=== PATIENT | female | born 1975 | race Caucasian/White ===

== ENCOUNTER → 2024-10-04 | Outpatient (CLI) | payer BC, SELFPAY ==
--- NOTE | 2024-10-04 07:31 | US_ITS ---
PROCEDURE: ABDOMEN LIMITED REASON FOR EXAM: Pain COMPARISON: None FINDINGS: Liver: Grossly normal size and echotexture. Gallbladder: No stones, sludge, wall thickening or tenderness. Common bile duct: Normal measuring 3 mm. Pancreas: Visualized portions are sonographically unremarkable. Visualized portions of the right kidney are unremarkable. No right upper quadrant ascites. US/Abdomen Limited IMPRESSION: No acute sonographic abnormalities. Reading Location: [facility]
== END | disposition home or self-care (01) ==
LOC: US 07:29
PROVIDERS: PCP Nurse Practitioner Family; Referring Provider Student in an Organized Health Care Education/Training Program; Visit Provider Student in an Organized Health Care Education/Training Program
DX: R10.11 Right upper quadrant pain (principal); R10.13 Epigastric pain
CPT/HCPCS: 76705

== ENCOUNTER 2024-12-12 12:09 | Day surgery (SDC) | payer BC, SELFPAY ==
[2024-12-12] VITALS (8 sets, daily range): BP systolic 81–118; BP diastolic 66–87; PULSE 57–78; RESP 16; TEMP 36.2–36.6; O2SAT 96–100; BMI 17.2
--- NOTE | 2024-12-12 12:15 | PCM.PRE.AN2 ---
ASA Classification* ASA Classification ASA Classification: 2 Assessment & Plan Anesthesia* Anesthesia Assessment Anesthesia Assessment: Discussed sedation and/or anesthesia options, risks, benefits, and alternatives with patient/parents/legal guardian/POA. Questions invited. The patient/parents/legal guardian/POA seems to understand and agrees to proceed with anesthesia plan. Reviewed the physical assessment, medical history, allergy history and patient home medications list prior to surgery/procedure/anesthetic and documented any changes. Performed airway and anesthesia risk assessments. 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 When Was Last Pacemaker Check QUESTION #4 FULL TEXT: You/Your Family Experience fever (hyperthermia) with Anesthesia Last Oral Intake Last Oral intake: Last Oral Intake NPO since Meds taken in AM with sips of water? 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 Female Yes 12/10/24 10:38 HX of Motion Sickness Yes 12/10/24 10:38 HX of N/V After Surgery Yes 12/10/24 10:38 Non-Smoker No 12/10/24 10:38 Duration of Surgery greater No 12/10/24 10:38 than 60 minutes Number of Risk Factors 3 12/10/24 10:38 PONV Score Moderate Risk 12/10/24 10:38 Respiratory Assessment Respiratory Assessment - building and grounds supervisor: Respiratory Tract Infection Hx - building and grounds supervisor Hx Respiratory Tract Infection No 12/10/24 10:38 STOP Sleep Apnea STOP Sleep Apnea - building and grounds supervisor: STOP Sleep Apnea - building and grounds supervisor Hx Hypertension No 12/10/24 10:38 Hx Sleep Apnea No 12/10/24 10:38 CPAP BIPAP Do you snore loudly (louder No 12/10/24 10:38 than talking or can be heard Do you often feel tired/ No 12/10/24 10:38 fatigued/ sleepy during daytime? Has anyone observed you stop No 12/10/24 10:38 breathing during sleep? STOP Results Negative 12/10/24 10:38 QUESTION #5 FULL TEXT : Do you snore loudly (louder than talking or can be heard through closed doors)? 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 Specify any problems Hx of Preganancy in last 3 No 12/10/24 10:38 Months Nurse Filling Out Transfusion VCHRISTIN 12/10/24 10:38 & Questions: Date: 12/10/24 12/10/24 10:38 Time: 10:42 12/10/24 10:38 Patient unable to answer at this time (ie. confused, unrespo /Reproduction History /Reproductive History - building and grounds supervisor: /Reproductive Hx- building and grounds supervisor Hx Now No 12/10/24 10:38 Gestational Age (in weeks): EDC: Hx Hx Para Hx Section SAB No 12/10/24 10:38 PFSH Medical History Wears glasses MRSA infection Post-menopausal Anxiety Marijuana use Arthritis Anemia Back pain Difficulty swallowing History of ulceration History of IBS Gastric reflux Vapes nicotine containing substance Smoker Hoarseness History of pain when walking Herpes simplex viral infection Depression Anesthesia complication Polycystic ovaries Neuropathy Heart murmur Irritable bowel syndrome Hives Headache, migraine Gastrointestinal problem Back problem Seasonal allergies Home Medications ?Medication ?Instructions ?Recorded ?Last Taken ?Type multivitamin 1 ea PO DAILY 03/07/17 Unknown History lactobacillus combination no.4 3 3,000 mmu cells PO QDAY 09/30/24 Unknown History billion cell capsule (Probiotic) magnesium 250 mg tablet 250 mg PO QDAY 09/30/24 Unknown History oxybutynin chloride 10 mg 10 mg PO BID 09/30/24 Unknown History tablet,extended release 24 hr pantoprazole 40 mg tablet,delayed 20 mg PO BID 09/30/24 Unknown History release valacyclovir 500 mg tablet 500 mg PO QDAY 09/30/24 Unknown History ondansetron 8 mg disintegrating 8 mg PO Q12H PRN nausea and 12/10/24 Unknown History tablet vomiting Allergy/AdvReac Type Severity Reaction Status Date / Time sucralfate (From Carafate) Allergy Severe Swelling Verified 12/10/24 10:25 sulfamethoxazole (From Allergy Swelling Verified 12/10/24 10:25 Bactrim) trimethoprim (From Bactrim) Allergy Swelling Verified 12/10/24 10:25 Family History Mother Cancer Anemia Arthritis Breast cancer Father Cancer Hypertension Heart disease Diabetes Myocardial infarction, Onset Age: 59 Brother Hypertension Hypercholesteremia Sister Arthritis Other Anxiety Surgical History History of esophagogastroduodenoscopy (EGD) History of hysterectomy History of total right knee replacement S/P right knee arthroscopy History of tonsillectomy Social History Smoking Status: Current every day smoker tobacco type: cigarettes alcohol intake: current substance use type: marijuana Review of Systems (Anesthesia) ROS Narrative System reviewed and no additional complaints, except as documented.
--- NOTE | 2024-12-12 13:30 | EGD_PTH ---
PATIENT: MANJIT GONZALEZ LOC: [facility] U#:[id number] AGE/SX: 49/F ROOM: RE12/12/[address]: Dr. Lloyd Lee DO : 1975 BED: DIS: 12/12/2024 SPEC #: [id number] RECD: 12/15/24 08:43 STATUS: NIKIA KUSH #: [id number] RAJ: 12/12/24 13:[address]: Lloyd Lee DEPT: SURGICAL PATHOLOGY RECD BY: Vishnu Rudolph ENTERED: 12/15/24 08:44 SP TYPE: EGD BIOPSY CLEMENT DR: Teri Garcia, EMPLOYMENT REPRESENTATIVE-C Tissues: A - Gastric mucous membrane B - COLON BIOPSY Procedures: Immunohistochemical Stains Surgery Specimen Level IV HEADER OPERATION: EGD with biopsy PRE-OP DIAGNOSIS: Constipation., gastroparesis, nausea, loose stool, abdominal pain TISSUE SUBMITTED: A- Gastric body biopsy, B- Small bowel biopsy MICROSCOPIC DIAGNOSIS A. Stomach, body, biopsy: * Oxyntic mucosa with features of reactive gastropathy. * IHC negative for H pylori organisms. B. Small bowel, biopsy: * Fragment of small intestinal mucosa with no specific pathologic change. * Fragments of gastric-type mucosa - see note. 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 Recommend correlation with endoscopic finings. MICROSCOPIC DESCRIPTION Slides are reviewed. These tests were developed and their performance characteristics determined by [facility]. They may not have been cleared or approved by the U.S. Food and Drug Administration. The FDA has determined that such clearance or approval is not necessary. The above immunohistochemical/dualISH markers are ordered and reviewed by the Pathologist. GROSS DESCRIPTION A. Received in formalin in a container labeled with the patient's name, date of , and gastric body biopsy for H. pylori and path are 2 fabian-pink fragments of mucosal tissue measuring 0.5 x 0.2 x 0.2 cm and 0.8 x 0.2 x 0.2 cm. Submitted in toto in A1. B. Received in formalin in a container labeled with the patient's name, date of , and small bowel biopsy are 2 fabian-pink fragments of mucosal tissue, each measuring 0.4 x 0.2 x 0.2 cm. Submitted in toto in B1. [facility] 12/22/2024 CPT:11818x3,52809
--- NOTE | 2024-12-12 13:42 | PCM.HP.STD ---
HPI - General General Date of Admission: 12/12/24 Date of Service: 12/12/24 Chief Complaint: weight loss and abdominal pain with dysphagia HPI Narrative MANJIT GONZALEZ, is a 49 F who presents abdominal pain, constipation and weight loss. EGD ..17; Suspected Barrets esophagus, small amount of food debris in stomach, mild gastritis, normal duodenum EGD 5.18.24; small hiatal hernia, mild gastritis EGD 5..24; normal mucosa in the whole esophagus, erythema and congestion in the antrum, normal duodenum CT abd/pelvis 6.14.24; NO acute process within the abd/pelvis GES 6..24; slightly prolonged extrapolated T half emptying time of 126.5 minutes likely secondary to the 1st 60 minutes of imaging acquisition. Other marcelino normal BGI established 1.28.25 with complaints of weight loss, difficult swallowing, heartburn and irregular bowels. Previous work up with Qing HARDWICK. Smokes marijuana daily to stimulate appetite. On Pantoprazole 40 mg BID. Last EGD in 2023 and last colonoscopy about 10 years ago. RUQ US 2.1.25; normal OV 3.18.25; Pt has been struggling with oral intake. She feels full very quickly after eating. She is taking nutritional powder for extra calories. She is eating mostly bland food and avoiding gluten and soy. She is unable to gain weight. She continues to smoke marijuana. She has questions regarding oxybutynin for her bladder incontinence. [facility] Medical History Congenital hernia of foramen of [place] Wears glasses MRSA infection Post-menopausal Anxiety Marijuana use Arthritis Anemia Back pain Difficulty swallowing History of ulceration History of IBS Gastric reflux Vapes nicotine containing substance Smoker Hoarseness History of pain when walking Herpes simplex viral infection Depression Anesthesia complication Polycystic ovaries Neuropathy Heart murmur Irritable bowel syndrome Hives Headache, migraine Gastrointestinal problem Back problem Seasonal allergies Home Medications ?Medication ?Instructions ?Recorded ?Last Taken ?Type multivitamin 1 ea PO DAILY 03/07/17 12/10/24 History lactobacillus combination no.4 3 3,000 mmu cells PO QDAY 09/30/24 12/10/24 History billion cell capsule (Probiotic) magnesium 250 mg tablet 250 mg PO QDAY 09/30/24 12/10/24 History oxybutynin chloride 10 mg 10 mg PO BID 09/30/24 12/11/24 History tablet,extended release 24 hr pantoprazole 40 mg tablet,delayed 20 mg PO BID 09/30/24 12/10/24 History release valacyclovir 500 mg tablet 500 mg PO QDAY 09/30/24 12/10/24 History ondansetron 8 mg disintegrating 8 mg PO Q12H PRN nausea and 12/10/24 12/10/24 History tablet vomiting fluticasone propionate 50 1 spray intranasal DAILY PRN 12/12/24 12/10/24 History mcg/actuation nasal allergy symptoms spray,suspension (24 Hour Allergy Relief) Allergy/AdvReac Type Severity Reaction Status Date / Time sucralfate (From Carafate) Allergy Severe Swelling Verified 12/12/24 12:52 soy Allergy Hives Verified 12/12/24 12:52 sulfamethoxazole (From Allergy Swelling Verified 12/12/24 12:52 Bactrim) trimethoprim (From Bactrim) Allergy Swelling Verified 12/12/24 12:52 Family History Mother Cancer Anemia Arthritis Breast cancer Father Cancer Hypertension Heart disease Diabetes Myocardial infarction, Onset Age: 59 Brother Hypertension Hypercholesteremia Sister Arthritis Other Anxiety Surgical History History of esophagogastroduodenoscopy (EGD) History of hysterectomy History of total right knee replacement S/P right knee arthroscopy History of tonsillectomy Social History Smoking Status: Current every day smoker tobacco type: cigarettes alcohol intake: current substance use type: marijuana ROS Constitutional Constitutional: Denies fatigue, fever(s), poor appetite, weight gain or weight loss Gastrointestinal Gastrointestinal: Denies belching, bloating, change in bowel habits, change in stool character, chewing difficulty, coffee ground emesis, constipation, cramping, diarrhea, dyspepsia, dysphagia, early satiety, excessive flatus, fecal incontinence, heartburn, hematemesis, hematochezia, hemorrhoids, loose stools, melena, nausea, odynophagia, rectal bleeding, tenesmus, vomiting or weight changes Vital Signs Vital Signs Vital Signs: 12/12/24 12:58 12/12/24 12:58 Temperature 98 F Temperature Source Temporal Pulse Rate 57 L Respiratory Rate 16 Respiratory Pattern Normal Blood Pressure 118/86 H Blood Pressure Mean 96 Blood Pressure Source Monitor Blood Pressure Position Semi-Fowlers Blood Pressure Location Left Arm Pulse Ox 100 Oxygen Delivery Method Room Air Weight Weight: 103 lb 2.821 oz Body Mass Index (BMI) 17.2 Physical Exam Const alert, oriented x3, no apparent distress and healthy appearing General Appearance: cooperative GI normal to inspection, nondistended, normoactive bowel sounds, soft to palpation, non-tender and non-distended Percussion: normal to percussion Rectal Exam: deferred Assessment & Plan Assessment/Plan (1) Constipation: (2) Gastroparesis: (3) Nausea: (4) Loose stools: (5) Abdominal pain: PLAN: Assessment and Plan Assessment and Plan (1) Gastroparesis: Status: Acute Plan: This is a 49 yo female pt with hx of gastroparesis here today for f/u. Pt continues to struggle with oral intake due to early satiety. She cannot maintain a normal weight. I reviewed options for treatment with patient. She declines tx with Reglan as she is concern about side effects. Will order 4 hour gastric emptying study and consider referral to gastroparesis clinic if indicated. She will also have a repeat EGD. She has not had a colonoscopy in 10 years so she will have one in conjunction with the EGD. She is having constipation. I provided samples of Linzess 72 mcg and if she has good results I will send in prescription for this. -4 hour GES -EGD and colonoscopy -Declines Reglan -Consider other tx for gastroparesis -Consider referral to gastroparesis appointemnt (2) Nausea: Status: Acute (3) Constipation: Status: Acute Orders: Orders Gastric Emptying Study - 4 HR Today K31.84 - Gastroparesis
--- NOTE | 2024-12-12 14:15 | OP.EGD_ITS ---
Patient Name: Kia Villagran Procedure Date: 12/12/2024 1:45 PM Date of : 1975 Age: 49 Procedure: Upper GI endoscopy Indications: Epigastric abdominal pain, Functional Dyspepsia Providers: Lloyd Lee DO Medicines: Monitored Anesthesia Care Patient Profile: This is a 49 year old female. Refer to note in patient chart for documentation of history and physical. Patient has symptoms of chronic epigastric abdominal pain, chronic dyspepsia and chronic nausea. Complications: No immediate complications. Procedure: Pre-Anesthesia Assessment: - Prior to the procedure, a History and Physical was performed, and patient medications and allergies were reviewed. The patient is competent. The risks and benefits of the procedure and the sedation options and risks were discussed with the patient. All questions were answered and informed consent was obtained. Patient identification and proposed procedure were verified by the physician in the pre-procedure area. Mental Status Examination: alert and oriented. Airway Examination: normal oropharyngeal airway and neck mobility. Respiratory Examination: clear to auscultation. CV Examination: normal. Prophylactic Antibiotics: The patient does not require prophylactic antibiotics. Prior Anticoagulants: The patient has taken no anticoagulant or antiplatelet agents except for NSAID medication. ASA Grade Assessment: II - A patient with mild systemic disease. After reviewing the risks and benefits, the patient was deemed in satisfactory condition to undergo the procedure. The anesthesia plan was to use monitored anesthesia care (MAC). Immediately prior to administration of medications, the patient was re-assessed for adequacy to receive sedatives. The heart rate, respiratory rate, oxygen saturations, blood pressure, adequacy of pulmonary ventilation, and response to care were monitored throughout the procedure. The physical status of the patient was re-assessed after the procedure. After obtaining informed consent, the endoscope was passed under direct vision. Throughout the procedure, the patient's blood pressure, pulse, and oxygen saturations were monitored continuously. The gastroscope was introduced through the mouth, and advanced to the third part of the duodenum. Small bowel enteroscopy was deemed necessary. The upper GI endoscopy was accomplished without difficulty. The patient tolerated the procedure well. Scope In: 2:02:01 PM Scope Out: 2:06:55 PM Total Procedure Duration Time 0 hours 4 minutes 54 seconds Findings: The examined esophagus was normal. Bilious fluid was found in the gastric body. Patchy mildly erythematous mucosa without bleeding was found in the gastric body and in the gastric antrum. Biopsies were taken with a cold forceps for histology. Verification of patient identification for the specimen was done. Biopsies were taken with a cold forceps for Helicobacter pylori testing. Verification of patient identification for the specimen was done. Estimated blood loss was minimal. Patchy mildly erythematous mucosa without active bleeding and with no stigmata of bleeding was found in the duodenal bulb and in the first portion of the duodenum. Impression: - Normal esophagus. - Bilious gastric fluid. - Erythematous mucosa in the gastric body and antrum. Biopsied. - Erythematous duodenopathy. Recommendation: - Discharge patient to home. - Resume previous diet. - Continue present medications. - Await pathology results. Procedure Code(s): --- Professional --- 92917, Small intestinal endoscopy, enteroscopy beyond second portion of duodenum, not including ileum; with biopsy, single or multiple CPT copyright 2021 [employer]. All rights reserved. The codes documented in this report are preliminary and upon occupational therapy technician review may be revised to meet current compliance requirements. Lloyd Lee DO 12/12/2024 2:15:28 PM This report has been signed electronically. Number of Addenda: 0 Note Initiated On: 12/12/2024 1:45 PM
--- NOTE | 2024-12-12 14:16 | OP.CCLET_ITS ---
12/12/2024 Teri Garcia Re : Upper GI endoscopy procedure for Kia Villagran Dear Jose This procedure was performed on Thursday, December 12, 2024. My impressions and recommendations are as follows: Impressions : - Normal esophagus. - Bilious gastric fluid. - Erythematous mucosa in the gastric body and antrum. Biopsied. - Erythematous duodenopathy. Recommendations : - Discharge patient to home. - Resume previous diet. - Continue present medications. - Await pathology results. My findings are described in the full procedure note, which is enclosed. If I can be of further assistance, please feel free to contact me at . Sincerely, Lloyd Lee, 12/12/2024 2:15:28 PM This report has been signed electronically.
--- NOTE | 2024-12-12 14:16 | PCM.POST.ANE ---
Anesthesia: Postop Eval I Current Vital Signs Temperature: 97.9 F Pulse Rate: 71 Blood Pressure: 86/67 Respiratory Rate: 16 Pulse Ox: 98 Oxygen Delivery Method: Room Air Assessment Airway patent: Yes Spontaneous unlabored respirations: Yes Mental status: Asleep nausea: No Vomiting: No Anesthesia Complication: No Fluid Hydration Crystalloid volume administer (ml): 30 Total IV fluid infused: 30 Progress Note Anesthesia document: Postop Eval 1 completed: Yes
--- NOTE | 2024-12-12 14:59 | PCM.POSTANE2 ---
Anesthesia Postop Eval I Sum Postop Eval Completion status Anesthesia document: Postop Eval 1 completed: Yes Anesthesia Postop Eval I Summary Anesthesia Postop Eval I Summary: Anesthesia Postop Eval I: Assessment Summary Airway patent Yes 12/12/24 14:17 [email or web address] Spontaneous unlabored Yes 12/12/24 14:17 [email or web address] respirations Mental status Asleep 12/12/24 14:17 [email or web address] nausea No 12/12/24 14:17 [email or web address] Vomiting No 12/12/24 14:17 [email or web address] Anesthesia Postop Eval I: Fluid Summary Crystalloid volume administer 30 12/12/24 14:17 [email or web address] (ml) Colloids volume administered ( ml) Blood Product volume administered (ml) Total IV fluid infused 30 12/12/24 14:17 [email or web address] Anesthesia Postop Eval I: Summary Notes Anesthesia Complication No 12/12/24 14:17 [email or web address] Anesthesia Complication Comment: Post-operative progress note Anesthesia: Postop Eval II Evaluation Mental status: Awake Pain Level: 0 nausea: No Vomiting: No
== END 2024-12-12 15:25 | disposition home or self-care (01) ==
LOC: EN 12:10 → AC 12:11
PROVIDERS: PCP Nurse Practitioner Family; Referring Provider Nurse Practitioner Family; Visit Provider Internal Medicine Gastroenterology
PROC: 0DJ08ZZ Inspection of Upper Intestinal Tract, Via Natural or Artificial Opening Endoscopic (ICD-10-PCS; CPT 43235; principal; 2024-12-12 13:25)
DX: K31.84 Gastroparesis (principal); R19.7 Diarrhea, unspecified; K21.9 Gastro-esophageal reflux disease without esophagitis; Z79.899 Other long term (current) drug therapy; F17.210 Nicotine dependence, cigarettes, uncomplicated; K59.00 Constipation, unspecified
CPT/HCPCS: 43239; 88305; 88342; A4216; J2405

== ENCOUNTER → 2024-12-17 | Outpatient (CLI) | payer BC, SELFPAY ==
--- NOTE | 2024-12-17 07:08 | NM_ITS ---
PROCEDURE: GASTRIC EMPTYING STUDY - 4 HR 12/17/2024 REASON FOR EXAM: GASTROPARESIS COMPARISON: None. TECHNIQUE: The patient ingested a standard meal of cooked eggs with the bread and 2 pads of butter. There was no vomiting postprandially. Anterior and posterior planar images of the upper abdomen were obtained for 1 minute immediately following the meal at 1h, 2h and 4h if more than 10% of the activity persisted within the stomach. Regions of interest were drawn, and a geometric mean was used to calculate a [id number]. RADIOPHARMACEUTICAL: 1.1 mCi of technetium labeled sulfur colloid 66 FINDINGS: Percent activity remaining in stomach: 1 hour 66 % (normal 37-90%) 2 hours: 26 % (normal 30-60%) 4 hours: 9 % (normal 0-10%) NM/Gastric Emptying Study - 4 HR IMPRESSION: Normal gastric emptying. Reading Location: [place] [id number]
== END | disposition home or self-care (01) ==
LOC: NM 07:06
PROVIDERS: PCP Nurse Practitioner Family; Referring Provider Student in an Organized Health Care Education/Training Program; Visit Provider Student in an Organized Health Care Education/Training Program
DX: K31.84 Gastroparesis (principal)
CPT/HCPCS: 78264; A9541

== ENCOUNTER 2025-01-13 12:33 | Day surgery (SDC) | payer BC, SELFPAY ==
[2025-01-13] VITALS (9 sets, daily range): BP systolic 84–103; BP diastolic 52–74; PULSE 52–68; RESP 14–18; TEMP 36–36.6; O2SAT 100; BMI 18.9
--- NOTE | 2025-01-13 12:39 | PCM.HP.STD ---
HPI - General General Date of Admission: 01/13/25 Date of Service: 01/13/25 Chief Complaint: Abdominal pain HPI Narrative MANJIT GONZALEZ, is a 49 F who presents for the evaluation of epigastric pain I established Sep 2024 with weight loss, difficulty swallowing,heartburn and irregular bm. EGD 07.17.17; Suspected Barrets esophagus, small amount of food debris in stomach, mild gastritis, normal duodenum EGD 01.19.24; small hiatal hernia, mild gastritis EGD 01.14.24; normal mucosa in the whole esophagus, erythema and congestion in the antrum, normal duodenum CT abd/pelvis 02.15.24; NO acute process within the abd/pelvis GES 6..24; slightly prolonged extrapolated T half emptying time of 126.5 minutes likely secondary to the 1st 60 minutes of imaging acquisition. Other marcelino normal RUQ US 2.1.25; normal Last OV 3.18.25 Pt continues to have issues with oral intake. She gets full very quickly after eating. Unable to gain weight. Continues to smoke marijuana EGD 12.12.24; - Normal esophagus. - Bilious gastric fluid. - Erythematous mucosa in the gastric body and antrum. Biopsied. - Erythematous duodenopathy. 4 hour GES 4.16.25; normal OV 4.28.25; Pt has been able to eat some soft foods without pain. She tells me Dr. Lee wanted to get a barium swallow after the EGD. She still has episodes of severe pain but Levsin and zofran has been helpful. FOR[facility]LY [facility], [facility] Medical History History of MRSA infection Congenital hernia of foramen of [place] Wears glasses Post-menopausal Anxiety Marijuana use Arthritis Anemia Back pain Difficulty swallowing History of ulceration History of IBS Gastric reflux Vapes nicotine containing substance Smoker Hoarseness History of pain when walking Herpes simplex viral infection Depression Anesthesia complication Polycystic ovaries Neuropathy Heart murmur Irritable bowel syndrome Headache, migraine Gastrointestinal problem Back problem Seasonal allergies Home Medications ?Medication ?Instructions ?Recorded ?Last Taken ?Type multivitamin 1 ea PO DAILY 03/07/17 12/10/24 History lactobacillus combination no.4 3 3,000 mmu cells PO QDAY 09/30/24 12/10/24 History billion cell capsule (Probiotic) magnesium 250 mg tablet 250 mg PO QDAY 09/30/24 12/10/24 History oxybutynin chloride 10 mg 10 mg PO BID 09/30/24 12/11/24 History tablet,extended release 24 hr pantoprazole 40 mg tablet,delayed 40 mg PO BID 09/30/24 12/10/24 History release valacyclovir 500 mg tablet 500 mg PO QDAY 09/30/24 12/10/24 History fluticasone propionate 50 1 spray intranasal DAILY PRN 12/12/24 12/10/24 History mcg/actuation nasal allergy symptoms spray,suspension (24 Hour Allergy Relief) hyoscyamine sulfate 0.125 mg tablet 0.125 mg PO BID-QID PRN dyspepsia 12/16/24 Unknown Rx #30 tabs ondansetron 8 mg disintegrating 8 mg PO Q12H PRN nausea and 12/29/24 Unknown Rx tablet vomiting #30 tabs Allergy/AdvReac Type Severity Reaction Status Date / Time sucralfate (From Carafate) Allergy Severe Swelling Verified 01/09/25 09:16 soy Allergy Hives Verified 01/09/25 09:16 sulfamethoxazole (From Allergy Swelling Verified 01/09/25 09:16 Bactrim) trimethoprim (From Bactrim) Allergy Swelling Verified 01/09/25 09:16 Family History Mother Cancer Anemia Arthritis Breast cancer Father Cancer Hypertension Heart disease Diabetes Myocardial infarction, Onset Age: 59 Brother Hypertension Hypercholesteremia Sister Arthritis Other Anxiety Surgical History History of esophagogastroduodenoscopy (EGD) History of hysterectomy History of total right knee replacement S/P right knee arthroscopy History of tonsillectomy Social History Smoking Status: Current every day smoker tobacco type: cigarettes alcohol intake: current substance use type: marijuana ROS Constitutional Constitutional: Denies fatigue, fever(s), poor appetite, weight gain or weight loss Gastrointestinal Gastrointestinal: Denies belching, bloating, change in bowel habits, change in stool character, chewing difficulty, coffee ground emesis, constipation, cramping, diarrhea, dyspepsia, dysphagia, early satiety, excessive flatus, fecal incontinence, heartburn, hematemesis, hematochezia, hemorrhoids, loose stools, melena, nausea, odynophagia, rectal bleeding, tenesmus, vomiting or weight changes Physical Exam Const alert, oriented x3, no apparent distress and healthy appearing General Appearance: cooperative GI normal to inspection, nondistended, normoactive bowel sounds, soft to palpation, non-tender and non-distended Percussion: normal to percussion Rectal Exam: deferred Assessment & Plan Assessment/Plan (1) Constipation: (2) Gastroparesis: (3) Nausea: (4) Abdominal pain: (5) Difficulty swallowing: PLAN: Assessment and Plan Assessment and Plan (1) Difficulty swallowing: Status: Acute Comment: FOR YEARS Plan: This is a 49 yo female pt here today for f/u after EGD. Pt established with [facility] in Sep 2024 with complaints of abdominal pain, weight loss, and n/v. She underwent 4 hour GES and RUQ US which were normal. Recent EGD showing bilious gastric fluid and inflammation. 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 However this was not ordered. I have put this order in now. She has been doing better since the scope and has been able to eat more and gain a little weight. She will continue Levsin and Zofran PRN which seems to help with her episodes of epigastric pain. SHe will f/u in3 months. -Continue Levsin and Zofran PRN -Barium esophagram -f/u in 3 months (2) Nausea: Status: Acute (3) Abdominal pain: Status: Acute Orders: Orders Esophagus Dual Contrast Today R13.10 - Dysphagia, unspecified Medications: New ondansetron 8 mg PO Q12H PRN 30 tabs 2RF nausea and vomiting
[2025-01-13] MEDS: Lactated Ringers 1,000 ML 15 ML IV (13:38)
--- NOTE | 2025-01-13 13:42 | PCM.PRE.AN2 ---
ASA Classification* ASA Classification ASA Classification: 2 Assessment & Plan Anesthesia* Anesthesia Assessment Anesthesia Assessment: Discussed sedation and/or anesthesia options, risks, benefits, and alternatives with patient/parents/legal guardian/POA. Questions invited. The patient/parents/legal guardian/POA seems to understand and agrees to proceed with anesthesia plan. Reviewed the physical assessment, medical history, allergy history and patient home medications list prior to surgery/procedure/anesthetic and documented any changes. Performed airway and anesthesia risk assessments. 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 When Was Last Pacemaker Check QUESTION #4 FULL TEXT: You/Your Family Experience fever (hyperthermia) with Anesthesia Last Oral Intake Last Oral intake: Last Oral Intake NPO since 04:00 01/13/25 13:35 Meds taken in AM with sips of No 01/13/25 13:35 water? 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 and fixture builder apprentice Female Yes 01/09/25 09:20 HX of Motion Sickness Yes 01/09/25 09:20 HX of N/V After Surgery No 01/09/25 09:20 Non-Smoker No 01/09/25 09:20 Duration of Surgery greater No 01/09/25 09:20 than 60 minutes Number of Risk Factors 2 01/09/25 09:20 PONV Score Moderate Risk 01/09/25 09:20 Height & Weight Height & Weight: Anesthesia: Height & Weight Height 5 ft 5 in 01/13/25 13:35 Weight: 51.7 kg 01/13/25 13:35 Body Mass Index (BMI) 18.9 01/13/25 13:35 Respiratory Assessment Respiratory Assessment - jig and fixture builder apprentice: Respiratory Tract Infection Hx - jig and fixture builder apprentice Hx Respiratory Tract Infection No 01/09/25 09:20 STOP Sleep Apnea STOP Sleep Apnea - jig and fixture builder apprentice: STOP Sleep Apnea - jig and fixture builder apprentice Hx Hypertension No 01/09/25 09:20 Hx Sleep Apnea No 01/09/25 09:20 CPAP BIPAP Do you snore loudly (louder No 01/09/25 09:20 than talking or can be heard Do you often feel tired/ No 01/09/25 09:20 fatigued/ sleepy during daytime? Has anyone observed you stop Yes 01/09/25 09:20 breathing during sleep? STOP Results Negative 01/09/25 09:20 QUESTION #5 FULL TEXT : Do you snore loudly (louder than talking or can be heard through closed doors)? 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 Specify any problems Hx of Preganancy in last 3 No 01/09/25 09:20 Months Nurse Filling Out Transfusion MGRIFFITH 01/09/25 09:20 & Questions: Date: 01/09/25 01/09/25 09:20 Time: :01/09/25 09:20 Patient unable to answer at this time (ie. confused, unrespo /Reproduction History /Reproductive History - jig and fixture builder apprentice: /Reproductive Hx- jig and fixture builder apprentice Hx Now No 01/09/25 09:20 Gestational Age (in weeks): EDC: Hx Hx Para Hx Section SAB No 01/09/25 09:20 Active Medications Active Medications: Current Medications Generic Name Dose Route Start Last Admin Trade Name Freq PRN Reason Stop Dose Admin Lactated Ringer's 1,000 mls @ 15 mls/hr 01/13/25 12:45 01/13/25 13:38 IV 15 mls/hr .Q48H JOHNNIE Administration PFSH Medical History History of MRSA infection Congenital hernia of foramen of [place] Wears glasses Post-menopausal Anxiety Marijuana use Arthritis Anemia Back pain Difficulty swallowing History of ulceration History of IBS Gastric reflux Vapes nicotine containing substance Smoker Hoarseness History of pain when walking Herpes simplex viral infection Depression Anesthesia complication Polycystic ovaries Neuropathy Heart murmur Irritable bowel syndrome Headache, migraine Gastrointestinal problem Back problem Seasonal allergies Home Medications ?Medication ?Instructions ?Recorded ?Last Taken ?Type multivitamin 1 ea PO DAILY 03/07/17 12/10/24 History lactobacillus combination no.4 3 3,000 mmu cells PO QDAY 09/30/24 12/10/24 History billion cell capsule (Probiotic) magnesium 250 mg tablet 250 mg PO QDAY 09/30/24 12/10/24 History oxybutynin chloride 10 mg 10 mg PO BID 09/30/24 12/11/24 History tablet,extended release 24 hr pantoprazole 40 mg tablet,delayed 40 mg PO BID 09/30/24 12/10/24 History release valacyclovir 500 mg tablet 500 mg PO QDAY 09/30/24 12/10/24 History fluticasone propionate 50 1 spray intranasal DAILY PRN 12/12/24 12/10/24 History mcg/actuation nasal allergy symptoms spray,suspension (24 Hour Allergy Relief) hyoscyamine sulfate 0.125 mg tablet 0.125 mg PO BID-QID PRN dyspepsia 12/16/24 Unknown Rx #30 tabs ondansetron 8 mg disintegrating 8 mg PO Q12H PRN nausea and 12/29/24 Unknown Rx tablet vomiting #30 tabs Allergy/AdvReac Type Severity Reaction Status Date / Time sucralfate (From Carafate) Allergy Severe Swelling Verified 01/13/25 13:34 soy Allergy Hives Verified 01/13/25 13:34 sulfamethoxazole (From Allergy Swelling Verified 01/13/25 13:34 Bactrim) trimethoprim (From Bactrim) Allergy Swelling Verified 01/13/25 13:34 Family History Mother Cancer Anemia Arthritis Breast cancer Father Cancer Hypertension Heart disease Diabetes Myocardial infarction, Onset Age: 59 Brother Hypertension Hypercholesteremia Sister Arthritis Other Anxiety Surgical History History of esophagogastroduodenoscopy (EGD) History of hysterectomy History of total right knee replacement S/P right knee arthroscopy History of tonsillectomy Social History Smoking Status: Current every day smoker tobacco type: cigarettes alcohol intake: current substance use type: marijuana Review of Systems (Anesthesia) ROS Narrative System reviewed and no additional complaints, except as documented. Physical Exam Const alert and oriented x3 Resp normal respiratory effort and normal air movement Auscultation: clear to auscultation bilaterally Cardio regular rate and regular rhythm Neuro oriented x3 and moves all extremities
--- NOTE | 2025-01-13 13:45 | COLBX_PTH ---
PATIENT: MANJIT GONZALEZ LOC: EN U#:[id number] AGE/SX: 49/F ROOM: RE01/13/[address]: Dr. Lloyd Lee DO : 1975 BED: DIS: 01/13/2025 SPEC #: [id number] RECD: 01/13/25 14:55 STATUS: NIKIA REVeena #: [id number] RAJ: 01/13/25 13:[address]: Lloyd Lee DEPT: SURGICAL PATHOLOGY RECD BY: Vishnu Rudolph ENTERED: 01/13/25 15:18 SP TYPE: COLON BX OT DR: Teri Garcia, DRILLING ENGINEER-C Tissues: A - Rectum, NOS Procedures: Surgery Specimen Level IV HEADER OPERATION: Colonoscopy with biopsy PRE-OP DIAGNOSIS: Constipation, gastroparesis, nausea, abdominal pain, difficulty swallowing TISSUE SUBMITTED: A- Rectal polyp biopsy MICROSCOPIC DIAGNOSIS A. Rectum, polyp, biopsy: * Hyperplastic polyp MICROSCOPIC DESCRIPTION Slides are reviewed. GROSS DESCRIPTION A. Received in formalin in a container labeled with the patient's name, date of , and rectal polyp biopsy is a 0.4 x 0.2 x 0.2 cm fragment of fabian-pink mucosal tissue. Submitted in toto in A1. B 01-13-2025 CPT:16317
--- NOTE | 2025-01-13 14:27 | OP.CCLET_ITS ---
01/13/2025 Teri Garcia Re : Colonoscopy procedure for Kia Villagran Dear Jose This procedure was performed on Monday, January 13, 2025. My impressions and recommendations are as follows: Impressions : - Preparation of the colon was fair. - One 5 mm polyp in the rectum, removed with a jumbo cold forceps. Resected and retrieved. - Diverticulosis in the recto-sigmoid colon and in the sigmoid colon. - Stool in the sigmoid colon, in the transverse colon, in the ascending colon and in the cecum. - The examination was otherwise normal on direct and retroflexion views. Recommendations : - Discharge patient to home. - Resume previous diet. - Continue present medications. - Await pathology results. - Repeat colonoscopy in 5 years for surveillance. My findings are described in the full procedure note, which is enclosed. If I can be of further assistance, please feel free to contact me at . Sincerely, Lloyd Lee, 01/13/2025 2:27:28 PM This report has been signed electronically.
--- NOTE | 2025-01-13 14:27 | OP.COLON_ITS ---
Patient Name: Kia Villagran Procedure Date: 01/13/2025 1:18 PM Date of : 1975 Age: 49 Procedure: Colonoscopy Indications: Screening for colorectal malignant neoplasm Providers: Lloyd Lee DO Referring MD: Teri Garcia Medicines: Monitored Anesthesia Care Patient Profile: This is a 49 year old female. Refer to note in patient chart for documentation of history and physical. Last Colonoscopy: none. The patient's first colonoscopy is today. Complications: No immediate complications. Procedure: Pre-Anesthesia Assessment: - Prior to the procedure, a History and Physical was performed, and patient medications and allergies were reviewed. The patient is competent. The risks and benefits of the procedure and the sedation options and risks were discussed with the patient. All questions were answered and informed consent was obtained. Patient identification and proposed procedure were verified in the pre-procedure area. Mental Status Examination: alert and oriented. Airway Examination: normal oropharyngeal airway and neck mobility. Respiratory Examination: clear to auscultation. CV Examination: normal. Prophylactic Antibiotics: The patient does not require prophylactic antibiotics. Prior Anticoagulants: The patient has taken no anticoagulant or antiplatelet agents except for NSAID medication. ASA Grade Assessment: II - A patient with mild systemic disease. After reviewing the risks and benefits, the patient was deemed in satisfactory condition to undergo the procedure. The anesthesia plan was to use monitored anesthesia care (MAC). Immediately prior to administration of medications, the patient was re-assessed for adequacy to receive sedatives. The heart rate, respiratory rate, oxygen saturations, blood pressure, adequacy of pulmonary ventilation, and response to care were monitored throughout the procedure. The physical status of the patient was re-assessed after the procedure. After I obtained informed consent, the scope was passed under direct vision. Throughout the procedure, the patient's blood pressure, pulse, and oxygen saturations were monitored continuously. The Colonoscope was introduced through the anus and advanced to the cecum, identified by appendiceal orifice and ileocecal valve. The colonoscopy was performed without difficulty. The patient tolerated the procedure well. The quality of the bowel preparation was fair. The ileocecal valve, appendiceal orifice, and rectum were photographed. Scope In: 2:01:50 PM Scope Withdrawal Time 0 hours 10 minutes 35 seconds Scope Out: 2:23:50 PM Total Procedure Duration Time 0 hours 22 minutes 0 seconds Findings: The perianal and digital rectal examinations were normal. A 5 mm polyp was found in the rectum. The polyp was sessile. The polyp was removed with a jumbo cold forceps. Resection and retrieval were complete. Verification of patient identification for the specimen was done. Estimated blood loss was minimal. A few small-mouthed diverticula were found in the recto-sigmoid colon and sigmoid colon. Stool was found in the sigmoid colon, in the transverse colon, in the ascending colon and in the cecum. The exam was otherwise without abnormality on direct and retroflexion views. Impression: - Preparation of the colon was fair. - One 5 mm polyp in the rectum, removed with a jumbo cold forceps. Resected and retrieved. - Diverticulosis in the recto-sigmoid colon and in the sigmoid colon. - Stool in the sigmoid colon, in the transverse colon, in the ascending colon and in the cecum. - The examination was otherwise normal on direct and retroflexion views. Recommendation: - Discharge patient to home. - Resume previous diet. - Continue present medications. - Await pathology results. - Repeat colonoscopy in 5 years for surveillance. Procedure Code(s): --- Professional --- 49952, Colonoscopy, flexible; with biopsy, single or multiple CPT copyright 2021 [employer]. All rights reserved. The codes documented in this report are preliminary and upon ammonia box operator review may be revised to meet current compliance requirements. Lloyd Lee DO 01/13/2025 2:27:28 PM This report has been signed electronically. Number of Addenda: 0 Note Initiated On: 01/13/2025 1:18 PM
--- NOTE | 2025-01-13 14:35 | PCM.POST.ANE ---
Anesthesia: Postop Eval I Current Vital Signs Temperature: 97 F Pulse Rate: 68 Blood Pressure: 91/61 Respiratory Rate: 16 Pulse Ox: 100 Oxygen Delivery Method: Room Air Assessment Airway patent: Yes Spontaneous unlabored respirations: Yes Mental status: Asleep nausea: No Vomiting: No Anesthesia Complication: No Fluid Hydration Crystalloid volume administer (ml): 900 Total IV fluid infused: 900 Progress Note Anesthesia document: Postop Eval 1 completed: Yes
--- NOTE | 2025-01-13 16:22 | PCM.POSTANE2 ---
Anesthesia Postop Eval I Sum Postop Eval Completion status Anesthesia document: Postop Eval 1 completed: Yes Anesthesia Postop Eval I Summary Anesthesia Postop Eval I Summary: Anesthesia Postop Eval I: Assessment Summary Airway patent Yes 01/13/25 14:36 [email or web address] Spontaneous unlabored Yes 01/13/25 14:36 [email or web address] respirations Mental status Asleep 01/13/25 14:36 [email or web address] nausea No 01/13/25 14:36 [email or web address] Vomiting No 01/13/25 14:36 [email or web address] Anesthesia Postop Eval I: Fluid Summary Crystalloid volume administer 900 01/13/25 14:36 [email or web address] (ml) Colloids volume administered ( ml) Blood Product volume administered (ml) Total IV fluid infused 900 01/13/25 14:36 [email or web address] Anesthesia Postop Eval I: Summary Notes Anesthesia Complication No 01/13/25 14:36 [email or web address] Anesthesia Complication Comment: Post-operative progress note Anesthesia: Postop Eval II Evaluation Mental status: Awake and Calm Pain Level: 0 nausea: No Vomiting: No Complications Anesthesia Complication: No
== END 2025-01-13 15:13 | disposition home or self-care (01) ==
LOC: EN 12:34 → AC 12:35
PROVIDERS: PCP Nurse Practitioner Family; Referring Provider Nurse Practitioner Family; Visit Provider Internal Medicine Gastroenterology
PROC: 0DJD8ZZ Inspection of Lower Intestinal Tract, Via Natural or Artificial Opening Endoscopic (ICD-10-PCS; CPT 45378; principal; 2025-01-13 13:40)
DX: Z12.11 Encounter for screening for malignant neoplasm of colon (principal); K57.30 Diverticulosis of large intestine without perforation or abscess without bleeding; K21.9 Gastro-esophageal reflux disease without esophagitis; K31.84 Gastroparesis; K62.1 Rectal polyp; F17.210 Nicotine dependence, cigarettes, uncomplicated
CPT/HCPCS: 45380; 88305; J2405

== ENCOUNTER → 2025-02-09 | Outpatient (CLI) | payer BC, SELFPAY ==
--- NOTE | 2025-02-09 09:35 | RAD_ITS ---
PROCEDURE: ESOPHAGUS DUAL CONTRAST 02/09/2025 REASON FOR EXAM: DIFFICULTY SWALLOWING TECHNIQUE: The patient ingested barium. Multiple images of the esophagus were obtained. 36 seconds of fluoroscopy. 1.8 mGy. COMPARISON: None FINDINGS: The patient ingested barium. Multiple images were obtained. The esophagus is unremarkable. No evidence of obstruction. No mass lesion is seen. No evidence of gastroesophageal reflux. The patient ingested a 12 mm tablet the barium without any difficulty. RAD/Esophagus Dual Contrast IMPRESSION: Unremarkable air contrast upper GI series. Reading Location: [place] [id number]
== END | disposition home or self-care (01) ==
LOC: RAD 09:08
PROVIDERS: PCP Nurse Practitioner Family; Referring Provider Student in an Organized Health Care Education/Training Program; Visit Provider Student in an Organized Health Care Education/Training Program
DX: R13.10 Dysphagia, unspecified (principal)
CPT/HCPCS: 74221

== ENCOUNTER → 2025-04-21 | Outpatient (CLI) | payer BC, SELFPAY ==
[2025-04-27 12:08] LABS: Egg, Whole <0.10 kU/L (Class 0); Mussels <0.10 kU/L (Class 0)
== END | disposition home or self-care (01) ==
LOC: LAB 14:44
PROVIDERS: PCP Nurse Practitioner Family; Referring Provider Student in an Organized Health Care Education/Training Program; Visit Provider Student in an Organized Health Care Education/Training Program
DX: K59.00 Constipation, unspecified (principal); K31.84 Gastroparesis; R11.0 Nausea
CPT/HCPCS: 36415; 86003; 86005

== ENCOUNTER → 2025-04-27 | Outpatient (CLI) | payer BC, SELFPAY ==
[2025-04-28 11:09] LABS: Giardia Lamblia, Stool EIA Negative (Negative); Pancreatic Elastase, Fecal > 800 (>200)
[2025-04-29 15:09] LABS: Calprotectin, Stool 40 ug/g (0-120)
== END | disposition home or self-care (01) ==
LOC: LABSPEC 11:51
PROVIDERS: PCP Nurse Practitioner Family; Referring Provider Student in an Organized Health Care Education/Training Program; Visit Provider Student in an Organized Health Care Education/Training Program
DX: R19.5 Other fecal abnormalities (principal); K58.9 Irritable bowel syndrome, unspecified
CPT/HCPCS: 82653; 83630; 83993; 87329; 87493; 87506

== ENCOUNTER → 2025-05-07 | Outpatient (CLI) | payer BC, SELFPAY ==
--- NOTE | 2025-05-07 16:05 | CT_ITS ---
PROCEDURE: CTA ABDOMEN W/WO CONTRAST 05/07/2025 REASON FOR EXAM: RULE OUT SMA SYNDROME TECHNIQUE: Procedure Code: [id number] Modality: CT Procedure: CTA ABDOMEN W/WO CONTRAST Multiplanar Sagittal and Coronal images were obtained. 3D and or MIPS post processing was performed CONTRAST: Isovue 370 VOLUME: 100 mL One or more dose reduction techniques were used (e.g., Automated exposure control, adjustment of the mA and/or kV according to patient size, use of iterative reconstruction technique). RADIATION DOSE SUMMARY: CTDlvol: 49 mGy DLP: 317.7 mGycm COMPARISON: None. FINDINGS: Lung bases: Mild dependent atelectasis. ABDOMEN Liver: Hyper enhancing lesion inferior right lobe of the liver image 68, measures 1.2 cm. Remainder liver negative. Biliary system: Negative for intrahepatic or extrahepatic ductal dilatation. Gallbladder: Negative. Negative for cholecystitis. Spleen: Negative. Pancreas: Negative. Adrenals: Negative. Kidneys: Negative. Negative for kidney stones, cysts or masses. Bowel: Marked increased stool throughout the colon. Negative for small or large-bowel obstruction. Appendix: Imaged portions negative. Vasculature: The duodenum does extend between the superior mesenteric artery and aorta with a distance of between 6 and 9 mm. No evidence of dilatation of the duodenum related to this and therefore no definitive mass effect. Remainder of the celiac artery and branches, superior mesenteric artery and branches, renal arteries inferior mesenteric artery and branches negative. Negative for atherosclerotic vascular calcifications of the abdominal aorta and its branches. Peritoneum / Retroperitoneum: Negative. Bones and Soft Tissues: Age appropriate degenerative changes of the lumbar spine hips and pelvis. CT/CTA Abdomen W/WO Contrast IMPRESSION: Duodenum does extend between the superior mesenteric artery and aorta with a di ameter of 6-9 mm without evidence of dilatation of the duodenum. Therefore no definitive SMA syndrome. No definitive mass effect or dilatation of the duodenum as above. Marked constipation. Reading Location: [id number]
== END | disposition home or self-care (01) ==
LOC: CT 15:59
PROVIDERS: PCP Nurse Practitioner Family; Referring Provider Student in an Organized Health Care Education/Training Program; Visit Provider Student in an Organized Health Care Education/Training Program
DX: R10.9 Unspecified abdominal pain (principal); K59.00 Constipation, unspecified; R11.0 Nausea
CPT/HCPCS: 74175; Q9967

== ENCOUNTER → 2025-07-17 | Outpatient (CLI) | payer BC, SELFPAY ==
--- NOTE | 2025-07-17 06:57 | MRI_ITS ---
PROCEDURE: MRI ABD WITH AND W/O CONTRAST 07/17/2025 REASON FOR EXAM: LIVER LESION seen on recent CT exam. TECHNIQUE: Procedure Code: MRIABDWW Modality: MR Procedure: MRI ABD WITH AND W/O CONTRAST Multiplanar and multisequence images were obtained. CONTRAST: Clariscan VOLUME: 11 mL COMPARISON: CTA abdomen with and without contrast, 05/07/2025. FINDINGS: Liver: Normal in size and homogeneous in signal intensity on all pulse sequences. The focus of hyperenhancement, seen in the posterior segment of the right hepatic lobe, on the recent CT examination, could not be duplicated. Biliary: There are no gallstones. There is no intra or extrahepatic biliary ductal dilatation. Pancreas: Normal. Spleen: Normal. Adrenals: Normal. Kidneys: Normal. GI tract: The visualized portion of the gastrointestinal tract appears unremarkable. Peritoneum / Retroperitoneum: There are no abnormal intra or retroperitoneal masses or fluid collections. Lymph Nodes: There is no significant intra or retroperitoneal lymphadenopathy. Major Vessels: Unremarkable. Bones: No significant abnormality. MRI/MRI Abd WITH and W/O Contrast IMPRESSION: One. The hyperenhancing area in the posterior segment of the right hepatic lob e seen on the recent CTA examination of the abdomen, was not duplicated, consistent with artifact. Two. Otherwise unremarkable. Reading Location: [place] [address]
== END | disposition home or self-care (01) ==
LOC: OPMRI 06:52
PROVIDERS: PCP Nurse Practitioner Family; Referring Provider Internal Medicine Gastroenterology; Visit Provider Internal Medicine Gastroenterology
DX: K76.9 Liver disease, unspecified (principal)
CPT/HCPCS: 74183; A9575; A4216

== ENCOUNTER 2025-08-20 06:59 | Emergency (ER) | payer BC, SELFPAY ==
[2025-08-20 07:00] VITALS: BP 121/83; PULSE 92; RESP 16; TEMP 36.7; O2SAT 100; BMI 19.1
--- NOTE | 2025-08-20 07:05 | RAD_ITS ---
PROCEDURE: KNEE 4 OR MORE VIEWS 08/20/2025 REASON FOR EXAM: PAIN. TECHNIQUE: Procedure Code: RADKN Modality: DX Procedure: KNEE 4 OR MORE VIEWS Laterality: Left COMPARISON: None. RAD/Knee 4 or More Views IMPRESSION: No left knee joint effusion is noted. Left knee tricompartmental degenerative changes are present, very most prominen tly at the medial compartment, where moderately severe joint narrowing is noted. No acute fracture or dislocation is seen Reading Location: [place] [id number]
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
[2025-08-20] MEDS: Ketorolac 30 MG/ML Syringe IM (07:35)
--- OUTSIDE RECORDS SUMMARY | 2025-08-20 07:38 | XMS RPT_ITS | CCD ---
Author Organization [facility] Care Team Providers Care Shrimper Name Role Phone Tej Mcdonald Unavailable Kezia Gonzalez Unavailable Kezia Gonzalez Unavailable Tej Mcdonald Unavailable Kezia Gonzalez Unavailable Kezia Gonzalez Unavailable JOSE PEREYRA, DENDRON Primary Care Physician Geneva Harris Unavailable Unavailable JOSE ARDON-JEFF, DENDRON Primary Care Physician Unavailable Primary Care Provider Unavailabl e Unavailable Primary Care Provider Unavailabl e JOSE PEREYRA, DENDRON Primary Care Physician Unavailable Primary Care Provider Unavailabl RUPA Bryant Attending Unavailable MANJIT ROMERO Attending Unavailable STEVE JORGE, DR NAVA Attending Unavailable JOSE ARDON-JEFF [facility] Unavail able DR ELIJAH WILSON DO Attending Unavailable JOSE PEREYRA DENDRON Primary Care Unavail able ALYSIA SOLITARIO MD Attending Unavailable JOSE PEREYRA, [facility] Unavail able ALYSIA SOLITARIO MD Admitting Unavailable ALYSIA SOLITARIO MD Attending Unavailable JOSE PEREYRA, [facility] Unavail able RONAK PHOENIX MD Attending Unavailable JOSE ARDON-HAND COREMAKER [facility] Unavail able JOSE PEREYRA DENDRON Attending Unavail able [employer], [facility] Care Unavail able DR ELIJAH WILSON DO Attending Unavailable [employer] COREMAKER, DENDRON Primary Care Unavail able [employer] COREM[employer]ER, TERI Attending Unavail able [employer]ER, DENDRON Primary Care Unavail able [employer] COREM[employer]ER, DENDRON Attending Unavail able [employer] COREMAKER, DENDRON Primary Care Unavail able ALYSIA SOLITARIO MD Attending Unavailable [employer] COREMAKER, DENDRON Primary Care Unavail able ALYSIA SOLITARIO MD Consulting Unavailable [employer]ER, DENDRON Primary Care Unavail able ALYSIA SOLITARIO MD Attending Unavailable [employer] COREMAKER, TERI Attending Unavail able [employer]ER, DENDRON Primary Care Unavail able [facility] Doctor, Out of Primary Care Provider Unavai fish [facility] Doctor, Out of Referring Provider Unavailab Teri Gunter Attending Provider [phone] Teri Miner Referring Provider [phone] Jose COVERAGE SPECIALIST-C, Maxwell Primary Care Provider [phone] Lisbethson COVERAGE SPECIALIST-C, Teri Referring Provider [phone] Dr. Lloyd Lee DO Attending Provider Dr. Lloyd Lee DO Other Provider [phone] DIMITRY ARCE Attending Unavail able [employer] COREMAKER, [facility] Unavail able JAH [employer]-HAND COREMAKERDIMITRY Attending Unavail able [employer], [facility] Unavail able [employer] COREMAKER, [facility] Care Unavail able JAH [employer]-HAND COREMAKERDIMITRY Attending Unavail able FRANK GOODE DO Attending Unavailable [employer] COREM[employer], [facility] Unavail able [employer] COREMAKER, TERI Attending Unavail able [employer], [facility] Unavail able JOSE, [facility] Unavailable TRES CASTRO Attending Unavailable [place] COVERAGE SPECIALIST-C, Maxwell Primary Care Provider [phone] Teri Miner Attending Provider [phone] Teri Miner Referring Provider [phone] [facility] Doctor, Out of Referring Provider Unavailab le [employer]HAND COREMAKER, Maxwell Primary Care Provider JOSE, DENDRON Primary Care Unavailable BROWN OMALLEY Attending Unavailable Teri Miner Attending Provider [phone] [place] [employer]OVERAGE SPECIALIST-[employer], Maxwell Primary Care Provider [phone] [place] [employer]OVERAGE SPECIALIST-C, Teri Referring Provider [phone] Jesus JORGE, Dr. Desai Attending Provider Dr. Lloyd Lee DO Other Provider [phone] Teri Miner Referring Provider [phone] [place] COVERAGE SPECIALIST-C, Maxwell Primary Care Provider [phone] Teri Miner Attending Provider [phone] Lloyd Lee Referring Unavailable [place] COVERAGE SPECIALIST, Maxwell Primary Care Unavailable Lloyd Lee Attending Unavailable Lloyd Lee Attending Unavailable [place] COVERAGE SPECIALIST, Teri Referring Unavailable Lloyd Lee Consulting Unavailable [place] COVERAGE SPECIALIST, Maxwell Primary Care Unavailable Lloyd Lee Attending Unavailable [place] COVERAGE SPECIALIST, Maxwell Referring Unavailable Lloyd Lee Consulting Unavailable [place] COVERAGE SPECIALIST, Maxwell Primary Care Unavailable [place] COVERAGE SPECIALIST, Maxwell Primary Care Unavailable [place] COVERAGE SPECIALIST, Maxwell Referring Unavailable FriendLloyd Attending Unavailable Town Doctor, Out of Referring Unavailable [place] Doctor, Out of Primary Care Unavailable AtaTeri anders Attending Unavailable [facility] Doctor, Out of Referring Unavailable Teri Chou Attending Unavailable [place] COVERAGE SPECIALIST, Maxwell Primary Care Unavailable [place] COVERAGE SPECIALIST, Teri Referring Unavailable AtanasTeri hamilton Attending Unavailable [place] COVERAGE SPECIALIST, Maxwell Primary Care Unavailable [place] COVERAGE SPECIALIST, Teri Referring Unavailable AtanasovTeri Attending Unavailable [place] COVERAGE SPECIALIST, Maxwell Primary Care Unavailable AtanasovTeri Attending Unavailable [place] COVERAGE SPECIALIST, Maxwell Referring Unavailable [place] COVERAGE SPECIALIST, Maxwell Primary Care Unavailable AtanasTeri hamilton Attending Unavailable AtanasovTeri Referring Unavailable [place] COVERAGE SPECIALIST, Maxwell Primary Care Unavailable AtanasovTeri Attending Unavailable Atanasov, Teri Referring Unavailable [place] COVERAGE SPECIALIST, Maxwell Primary Care Unavailable FriendLloyd Attending Unavailable [place] COVERAGE SPECIALIST, Teri Referring Unavailable [place] COVERAGE SPECIALIST, Maxwell Primary Care Unavailable [place] COVERAGE SPECIALIST, Maxwell Referring Unavailable [place] COVERAGE SPECIALIST, Maxwell Primary Care Unavailable Lloyd Lee Attending Unavailable Teri Chou Attending Unavailable Teri Chou Referring Unavailable Teri Garcia NP Primary Care Unavailable Teri Chou Attending Unavailable Teri Chou Referring Unavailable Teri Garcia NP Primary Care Unavailable Teri Chou Attending Unavailable Teri Chou Referring Unavailable Teri Garcia NP Primary Care Unavailable Teri Chou Attending Unavailable Teri Chou Referring Unavailable Jose COVERAGE SPECIALISTTeri Primary Care Unavailable Allergies Allergy Classification Reported Allergen(s) Allergy Type Date of Onset Reaction(s) Facility Soy (1 source) Soy protein Food Allergy [facility] Sucralfate (1 source) Sucralfate; Translations: [sucralfate] Drug Allergy Swelling (finding) [facility] Sulfamethoxazole / Trimethoprim (1 source) Sulfamethoxazole / Trimethoprim; Translations: [sulfamethoxazole-tr imethoprim] Drug Allergy Swelling [facility] (20 sources) Soy protein; Translations: [soy] Food allergy 12-13-19 25 [facility] Comment on above: when pt was younger (20 sources) Sulfamethoxazole / Trimethoprim; Translations: [sulfamethoxazole-tr imethoprim] Drug Allergy 03-02-20 22 [facility] (18 sources) Sucralfate; Translations: [SUCRALFATE] Drug Allergy 01-06-20 24 Swelling (finding), Rash [facility] (3 sources) Sulfamethoxazole / Trimethoprim; Translations: [SULFAMETHOXAZOLE-TR IMETHOPRIM] Drug Allergy 03-02-20 22 [facility] (8 sources) Sulfamethoxazole Drug Allergy 12-13-19 25 Swelling [facility] (8 sources) Trimethoprim Drug Allergy 12-13-19 25 Swelling [facility] (1 source) Sulfamethoxazole Drug Allergy 01-28-20 25 [facility] (1 source) Trimethoprim Drug Allergy 01-28-20 25 [facility] Medications Current Medications Medication Drug Class(es) Dates Sig (Normalized) Sig (Original) acetaminophen 325 mg / HYDROcodone bitartrate 5 mg oral tablet (9 sources) Opioid Agonist Start: 09-29-2021 acetaminophen-hydr ocodone 325 mg-5 mg oral tablet 0 Refill(s), 65.9 Start Date: 09/29/21 Status: Ordered Start: 03-13-2017 End: 08-16-2017 Hydrocodone-Acetaminophen 1 TABLET tablet Discontinued 1 - 2 {tbl} PO EVERY 6 HOURS NEEDED as needed for Pain 30 0 March 13, 2017 12:00am August 16, 2017 12:39pm acetaminophen 325 mg / oxyCODONE hydrochloride 5 mg oral tablet (1 source) Opioid Agonist Start: 03-27-2024 End: 04-03-2024 take 1 tablet by mouth every six hours as needed for pain Percocet 5 mg-325 mg oral tablet Dose = 1 tab(s), Oral, q6h, PRN Pain, X 7 day(s), # 20 tab(s), 0 Refill(s), Pharmacy: [id number], S/P laparoscopic assisted vaginal hysterectomy (LAVH) Post-op pain, 165, cm, 03/27/24 11:09:00 EDT, Height, 52, kg, 03/27/24 11:09:00 EDT, Dosing Weight Start Date: 03/27/24 Stop Date: 04/03/24 Status: Ordered Acidophilus Probiotic Blend oral capsule (6 sources) Start: 09-15-2024 take 1 capsule by mouth twice daily Acidophilus Probiotic Blend oral capsule Dose = 1 cap(s), Oral, BID, # 60 cap(s), 5 Refill(s), Pharmacy: [facility]/pharmacy #[id number], 165, cm, 09/15/24 7:21:00 EST, Height, kg, 09/15/24 7:21:00 EST, Dosing Weight Start Date: 09/15/24 Status: Ordered Quantity: 60.0 Unit: cap(s) Repeat number: 6 Start: 01-29-2024 take 1 capsule by mo [facility] twice daily Acidophilus Probiotic Blend oral capsule Dose = 1 cap(s), Oral, BID, # 60 cap(s), 0 Refill(s), Pharmacy: [id number], 167, cm, 01/29/24 14:10:00 EDT, Height, kg, 01/29/24 14:10:00 EDT, Dosing Weight Start Date: 01/29/24 Status: Ordered alendronic acid 10 mg oral tablet (20 sources) Bisphosphonate Start: 05-25-2022 End: 10-31-2022 take 4 tablets by mouth in the morning alendronate 10 mg oral tablet TAKE 4 TABLETS BY MOUTH IN THE MORNING WITH CUP OF WATER ON AN EMPTY STOMACH. NOTHING ELSE BY MOUTH AND STAY UPRIGHT FOR 30 MINUTES Start Date: 06/07/22 Status: Ordered Comment on above: Take 4 tablets by mo [facility] In AM with cup of water on empty stomach. Nothing else by mouth and stay upright for 30 min. ALPRAZolam 0.5 mg disintegrating oral tablet (1 source) Benzodiazepine Start: 09-28-2022 End: 09-28-2022 ALPRAZolam 0.5 mg dissolvable tablet Indications: ACUTE PROCEDURE-RELATED ANXIETY BRING 2 TABLETS TO PROCEDURE LOCATION ON THE DAY OF PROCEDURE, TO BE ADMINISTERED BY STAFF 2 tablet 0 09/28/2022 09/28/2022 Active Comment on above: BRING 2 TABLETS TO P ROCEDURE LOCATION ON THE DAY OF PROCEDURE, TO BE ADMINISTERED BY STAFF amoxicillin 875 mg oral tablet (1 source) Penicillin-class Antibacterial Start: 11-03-2022 End: 11-13-2022 take 1 tablet by mouth twice daily amoxicillin (AMOXIL) 875 mg tablet Indications: Acute pharyngitis, unspecified etiology Take 1 tablet by mouth twice daily for 10 days. 20 tablet 0 11/03/2022 11/13/2022 Active Comment on above: [facility]. baclofen 2 %, bupivacaine 2 %, gabapentin 10 %, imipramine 3 %, NIFEdipine 2 % (CPD) (5 sources) Start: 11-07-2022 baclofen 2 %, bupivacaine 2 %, gabapentin 10 %, imipramine 3 %, NIFEdipine 2 % (CPD) Comments for compounding pharmacy: Apply 1-3 grams (pumps) to the affected area 3-4 times daily. May make substitutions as needed. 240 g 4 11/07/2022 Active Comment on above: Comments for compoun ding pharmacy: Apply 1-3 grams (pumps) to the affected area 3-4 times daily. May make substitutions as needed. benzonatate 100 mg oral capsule (1 source) Non-narcotic Antitussive Start: 11-03-2022 End: 11-10-2022 take 2 capsules by mouth three times daily as needed benzonatate (TESSALON PERLES) 100 mg capsule Indications: Acute pharyngitis, unspecified etiology Take 2 capsules by mouth three times daily as needed for up to 7 days. 42 capsule 0 11/03/2022 11/10/2022 Active Comment on above: Take 2 capsules by m out three times daily as needed for up to 7 days. busPIRone hydrochloride 5 mg oral tablet (20 sources) Start: 04-19-2022 End: 08-31-2022 busPIRone (BUSPAR) 5 mg tablet 04/19/2022 Active cephalexin 500 mg oral capsule (6 sources) Cephalosporin Antibacterial Start: 03-23-2025 End: 03-30-2025 take 1 capsule by mouth four times daily cephALEXin (KEFLEX) 500 mg capsule Indications: Left arm cellulitis Take 1 capsule by mouth four times daily for 7 days. 28 capsule 03/23/2025 03/30/2025 Active Start: 06-07-2022 End: 06-13-2022 take 1 capsule by mouth twice daily cephALEXin (KEFLEX) 500 mg capsule Take 500 mg by mouth twice daily. 0 06/08/2022 06/13/2022 Active Start: 03-02-2022 End: 03-12-2022 take 1 capsule by mouth twice daily cephALEXin (KEFLEX) 500 mg capsule Indications: Hordeolum externum of right upper eyelid Take 1 capsule by mouth twice daily for 10 days. 20 capsule 0 03/02/2022 03/12/2022 Active Start: 09-29-2021 End: 10-06-2021 cephalexin 500 mg oral capsu le Dose : 500 mg = 1 cap(s), Oral, TID, X 7 day(s), # 21 cap(s), 0 Refill(s), 10/06/21 14:34:00 EST, Pharmacy: [facility], 167, cm, 09/29/21 14:12:00 EST, Height, 67.1, kg, 09/29/21 14:12:00 EST, Dosing Weight Start Date: 09/29/21 Stop Date: 10/06/21 Status: Ordered Comment on above: Take 1 capsule by mo [facility] twice daily for 10 days. Take 500 mg by mouth twice daily. ciprofloxacin 500 mg oral tablet (1 source) Quinolone Antimicrobial Start: 04-07-20 End: 04-12-20 Cipro 500 mg oral tablet Dose : 500 mg = 1 tab(s), Oral, q12h, X 5 day(s), # 10 tab(s), 0 Refill(s), 04/12/24 1:40:00 PM EDT, Pharmacy: [id number], 165, cm, 04/03/24 12:07:00 EDT, Height, 53.2, kg, 04/03/24 12:07:00 EDT, Dosing Weight Start Date: 04/07/24 Stop Date: 04/12/24 Status: Ordered dexamethasone 4 mg oral tablet (2 sources) Corticosteroid Start: 11-04-19 End: 11-08-19 take 1 tablet by mouth once daily dexAMETHasone (DECADRON) 4 mg tablet Indications: Acute pharyngitis, unspecified etiology Take 1 tablet by mouth once daily for 4 days. 4 tablet 0 11/03/2022 11/07/2022 Active Start: 11-03-2022 End: 11-03-2022 dexAMETHasone sodium phospha te 10 mg for oral administration (DECADRON) Comment on above: Take 1 tablet by [facility] once daily for 4 days. diclofenac sodium 75 mg delayed release oral tablet (20 sources) Nonsteroidal Anti-inflammatory Drug Start: 08-31-20 End: 02-06-20 diclofenac sodium 75 mg oral delayed release tablet Dose : 75 mg = 1 tab(s), Oral, BID, PRN as needed for arthritis, # 180 tab(s), 0 Refill(s) Start Date: 12/04/22 Status: Ordered Comment on above: Take 1 tablet by [facility] twice daily as needed (for pain.). doxycycline hyclate 100 mg oral tablet (1 source) Tetracycline-class Drug Start: 03-02-20 End: 03-12-20 take 1 tablet by mouth twice daily doxycycline (VIBRA-TABS) 100 mg tablet Indications: Hordeolum externum of right upper eyelid Take 1 tablet by mouth twice daily for 10 days. 20 tablet 0 03/02/2022 03/12/2022 Active Comment on above: Take 1 tablet by jose raul twice daily for 10 days. Flonase 50 mcg/inh nasal spray (3 sources) Start: 08-01-20 take 1 dose nasal route once daily in the morning Flonase 50 mcg/inh nasal spray Dose = 1 spray(s), Nostril, each, qAM, 0 Refill(s) Start Date: 08/01/21 Status: Ordered fluticasone propionate 0.05 mg/actuat metered dose nasal spray (20 sources) Corticosteroid Start: 08-01-20 take 50 ug nasal route once daily as needed Fluticasone Propionate (24 Hour Allergy Relief) 50 mcg/actuation spray,suspension Active 1 NMA INTRANASAL DAILY as needed for allergy symptoms December 12, 2024 12:00am administer into each nostril Start: 08-01-2021 take 1 dose nasal ro [place] once daily in the morning Flonase 50 mcg/inh nasal spray Dose = 1 spray(s), Nostril, each, qAM, 0 Refill(s) Start Date: 08/01/21 Status: Ordered Comment on above: Use in the nose. gabapentin 100 mg oral capsule (10 sources) Anti-epileptic Agent Start: 09-29-19 End: 05-25-20 gabapentin (NEURONTIN) 100 mg capsule Take 100 mg by mouth. 0 09/29/2021 05/25/2022 Discontinued Comment on above: Take 100 mg by mouth . hyoscyamine sulfate 0.125 mg oral tablet (9 sources) Start: 12-17-19 End: 04-29-20 Hyoscyamine Sulfate 0.125 mg tablet Active 0.125 mg PO 2 to 4 times per day as needed for dyspepsia 30 0 April 29, 2025 10:13am ibuprofen 600 mg oral tablet (3 sources) Nonsteroidal Anti-inflammatory Drug Start: 03-27-20 End: 04-16-20 IBU 600 mg oral tablet Dose : 600 mg = 1 tab(s), Oral, q8h, X 10 day(s), # 30 tab(s), 1 Refill(s), 04/16/24 2:20:00 PM EDT, Pharmacy: [id number], 165, cm, 03/27/24 11:09:00 EDT, Height, kg, 03/27/24 11:09:00 EDT, Dosing Weight Start Date: 03/27/24 Stop Date: 04/16/24 Status: Ordered Lactobacillus Combination No.4 (Probiotic) 3 billion cell capsule (8 sources) Start: 09-30-19 take 3 capsules by mouth once daily Lactobacillus Combination No.4 (Probiotic) 3 billion cell capsule Active 3000 NMA PO daily September 30, 2024 1:00am administer with a meal lansoprazole 30 mg delayed release oral capsule (2 sources) Proton Pump Inhibitor Start: 01-29-20 lansoprazole 30 mg oral delayed release capsule Dose : 30 mg = 1 cap(s), Oral, BID, d/c protonix, # 60 cap(s), 0 Refill(s), Pharmacy: [id number], 167, cm, 01/29/24 14:10:00 EDT, Height, kg, 01/29/24 14:10:00 EDT, Dosing Weight Start Date: 01/29/24 Status: Ordered lidocaine hydrochloride 20 mg/ml mucous membrane topical solution (3 sources) Antiarrhythmic, Amide Local Anesthetic Start: 01-06-20 LIDOCAINE VISCOUS 2 % solution Take 15 mL by mouth as needed. 300 mL 01/06/2024 Active Start: 10-23-2022 End: 10-23-2022 lidocaine (PF) 20 mg/mL (2 % ) 200 mg injection (XYLOCAINE) Start: 10-23-2022 End: 10-23-2022 lidocaine 10 mg/mL (1 %) 100 mg injection (XYLOCAINE) Magnesium (8 sources) Start: 09-30-2024 take 1 tablet by mouth once daily Magnesium 250 mg tablet Active 250 mg PO daily September 30, 2024 1:00am magnesium oxide 250 mg oral tablet (5 sources) Start: 03-18-2024 Magnesium 250 mg tablet Dose : 500 mg = 2 tab(s), Oral, qDay, 0 Refill(s) Start Date: 03/18/24 Status: Ordered Repeat number: 1 Multivitamin 1 EACH tablet (8 sources) Start: 03-07-2017 Multivitamin 1 EACH tablet Active 1 NMA PO DAILY March 07, 2017 12:00am Multivitamin preparation (10 sources) Start: 06-07-2022 take 1 tablet by mouth once daily Multivitamin Dose = 1 tab(s), Oral, Daily, 0 Refill(s) Start Date: 06/07/22 Status: Ordered Repeat number: 1 Start: 06-07-2022 take 1 tablet by jose raul th once daily Multivitamin Dose = 1 tab(s), Oral, Daily, 0 Refill(s) Start Date: 06/07/22 Status: Ordered ashoebdgemah-toi-gzty-FA-vit K (ADULTS MULTIVITAMIN) 18 mg iron-400 mcg-25 mcg tab (20 sources) Start: 06-30-2016 uajshphgsztz-pwk-tihw-FA-vit K (ADULTS MULTIVITAMIN) 18 mg iron-400 mcg-25 mcg tab Take by mouth. 06/30/2016 Active Start: 06-30-2016 multivitamin-m dp-oeuh-AZ-vit K (ADULTS MULTIVITAMIN) 18 mg iron-400 mcg-25 mcg tab Take by mouth. 0 06/30/2016 Active Comment on above: Take by mouth. [place] 1-Tvf-Dgl-Fish Oil (Fish Oil) 60-90-500 mg capsule (6 sources) Start: 01-27-2025 [place] 7-Pwe-Mvh-Fish Oil (Fish Oil) 60-90-500 mg capsule Active 1 NMA PO daily January 27, 2025 12:00am 24 hr oxybutynin chloride 10 mg extended release oral tablet (20 sources) Cholinergic Muscarinic Antagonist Start: 09-30-2024 take 1 tablet by mouth twice daily Oxybutynin Chloride 10 mg tablet extended release 24hr Active 10 mg PO TWICE A DAY September 30, 2024 1:00am Start: 05-08-2024 End: 12-04-2024 take 1 tablet by mouth every hour, then take 2 tablets by mouth once daily Ditropan XL 10 mg/24 hr oral tablet, extended release Dose : 20 mg = 2 tab(s), Oral, qDay, # 60 tab(s), 6 Refill(s), Pharmacy: [id number], 165, cm, 05/08/24 10:09:00 EDT, Height, kg, 05/08/24 10:09:00 EDT, Dosing Weight Start Date: 05/08/24 Stop Date: 12/04/24 Status: Ordered Quantity: 60.0 Unit: tab(s) Repeat number: 7 Start: 03-18-2024 oxybutynin 5 m g oral tablet Dose : 10 mg = 2 tab(s), Oral, BID, # 360 tab(s), 3 Refill(s), Pharmacy: [id number], 165.1, cm, 03/18/24 13:03:00 EDT, Height, kg, 03/18/24 13:03:00 EDT, Dosing Weight Start Date: 03/18/24 Status: Ordered Start: 08-14-2023 oxybutynin 5 m g oral tablet Dose : 10 mg = 2 tab(s), Oral, BID, # 360 tab(s), 1 Refill(s), Pharmacy: [id number], 167, cm, 08/14/23 9:09:00 EST, Height, kg, 08/14/23 9:09:00 EST, Dosing Weight Start Date: 08/14/23 Status: Ordered Start: 05-03-2022 oxybutynin 5 m g oral tablet Dose : 10 mg = 2 tab(s), Oral, BID, # 120 tab(s), 3 Refill(s), Pharmacy: [id number], 164, cm, 06/07/22 7:09:00 EDT, Height, kg, 06/07/22 7:09:00 EDT, Dosing Weight Start Date: 06/12/22 Status: Ordered Start: 12-08-2020 oxybutynin 5 m g oral tablet Dose : 10 mg = 2 tab(s), Oral, BID, # 120 tab(s), 11 Refill(s), Pharmacy: [facility], 167.5, cm, 12/08/20 9:43:00 EDT, Height, kg, 12/08/20 9:43:00 EDT, Dosing Weight Start Date: 12/08/20 Status: Ordered Start: 06-30-2016 End: 09-30-2024 take 2 tablets by mouth twice daily Oxybutynin Chloride 5 MG tablet Discontinued 10 mg PO TWICE A DAY March 07, 2017 12:00am September 30, 2024 8:42am Start: 06-30-2016 DITROPAN XL 5 MG [id number] OXYBUTYNIN CHLORIDE [id number] Tej Mcdonald Start: 06-30-2016 DITROPAN XL 5 MG [id number] OXYBUTYNIN CHLORIDE [id number] Tej Mcdonald Comment on above: 10 mg. pramipexole dihydrochloride 0.5 mg oral tablet (20 sources) Nonergot Dopamine Agonist Start: take 1 tablet by mouth twice daily as needed Pramipexole 0.5 mg tablet Active 0.5 mg PO TWICE A DAY as needed April 21, 2025 12:00am Start: 09-15-2024 End: 03-14-2025 Mirapex 0.5 mg oral tablet D ose : 0.5 mg = 1 tab(s), Oral, BID, # 60 tab(s), 5 Refill(s), [id number], 165, cm, 09/15/24 7:21:00 EST, Height, kg, 09/15/24 7:21:00 EST, Dosing Weight Start Date: 09/15/24 Stop Date: 03/14/25 Status: Ordered Quantity: 60.0 Unit: tab(s) Repeat number: 6 Start: 10-15-2023 End: 04-12-2024 Mirapex 0.5 mg oral tablet D ose : 0.5 mg = 1 tab(s), Oral, BID, # 60 tab(s), 5 Refill(s), Pharmacy: [id number], 167, cm, 10/15/23 9:37:00 EST, Height, kg, 10/15/23 9:37:00 EST, Dosing Weight Start Date: 10/15/23 Stop Date: 04/12/24 Status: Ordered Start: 05-03-2022 End: 06-02-2022 Mirapex 0.5 mg oral tablet D ose : 0.5 mg = 1 tab(s), Oral, BID, # 60 tab(s), 0 Refill(s), Pharmacy: [id number], 167, cm, 04/19/22 11:10:00 EDT, Height, kg, 04/19/22 11:10:00 EDT, Dosing Weight Start Date: 05/03/22 Stop Date: 06/02/22 Status: Ordered Start: 12-08-2020 End: 06-06-2021 Mirapex 0.5 mg oral tablet D ose : 0.5 mg = 1 tab(s), Oral, BID, # 60 tab(s), 5 Refill(s), Pharmacy: [facility], 167.5, cm, 12/08/20 9:43:00 EDT, Height, kg, 12/08/20 9:43:00 EDT, Dosing Weight Start Date: 12/08/20 Stop Date: 06/06/21 Status: Ordered Start: 03-07-2017 End: 08-16-2017 take 1 tablet by mouth twice daily Pramipexole 0.25 MG tablet Discontinued 0.25 mg PO TWICE A DAY March 07, 2017 12:00am August 16, 2017 12:38pm predniSONE 10 mg oral tablet (20 sources) Start: 05-25-2022 End: 08-31-2022 take 4 tablets by mouth once daily, then take 3 tablets by mouth once daily, then take 2 tablets by mouth once daily, then take 1 tablet by mouth once daily at mealtime predniSONE 10 mg oral tablet TAEK 4 TABLETS BY MOUTH DAILY FOR 14 DAYS, THEN TAKE 3 TABS DAILY FOR 14 DAYS, THEN TAKE 2 TABS DAILY FOR 14 DAYS, THEN TAKE 1 TAB DAILY FOR 14 DAYS. TAKE WITH FOOD. Start Date: 06/07/22 Status: Ordered Comment on above: Take 4 tablets by [facility] daily for 14 days, then take 3 tablets by mouth for 14 days, then 2 tablets by mouth for 14 days, then 1 tablet by mouth for 14 days with food triamcinolone acetonide 1 mg/ml topical cream (1 source) Corticosteroid Start: 03-23-2025 triamcinolone acetonide (KENALOG) 0.1 % cream Indications: Left arm cellulitis Apply to affected area two times a day as needed. Do not use longer than 2 weeks. 15 g 03/23/2025 Active valACYclovir 500 mg oral tablet (20 sources) Herpesvirus Nucleoside Analog DNA Polymerase Inhibitor, Herpes Simplex Virus Nucleoside Analog DNA Polymerase Inhibitor, Herpes Zoster Virus Nucleoside Analog DNA Polymerase Inhibitor Start: 08-14-2023 take 1 tablet by mouth once daily Valacyclovir 500 mg tablet Active 500 mg PO daily September 30, 2024 1:00am Start: 02-28-2022 End: 04-28-2023 valACYclovir 500 mg oral tab let Dose : 500 mg = 1 tab(s), Oral, qDay, # 90 tab(s), 1 Refill(s), Pharmacy: [id number], 167, cm, 08/14/23 9:09:00 EST, Height, 54.9, kg, 08/14/23 9:09:00 EST, Dosing Weight Start Date: 08/14/23 Status: Ordered Start: 12-08-2020 End: 12-03-2021 Valtrex 500 mg oral tablet D ose : 500 mg = 1 tab(s), Oral, Daily, X 30 day(s), # 30 tab(s), 11 Refill(s), 12/03/21 10:21:00 EDT, Pharmacy: [facility], 167.5, cm, 12/08/20 9:43:00 EDT, Height, 60.9, kg, 12/08/20 9:43:00 EDT, Dosing Weight Start Date: 12/08/20 Stop Date: 12/03/21 Status: Ordered Start: 03-07-2017 End: 09-30-2024 take 1 tablet by mouth once daily Valacyclovir 1,000 MG tablet Discontinued 1000 mg PO DAILY March 07, 2017 12:00am September 30, 2024 8:42am varenicline 1 mg oral tablet (4 sources) Partial Cholinergic Nicotinic Agonist Start: 08-01-2021 varenicline 1 mg ora l tablet Dose : 1 mg = 1 tab(s), Oral, BID, # 60 tab(s), 6 Refill(s), Pharmacy: [facility], 165.1, cm, 08/01/21 10:52:00 EST, Height, kg, 08/01/21 10:52:00 EST, Dosing Weight Start Date: 08/01/21 Status: Ordered Start: 08-01-2021 take 2 tablets by mo [facility] once daily varenicline 0.5 mg oral tablet See Instructions, 1 tab once daily for 3 days, then 1 tablet BID for 4 days before transitioning into 1mg tablets., # 9 tab(s), 0 Refill(s), Pharmacy: [facility], 165.1, cm, 08/01/21 10:52:00 EST, Height, kg, 08/01/21 10:52:00 EST, Dosin... Start Date: 08/01/21 Status: Ordered 24 hr venlafaxine 37.5 mg extended release oral capsule (20 sources) Serotonin and Norepinephrine Reuptake Inhibitor Start: 03-18-2024 Effexor XR 37.5 mg oral capsule, extended release Dose : 37.5 mg = 1 cap(s), Oral, BID, # 180 cap(s), 3 Refill(s), Pharmacy: [id number], 165.1, cm, 03/18/24 13:03:00 EDT, Height, kg, 03/18/24 13:03:00 EDT, Dosing Weight Start Date: 03/18/24 Status: Ordered Start: 01-29-2024 Effexor XR 37. 5 mg oral capsule, extended release Dose : 37.5 mg = 1 cap(s), Oral, BID, # 30 cap(s), 2 Refill(s), Pharmacy: [id number], 167, cm, 01/29/24 14:10:00 EDT, Height, kg, 01/29/24 14:10:00 EDT, Dosing Weight Start Date: 01/29/24 Status: Ordered Start: 10-15-2023 Effexor XR 75 mg oral capsule, extended release Dose : 75 mg = 1 cap(s), Oral, qDay, # 180 cap(s), 1 Refill(s), Pharmacy: [id number], 167, cm, 10/15/23 9:37:00 EST, Height, kg, 10/15/23 9:37:00 EST, Dosing Weight Start Date: 10/15/23 Status: Ordered Start: 08-14-2023 Effexor XR 75 mg oral capsule, extended release Dose : 75 mg = 1 cap(s), Oral, BID, # 180 cap(s), 1 Refill(s), Pharmacy: [id number], 167, cm, 08/14/23 9:09:00 EST, Height, kg, 08/14/23 9:09:00 EST, Dosing Weight Start Date: 08/14/23 Status: Ordered Start: 10-01-2022 Effexor XR 75 mg oral capsule, extended release Dose : 75 mg = 1 cap(s), Oral, BID, # 60 cap(s), 3 Refill(s), Pharmacy: [id number], 164, cm, 07/04/22 7:51:00 EDT, Height, kg, 07/04/22 7:51:00 EDT, Dosing Weight Start Date: 10/01/22 Status: Ordered Start: 05-03-2022 Effexor XR 75 mg oral capsule, extended release Dose : 75 mg = 1 cap(s), Oral, BID, # 60 cap(s), 0 Refill(s), Pharmacy: [id number], 167, cm, 04/19/22 11:10:00 EDT, Height, kg, 04/19/22 11:10:00 EDT, Dosing Weight Start Date: 05/03/22 Status: Ordered Start: 02-28-2022 venlafaxine ER (EFFEXOR XR) 75 mg 24 hr capsule 02/28/2022 Active Start: 03-09-2021 Effexor XR 75 mg oral capsule, extended release Dose : 75 mg = 1 cap(s), Oral, BID, # 60 cap(s), 11 Refill(s), Pharmacy: [facility], 165.1, cm, 03/09/21 9:36:00 EDT, Height, kg, 03/09/21 9:36:00 EDT, Dosing Weight Start Date: 03/09/21 Status: Ordered VITAMIN C 500MG TAB (2 sources) Start: 06-07-2022 take 1 tablet by jose raul th twice daily VITAMIN C 500MG TAB TAKE 1 TABLET BY MOUTH TWICE DAILY Start Date: 06/07/22 Status: Ordered Completed/Discontinued Medications Medication Drug Class(es) Dates Sig (Normalized) Sig (Original) amitriptyline hydrochloride 25 mg oral tablet (20 sources) Tricyclic Antidepressant Start: 03-07-2017 End: 09-30-2024 take 1 tablet by mouth at bedtime Amitriptyline 25 MG tablet Discontinued 25 mg PO AT BEDTIME March 07, 2017 12:00am September 30, 2024 8:43am Start: 06-30-2016 ELAVIL 25 MG T ABS AMITRIPTYLINE HCL [id number] Tej Mcdonald ascorbic acid 500 mg oral tablet (20 sources) Vitamin C Start: 08-25-2022 End: 03-23-2025 take 1 tablet by mouth twice daily VITAMIN C WITH IRMA HIPS 500 mg tablet Take 1 tablet by mouth twice daily 60 tablet 11/23/2022 03/23/2025 Discontinued Start: 05-25-2022 End: 06-24-2022 take 1 tablet by mouth twice daily ascorbic acid, vitamin C, (VITAMIN C) 500 mg tablet Take 1 tablet by mouth twice daily. 60 tablet 1 05/25/2022 Active Comment on above: Take 1 tablet by jose raul th twice daily. Take 1 tablet by jose raul th twice daily 5 ml bupivacaine hydrochloride 5 mg/ml injection (1 source) Amide Local Anesthetic Start: 10-23-19 End: 10-23-19 bupivacaine (PF) 0.5 % (5 mg/mL) 25 mg injection 24 hr buPROPion hydrochloride 300 mg extended release oral tablet (8 sources) Aminoketone Start: 08-17-20 End: 09-30-19 take 1 tablet by mouth once daily in the morning Bupropion Hcl (Wellbutrin Xl) 300 mg tablet extended release 24 hr Discontinued 300 mg PO EVERY MORNING August 17, 2017 1:00am September 30, 2024 8:43am Chlorzoxazone (9 sources) Muscle Relaxant Start: 12-05-19 chlorzoxazone 250 mg tablet chlorzoxazone 250 mg tablet, PRN Pain, 0 Refill(s), 67.5 Start Date: 12/04/22 Status: Ordered Repeat number: 1 Start: 12-04-2022 chlorzoxazone 250 mg tablet chlorzoxazone 250 mg tablet, PRN Pain, 0 Refill(s), 67.5 Start Date: 12/04/22 Status: Ordered Start: 12-04-2022 chlorzoxazone 250 mg tablet chlorzoxazone 250 mg tablet, 0 Refill(s), 67.5 Start Date: 12/04/22 Status: Ordered docusate sodium 100 mg oral capsule (8 sources) Start: 03-13-2017 End: 08-16-2017 take 1 capsule by mouth twice daily as needed for constipation Docusate Sodium 100 MG capsule Discontinued 100 mg PO TWICE DAILY NEEDED as needed for Constipation March 13, 2017 12:00am August 16, 2017 12:39pm escitalopram 20 mg oral tablet (20 sources) Serotonin Reuptake Inhibitor Start: 08-16-2017 End: 08-17-2017 take 1 tablet by mouth once daily Escitalopram Oxalate (Lexapro) 20 mg tablet Discontinued 20 mg PO daily August 16, 2017 1:00am August 17, 2017 3:57pm Start: 06-30-2016 LEXAPRO 20 MG TABS ESCITALOPRAM OXALATE [id number] Tej Mcdonald iohexol 300 mg IV injection (OMNIPAQUE 300) (1 source) Start: 10-23-2022 End: 10-23-2022 iohexol 300 mg IV injection (OMNIPAQUE 300) 1 ml methylPREDNISolone acetate 40 mg/ml injection (1 source) Corticosteroid Start: 10-23-2022 End: 10-23-2022 methylPREDNISolone acetate 40 mg injection (DEPO-Medrol) MULTIPLE VITAMINS-MINERALS (7 sources) Start: 06-30-2016 MULTIVITAMIN ADULT TABS MULTIPLE VITAMINS-MINERALS [id number] Tej Mcdonald MULTIPLE VITAMINS-MINERALS (2 sources) Start: 06-30-2016 MULTIVITAMIN ADULT TABS MULTIPLE VITAMINS-MINERALS [id number] Tej Mcdonald MULTIPLE VITAMINS-MINERALS (6 sources) Start: 06-30-2016 MULTIVITAMIN ADULT TABS MULTIPLE VITAMINS-MINERALS [id number] Tej Mcdonald naproxen 500 mg oral tablet (20 sources) Nonsteroidal Anti-inflammatory Drug Start: 06-30-2016 End: 09-30-2024 take 1 tablet by mouth three times daily as needed for pain Naproxen 500 MG tablet Discontinued 500 mg PO 3 TIMES DAILY NEEDED as needed for Pain March 07, 2017 12:00am September 30, 2024 8:43am omeprazole 40 mg delayed release oral capsule (20 sources) Proton Pump Inhibitor Start: 06-30-2016 End: 09-30-2024 take 1 capsule by mouth once daily Omeprazole 40 MG capsule Discontinued 40 mg PO DAILY March 07, 2017 12:00am September 30, 2024 8:43am Start: 06-30-2016 PRILOSEC 40 MG ORAL CPDR OMEPRAZOLE [id number] Tej Mcdonald Comment on above: as needed. ondansetron 8 mg disintegrating oral tablet (20 sources) Serotonin-3 Receptor Antagonist Start: 10-30-19 End: 12-30-19 take 1 tablet by mouth every twelve hours as needed for nausea and vomiting Ondansetron 8 mg tablet,disintegratin g Discontinued 8 mg PO Q12H as needed for nausea and vomiting December 10, 2024 12:00am December 29, 2024 8:25am Start: 09-30-2024 End: 10-30-2024 take 1 tablet by mouth every eight hours Ondansetron 4 mg tablet,disintegrating Discontinued 4 mg PO Q8H 30 2 September 30, 2024 1:00am October 30, 2024 9:23am Start: 09-30-2024 End: 10-30-2024 take 1 tablet by mouth every six hours as needed for nausea Ondansetron Hcl 4 mg tablet Discontinued 4 mg PO EVERY 6 HOURS as needed for nausea/vomiting September 30, 2024 1:00am October 30, 2024 9:23am Start: 09-15-2024 End: 09-25-2024 ondansetron 4 mg oral tablet Dose : 4 mg = 1 tab(s), Oral, q6h, PRN Nausea/Vomiting, X 5 day(s), # 20 tab(s), 1 Refill(s), 09/25/24 7:56:00 AM EST, Pharmacy: [facility]/pharmacy #[id number], 165, cm, 09/15/24 7:21:00 EST, Height, kg, 09/15/24 7:21:00 EST, Dosing Weight Start Date: 09/15/24 Stop Date: 09/25/24 Status: Ordered Quantity: 20.0 Unit: tab(s) Repeat number: 2 pantoprazole 40 mg delayed release oral tablet (16 sources) Proton Pump Inhibitor Start: 09-30-2024 Pantoprazole 40 mg tablet,delayed release (DR/EC) Active 20 mg PO TWICE A DAY September 30, 2024 1:00am Start: 09-15-2024 End: 04-21-2025 take 1 tablet by mouth twice daily Pantoprazole 40 mg tablet,delayed release (DR/EC) Discontinued 40 mg PO TWICE A DAY September 30, 2024 1:00am April 21, 2025 1:55pm Start: 03-18-2024 pantoprazole 4 0 mg oral enteric coated tablet Dose : 40 mg = 1 tab(s), Oral, qDay, 0 Refill(s) Start Date: 03/18/24 Status: Ordered Start: 12-17-2023 take 1 tablet by mouth once pa ntoprazole DR (PROTONIX) 40 mg tablet Take 1 tablet by mouth every afternoon. 12/17/2023 Active Start: 10-15-2023 pantoprazole 4 0 mg oral enteric coated tablet Dose : 40 mg = 1 tab(s), Oral, qDay, # 30 tab(s), 2 Refill(s), Pharmacy: [id number], 167, cm, 10/15/23 9:37:00 EST, Height, kg, 10/15/23 9:37:00 EST, Dosing Weight Start Date: 10/15/23 Status: Ordered promethazine hydrochloride 25 mg oral tablet (8 sources) Phenothiazine Start: 03-13-2017 End: 08-16-2017 take 1 tablet by mouth every four hours as needed for nausea Promethazine 25 MG tablet Discontinued 25 mg PO EVERY 4 HOURS NEEDED as needed for Nausea 10 0 March 13, 2017 12:00am August 16, 2017 12:39pm traMADol hydrochloride 50 mg oral tablet (20 sources) Opioid Agonist Start: 02-28-2022 End: 08-31-2022 traMADol (ULTRAM) 50 mg tablet Problems Active Problems Problem Classification Problem Date Documented Da te Episodic/Chronic Abdominal hernia (1 source) Diaphragmatic hernia without obstruction or gangrene; Translations: [Hiatal hernia] Onset: 4 Episodic Abdominal pain (20 sources) Abdominal pain; Translations: [Pain in pelvis] Onset: 4 01-29-2024 Episodic Anxiety disorders (14 sources) Mixed anxiety and depressive disorder; Translations: [Anticipatory anxiety] 10-07-2019 Chronic Disorders of teeth and jaw (13 sources) Temporomandibular joint disorder 10-06-2016 Episodic Esophageal disorders (16 sources) Gastroesophageal reflux disease; Translations: [Gastro-esophageal reflux disease without esophagitis] 10-06-2016 Chronic Gastritis and duodenitis (1 source) Unspecified chronic gastritis without bleeding; Translations: [Chronic gastritis without bleeding, unspecified gastritis type] Onset: 4 Chronic Genitourinary symptoms and ill-defined conditions (3 sources) Incontinence; Translations: [Urge incontinence] Onset: 5 05-08-2024 Chronic Genitourinary symptoms and ill-defined conditions (7 sources) Increased frequency of urination; Translations: [Frequency of micturition] Onset: 3 07-04-2022 Episodic Inflammation; infection of eye (except that caused by tuberculosis or sexually transmitteddisease) (4 sources) Hordeolum externum of upper eyelid of right eye; Translations: [Hordeolum externum right upper eyelid] Episodic Joint disorders and dislocations; trauma-related (20 sources) Derangement of knee; Translations: [Chondromalacia patellae, right knee] Onset: 6 07-06-2016 Chronic Mood disorders (7 sources) Major depressive disorder 10-15-2023 Chronic Nausea and vomiting (20 sources) Nausea; Translations: [Nausea] Onset: 5 01-29-2024 Episodic Osteoarthritis (13 sources) Osteoarthritis of knee 08-01-2021 Chronic Other aftercare (2 sources) Encounter for follow-up examination after completed treatment for conditions other than malignant neoplasm; Translations: [Encounter for follow-up examination after completed treatment for conditions other than malignant ne] Onset: 4 Episodic Other aftercare (1 source) Surgical follow-up 05-08-2024 Episodic Other connective tissue disease (1 source) History of right total knee replacement; Translations: [Presence of right artificial knee joint] Chronic Other connective tissue disease (10 sources) History of total knee arthroplasty 04-19-2022 Chronic Other connective tissue disease (1 source) Presence of right artificial knee joint; Translations: [History of total knee arthroplasty, right] Onset: 4 Chronic Other disorders of stomach and duodenum (20 sources) Gastroparesis syndrome; Translations: [Gastroparesis] 11-18-2024 Episodic Other disorders of stomach and duodenum (3 sources) Gastroparesis; Translations: [Gastroparesis] Onset: 5 Episodic Other female genital disorders (1 source) Abnormal uterine bleeding; Translations: [Abnormal uterine and vaginal bleeding, unspecified] Onset: 4 Chronic Other female genital disorders (13 sources) Mass of vulva 03-09-2021 Episodic Other female genital disorders (5 sources) Pelvic congestion syndrome 03-03-2024 Episodic Other gastrointestinal disorders (13 sources) Irritable bowel syndrome 10-06-2016 Chronic Other gastrointestinal disorders (6 sources) Constipation alternates with diarrhea 01-29-2024 Episodic Other gastrointestinal disorders (20 sources) Dysphagia; Translations: [Dysphagia, unspecified] 01-29-2024 Episodic Comment on above: FOR YEARS Other gastrointestinal disorders (1 source) Burping 09-15-2024 Episodic Other gastrointestinal disorders (15 sources) Loose stool; Translations: [Other fecal abnormalities] 09-30-2024 Episodic Other gastrointestinal disorders (20 sources) Constipation; Translations: [Constipation, unspecified] 11-18-2024 Episodic Other gastrointestinal disorders (2 sources) Other fecal abnormalities; Translations: [Other fecal abnormalities] Onset: 5 Episodic Other gastrointestinal disorders (2 sources) Constipation, unspecified; Translations: [Constipation, unspecified] Onset: 5 Episodic Other hereditary and degenerative nervous system conditions (13 sources) Restless legs 10-06-2016 Chronic Other liver diseases (2 sources) Liver disease, unspecified; Translations: [Liver disease, unspecified] Onset: 5 Chronic Other nervous system disorders (20 sources) Complex regional pain syndrome type I of right lower limb; Translations: [Complex regional pain syndrome I of right lower limb] Onset: 2 04-04-2022 Chronic Other nervous system disorders (1 source) Complex regional pain syndrome I of right lower limb; Translations: [Complex regional pain syndrome i of right lower limb] Onset: 2 Chronic Other nervous system disorders (1 source) Other chronic pain; Translations: [Chronic abdominal pain] Onset: 5 Chronic Other nervous system disorders (1 source) Postoperative pain ; Translations: [Other acute postprocedural pain] Onset: 4 Episodic Other nutritional; endocrine; and metabolic disorders (7 sources) Unintentional weight loss 10-15-2023 Episodic Other nutritional; endocrine; and metabolic disorders (1 source) Weight loss 09-15-2024 Episodic Other nutritional; endocrine; and metabolic disorders (6 sources) Weight decreased; Translations: [Abnormal weight loss] 04-21-2025 Episodic Other screening for suspected conditions (not mental disorders or infectious disease) (1 source) Screening status; Translations: [Encounter for screening for other disorder] Episodic Other upper respiratory disease (13 sources) Allergic rhinitis 10-07-2019 Chronic Other upper respiratory infections (1 source) Acute pharyngitis; Translations: [Acute pharyngitis, unspecified] Episodic Residual codes; unclassified (1 source) Pelvic organ finding; Translations: [Acquired absence of both cervix and uterus] Onset: 4 Episodic Skin and subcutaneous tissue infections (2 sources) Cellulitis of left upper limb; Translations: [Cellulitis of left upper limb] Onset: 5 03-23-2025 Episodic Spondylosis; intervertebral disc disorders; other back problems (14 sources) Low back pain; Translations: [Spinal stenosis of lumbar region] 10-06-2016 Episodic Unclassified (7 sources) Aftercare ; Translations: [Encounter for other orthopedic aftercare] Onset: 7 04-04-2017 Unclassified (20 sources) Patient encounter status 08-01-2021 Unclassified (4 sources) History of vaginal hysterectomy 03-27-2024 Urinary tract infections (10 sources) Cystitis 06-07-2022 Episodic Viral infection (20 sources) Herpes simplex; Translations: [Verruca plantaris] 10-06-2016 Episodic Past or Other Problems Problem Classification Problem Date Documented Da te Episodic/Chronic Joint disorders and dislocations; trauma-related (20 sources) Other tear of lateral meniscus, current injury, right knee, initial encounter; Translations: [Other tear of lateral meniscus, current injury, right knee, subsequent encounter] Onset: 01-12-2017 02-01-2017 Episodic Other aftercare (5 sources) Other tear of lateral meniscus, current injury, right knee, subsequent encounter; Translations: [Other tear of lateral meniscus, current injury, right knee, subsequent encounter] Onset: 02-07-2017 02-16-2017 Episodic Other connective tissue disease (20 sources) Muscle weakness; Translations: [Muscle weakness (generalized)] Onset: 04-20-2022 Episodic Other gastrointestinal disorders (2 sources) Dysphagia, unspecified; Translations: [Dysphagia, unspecified] Onset: 01-23-2025 Episodic Other non-traumatic joint disorders (15 sources) Knee pain; Translations: [Pain in right knee] Onset: 06-30-2016 06-30-2016 Episodic Other non-traumatic joint disorders (20 sources) Pain in right knee; Translations: [Pain in joint, lower leg] Onset: 04-20-2022 Episodic Sprains and strains (15 sources) Sprain of anterior cruciate ligament of right knee, initial encounter; Translations: [Sprain of anterior cruciate ligament of right knee, initial encounter] Onset: 01-12-2017 02-01-2017 Episodic Results Test Name Value Interpretation Reference Range Facility Gastroenterology Visit Repor ton 07-02-2025 Gastroenterology Visit Report [facility] Gastroenterology [address] [place] [address] OFFICE VISIT Date of Service: 07/02/25 MR#: [id number] Acct: [id number] Name: KIA GONZALEZ Rep #: [id number] : 1975 Provider: Lloyd Lee DO Age/Sex: 50/F Location: [facility] [place].[facility] Status: Signed Intake Vital Signs 01/13/25 13:35 07/02/25 15:56 Height 5 ft 5 in 5 ft 5 in Weight: 114 lb BMI 18.9 Intake Visit Reasons: 2 M FU Allergies sucralfate (From Carafate) Allergy (Severe, Verified 01/27/25 07:21) Swelling soy Allergy (Verified 01/27/25 07:21) Hives sulfamethoxazole (From Bactrim) Allergy (Verified 01/27/25 07:21) Swelling trimethoprim (From Bactrim) Allergy (Verified 01/27/25 07:21) Swelling Medications ???Medication ???Instructions ???Recorded ???Confirmed ???Type multivitamin 1 ea PO DAILY 03/07/17 07/02/25 Hi story lactobacillus combination no.4 3 3,000 mmu cells PO QDAY 09/30/24 1 History billion cell capsule (Probiotic) magnesium 250 mg tablet 250 mg PO QDAY 09/30/24 07/02/25 H istory oxybutynin chloride 10 mg 10 mg PO BID 09/30/24 07/02/25 His tory tablet,extended release 24 hr valacyclovir 500 mg tablet 500 mg PO QDAY 09/30/24 07/02/25 H istory fluticasone propionate 50 1 spray intranasal DAILY PRN 12/1207/02/25 History mcg/actuation nasal allergy symptoms spray,suspension (24 Hour Allergy Relief) ondansetron 8 mg disintegrating 8 mg PO Q12H PRN nausea and 07/02/25 Rx tablet vomiting #30 tabs omega 1-hqv-bnr-fish oil 60 mg-90 1 cap PO QDAY 01/27/25 07/02/25 H istory mg-500 mg capsule (Fish Oil) pramipexole 0.5 mg tablet 0.5 mg PO BID PRN 04/21/25 5 History hyoscyamine sulfate 0.125 mg tablet 0.125 mg PO BID-QID PRN dyspeps ia 04/29/25 07/02/25 Rx #30 tabs hyoscyamine sulfate 0.125 mg 0.125 mg PO BID-QID PRN dyspepsia 07/02/25 07/02/25 Rx disintegrating tablet #60 tabs PFSH Medical History History of MRSA infection Congenital hernia of foramen of [place] Wears glasses Post-menopausal Anxiety Marijuana use Arthritis Anemia Back pain Difficulty swallowing History of ulceration History of IBS Gastric reflux Vapes nicotine containing substance Smoker Hoarseness History of pain when walking Herpes simplex viral infection Depression Anesthesia complication Polycystic ovaries Neuropathy Heart murmur Irritable bowel syndrome Headache, migraine Gastrointestinal problem Back problem Seasonal allergies Surgical History History of esophagogastroduodenoscopy (EGD) History of hysterectomy History of total right knee replacement S/P right knee arthroscopy History of tonsillectomy Family History Mother Cancer Anemia Arthritis Breast cancer Father Cancer Hypertension Heart disease Diabetes Myocardial infarction, Onset Age: 59 Brother Hypertension Hypercholesteremia Sister Arthritis Other Anxiety Social History Smoking Status: Current every day smoker tobacco type: cigarettes alcohol intake: current substance use type: marijuana HPI HPI Details: KIA GONZALEZ, is a 50 F who presents to the office today for follow up. [facility]GI established Sep 2024 with weight loss, difficulty swallowing, heartburn and irregular bowel movements. EGD 11.14.17; Suspected Barrets esophagus, small amount of food debris in stomach, mild gastritis, normal duodenum EGD 5.18.24; small hiatal hernia, mild gastritis EGD 5.24; normal mucosa in the whole esophagus, erythema and congestion in the antrum, normal duodenum CT abd/pelvis 6.24; NO acute process within the abd/pelvis GES 6..24; slightly prolonged extrapolated T half emptying time of 126.5 minutes likely secondary to the 1st 60 minutes of imaging acquisition. Other marcelino normal RUQ US 2.1.25; normal EGD 4.07.28; - Normal esophagus. - Bilious gastric fluid. - Erythematous mucosa in the gastric body and antrum. Biopsied. - Erythematous duodenopathy. 4 hour GES 4.16.25; normal Last OV 4..25 Pt has been doing better since he EGD. She is eating soft foods without difficultly. She continues to have episode of intense abd pain but hyoscyamine and zofran have been helpful. Pt tells me Dr. Lee recommend barium esophagram for further work up. Colonoscopy 01.13.25;- Preparation of the colon was fair. - One 5 mm polyp in the rectum, removed with a jumbo cold forceps. Resected and retrieved. - Diverticulosis in the recto-sigmoid colon and in the sigmoid colon. - Stool in the sigmoid colon, in the transverse colon, i (more content not included)... Normal [facility] CTA Abdomen W/WO Contraston 05-07-2025 CTA Abdomen W/WO Contrast [facility] Imaging Services [address], [place] [id number] CTA Abdomen W/WO Contrast MR#: [id number] Acct: [id number] Name: KIA GONZALEZ Rep #: [id number] : 1975 F 50 From: Tej Santos MD PCP: SANDI Rick Status: REG CLI Study: CTA Abdomen W/WO Contrast Date of Exam: Exam# [id number] Ordering Dr: Teri Chou PROCEDURE: CTA ABDOMEN W/WO CONTRAST 05/07/2025 REASON FOR EXAM: RULE OUT SMA SYNDROME TECHNIQUE: Procedure Code: [id number] Modality: CT Procedure: CTA ABDOMEN W/WO CONTRAST Multiplanar Sagittal and Coronal images were obtained. 3D and or MIPS post processing was performed CONTRAST: Isovue 370 VOLUME: 100 mL One or more dose reduction techniques were used (e.g., Automated exposure control, adjustment of the mA and/or kV according to patient size, use of iterative reconstruction technique). RADIATION DOSE SUMMARY: CTDlvol: 49 mGy DLP: 317.7 mGycm COMPARISON: None. FINDINGS: Lung bases: Mild dependent atelectasis. ABDOMEN Liver: Hyper enhancing lesion inferior right lobe of the liver image 68, measures 1.2 cm. Remainder liver negative. Biliary system: Negative for intrahepatic or extrahepatic ductal dilatation. Gallbladder: Negative. Negative for cholecystitis. Spleen: Negative. Pancreas: Negative. Adrenals: Negative. Kidneys: Negative. Negative for kidney stones, cysts or masses. Bowel: Marked increased stool throughout the colon. Negative for small or large-bowel obstruction. Appendix: Imaged portions negative. Vasculature: The duodenum does extend between the superior mesenteric artery and aorta with a distance of between 6 and 9 mm. No evidence of dilatation of the duodenum related to this and therefore no definitive mass effect. Remainder of the celiac artery and branches, superior mesenteric artery and branches, renal arteries inferior mesenteric artery and branches negative. Negative for atherosclerotic vascular calcifications of the abdominal aorta and its branches. Peritoneum / Retroperitoneum: Negative. Bones and Soft Tissues: Age appropriate degenerative changes of the lumbar spine hips and pelvis. CT/CTA Abdomen W/WO Contrast IMPRESSION: Duodenum does extend between the superior mesenteric artery and aorta with a diameter of 6-9 mm without evidence of dilatation of the duodenum. Therefore no definitive SMA syndrome. No definitive mass effect or dilatation of the duodenum as above. Marked constipation. Reading Location: [id number] CC: SANDI Garcia; KEKE Morales Commutator Assembler: Signed Normal [facility] Calprotectin, Stoolon [address] 40 ug/g Normal 0-120 [facility] Comment on above: Result Comment: Conc entration Interpretation Follow-Up < 5 - 50 ug/g Normal None >50 -120 ug/g Borderline Re-evaluate in 4-6 weeks >120 ug/g Abnormal Repeat as clinically indicated Performed at: [address] [id number] Floor Manager: Dannielle Villatoro MD, Phone: [phone] Performed By: #### L 7400.3300, L7000.0700, M100.0605, L7000.0750, M100.637 ####[facility] [address] [place], [place], [id number] Giardia Lamblia, Stool EIAon 04-28-2025 Giardia Stool Negative Normal Negative [facility] Comment on above: Result Comment: Perf ormed at: [address] [id number] Floor Manager: Dannielle Villatoro MD, Phone: [phone] Performed at: [address] [id number] Floor Manager: Dao Clemente PhD, Phone: [phone] Performed By: #### L 7400.3300, L7000.0700, M100.0605, L7000.0750, M100.637 ####[facility] [address] [place], [address] L7000.0750on 04-28-2025 P ELASTASE,FECA > 800 Normal >200 [facility] Comment on above: Result Comment: Resu lt Units: ug Elast./g Severe Pancreatic Insufficiency: <100 Moderate Pancreatic Insufficiency: 100 - 200 Normal: >200 Performed By: #### L 7400.3300, L7000.0700, M100.0605, L7000.0750, M100.637 ####[facility] [address] [place], [address] Allergen, Food Profile 14on 04-27-2025 BEEF <0.10 Normal Class 0 [facility] Comment on above: Performed By: #### L 5500.0550 ####[facility] [address] [place], [address] CHOCOLATE <0.10 Normal Class 0 [facility] Comment on above: Performed By: #### L 5500.0550 ####[facility] [address] [place], [place], [id number] CODFISH <0.10 Normal Class 0 [facility] Comment on above: Performed By: #### L 5500.0550 ####[facility] [address] [place], [place], [id number] COMMENT Comment Normal . [facility] Comment on above: Result Comment: Senthil elliott of Specific IgE Class Description of Class ----- < 0.10 0 Negative 0.10 - 0.31 0/I Equivocal/Low 0.32 - 0.55 I Low 0.56 - 1.40 II Moderate 1.41 - 3.90 III High 3.91 - 19.00 IV Very High 19.01 - 100.00 V Very High >100.00 Very High Performed By: #### L 5500.0550 ####[facility] [address] [place], [address] CORN <0.10 Normal Class 0 [facility] Comment on above: Performed By: #### L 5500.0550 ####[facility] [address] [place], [place], [id number] EGG, WHOLE <0.10 Normal Class 0 [facility] Comment on above: Result Comment: Perf ormed at: [facility] [address] [id number] Floor Manager: Dannielle Villatoro MD, Phone: [phone] Performed By: #### L 5500.0550 ####[facility] [address] [place], [place], [id number] MILK (COW) 0.37 kU/L Abnormal Class I [facility] Comment on above: Performed By: #### L 5500.0550 ####[facility] [address] [place], [address] MUSSELS <0.10 Normal Class 0 [facility] Comment on above: Performed By: #### L 5500.0550 ####[facility] [address] [place], [address] PEANUT <0.10 Normal Class 0 [facility] Comment on above: Performed By: #### L 5500.0550 ####[facility] [address] [place], [address] PORK <0.10 Normal Class 0 [facility] Comment on above: Performed By: #### L 5500.0550 ####[facility] [address] [place], [address] SALMON <0.10 Normal Class 0 [facility] Comment on above: Performed By: #### L 5500.0550 ####[facility] [address] [place], [address] SHRIMP <0.10 Normal Class 0 [facility] Comment on above: Performed By: #### L 5500.0550 ####[facility] [address] [place], [address] SOYBEAN <0.10 Normal Class 0 [facility] Comment on above: Performed By: #### L 5500.0550 ####[facility] [address] [place], [address] TUNA <0.10 Normal Class 0 [facility] Comment on above: Performed By: #### L 5500.0550 ####[facility] [address] [place], [address] WHEAT <0.10 Normal Class 0 [facility] Comment on above: Performed By: #### L 5500.0550 ####[facility] [address] [place], [place], [id number] Calprotectin stoolOrdered By : Teri Chou on 04-27-2025 Calprotectin stool 40 ug/g 0-120 [facility] Comment on above: Concentration Interp retation Follow-Up< 5 - 50 ug/g Normal None>50 -120 ug/g Borderline Re-evaluate in 4-6 weeks >120 ug/g Abnormal Repeat as clinically indicatedPerformed at: [facility] [facility] [id number] Director: Dannielle Villatoro MD, Phone: [phone] ENTERIC PATHOGEN PANEL STOOL on 04-27-2025 EP PANEL Normal Reference Ran ge = Not Detected Nucleic acid amplification test method Not detected for Campylobacter group, Salmonella species, Shigella species, Vibrio Group, Yersinia enterocolitica, EHEC (Shiga Toxin 1, Shiga Toxin 2), Norovirus Gl/Gll, and Rotavirus A. Other common stool pathogens are not detected on this panel include: Aeromonas/Plesiomonas or parasites. Order testing for these organisms separately if suspected. This is an amplified DNA test which makes it both specific and sensitive. CAMPYLOBACTER Not Detected Norovirus Not Detected Rotavirus Not Detected Salmonella Not Detected Shiga Toxin Not Detected Shigella sp. Not Detected VIBRIO Not Detected Yersinia Not Detected Normal [facility] Comment on above: Performed By: #### L 7400.3300, L7000.0700, M100.0605, L7000.0750, M100.637 ####[facility] [address] [place], [place], [address] Giardia lamblia ag stool EIA Ordered By: Teri Chou on 04-27-2025 G. lamblia Ag IA Ql (Stl) Negative Negative [facility] Comment on above: Performed at: [facility] - [employer] [id number] Director: Dannielle Villatoro MD, Phone: [phone] at: [facility] [id number] Director: Dao Clemente PhD, Phone: [phone] Stool Lactoferrin/WBCon 04-04 WBCST Normal Reference Ran ge = Negative Fecal WBC Lactoferrin Negative: No Fecal WBC Lactoferrin present Normal [facility] Comment on above: Performed By: #### L 7400.3300, L7000.0700, M100.0605, L7000.0750, M100.637 ####[facility] [address] [place], [address] Stool lactoferrin detection by immunoassayOrdered By: Teri Chou on 04-27-2025 Lactoferrin IA Ql (Stl) [facility] Stool pancreatic elastase me asurement (mass/mass)Ordered By: Teri Chou on 04-27-2025 Elastase.pancreatic (Stl) [Mass/Mass] > 800 >200 [facility] Comment on above: Result Units: ug Arabella st./g Severe Pancreatic Insufficiency: <100 Moderate Pancreatic Insufficiency: 100 - 200 Normal: >200 Gastroenterology Visit Repor ton 04-21-2025 Gastroenterology Visit Report [facility] Gastroenterology [address] [place] [address] OFFICE VISIT Date of Service: 04/21/25 MR#: [id number] Acct: [id number] Name: KIA GONZALEZ Rep #: [id number] : 1975 Provider: KEKE Morales Age/Sex: 50/F Location: [facility] [place].[facility] Status: Signed Intake Vital Signs 01/13/25 13:35 Height 5 ft 5 in Intake Visit Reasons: 6 M FU Chief Complaint: epigastric pain Allergies sucralfate (From Carafate) Allergy (Severe, Verified 01/27/25 07:21) Swelling soy Allergy (Verified 01/27/25 07:21) Hives sulfamethoxazole (From Bactrim) Allergy (Verified 01/27/25 07:21) Swelling trimethoprim (From Bactrim) Allergy (Verified 01/27/25 07:21) Swelling Medications ???Medication ???Instructions ???Recorded ???Confirmed ???Type multivitamin 1 ea PO DAILY 03/07/17 04/21/25 Hi story lactobacillus combination no.4 3 3,000 mmu cells PO QDAY 09/30/24 0 04/21/25 History billion cell capsule (Probiotic) magnesium 250 mg tablet 250 mg PO QDAY 09/30/24 04/21/25 H istory oxybutynin chloride 10 mg 10 mg PO BID 09/30/24 04/21/25 His tory tablet,extended release 24 hr valacyclovir 500 mg tablet 500 mg PO QDAY 09/30/24 04/21/25 H istory fluticasone propionate 50 1 spray intranasal DAILY PRN 12/1204/21/25 History mcg/actuation nasal allergy symptoms spray,suspension (24 Hour Allergy Relief) hyoscyamine sulfate 0.125 mg tablet 0.125 mg PO BID-QID PRN dyspeps ia 12/16/24 04/21/25 Rx #30 tabs ondansetron 8 mg disintegrating 8 mg PO Q12H PRN nausea and 04/21/25 Rx tablet vomiting #30 tabs omega 5-dtj-qdi-fish oil 60 mg-90 1 cap PO QDAY 01/27/25 04/21/25 H istory mg-500 mg capsule (Fish Oil) pramipexole 0.5 mg tablet 0.5 mg PO BID PRN 04/21/25 5 History PFSH Medical History History of MRSA infection Congenital hernia of foramen of [place] Wears glasses Post-menopausal Anxiety Marijuana use Arthritis Anemia Back pain Difficulty swallowing History of ulceration History of IBS Gastric reflux Vapes nicotine containing substance Smoker Hoarseness History of pain when walking Herpes simplex viral infection Depression Anesthesia complication Polycystic ovaries Neuropathy Heart murmur Irritable bowel syndrome Headache, migraine Gastrointestinal problem Back problem Seasonal allergies Surgical History History of esophagogastroduodenoscopy (EGD) History of hysterectomy History of total right knee replacement S/P right knee arthroscopy History of tonsillectomy Family History Mother Cancer Anemia Arthritis Breast cancer Father Cancer Hypertension Heart disease Diabetes Myocardial infarction, Onset Age: 59 Brother Hypertension Hypercholesteremia Sister Arthritis Other Anxiety Social History Smoking Status: Current every day smoker tobacco type: cigarettes alcohol intake: current substance use type: marijuana HPI HPI Chief Complaint: epigastric pain Details: KIA GONZALEZ, is a 50 F who presents to the office today for f/u. BGI established Sep 2024 with weight loss, difficulty swallowing, heartburn and irregular bowel movements. EGD ..17; Suspected Barrets esophagus, small amount of food debris in stomach, mild gastritis, normal duodenum EGD 5.24; small hiatal hernia, mild gastritis EGD 24; normal mucosa in the whole esophagus, erythema and congestion in the antrum, normal duodenum CT abd/pelvis .; NO acute process within the abd/pelvis GES 6..24; slightly prolonged extrapolated T half emptying time of 126.5 minutes likely secondary to the 1st 60 minutes of imaging acquisition. Other marcelino normal RUQ US 2.1.25; normal EGD 4.07.28; - Normal esophagus. - Bilious gastric fluid. - Erythematous mucosa in the gastric body and antrum. Biopsied. - Erythematous duodenopathy. 4 hour GES 4.16.25; normal Last OV 4.28.25 Pt has been doing better since he EGD. She is eating soft foods without difficultly. She continues to have episode of intense abd pain but hyoscyamine and zofran have been helpful. Pt tells me Dr. Lee recommend barium esophagram for further work up. Colonoscopy 01.13.25;- Preparation of the colon was fair. - One 5 mm polyp in the rectum, removed with a jumbo cold forceps. Resected and retrieved. - Diverticulosis in the recto-sigmoid colon and in the sigmoid colon. - Stool in the sigmoid colon, in the transverse colon, in the ascending colon and in the cecum. - The examination was otherwise normal on direct and retroflexion views. (more content not included)... Normal [facility] Laboratory - Miscellaneous t estsOrdered By: Teri Chou on 04-21-2025 Service comment (Unsp spec) [Interp] Comment . [facility] Comment on above: Levels of Specific I gE Class Description of Class ----- < 0.10 0 Negative 0.10 - 0.31 0/I Equivocal/Low 0.32 - 0.55 I Low 0.56 - 1.40 II Moderate 1.41 - 3.90 III High 3.91 - 19.00 IV Very High 19.01 - 100.00 V Very High >100.00 Very High Serum beef IgE antibody assa y (units/volume)Ordered By: Teri Chou on 04-21-2025 Beef IgE Qn (S) <0.10 kU/L Class 0 [facility] Serum codfish IgE antibody a ssay (units/volume)Ordered By: Teri Chou on 04-21-2025 Codfish IgE Qn (S) <0.10 kU/L Class 0 [facility] Serum corn IgE antibody assa y (units/volume)Ordered By: Teri Chou on 04-21-2025 [place] IgE Qn (S) <0.10 kU/L Class 0 [facility] Serum cow milk IgE antibody assay (units/volume)Ordered By: Teri Chou on 04-21-2025 Cow milk IgE Qn (S) 0.37 kU/L High Class I [facility] Serum peanut IgE antibody as say (units/volume)Ordered By: Teri Chou on 04-21-2025 Peanut IgE Qn (S) <0.10 kU/L Class 0 [facility] Serum pork IgE antibody assa y (units/volume)Ordered By: Teri Chou on 04-21-2025 Pork IgE Qn (S) <0.10 kU/L Class 0 [facility] Serum salmon IgE antibody as say (units/volume)Ordered By: Teri Chou on 04-21-2025 [place] IgE Qn (S) <0.10 kU/L Class 0 [facility] Serum soybean IgE antibody a ssay (units/volume)Ordered By: Teri Chou on 04-21-2025 Soybean IgE Qn (S) <0.10 kU/L Class 0 [facility] Serum tuna IgE antibody assa y (units/volume)Ordered By: Teri Chou on 04-21-2025 Tuna IgE Qn (S) <0.10 kU/L Class 0 [facility] Serum wheat IgE antibody ass ay (units/volume)Ordered By: Teri Chou on 04-21-2025 Wheat IgE Qn (S) <0.10 kU/L Class 0 [facility] Serum whole egg IgE antibody assay (units/volume)Ordered By: Teri Chou on 04-21-2025 Whole Egg IgE Qn (S) <0.10 kU/L Class 0 [facility] Comment on above: Performed at: [address] [id number] Director: Dannielle Villatoro MD, Phone: [phone] [facility] ([facility] ) KIA GONZALEZ ([id number]) 1975 F Date Time Provider Department 03/23/25 1:20 PM BROWN OMALLEY [facility] During your visit today, we recorded the following information about you: Temperature Pulse Respiration Blood pressure 97.1 degrees 56/minute 16/minute 142/88 Weight 54.2 kg Brown Omalley, [employer]HAND COREMAKER 03/23/2025 2:42 PM Signed [facility] [address] [place], [place] [address] Emergency Department Diagnosis: Assessment CELLULITIS: Your exam shows you have an infection of the skin called cellulitis. This infection usually develops after an injury, cut, bite, or sting, but may occur without any known cause. Usually there is a localized area of redness, swelling, and pain which gets constantly bigger unless treatment is started. If cellulitis is severe or does not respond to initial treatment, hospital care with antibiotic injections may be needed. Treatment of cellulitis includes antibiotics along with resting and elevating the affected area until the infection improves. You should apply moist, warm compresses to the area for 30 minutes 4 times daily also. Please see your doctor if the pain and swelling from your infection are not better after two days of treatment. Call your doctor or go to the emergency department right away if you develop fever, chills, or other serious problems. You may require a tetanus booster if you are not current with your inmunizations. Brown Omalley, [employer].HAND COREMAKER 03/23/2025 3:03 PM Signed [facility] [place] Subjective Subjective Kia Gonzalez is a 50 year old female who presents with chief complaint of Possible insect/spider bite (States she doesn't see a bite. She just believes it might be a spider bite. It is her left arm and left hand. She states swelling and some redness. ) HPI Kia Gonzalez is a 50-year-old female presenting with a possible spider bite. Kia reports waking up on Sunday morning with pruritus and swelling on her arm, which she suspects is due to a spider bite that occurred on Sunday night. The swelling has progressively worsened, extending from her arm to her hand and fingers, accompanied by numbness, tingling, and pain. She notes warmth in the affected area and has observed erythema and swelling. She has a history of cellulitis infections. She has tried hydrocortisone cream at home without relief. Review of Systems Musculoskeletal: (+) arm pain Skin: (+) itching, (+) warmth, (+) redness, (+) swelling Neurological: (+) numbness, (+) tingling Objective Objective BP 142/88 (BP Site: Right Arm, BP Position: Sitting, BP Cuff Size: Regular Adult) Pulse (!) 56 Temp 36.2 ?C (97.1 ?F) (Temporal) Resp 16 Wt 54.2 kg (119 lb 9.6 oz) LMP (LMP Unknown) SpO2 100% BMI 19.90 kg/m? Physical Exam Vitals and nursing note reviewed. Constitutional: General: She is not in acute distress. Appearance: Normal appearance. She is well-developed and well-groomed. She is not ill-appearing, toxic-appearing or diaphoretic. HENT: Head: Normocephalic and atraumatic. Mouth/Throat: Comments: +PND Eyes: Conjunctiva/sclera: Conjunctivae normal. Pulmonary: Effort: Pulmonary effort is normal. Musculoskeletal: General: Normal range of motion. Cervical back: Normal range of motion and neck supple. Skin: General: Skin is warm and dry. Comments: Area noted in picture but is region of edema, erythema and slight warmth. Radial pulse intact. Able to move all joints with no difficulty. NVI. Cap refill less than 3 seconds. Neurological: General: No focal deficit present. Mental Status: She is alert and oriented to person, place, and time. Psychiatric: Mood and Affect: Mood normal. Behavior: Behavior normal. Behavior is cooperative. General: No acute distress. Skin: Erythema and swelling of the arm. Procedures Assessment/MDM 1. Left arm cellulitis (L03.114) Erythema, edema, warmth, and pruritus noted on the left arm, extending from the initial site to the fingers. Symptoms began approximately 1.5 days ago, likely secondary to an insect or spider bite. Differential includes cellulitis versus histamine reaction. - Prescribed oral antibiotics to address potential infection. - Prescribed prescription-strength topical anti-pruritic cream. - Advised patient to monitor symptoms closely; if no improvement within 2-3 days or if symptoms worsen, instructed to seek immediate evaluation in the emergency department. - Discussed potential complications, including systemic spread of infection via the lymphatic system which she should present to the ER if this does occur. - Sent prescriptions to [facility] across the street. Histamine reaction versus cellulitis Patient given educational materials - see patient instructions. Discussed us (more content not included)... Normal [facility] Esophagus Dual Contraston Esophagus Dual Contrast [facility] Imaging Services [address] [place] [address] Esophagus Dual Contrast MR#: [id number] Acct: [id number] Name: KIA GONZALEZ Rep #: [id number] : 1975 F 49 From: Ras johnson MD PCP: SANDI Rick Status: REG CLI Study: Esophagus Dual Contrast Date of Exam: 02/09/25 Exam# [id number] Ordering Dr: Teri Chou PROCEDURE: ESOPHAGUS DUAL CONTRAST 02/09/2025 REASON FOR EXAM: DIFFICULTY SWALLOWING TECHNIQUE: The patient ingested barium. Multiple images of the esophagus were obtained. 36 seconds of fluoroscopy. 1.8 mGy. COMPARISON: None FINDINGS: The patient ingested barium. Multiple images were obtained. The esophagus is unremarkable. No evidence of obstruction. No mass lesion is seen. No evidence of gastroesophageal reflux. The patient ingested a 12 mm tablet the barium without any difficulty. RAD/Esophagus Dual Contrast IMPRESSION: Unremarkable air contrast upper GI series. Reading Location: [facility] CC: SANDI Garcia; KEKE Morales Commutator Assembler: Signed Normal [facility] Gastroenterology Visit Repor ton 01-27-2025 Gastroenterology Visit Report [facility] Gastroenterology [address] [place] [address] OFFICE VISIT Date of Service: 01/27/25 MR#: [id number] Acct: [id number] Name: KIA GONZALEZ Rep #: [id number] : 1975 Provider: KEKE Morales Age/Sex: 49/F Location: [facility] [place] Status: Signed Intake Vital Signs 12/12/24 12:58 01/13/25 13:35 Height 5 ft 5 in 5 ft 5 in Intake Visit Reasons: Test Result Chief Complaint: epigastric pain Etl Software Engineer Required: No Accompanied by: Self Is patient in pain?: No Allergies sucralfate (From Carafate) Allergy (Severe, Verified 01/27/25 07:21) Swelling soy Allergy (Verified 01/27/25 07:21) Hives sulfamethoxazole (From Bactrim) Allergy (Verified 01/27/25 07:21) Swelling trimethoprim (From Bactrim) Allergy (Verified 01/27/25 07:21) Swelling Medications ???Medication ???Instructions ???Recorded ???Confirmed ???Type multivitamin 1 ea PO DAILY 03/07/17 01/27/25 Hi story lactobacillus combination no.4 3 3,000 mmu cells PO QDAY 09/30/24 0 01/27/25 History billion cell capsule (Probiotic) magnesium 250 mg tablet 250 mg PO QDAY 09/30/24 01/27/25 H istory oxybutynin chloride 10 mg 10 mg PO BID 09/30/24 01/27/25 His tory tablet,extended release 24 hr pantoprazole 40 mg tablet,delayed 40 mg PO BID 09/30/24 01/27/25 Hi story release valacyclovir 500 mg tablet 500 mg PO QDAY 09/30/24 01/27/25 H istory fluticasone propionate 50 1 spray intranasal DAILY PRN 12/1201/27/25 History mcg/actuation nasal allergy symptoms spray,suspension (24 Hour Allergy Relief) hyoscyamine sulfate 0.125 mg tablet 0.125 mg PO BID-QID PRN dyspeps ia 12/16/24 01/27/25 Rx #30 tabs ondansetron 8 mg disintegrating 8 mg PO Q12H PRN nausea and 01/27/25 Rx tablet vomiting #30 tabs omega 7-dam-unm-fish oil 60 mg-90 1 cap PO QDAY 01/27/25 01/27/25 H istory mg-500 mg capsule (Fish Oil) Nurse's Note: Has questions about the EGD that she did as well. [facility] Medical History History of MRSA infection Congenital hernia of foramen of [place] Wears glasses Post-menopausal Anxiety Marijuana use Arthritis Anemia Back pain Difficulty swallowing History of ulceration History of IBS Gastric reflux Vapes nicotine containing substance Smoker Hoarseness History of pain when walking Herpes simplex viral infection Depression Anesthesia complication Polycystic ovaries Neuropathy Heart murmur Irritable bowel syndrome Headache, migraine Gastrointestinal problem Back problem Seasonal allergies Surgical History History of esophagogastroduodenoscopy (EGD) History of hysterectomy History of total right knee replacement S/P right knee arthroscopy History of tonsillectomy Family History Mother Cancer Anemia Arthritis Breast cancer Father Cancer Hypertension Heart disease Diabetes Myocardial infarction, Onset Age: 59 Brother Hypertension Hypercholesteremia Sister Arthritis Other Anxiety Social History Smoking Status: Current every day smoker tobacco type: cigarettes alcohol intake: current substance use type: marijuana HPI HPI Chief Complaint: epigastric pain Details: KIA GONZALEZ, is a 49 F who presents to the office today for f/u. BGI established Sep 2024 with weight loss, difficulty swallowing, heartburn and irregular bowel movements. EGD ..; Suspected Barrets esophagus, small amount of food debris in stomach, mild gastritis, normal duodenum EGD 24; small hiatal hernia, mild gastritis EGD 01.14.24; normal mucosa in the whole esophagus, erythema and congestion in the antrum, normal duodenum CT abd/pelvis .; NO acute process within the abd/pelvis GES 6..24; slightly prolonged extrapolated T half emptying time of 126.5 minutes likely secondary to the 1st 60 minutes of imaging acquisition. Other marcelino normal RUQ US 2.1.25; normal EGD .07.28; - Normal esophagus. - Bilious gastric fluid. - Erythematous mucosa in the gastric body and antrum. Biopsied. - Erythematous duodenopathy. 4 hour GES 4.16.25; normal Last OV 4.28.25 Pt has been doing better since he EGD. She is eating soft foods without difficultly. She continues to have episode of intense abd pain but hyoscyamine and zofran have been helpful. Pt tells me Dr. Lee recommend barium esophagram for further work up. Colonoscopy 01.13.25;- Preparation of the colon was fair. - One 5 mm polyp in the rectum, removed with a jumbo cold forceps. Resected and retrieved. - Diverticulosis in the recto-sigmoid colon and in the s (more content not included)... Normal [facility] Colonoscopy Reporton 025 Colonoscopy Report [facility] Medical Records Department [address] [place] [address] Colonoscopy Report MR#: [id number] Acct: [id number] Name: KIA GONZALEZ Rep #: [id number] : 1975 49 From: Lloyd Lee DO PCP: SANDI Rick Status:REG [facility] Patient Name: Kia Gonzalez Procedure Date: 01/13/2025 1:18 PM Date of : 1975 Age: 49 Procedure: Colonoscopy Indications: Screening for colorectal malignant neoplasm Providers: Lloyd Lee DO Referring MD: Teri Garcia Medicines: Monitored Anesthesia Care Patient Profile: This is a 49 year old female. Refer to note in patient chart for documentation of history and physical. Last Colonoscopy: none. The patient's first colonoscopy is today. Complications: No immediate complications. Procedure: Pre-Anesthesia Assessment: - Prior to the procedure, a History and Physical was performed, and patient medications and allergies were reviewed. The patient is competent. The risks and benefits of the procedure and the sedation options and risks were discussed with the patient. All questions were answered and informed consent was obtained. Patient identification and proposed procedure were verified in the pre-procedure area. Mental Status Examination: alert and oriented. Airway Examination: normal oropharyngeal airway and neck mobility. Respiratory Examination: clear to auscultation. CV Examination: normal. Prophylactic Antibiotics: The patient does not require prophylactic antibiotics. Prior Anticoagulants: The patient has taken no anticoagulant or antiplatelet agents except for NSAID medication. ASA Grade Assessment: II - A patient with mild systemic disease. After reviewing the risks and benefits, the patient was deemed in satisfactory condition to undergo the procedure. The anesthesia plan was to use monitored anesthesia care (MAC). Immediately prior to administration of medications, the patient was re-assessed for adequacy to receive sedatives. The heart rate, respiratory rate, oxygen saturations, blood pressure, adequacy of pulmonary ventilation, and response to care were monitored throughout the procedure. The physical status of the patient was re-assessed after the procedure. After I obtained informed consent, the scope was passed under direct vision. Throughout the procedure, the patient's blood pressure, pulse, and oxygen saturations were monitored continuously. The Colonoscope was introduced through the anus and advanced to the cecum, identified by appendiceal orifice and ileocecal valve. The colonoscopy was performed without difficulty. The patient tolerated the procedure well. The quality of the bowel preparation was fair. The ileocecal valve, appendiceal orifice, and rectum were photographed. Scope In: 2:01:50 PM Scope Withdrawal Time 0 hours 10 minutes 35 seconds Scope Out: 2:23:50 PM Total Procedure Duration Time 0 hours 22 minutes 0 seconds Findings: The perianal and digital rectal examinations were normal. A 5 mm polyp was found in the rectum. The polyp was sessile. The polyp was removed with a jumbo cold forceps. Resection and retrieval were complete. Verification of patient identification for the specimen was done. Estimated blood loss was minimal. A few small-mouthed diverticula were found in the recto-sigmoid colon and sigmoid colon. Stool was found in the sigmoid colon, in the transverse colon, in the ascending colon and in the cecum. The exam was otherwise without abnormality on direct and retroflexion views. Impression: - Preparation of the colon was fair. - One 5 mm polyp in the rectum, removed with a jumbo cold forceps. Resected and retrieved. - Diverticulosis in the recto-sigmoid colon and in the sigmoid colon. - Stool in the sigmoid colon, in the transverse colon, in the ascending colon and in the cecum. - The examination was otherwise normal on direct and retroflexion views. Recommendation: - Discharge patient to home. - Resume previous diet. - Continue present medications. - Await pathology results. - Repeat colonoscopy in 5 years for surveillance. Procedure Code(s): --- Professional --- 14407, Colonoscopy, flexible; with biopsy, single or multiple CPT copyright 2021 [employer]. All rights reserved. The codes documented in this report are preliminary and upon chief investigator review may be revised to meet current compliance requirements. Lloyd Lee DO 01/13/2025 2:27:28 PM This report has been signed electronically. Number of Addenda: 0 Note Initiated On: 01/13/2025 1:18 PM 01/13/25 1427 Date Lloyd Lee DO Cosigner Signature: Date (if indicated) CC: COVERAGE SPECIALISTKelvin Garcia; Lloyd Lee DO Date Dic (more content not included)... Normal [facility] MR/POSTOP.Subhs[facility] 01-13-2025 MR/POSTOP.[facility] Medical Records Department [address] [place] [address] Anesthesia Postop Eval I 01/13/25 1435 MR#: [id number] Acct: [id number] Name: KIA GONZALEZ Rep #: [id number] : 1975 49 From: Rupa Moore PCP: SANDI Rick Status:REG [facility] Y Race: C Location: [place] [address] Anesthesia: Postop Eval I Current Vital Signs Temperature: 97 F Pulse Rate: 68 Blood Pressure: 91/61 Respiratory Rate: 16 Pulse Ox: 100 Oxygen Delivery Method: Room Air Assessment Airway patent: Yes Spontaneous unlabored respirations: Yes Mental status: Asleep nausea: No Vomiting: No Anesthesia Complication: No Fluid Hydration Crystalloid volume administer (ml): 900 Total IV fluid infused: 900 Progress Note Anesthesia document: Postop Eval 1 completed: Yes 01/13/25 143 Date Rupa Blanca Signature: Date CC: Signed Normal [facility] MR/[id number] 01-13-2025 [facility] Medical Records Department [address] [place] [address] Anesthesia Postop Eval II 01/13/25 1622 MR#: [id number] Acct: [id number] Name: KIA GONZALEZ Rep #: [id number] : 1975 49 From: Ramsey Jackson MD PCP: SANDI Rick Status:DEP [facility] Y Race: C Location: [place] Anesthesia Postop Eval I Sum Postop Eval Completion status Anesthesia document: Postop Eval 1 completed: Yes Anesthesia Postop Eval I Summary Anesthesia Postop Eval I Summary: Anesthesia Postop Eval I: Assessment Summary Airway patent Yes 01/13/25 14:36 [email or web address] Spontaneous unlabored Yes 01/13/25 14:36 [email or web address] respirations Mental status Asleep 01/13/25 14:36 [email or web address] nausea No 01/13/25 14:36 [email or web address] Vomiting No 01/13/25 14:36 [email or web address] Anesthesia Postop Eval I: Fluid Summary Crystalloid volume administer 900 01/13/25 14:36 [email or web address] (ml) Colloids volume administered ( ml) Blood Product volume administered (ml) Total IV fluid infused 900 01/13/25 14:36 [email or web address] Anesthesia Postop Eval I: Summary Notes Anesthesia Complication No 01/13/25 14:36 [email or web address] Anesthesia Complication Comment: Post-operative progress note Anesthesia: Postop Eval II Evaluation Mental status: Awake and Calm Pain Level: 0 nausea: No Vomiting: No Complications Anesthesia Complication: No 01/13/25 162 Date Ramsey Blanca Signature: Date CC: Signed Normal [facility] Surgery Specimen Level Naresh 01-13-2025 Surgery Specimen Level IV Patient Age/Sex Location Account Attending Physician KIA GONZALEZ/F EN [id number] Lloyd Lee DO Specimen: [id number] Received: 01/13/25 Status: NIKIA Tao Num: [id number] Spec Type: COLON BX Subm Dr: Lloyd Lee DO HEADER OPERATION: Colonoscopy with biopsy PRE-OP DIAGNOSIS: Constipation, gastroparesis, nausea, abdominal pain, difficulty swallowing TISSUE SUBMITTED: A- Rectal polyp biopsy MICROSCOPIC DIAGNOSIS A. Rectum, polyp, biopsy: * Hyperplastic polyp MICROSCOPIC DESCRIPTION Slides are reviewed. GROSS DESCRIPTION A. Received in formalin in a container labeled with the patient's name, date of , and rectal polyp biopsy is a 0.4 x 0.2 x 0.2 cm fragment of fabian-pink mucosal tissue. Submitted in toto in A1. [facility] 01-13-2025 CPT:09366 Patient Age/Sex Location Account Attending Physician CARLOSKIA LOYDA 49/F EN [id number] Lloyd Lee, DO Signed (signature on file) Dr. Pat Jeffries, 01/14/25 1137 Normal [facility] Comment on above: Performed By: #### P SUIV ####[facility] [address] [place], [place], [id number] Gastroenterology Visit Repor ton 12-29-2024 Gastroenterology Visit Report [facility] Gastroenterology [address] [place] [address] OFFICE VISIT Date of Service: 12/29/24 MR#: [id number] Acct: [id number] Name: CARLOSKIA ANNE Rep #: [id number] : 1975 Provider: KEKE Morales Age/Sex: 49/F Location: [facility] Status: Signed Intake Intake Visit Reasons: 3 M FU Chief Complaint: epigastric pain Allergies sucralfate (From Carafate) Allergy (Severe, Verified 12/29/24 08:09) Swelling soy Allergy (Verified 12/29/24 08:09) Hives sulfamethoxazole (From Bactrim) Allergy (Verified 12/29/24 08:09) Swelling trimethoprim (From Bactrim) Allergy (Verified 12/29/24 08:09) Swelling Medications ???Medication ???Instructions ???Recorded ???Confirmed ???Type multivitamin 1 ea PO DAILY 03/07/17 12/29/24 Hi story lactobacillus combination no.4 3 3,000 mmu cells PO QDAY 09/30/24 0 12/29/24 History billion cell capsule (Probiotic) magnesium 250 mg tablet 250 mg PO QDAY 09/30/24 12/29/24 H istory oxybutynin chloride 10 mg 10 mg PO BID 09/30/24 12/29/24 His tory tablet,extended release 24 hr pantoprazole 40 mg tablet,delayed 20 mg PO BID 09/30/24 12/29/24 Hi story release valacyclovir 500 mg tablet 500 mg PO QDAY 09/30/24 12/29/24 H istory fluticasone propionate 50 1 spray intranasal DAILY PRN 12/1212/29/24 History mcg/actuation nasal allergy symptoms spray,suspension (24 Hour Allergy Relief) hyoscyamine sulfate 0.125 mg tablet 0.125 mg PO BID-QID PRN dyspeps ia 12/16/24 12/29/24 Rx #30 tabs ondansetron 8 mg disintegrating 8 mg PO Q12H PRN nausea and 12/29/24 Rx tablet vomiting #30 tabs Nurse's Note: Able to tolerate soft foods again. [facility] Medical History (Updated 12/29/24 @ 08:20 by KEKE Morales) Congenital hernia of foramen of [place] Wears glasses MRSA infection Post-menopausal Anxiety Marijuana use Arthritis Anemia Back pain Difficulty swallowing History of ulceration History of IBS Gastric reflux Vapes nicotine containing substance Smoker Hoarseness History of pain when walking Herpes simplex viral infection Depression Anesthesia complication Polycystic ovaries Neuropathy Heart murmur Irritable bowel syndrome Hives Headache, migraine Gastrointestinal problem Back problem Seasonal allergies Surgical History History of esophagogastroduodenoscopy (EGD) History of hysterectomy History of total right knee replacement S/P right knee arthroscopy History of tonsillectomy Family History Mother Cancer Anemia Arthritis Breast cancer Father Cancer Hypertension Heart disease Diabetes Myocardial infarction, Onset Age: 59 Brother Hypertension Hypercholesteremia Sister Arthritis Other Anxiety Social History Smoking Status: Current every day smoker tobacco type: cigarettes alcohol intake: current substance use type: marijuana HPI HPI Chief Complaint: epigastric pain Details: KIA GONZALEZ, is a 49 F who presents to the office today for f/u. BGI established Sep 2024 with weight loss, difficulty swallowing,heartburn and irregular bm. 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 Other marcelino normal RUQ US 2.1.25; normal Last OV 3.18.25 Pt continues to have issues with oral intake. She gets full very quickly after eating. Unable to gain weight. Continues to smoke marijuana EGD 12.12.24; - Normal esophagus. - Bilious gastric fluid. - Erythematous mucosa in the gastric body and antrum. Biopsied. - Erythematous duodenopathy. 4 hour GES 4.16.25; normal OV 4.28.25; Pt has been able to eat some soft foods without pain. She tells me Dr. Lee wanted to get a barium swallow after the EGD. She still has episodes of severe pain but Levsin and zofran has been helpful. ROS Const Constitutional: Positive for fatigue, weakness and weight change (loss and gain); No fever(s) ENT ENT: Positive for difficulty swallowing Gastro GI: Positive for abdominal pain, bloating, change in bowel habits, constipation, heartburn, difficulty swallowing and nausea/dyspepsia; No belching, change in stool character, coffee ground emesis, cramping, diarrhea, feeling full early, excessiv (more content not included)... Normal [facility] Gastric Emptying Study - 4 H Quentin 12-17-2024 Gastric Emptying Study - 4 HR [facility] Imaging Services [address] [place], [place] [address] Gastric Emptying Study - 4 HR MR#: [id number] Acct: [id number] Name: KIA GONZALEZ Rep #: [id number] : 1975 F 49 From: Ras johnson MD PCP: SANDI Rick Status: REG CLI Study: Gastric Emptying Study - 4 HR Date of Exam: Exam# [id number] Ordering Dr: Teri Chou PROCEDURE: GASTRIC EMPTYING STUDY - 4 HR 12/17/2024 REASON FOR EXAM: GASTROPARESIS COMPARISON: None. TECHNIQUE: The patient ingested a standard meal of cooked eggs with the bread and 2 pads of butter. There was no vomiting postprandially. Anterior and posterior planar images of the upper abdomen were obtained for 1 minute immediately following the meal at 1h, 2h and 4h if more than 10% of the activity persisted within the stomach. Regions of interest were drawn, and a geometric mean was used to calculate a ozdd-tncxnlzb-jvuye. RADIOPHARMACEUTICAL: 1.1 mCi of technetium labeled sulfur colloid 66 FINDINGS: Percent activity remaining in stomach: 1 hour 66 % (normal 37-90%) 2 hours: 26 % (normal 30-60%) 4 hours: 9 % (normal 0-10%) NM/Gastric Emptying Study - 4 HR IMPRESSION: Normal gastric emptying. Reading Location: [place] [address] CC: SANDI Garcia; KEKE Morales Commutator Assembler: Signed Normal [facility] CBC W Auto Differential pane l (Bld)on 12-14-2024 Basophils (Bld) [#/Vol] 0.05 10*3/uL Normal <0.11 [facility] Comment on above: Order Comment: Speci men Type: BLOOD SPECIMEN Ordering Facility: [facility] Address: [address] [place] [address] Performed By: #### 5 7021-8 #### [facility] CLIA [id number] [address] [place] [address] [place] Basophils/100 WBC (Bld) 0.8 % Normal [facility] Comment on above: Order Comment: Speci men Type: BLOOD SPECIMEN Ordering Facility: [facility] Address: [address] [place] [address] Performed By: #### 5 7021-8 #### [facility] CLIA [id number] [address] [place] [address] [place] Differential cell count method Nom (Bld) Auto Normal [facility] Comment on above: Order Comment: Speci men Type: BLOOD SPECIMEN Ordering Facility: [facility] Address: [address] [place] [address] Performed By: #### 5 7021-8 #### [facility] CLIA [id number] [address] [place] [address] [place] Eosinophils (Bld) [#/Vol] 0.27 10*3/uL Normal <0.46 [facility] Comment on above: Order Comment: Speci men Type: BLOOD SPECIMEN Ordering Facility: [facility] Address: [address] [place] [address] Performed By: #### 5 7021-8 #### [facility] CLIA [id number] [address] [place] [address] [place] Eosinophils/100 WBC (Bld) 4.2 % Normal [facility] Comment on above: Order Comment: Speci men Type: BLOOD SPECIMEN Ordering Facility: [facility] Address: [address] [place] [address] Performed By: #### 5 7021-8 #### [facility] CLIA [id number] [address] [place] [address] [place] Erythrocyte distribution width (RBC) [Ratio] 12.2 % Normal 11.5-15.0 [facility] Comment on above: Order Comment: Speci men Type: BLOOD SPECIMEN Ordering Facility: [facility] Address: [address] [place] [address] Performed By: #### 5 7021-8 #### [facility] CLIA [id number] [address] [place] [address] [place] Hematocrit (Bld) [Volume fraction] 39.0 % Normal 36.0-46.0 [facility] Comment on above: Order Comment: Speci men Type: BLOOD SPECIMEN Ordering Facility: [facility] Address: [address] [place] [address] Performed By: #### 5 7021-8 #### [facility] CLIA [id number] [address] [place] [address] [place] Hemoglobin (Bld) [Mass/Vol] 13.3 g/dL Normal 11.5-15.5 [facility] Comment on above: Order Comment: Speci men Type: BLOOD SPECIMEN Ordering Facility: [facility] Address: [address] [place] [address] Performed By: #### 5 7021-8 #### [facility] CLIA [id number] [address] [place] [address] [place] Immature granulocytes (Bld) [#/Vol] 10*3/uL Normal <0.10 [facility] Comment on above: Order Comment: Speci men Type: BLOOD SPECIMEN Ordering Facility: [facility] Address: [address] [place] [address] Performed By: #### 5 7021-8 #### [facility] CLIA [id number] [address] [place] [address] [place] Immature granulocytes/100 WBC (Bld) 0.2 % Normal [facility] Comment on above: Order Comment: Speci men Type: BLOOD SPECIMEN Ordering Facility: [facility] Address: [address] [place] [address] Performed By: #### 5 7021-8 #### [facility] CLIA [id number] [address] [place] [address] [place] Lymphocytes (Bld) [#/Vol] 2.25 10*3/uL Normal 1.00-4.00 [facility] Comment on above: Order Comment: Speci men Type: BLOOD SPECIMEN Ordering Facility: [facility] Address: [address] [place] [address] Performed By: #### 5 7021-8 #### [facility] CLIA [id number] [address] [place] [address] [place] Lymphocytes/100 WBC (Bld) 35.2 % Normal [facility] Comment on above: Order Comment: Speci men Type: BLOOD SPECIMEN Ordering Facility: [facility] Address: [address] [place] [address] Performed By: #### 5 7021-8 #### [facility] CLIA [id number] [address] [place] [address] [place] MCH (RBC) [Entitic mass] 31.1 pg Normal 26.0-34.0 [facility] Comment on above: Order Comment: Speci men Type: BLOOD SPECIMEN Ordering Facility: [facility] Address: [address] [place] [address] Performed By: #### 5 7021-8 #### [facility] CLIA [id number] [address] [place] [address] [place] MCHC (RBC) [Mass/Vol] 34.1 g/dL Normal 30.5-36.0 [facility] Comment on above: Order Comment: Speci men Type: BLOOD SPECIMEN Ordering Facility: [facility] Address: [address] [place] [address] Performed By: #### 5 7021-8 #### [facility] CLIA [id number] [address] [place] [address] [place] MCV (RBC) [Entitic vol] 91.3 fL Normal 80.0-100.0 [facility] Comment on above: Order Comment: Speci men Type: BLOOD SPECIMEN Ordering Facility: [facility] Address: [address] [place] [address] Performed By: #### 5 7021-8 #### [facility] CLIA [id number] [address] [place] [address] [place] Monocytes (Bld) [#/Vol] 0.57 10*3/uL Normal <0.87 [facility] Comment on above: Order Comment: Speci men Type: BLOOD SPECIMEN Ordering Facility: [facility] Address: [address] [place] [address] Performed By: #### 5 7021-8 #### [facility] CLIA [id number] [address] [place] [address] [place] Monocytes/100 WBC (Bld) 8.9 % Normal [facility] Comment on above: Order Comment: Speci men Type: BLOOD SPECIMEN Ordering Facility: [facility] Address: [address] [place] [address] Performed By: #### 5 7021-8 #### [facility] CLIA [id number] [address] [place] [address] [place] Neutrophils (Bld) [#/Vol] 3.25 10*3/uL Normal 1.45-7.50 [facility] Comment on above: Order Comment: Speci men Type: BLOOD SPECIMEN Ordering Facility: [facility] Address: [address] [place] [address] Performed By: #### 5 7021-8 #### [facility] CLIA [id number] [address] [place] [address] [place] Neutrophils/100 WBC (Bld) 50.7 % Normal [facility] Comment on above: Order Comment: Speci men Type: BLOOD SPECIMEN Ordering Facility: [facility] Address: [address] [place] [address] Performed By: #### 5 7021-8 #### [facility] CLIA [id number] [address] [place] [address] [place] Nucleated RBC (Bld) [#/Vol] 10*3/uL Normal <0.01 [facility] Comment on above: Order Comment: Speci men Type: BLOOD SPECIMEN Ordering Facility: [facility] Address: [address] [place] [address] Performed By: #### 5 7021-8 #### [facility] CLIA [id number] [address] [place], [place] [address] [place] Nucleated RBC/100 WBC (Bld) [Ratio] 0.0 /100 WBC Normal [facility] Comment on above: Order Comment: Speci men Type: BLOOD SPECIMEN Ordering Facility: [facility] Address: [address] [place] [address] Performed By: #### 5 7021-8 #### [facility] CLIA [id number] [address] [place] [address] [place] Platelet mean volume (Bld) [Entitic vol] 10.6 fL Normal 9.0-12.7 [facility] Comment on above: Order Comment: Speci men Type: BLOOD SPECIMEN Ordering Facility: [facility] Address: [address] [place] [address] Performed By: #### 5 7021-8 #### [facility] CLIA [id number] [address] [place] [address] [place] Platelets (Bld) [#/Vol] 221 10*3/uL Normal 150-400 [facility] Comment on above: Order Comment: Speci men Type: BLOOD SPECIMEN Ordering Facility: [facility] Address: [address] [place] [address] Performed By: #### 5 7021-8 #### [facility] CLIA [id number] [address] [place] [address] [place] RBC (Bld) [#/Vol] 4.27 10*6/uL Normal 3.90-5.20 [facility] Comment on above: Order Comment: Speci men Type: BLOOD SPECIMEN Ordering Facility: [facility] Address: [address] [place] [address] Performed By: #### 5 7021-8 #### [facility] CLIA [id number] [address] [place] [address] [place] WBC (Bld) [#/Vol] 6.40 10*3/uL Normal 3.70-11.00 [facility] Comment on above: Order Comment: Speci men Type: BLOOD SPECIMEN Ordering Facility: [facility] Address: [address] [place] [address] Performed By: #### 5 7021-8 #### [facility] CLIA [id number] [address] [place] [address] [place] Comprehensive metabolic 2000 panelon 12-14-2024 Albumin [Mass/Vol] 4.3 g/dL Normal 3.9-4.9 [facility] Comment on above: Order Comment: Speci men Type: BLOOD SPECIMEN Ordering Facility: [facility] Address: [address] [place] [address] Performed By: #### 2 4323-8, 3040-3 #### [facility] CLIA [id number] [address] [place] [address] [place] ALP [Catalytic activity/Vol] 78 U/L Normal 34-123 [facility] Comment on above: Order Comment: Speci men Type: BLOOD SPECIMEN Ordering Facility: [facility] Address: [address] [place] [address] Performed By: #### 2 4323-8, 3040-3 #### [facility] CLIA [id number] [address] [place] [address] [place] ALT [Catalytic activity/Vol] 15 U/L Normal 7-38 [facility] Comment on above: Order Comment: Speci men Type: BLOOD SPECIMEN Ordering Facility: [facility] Address: [address] [place] [address] Performed By: #### 2 4323-8, 3040-3 #### [facility] CLIA [id number] [address] [place] [address] [place] Anion gap [Moles/Vol] 9 mmol/L Normal 8-15 [facility] Comment on above: Order Comment: Speci men Type: BLOOD SPECIMEN Ordering Facility: [facility] Address: [address] [place] [address] Performed By: #### 2 4323-8, 3040-3 #### [facility] CLIA [id number] [address] [place] [address] [place] AST [Catalytic activity/Vol] 21 U/L Normal 13-35 [facility] Comment on above: Order Comment: Speci men Type: BLOOD SPECIMEN Ordering Facility: [facility] Address: [address] [place] [address] Performed By: #### 2 4323-8, 3039-3 #### [facility] CLIA [id number] [address] [place] [address] [place] Bilirubin [Mass/Vol] 0.8 mg/dL Normal 0.2-1.3 [facility] Comment on above: Order Comment: Speci men Type: BLOOD SPECIMEN Ordering Facility: [facility] Address: [address] [place] [address] Performed By: #### 2 4323-8, 3039-3 #### [facility] CLIA [id number] [address] [place] [address] [place] Calcium [Mass/Vol] 10.6 mg/dL High 8.5-10.2 [facility] Comment on above: Order Comment: Speci men Type: BLOOD SPECIMEN Ordering Facility: [facility] Address: [address] [place] [address] Performed By: #### 2 4323-8, 3039-3 #### [facility] CLIA [id number] [address] [place] [address] [place] Chloride [Moles/Vol] 103 mmol/L Normal 98-107 [facility] Comment on above: Order Comment: Speci men Type: BLOOD SPECIMEN Ordering Facility: [facility] Address: [address] [place] [address] Performed By: #### 2 4323-8, 3039-3 #### [facility] CLIA [id number] [address] [place] [address] [place] CO2 [Moles/Vol] 28 mmol/L Normal 22-30 [facility] Comment on above: Order Comment: Speci men Type: BLOOD SPECIMEN Ordering Facility: [facility] Address: [address] [place] [address] Performed By: #### 2 4323-8, 3039-3 #### [facility] CLIA [id number] [address] [place] [address] [place] Creatinine [Mass/Vol] 0.90 mg/dL Normal 0.58-0.96 [facility] Comment on above: Order Comment: Broderick peter Type: BLOOD SPECIMEN Ordering Facility: [facility] Address: [address] [place] [address] Performed By: #### 2 4323-8, 3040-3 #### [facility] CLIA [id number] [address] [place], [place] [address] [place] Creatinine and Glomerular filtration rate.predicted panel (S/P/Bld) 79 mL/min/1.73m??? Normal >=60 [facility] Comment on above: Order Comment: Broderick peter Type: BLOOD SPECIMEN Ordering Facility: [facility] Address: [address] [place] [address] Result Comment: Raina mated Glomerular Filtration Rate (eGFR) is calculated using the 2020 CKD-EPI creatinine equation. This equation utilizes serum creatinine, sex, and age as parameters. The creatinine assay has traceable calibration to isotope dilution-mass spectrometry. Refer to KDIGO guidelines for clinical interpretation. In patients with unstable renal function, e.g. those with acute kidney injury, the eGFR may not accurately reflect actual GFR. Performed By: #### 2 4323-8, 0-3 #### [facility] CLIA [id number] [address] [place], [place] [address] [place] Glucose [Mass/Vol] 88 mg/dL Normal 74-99 [facility] Comment on above: Order Comment: Broderick peter Type: BLOOD SPECIMEN Ordering Facility: [facility] Address: [address] [place] [address] Result Comment: The [place] Diabetes [employer] (ADA) provides guidance for cutoff values for fasting glucose and random glucose. The ADA defines fasting as no caloric intake for at least 8 hours. Fasting plasma glucose results between 100 to 125 mg/dL indicate increased risk for diabetes (prediabetes). Fasting plasma glucose results greater than or equal to 126 mg/dL meet the criteria for diagnosis of diabetes. In the absence of unequivocal hyperglycemia, results should be confirmed by repeat testing. In a patient with classic symptoms of hyperglycemia or hyperglycemic crisis, random plasma glucose results greater than or equal to 200 mg/dL meet the criteria for diagnosis of diabetes. Reference: Standards of Medical Care in Diabetes 2016, [place] [employer]. Diabetes Care. 2016.39(Suppl 1). Performed By: #### 2 4323-8, 0-3 #### [facility] CLIA [id number] [address] [place] [address] [place] Potassium [Moles/Vol] 4.1 mmol/L Normal 3.7-5.1 [facility] Comment on above: Order Comment: Speci men Type: BLOOD SPECIMEN Ordering Facility: [facility] Address: [address] [place] [address] Performed By: #### 2 4328, 3039-3 #### [facility] CLIA [id number] [address] [place] [address] [place] Protein [Mass/Vol] 6.7 g/dL Normal 6.3-8.0 [facility] Comment on above: Order Comment: Speci men Type: BLOOD SPECIMEN Ordering Facility: [facility] Address: [address] [place] [address] Performed By: #### 2 4328, 3039-3 #### [facility] CLIA [id number] [address] [place] [address] [place] Sodium [Moles/Vol] 140 mmol/L Normal 136-144 [facility] Comment on above: Order Comment: Speci men Type: BLOOD SPECIMEN Ordering Facility: [facility] Address: [address] [place] [address] Performed By: #### 2 43211-08, 0-3 #### [facility] CLIA [id number] [address] [place] [address] [place] Urea nitrogen [Mass/Vol] 20 mg/dL Normal 7-21 [facility] Comment on above: Order Comment: Speci men Type: BLOOD SPECIMEN Ordering Facility: [facility] Address: [address] [place] [address] Performed By: #### 2 4323-8, 0-3 #### [facility] CLIA [id number] [address] [place] ED NOTEon 12-14-2024 ED NOTE HNO ID: [id number] Author: JAMIL RUTH RN Service: ? Author Type: Registered Nurse Type: ED Notes Filed: 12/14/2024 22:03 Note Text: Pt with chronic n/v and having w/units with GI over past year. Recent UGI scope last week, stomach study next week and lower GI mid may [facility] ED NOTE HNO ID: [id number] Author: GAYLA COLORADO, SUZANNA Service: ? Author Type: Registered Nurse Type: ED Notes Filed: 12/14/2024 21:57 Note Text: Bed: 02-ED Expected date: 12/14/24 Expected time: 9:42 PM Means of arrival: [facility] Comments: 49 female abd pain [facility] ED PROV NOTEon 12-14-2024 ED PROV NOTE HNO ID: [id number] Author: TRES CASTRO MD Service: ? Author Type: Physician Type: ED Provider Notes Filed: 12/16/2024 02:13 Note Text: ED Provider Note Patient Name: Kia Gonzalez : 1975 SERVICE DATE: 12/14/24 History Patient presents with: Nausea AND Vomiting This patient is a 49-year-old female who presents with nausea and vomiting. Patient reports a history of chronic abdominal pain nausea and vomiting that she has been dealing with for about a year and a half. She recently saw GI and had an upper endoscopy. She states she was diagnosed with gastroparesis and SMA syndrome. She is scheduled for multiple further studies including gastric emptying study, barium swallow study, colonoscopy. Has refused Reglan stating that she used to work in a [employer] and is seen the side effects that she does not want to risk. She also states that she has tried Bentyl without relief. It does appear that she is on Protonix. On review of prior records she has also been prescribed Carafate in the past. She states nothing works. She states she tried to eat a banana today and can only get about three quarters of it in before she developed recurrent abdominal pain nausea and vomiting. Patient is a poor informant and was unable to clarify when her pain started stating that she has it every day. PAST MEDICAL HISTORY Diagnosis Date Depression Generalized anxiety disorder Restless leg syndrome Right knee pain PAST SURGICAL HISTORY Procedure Laterality Date PAST SURGICAL HISTORY OF Right 08/14/2021 knee TONSILLECTOMY AND ADENOIDECTOMY TOTAL KNEE REPLACEMENT Left 2020 FAMILY HISTORY Problem Relation Age of Onset Heart disease Mother Breast Cancer Mother COPD Mother Arthritis Mother Heart disease Father Diabetes Father Lung Cancer Father COPD Brother Hypertension Brother Obstructive Sleep Apnea Brother Social History Tobacco Use Smoking status: Every Day Current packs/day: 0.50 Types: Cigarettes Smokeless tobacco: Never Vaping Use Vaping status: Former Substances: Nicotine, THC Devices: Pre-filled pod Substance and Sexual Activity Alcohol use: Yes Drug use: Yes Frequency: 3.0 times per week Types: Marijuana Sexual activity: Not on file ALLERGIES Allergen Reactions Carafate [Sucralfat* Rash Sulfamethoxazole-Tr* Swelling Review of Systems Physical Exam Vitals [12/14/242158] BP Pulse Temp Temp src Resp SpO2 Weight Height 111/84 73 36.6 ?C (97.9 ?F) Oral 18 98 % 50 kg (110 lb 3.7 oz) 1.651 m (5' 5) Physical Exam Vitals reviewed. HENT: Head: Normocephalic. Mouth/Throat: Mouth: Mucous membranes are moist. Eyes: Extraocular Movements: Extraocular movements intact. Cardiovascular: Rate and Rhythm: Normal rate and regular rhythm. Pulmonary: Effort: Pulmonary effort is normal. Abdominal: General: There is no distension. Palpations: Abdomen is soft. Comments: Epigastric abdominal tenderness without guarding or rebound Skin: General: Skin is warm and dry. Neurological: Mental Status: She is alert. Psychiatric: Mood and Affect: Mood normal. Diagnostic Testing ED Labs Ordered and Reviewed - No data to display Procedures ED Course / Clinical Impression Clinical Impressions as of 12/15/24 0058 Chronic abdominal pain Vomiting, unspecified vomiting type, unspecified whether nausea present MDM / Disposition / Plan Patient refused Reglan. Patient refused Bentyl. Will try Levsin. I will check labs including hepatic function and lipase. CBC chemistries including hepatic function lipase are unremarkable, negative , UA shows trace leukocyte esterase but 0-5 WBCs negative for nitrates no evidence of UTI. Abdominal series on my interpretation shows no obstruction or free air. I will follow-up on the official report and contact the patient if significant discrepancy. 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 SIGNATURE: Tres Castro MD - TRES CASTRO 12/15/24 0054 TRES CASTRO 12/16/24 0213 Normal [facility] HCG QUALITATIVEon 12-14-2024 HCG, QUALITATIVE Negative Normal Negative [facility] Comment on above: Order Comment: Speci men Type: BLOOD SPECIMEN Ordering Facility: [facility] Address: [address] [place] [address] Performed By: #### H CG #### [facility] CLIA [id number] [address] [place] [address] [place] Lipase SerPl-cCncon 12-15-19 25 Lipase [Catalytic activity/Vol] 18 U/L Normal [facility] Comment on above: Order Comment: Speci men Type: BLOOD SPECIMEN Ordering Facility: [facility] Address: [address] [place] [address] Performed By: #### 2 4323-8, 3040-3 #### [facility] CLIA [id number] [address] [place] [address] [place] Urinalysis complete panel (U )on 12-14-2024 Bilirubin Ql (U) Negative Normal Negative [facility] Comment on above: Order Comment: Speci men Type: URINE SPECIMEN Ordering Facility: [facility] Address: [address] [place] [address] Performed By: #### 2 4356-8 #### [facility] CLIA [id number] [address] [place] [address] [place] Clarity (Unsp spec) Clear Normal Clear [facility] Comment on above: Order Comment: Speci men Type: URINE SPECIMEN Ordering Facility: [facility] Address: [address] [place] [address] Performed By: #### 2 4356-8 #### [facility] CLIA [id number] [address] [place], [place] [address] [place] Color (U) Yellow Normal Yellow [facility] Comment on above: Order Comment: Speci men Type: URINE SPECIMEN Ordering Facility: [facility] Address: [address] [place] [address] Performed By: #### 2 4356-8 #### [facility] CLIA [id number] [address] [place] [address] Glucose Test strip (U) [Mass/Vol] Negative Normal Negative [facility] Comment on above: Order Comment: Speci men Type: URINE SPECIMEN Ordering Facility: [facility] Address: [address] [place] [address] Performed By: #### 2 4356-8 #### [facility] CLIA [id number] [address] [place] [address] [place] Hemoglobin Ql (U) Negative Normal Negative [facility] Comment on above: Order Comment: Speci men Type: URINE SPECIMEN Ordering Facility: [facility] Address: [address] [place] [address] Performed By: #### 2 4356-8 #### [facility] CLIA [id number] [address] [place] [address] [place] Ketones Ql (U) Negative Normal Negative [facility] Comment on above: Order Comment: Speci men Type: URINE SPECIMEN Ordering Facility: [facility] Address: [address] [place] [address] Performed By: #### 2 4356-8 #### [facility] CLIA [id number] [address] [place] [address] [place] Leukocyte esterase Test strip Ql (U) Trace Abnormal Negative [facility] Comment on above: Order Comment: Speci men Type: URINE SPECIMEN Ordering Facility: [facility] Address: [address] [place] [address] Performed By: #### 2 4356-8 #### [facility] CLIA [id number] [address] [place] [address] [place] Nitrite Ql (U) Negative Normal Negative [facility] Comment on above: Order Comment: Speci men Type: URINE SPECIMEN Ordering Facility: [facility] Address: [address] [place] [address] Performed By: #### 2 4356-8 #### [facility] CLIA [id number] [address] [place] [address] [place] pH (U) 7.0 [pH] Normal 5.0-8.0 [facility] Comment on above: Order Comment: Speci men Type: URINE SPECIMEN Ordering Facility: [facility] Address: [address] [place] [address] Performed By: #### 2 4356-8 #### [facility] CLIA [id number] [address] [place] [address] [place] Protein (U) [Mass/Vol] Negative Normal Negative [facility] Comment on above: Order Comment: Speci men Type: URINE SPECIMEN Ordering Facility: [facility] Address: [address] [place] [address] Performed By: #### 2 4356-8 #### [facility] [place] [id number] [address] [place] [address] [place] RBC LM.HPF (Urine sed) [#/Area] 0-3 /HPF Normal 0-3 /HPF [facility] Comment on above: Order Comment: Speci men Type: URINE SPECIMEN Ordering Facility: [facility] Address: [address] [place] [address] Performed By: #### 2 4356-8 #### [facility] [place] [id number] [address] [place] [address] [place] Specific gravity (U) [Rel density] 1.010 Normal 1.005-1.03 0 [facility] Comment on above: Order Comment: Speci men Type: URINE SPECIMEN Ordering Facility: [facility] Address: [address] [place] [address] Performed By: #### 2 4356-8 #### [facility] CLIA [id number] [address] [place] [address] [place] Urobilinogen Ql (U) 0.2 EU/dL Normal 0.2-1.0 EU/dL [facility] Comment on above: Order Comment: Speci men Type: URINE SPECIMEN Ordering Facility: [facility] Address: [address] [place] [address] Performed By: #### 2 4356-8 #### [facility] CLIA [id number] [address] [place], [place] [address] [facility] WBC LM.HPF (Urine sed) [#/Area] 0-5 /HPF Normal 0-5 /HPF [facility] Comment on above: Order Comment: Speci men Type: URINE SPECIMEN Ordering Facility: [facility] Address: [facility] [place] [address] Performed By: #### 2 4356-8 #### [facility] CLIA [id number] [address] [place] [address] [place] XR ACUTE ABD SERIES 2V ABD+C XRon 12-14-2024 XR ACUTE ABD SERIES 2V ABD+CXR * * *Final Report* * * DATE OF EXAM: Dec 14 2024 11:04PM UDX [id number] - XR ACUTE ABD SERIES 2V ABD+CXR / PROCEDURE REASON: Nausea/Vomiting * * * * Physician Interpretation * * * * EXAMINATION: XR ACUTE ABD SERIES 2V ABD+CXR CLINICAL HISTORY: Nausea/Vomiting Technique: XR ACUTE ABD SERIES 2V ABD+CXR -- PA chest and upright and supine abdominal radiographs with 3 views on 3 images Comparison: Chest radiograph 12/14/2024. RESULT: Cardiomediastinal silhouette is normal in size. No consolidation, pleural effusion, or pneumothorax. Nonobstructive bowel gas pattern. No free air. No acute osseous abnormality. IMPRESSION: 1. No acute cardiopulmonary process. 2. Nonobstructive bowel gas pattern. Commutator Assembler: PSCB Transcribe Date/Time: Dec 15 2024 12:54A Dictated by : ROSAMARIA LORENZ MD This examination was interpreted and the report reviewed and electronically signed by: ROSAMARIA LORENZ MD on Dec 15 2024 12:55AM EST [id number] Normal [facility] EGD Reporton 12-12-2024 EGD Report [facility] Medical Records Department [address] [place] [address] EGD Report MR#: [id number] Acct: [id number] Name: KIA GONZALEZ Rep #: [id number] : 1975 49 From: Lloyd Lee DO PCP: SANDI Rick Status:REG [facility] Patient Name: Kia Gonzalez Procedure Date: 12/12/2024 1:45 PM Date of : 1975 Age: 49 Procedure: Upper GI endoscopy Indications: Epigastric abdominal pain, Functional Dyspepsia Providers: Lloyd Lee DO Medicines: Monitored Anesthesia Care Patient Profile: This is a 49 year old female. Refer to note in patient chart for documentation of history and physical. Patient has symptoms of chronic epigastric abdominal pain, chronic dyspepsia and chronic nausea. Complications: No immediate complications. Procedure: Pre-Anesthesia Assessment: - Prior to the procedure, a History and Physical was performed, and patient medications and allergies were reviewed. The patient is competent. The risks and benefits of the procedure and the sedation options and risks were discussed with the patient. All questions were answered and informed consent was obtained. Patient identification and proposed procedure were verified by the physician in the pre-procedure area. Mental Status Examination: alert and oriented. Airway Examination: normal oropharyngeal airway and neck mobility. Respiratory Examination: clear to auscultation. CV Examination: normal. Prophylactic Antibiotics: The patient does not require prophylactic antibiotics. Prior Anticoagulants: The patient has taken no anticoagulant or antiplatelet agents except for NSAID medication. ASA Grade Assessment: II - A patient with mild systemic disease. After reviewing the risks and benefits, the patient was deemed in satisfactory condition to undergo the procedure. The anesthesia plan was to use monitored anesthesia care (MAC). Immediately prior to administration of medications, the patient was re-assessed for adequacy to receive sedatives. The heart rate, respiratory rate, oxygen saturations, blood pressure, adequacy of pulmonary ventilation, and response to care were monitored throughout the procedure. The physical status of the patient was re-assessed after the procedure. After obtaining informed consent, the endoscope was passed under direct vision. Throughout the procedure, the patient's blood pressure, pulse, and oxygen saturations were monitored continuously. The gastroscope was introduced through the mouth, and advanced to the third part of the duodenum. Small bowel enteroscopy was deemed necessary. The upper GI endoscopy was accomplished without difficulty. The patient tolerated the procedure well. Scope In: 2:02:01 PM Scope Out: 2:06:55 PM Total Procedure Duration Time 0 hours 4 minutes 54 seconds Findings: The examined esophagus was normal. Bilious fluid was found in the gastric body. Patchy mildly erythematous mucosa without bleeding was found in the gastric body and in the gastric antrum. Biopsies were taken with a cold forceps for histology. Verification of patient identification for the specimen was done. Biopsies were taken with a cold forceps for Helicobacter pylori testing. Verification of patient identification for the specimen was done. Estimated blood loss was minimal. Patchy mildly erythematous mucosa without active bleeding and with no stigmata of bleeding was found in the duodenal bulb and in the first portion of the duodenum. Impression: - Normal esophagus. - Bilious gastric fluid. - Erythematous mucosa in the gastric body and antrum. Biopsied. - Erythematous duodenopathy. Recommendation: - Discharge patient to home. - Resume previous diet. - Continue present medications. - Await pathology results. Procedure Code(s): --- Professional --- 59387, Small intestinal endoscopy, enteroscopy beyond second portion of duodenum, not including ileum; with biopsy, single or multiple CPT copyright 2021 [employer]. All rights reserved. The codes documented in this report are preliminary and upon chief investigator review may be revised to meet current compliance requirements. Lloyd Lee DO 12/12/2024 2:15:28 PM This report has been signed electronically. Number of Addenda: 0 Note Initiated On: 12/12/2024 1:45 PM 12/12/24 1415 Date Lloyd Lee DO Cosigner Signature: Date (if indicated) CC: SANDI Garcia; Lloyd Lee DO Date Dictated: 12/12/24 0025 Date Transcribed: Commutator Assembler: SILVESTRE Signed Normal [facility] Immunohistochemical Stainson 12-12-2024 Immunohistochemical Stains Patient Age/Sex Location Account Attending Physician KIA GONZALEZ 49/F EN [id number] Lloyd Lee DO Specimen: [id number] Received: 12/15/24 Status: NIKIA Tao Num: [id number] Spec Type: EGD BIOPSY Subm Dr: Lloyd Lee, HEADER OPERATION: EGD with biopsy PRE-OP DIAGNOSIS: Constipation., gastroparesis, nausea, loose stool, abdominal pain TISSUE SUBMITTED: A- Gastric body biopsy, B- Small bowel biopsy MICROSCOPIC DIAGNOSIS A. Stomach, body, biopsy: * Oxyntic mucosa with features of reactive gastropathy. * IHC negative for H pylori organisms. B. Small bowel, biopsy: * Fragment of small intestinal mucosa with no specific pathologic change. * Fragments of gastric-type mucosa - see note. 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 Recommend correlation with endoscopic finings. MICROSCOPIC DESCRIPTION Slides are reviewed. These tests were developed and their performance characteristics determined by [facility]. They may not have been cleared or approved by the U.S. Food and Drug Administration. The FDA has determined that such clearance or approval is not necessary. The above immunohistochemical/dualISH markers are ordered and reviewed by the Pathologist. GROSS DESCRIPTION A. Received in formalin in a container labeled with the patient's name, date of , and gastric body biopsy for H. pylori and path are 2 fabian-pink fragments of mucosal tissue measuring 0.5 x 0.2 x 0.2 cm and 0.8 x 0.2 x 0.2 cm. Submitted in toto in A1. B. Received in formalin in a container labeled with the patient's name, date of , and small bowel biopsy are 2 fabian-pink fragments of mucosal tissue, each measuring 0.4 x 0.2 x 0.2 cm. Submitted in toto in B1. [facility] 12/22/2024 CPT:01630g1,08946 Patient Age/Sex Location Account Attending Physician KIA GONZALEZ 49/F EN [id number] Lloyd Lee DO Signed (signature on file) Dr. Snow Gee MD 12/22/24916 Normal [facility] Comment on above: Performed By: #### [facility] #### [facility] [address] [place], [address] MR/POSTOP.ANEon 12-12-2024 MR/POSTOP.[facility] Medical Records Department [address] [place] [address] Anesthesia Postop Eval I 12/12/241415 MR#: [id number] Acct: [id number] Name: KIA GONZALEZ Rep #: [id number] : 1975 49 From: Rupa Moore PCP: SANDI Rick Status:REG SDC Y Race: C Location: [place] [address] Anesthesia: Postop Eval I Current Vital Signs Temperature: 97.9 F Pulse Rate: 71 Blood Pressure: 86/67 Respiratory Rate: 16 Pulse Ox: 98 Oxygen Delivery Method: Room Air Assessment Airway patent: Yes Spontaneous unlabored respirations: Yes Mental status: Asleep nausea: No Vomiting: No Anesthesia Complication: No Fluid Hydration Crystalloid volume administer (ml): 30 Total IV fluid infused: 30 Progress Note Anesthesia document: Postop Eval 1 completed: Yes 12/12/241416 Date Rupa Blanca Signature: Date CC: Signed Normal [facility] MR/[id number] 12-12-2024 MR/POSTOPAN2 [facility] Medical Records Department [address] [place] [address] Anesthesia Postop Eval II 12/12/24 1459 MR#: [id number] Acct: [id number] Name: KIA GONZALEZ Rep #: [id number] : 1975 49 From: Jay Fay MD PCP: SANDI Rick Status:REG [facility] Y Race: C Location: [address] Anesthesia Postop Eval I Sum Postop Eval Completion status Anesthesia document: Postop Eval 1 completed: Yes Anesthesia Postop Eval I Summary Anesthesia Postop Eval I Summary: Anesthesia Postop Eval I: Assessment Summary Airway patent Yes 12/12/24 14:17 [email or web address] Spontaneous unlabored Yes 12/12/24 14:17 [email or web address] respirations Mental status Asleep 12/12/24 14:17 [email or web address] nausea No 12/12/24 14:17 [email or web address] Vomiting No 12/12/24 14:17 [email or web address] Anesthesia Postop Eval I: Fluid Summary Crystalloid volume administer 30 12/12/24 14:17 [email or web address] (ml) Colloids volume administered ( ml) Blood Product volume administered (ml) Total IV fluid infused 30 12/12/24 14:17 [email or web address] Anesthesia Postop Eval I: Summary Notes Anesthesia Complication No 12/12/24 14:17 [email or web address] Anesthesia Complication Comment: Post-operative progress note Anesthesia: Postop Eval II Evaluation Mental status: Awake Pain Level: 0 nausea: No Vomiting: No 12/12/24 1459 Date Jay Fay MD Cosigner Signature: Date CC: Signed Normal [facility] .Auto Diffon 12-10-2024 Basophil, Absolute 0.0 10 3/mcL Normal 0.0-0.3 [facility] Comment on above: Performed By: #### G FR, ADIFF, BMP, MG, MDW, ANEU, CBC #### [address] [address] Basophils/100 WBC (Bld) 0.3 % Normal 0.0-2.5 [facility] Comment on above: Performed By: #### G FR, ADIFF, BMP, MG, MDW, ANEU, CBC #### [address] [address] Eosinophil, Absolute 0.1 10 3/mcL Normal 0.0-0.7 [facility] Comment on above: Performed By: #### G FR, ADIFF, BMP, MG, MDW, ANEU, CBC #### [address] [address] Eosinophils/100 WBC (Bld) 2.6 % Normal 0.0-6.0 [facility] Comment on above: Performed By: #### G FR, ADIFF, BMP, MG, MDW, ANEU, CBC #### [address] [address] Lymphocyte, Absolute 1.7 10 3/mcL Normal 0.9-4.3 [facility] Comment on above: Performed By: #### G FR, ADIFF, BMP, MG, MDW, ANEU, CBC #### [address] [address] Lymphocytes/100 WBC (Bld) 36.3 % Normal 20.0-40.0 [facility] Comment on above: Performed By: #### G FR, ADIFF, BMP, MG, MDW, ANEU, CBC #### [place] [address] [place], [place] [address] Monocyte, Absolute 0.3 10 3/mcL Normal 0.1-1.4 [facility] Comment on above: Performed By: #### G FR, ADIFF, BMP, MG, MDW, ANEU, CBC #### [place] [address] [place], [place] [address] Monocytes/100 WBC (Bld) 8.1 % Normal 2.0-13.0 [facility] Comment on above: Performed By: #### G FR, ADIFF, BMP, MG, MDW, ANEU, CBC #### [address] [address] Neutrophils/100 WBC (Bld) 52.6 % Normal 50.0-75.0 [facility] Comment on above: Performed By: #### G FR, ADIFF, BMP, MG, MDW, ANEU, CBC #### [place] [address] [place], [place] [address] .GFRon 12-10-2024 Estimated Glomerular Filtration Rate 96 ml/min/1.73sqm Normal [facility] Comment on above: Result Comment: Stages of Chronic Kidney Disease (CKD) Stage Description eGFR(ml/min/1.73 sq.m.) CKD 1 Normal kidney function or >=90 normal kindney function with possible kidney damage (ex. Proteinuria) CKD 2 Kidney damage with mild loss 60-89 of kidney function CKD 3a Mild to moderate loss of kidney 45-59 function CKD 3b Moderate to severe loss of 30-44 of kindey function CKD 4 Severe loss of kidney function 15-29 CKD 5 Kidney failure <15 Note: (go live 2024) the eGFR calculation was updated to the 2020 CKD-EPI creatinine equation without a race factor to calculate the eGFR results. Performed By: #### G FR, ADIFF, BMP, MG, MDW, ANEU, CBC #### [place] [address] [place], [place] [address] .MDWon 12-10-2024 Monocyte Distribution Width Not performed Normal 0.00-20.00 [facility] Comment on above: Result Comment: LORENZO testing unable to be performed on [id number] instrumentation. Performed By: #### G FR, ADIFF, BMP, MG, MDW, ANEU, CBC #### [address] [address] .NEUABSon 12-10-2024 Neutrophil, Absolute 2.4 10 3/mcL Normal 2.3-8.1 [facility] Comment on above: Performed By: #### G FR, ADIFF, BMP, MG, MDW, ANEU, CBC #### [address] [address] BMPon 12-10-2024 BUN/Creatinine Ratio 37 ratio High 7-27 [facility] Comment on above: Performed By: #### G FR, ADIFF, BMP, MG, MDW, ANEU, CBC #### [address] [address] Calcium [Mass/Vol] 10.4 mg/dL High 8.4-10.2 [facility] Comment on above: Performed By: #### G FR, ADIFF, BMP, MG, MDW, ANEU, CBC #### [address] [address] Chloride [Moles/Vol] 105 mmol/L Normal 98-107 [facility] Comment on above: Performed By: #### G FR, ADIFF, BMP, MG, MDW, ANEU, CBC #### [address] [address] CO2 [Moles/Vol] 29 mmol/L Normal 22-29 [facility] Comment on above: Performed By: #### G FR, ADIFF, BMP, MG, MDW, ANEU, CBC #### [address] [address] Creatinine [Mass/Vol] 0.76 mg/dL Normal 0.55-1.02 [facility] Comment on above: Result Comment: Test ing performed on Siemens Dimension EXL analyzer using a modified kinetic Jonel technique. Performed By: #### G FR, ADIFF, BMP, MG, MDW, ANEU, CBC #### [address] [address] Electrolyte Balance 6.0 mEq/L Normal 4.0-15.0 [facility] Comment on above: Performed By: #### G FR, ADIFF, BMP, MG, MDW, ANEU, CBC #### [address] [address] Glucose [Mass/Vol] 103 mg/dL Normal 70-105 [facility] Comment on above: Performed By: #### G FR, ADIFF, BMP, MG, MDW, ANEU, CBC #### [address] [address] Potassium [Moles/Vol] 4.3 mmol/L Normal 3.5-5.1 [facility] Comment on above: Performed By: #### G FR, ADIFF, BMP, MG, MDW, ANEU, CBC #### [place] [address] Sodium [Moles/Vol] 140 mmol/L Normal 136-145 [facility] Comment on above: Performed By: #### G FR, ADIFF, BMP, MG, MDW, ANEU, CBC #### [address] [address] Urea nitrogen [Mass/Vol] 28 mg/dL High 7-18 [facility] Comment on above: Performed By: #### G FR, ADIFF, BMP, MG, MDW, ANEU, CBC #### [address] [address] CBCon 12-10-2024 Erythrocyte distribution width (RBC) [Ratio] 13.0 % Normal 11.5-15.5 [facility] Comment on above: Performed By: #### G FR, ADIFF, BMP, MG, MDW, ANEU, CBC #### [address] [address] Hematocrit (Bld) [Volume fraction] 41.2 % Normal 34.0-46.0 [facility] Comment on above: Performed By: #### G FR, ADIFF, BMP, MG, MDW, ANEU, CBC #### [address] [address] Hgb 14.6 G/dL Normal 12.0-16.0 [facility] Comment on above: Performed By: #### G FR, ADIFF, BMP, MG, MDW, ANEU, CBC #### [place] [address] MCH (RBC) [Entitic mass] 32.1 pg Normal 27.0-33.0 [facility] Comment on above: Performed By: #### G FR, ADIFF, BMP, MG, MDW, ANEU, CBC #### [place] [address] MCHC 35.5 G/dL Normal 32.0-36.0 [facility] Comment on above: Performed By: #### G FR, ADIFF, BMP, MG, MDW, ANEU, CBC #### [place] [address] MCV (RBC) [Entitic vol] 90.4 fL Normal 80.0-99.0 [facility] Comment on above: Performed By: #### G FR, ADIFF, BMP, MG, MDW, ANEU, CBC #### [address] [address] Platelet 227 10 3/mcL Normal 150-450 [facility] Comment on above: Performed By: #### G FR, ADIFF, BMP, MG, MDW, ANEU, CBC #### [address] [address] Platelet mean volume (Bld) [Entitic vol] 8.7 fL Normal 6.6-10.5 [facility] Comment on above: Performed By: #### G FR, ADIFF, BMP, MG, MDW, ANEU, CBC #### [place] [address] RBC 4.56 10 6/mcL Normal 4.10-5.30 [facility] Comment on above: Performed By: #### G FR, ADIFF, BMP, MG, MDW, ANEU, CBC #### [place] [address] [place], [place] [address] WBC 4.7 10 3/mcL Normal 4.5-10.8 [facility] Comment on above: Performed By: #### G FR, ADIFF, BMP, MG, MDW, ANEU, CBC #### [place] [address] [place], [place] [address] MGon 12-10-2024 Magnesium [Mass/Vol] 1.9 mg/dL Normal 1.8-2.4 [facility] Comment on above: Performed By: #### G FR, ADIFF, BMP, MG, MDW, ANEU, CBC #### [address] [address] Gastroenterology Visit Repor ton 11-18-2024 Gastroenterology Visit Report [facility] Gastroenterology [address] [place] [address] OFFICE VISIT Date of Service: 11/18/24 MR#: [id number] Acct: [id number] Name: KIA GONZALEZ Rep #: [id number] : 1975 Provider: KEKE Morales Age/Sex: 49/F Location: [facility] Status: Signed Intake Intake Visit Reasons: Follow up Chief Complaint: GERD Allergies sulfamethoxazole (From Bactrim) Allergy (Verified 09/30/24 07:41) Swelling trimethoprim (From Bactrim) Allergy (Verified 09/30/24 07:41) Swelling Patient : No Nurse's Note: OV 11.18.24 Pt here for f/u. Pt reports weight loss, constipation, nausea, abdominal pain, gas, bloating, heartburn, and difficulty swallowing. Pt reports a formed bm about two times a week. Denies bloody stools, vomiting. Continues pantoprazole and zofran. Pt reports she is taking a calorie supplent called [employer] in addition to daily food intake to increase calorie intake. [facility] Medical History (Updated 11/18/24 @ 07:48 by KEKE Morales) Herpes simplex viral infection Depression Anesthesia complication Polycystic ovaries Neuropathy Heart murmur Irritable bowel syndrome Hives Headache, migraine Gastrointestinal problem Back problem Seasonal allergies Surgical History (Updated 09/30/24 @ 07:41 by Kezia Robert) History of hysterectomy History of total right knee replacement S/P right knee arthroscopy History of tonsillectomy Family History (Updated 09/30/24 @ 07:57 by Kezia Robert) Mother Cancer Anemia Arthritis Breast cancer Father Cancer Hypertension Heart disease Diabetes Myocardial infarction, Onset Age: 59 Brother Hypertension Hypercholesteremia Sister Arthritis Other Anxiety Social History (Updated 09/30/24 @ 07:41 by Kezia Robert) Smoking Status: Current every day smoker alcohol intake: current substance use type: marijuana HPI HPI Chief Complaint: GERD Details: KIA GONZALEZ, is a 49 F who presents to the office today for f/u. EGD 11.14.17; Suspected Barrets esophagus, small amount of food debris in stomach, mild gastritis, normal duodenum EGD 5.18.24; small hiatal hernia, mild gastritis EGD 5.13.24; normal mucosa in the whole esophagus, erythema and congestion in the antrum, normal duodenum CT abd/pelvis 6.14.24; NO acute process within the abd/pelvis GES 6.25.24; slightly prolonged extrapolated T half emptying time of 126.5 minutes likely secondary to the 1st 60 minutes of imaging acquisition. Other marcelino normal BGI established 1.28.25 with complaints of weight loss, difficult swallowing, heartburn and irregular bowels. Previous work up with [facility]. Smokes marijuana daily to stimulate appetite. On Pantoprazole 40 mg BID. Last EGD in 2023 and last colonoscopy about 10 years ago. RUQ US 2.1.25; normal OV 3.18.25; Pt has been struggling with oral intake. She feels full very quickly after eating. She is taking nutritional powder for extra calories. She is eating mostly bland food and avoiding gluten and soy. She is unable to gain weight. She continues to smoke marijuana. She has questions regarding oxybutynin for her bladder incontinence. ROS Const Constitutional: Positive for headache(s) and weight change ENT ENT: Positive for headache(s) and difficulty swallowing Cardio Cardiology: Positive for leg pain with exertion Gastro GI: Positive for abdominal pain, bloating, constipation, heartburn, difficulty swallowing, excessive flatus and nausea/dyspepsia; No belching, change in bowel habits, change in stool character, coffee ground emesis, cramping, diarrhea, feeling full early, incontinent of stools, Vomiting blood/hematemesis, Blood in stool, loose stools, Black,tarry stools, pain with swallowing, vomiting or other Musc Musculoskeletal: Positive for joint pain, back pain, joint swelling, muscle weakness, Arthritis, restless legs and leg pain with exertion Skin Skin: No yellowing of the eye or itchy eyes Neuro Neurology: Positive for headache(s) and restless legs Psych Psychiatric: Positive for anxiety and Positive for depression Endo Endocrine: Positive for weight change Aller/Imm Allergy/Immunologic: No itchy eyes Horacio/Lymp Hematologic/Lymphatic: No easy bleeding or easy bruising Exam Const General: cooperative and comfortable Nutritional Appearance: average body habitus, well nourished and thin HENMT Head: normal to inspection Ears: hearing grossly normal bilaterally Nose: external nose normal Face and sinus: normal facial exam Eyes General: appearance normal, both eyes and all related structures Neck Neck: normal visual inspection Chest Chest palpation inspection: normal inspection of the chest and normal palpation of entire chest wall Resp Effort Inspection: normal respiratory effort Auscultati (more content not included)... Normal [facility] FSHon 10-06-2024 FSH 86.1 mIU/mL Normal [facility] Comment on above: Result Comment: Adul t Female FSH Reference Ranges (07/27/99): Follicular phase 2.5 - 10.2 mIU/mL Midcycle phase 3.4 - 33.4 mIU/mL Luteal phase 1.5 - 9.1 mIU/mL Post menopausal 23.0 -116.3 mIU/mL Adult Male: 1.4 - 18.1 mIU/mL Performed By: #### F #### [facility] [address] [place] [address] Abdomen Limitedon 10-04-2024 Abdomen Limited [facility] Imaging Services [address] [place] [address] Abdomen Limited MR#: [id number] Acct: [id number] Name: KIA GONZALEZ Rep #: [id number] : 1975 F 49 From: Jamil Justice MD PCP: SANDI Rick Status: REG CLI Study: Abdomen Limited Date of Exam: 10/04/24 Exam# [id number] Ordering Dr: Teri Chou PROCEDURE: ABDOMEN LIMITED REASON FOR EXAM: Pain COMPARISON: None FINDINGS: Liver: Grossly normal size and echotexture. Gallbladder: No stones, sludge, wall thickening or tenderness. Common bile duct: Normal measuring 3 mm. Pancreas: Visualized portions are sonographically unremarkable. Visualized portions of the right kidney are unremarkable. No right upper quadrant ascites. US/Abdomen Limited IMPRESSION: No acute sonographic abnormalities. 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 Accompanied by: Self Is patient in pain?: Yes (abdominal cramping, right knee) Pain scale (1-10): 2 Allergies sulfamethoxazole (From Bactrim) Allergy (Verified 09/30/24 07:41) Swelling trimethoprim (From Bactrim) Allergy (Verified 09/30/24 07:41) Swelling Medications ???Medication ???Instructions ???Recorded ???Confirmed ???Type multivitamin 1 ea PO DAILY 03/07/17 09/30/24 History lactobacillus combination no.4 3 3,000 mmu cells PO QDAY 09/30/24 09/30/24 History billion cell capsule (Probiotic) magnesium 250 mg tablet 250 mg PO QDAY 09/30/24 09/30/24 History ondansetron 4 mg disintegrating 4 mg PO Q8H #30 tabs 09/30/24 09/30/24 Rx tablet ondansetron HCl 4 mg tablet 4 mg PO Q6 PRN nausea/vomiting 09/30/24 09/30/24 History oxybutynin chloride 10 mg 20 mg PO QDAY 09/30/24 09/30/24 History tablet,extended release 24 hr pantoprazole 40 mg tablet,delayed 40 mg PO BID 09/30/24 09/30/24 History release valacyclovir 500 mg tablet 500 mg PO QDAY 09/30/24 09/30/24 History Nurse's Note: 08/2023 weight loss initially attributed to working. Then started having loss of appetite. 01/2024 EGD reported normal. Then PCP Nicolás seen with additional testing. Pt reports CT showed diverticulos is, pelvic congestion, and Bochdalek hernia. Frequent abdominal cramping, diarrhea, constipation. Long hx near syncope while having BM with SOB, vision changes, clammy skin and pallor. PFSH Medical History (Updated 09/30/24 @ 08:31 by KEKE Morales) Herpes simplex viral infection Depression Anesthesia complication Polycystic ovaries Neuropathy Heart murmur Irritable bowel syndrome Hives Headache, migraine Gastrointestinal problem Back problem Seasonal allergies Surgical History (Updated 09/30/24 @ 07:41 by Kezia Robert) History of hysterectomy History of total right knee replacement S/P right knee arthroscopy History of tonsillectomy Family History (Updated 09/30/24 @ 07:57 by Kezia Robert) Mother Cancer Anemia Arthritis Breast cancer Father Cancer Hypertension Heart disease Diabetes Myocardial infarction, Onset Age: 59 Brother Hypertension Hypercholesteremia Sister Arthritis Other Anxiety Social History (Updated 09/30/24 @ 07:41 by Kezia Robert) Smoking Status: Current every day smoker alcohol intake: current substance use type: marijuana HPI HPI Chief Complaint: GERD Details: KIA GONZALEZ, is a 49 F who presents to the office today for establishment with [facility]. EGD 07.17.17; Suspected Barrets esophagus, small amount of food debris in stomach, mild gastritis, normal duodenum EGD 01.19.24; small hiatal hernia, mild gastritis EGD 01.14.24; normal mucosa in the whole esophagus, erythema and congestion in the antrum, normal duodenum CT abd/pelvis 02.15.24; NO acute process within the abd/pelvis GES 6.25.24; slightly prolonged extrapolated T half emptying time of 126.5 minutes likely secondary to the 1st 60 minutes of imaging acquisition. Other marcelino normal OV 1.28.25 with complaints of weight loss, difficulty swallowing, heartburn and irregular bowels. Pt has seen GI in the past in [place] but was told there was nothing wrong with her. She is having difficulty maintaining her weight due to lack of PO intake. She has constant nausea and heartburn. It is hard for her to swallow solid foods and feels it gets stuck. She smokes marijuana daily in order to have an increased appetite but his does not really work anymore. She takes Pantoprazole 40 mg BID which does not help with her symptoms. Her PCP prescribed Zofran which is helpful sometimes. She has irregular bowel movements typically with constipation but sometimes will have loose stool after eating certain foods. When she has loose stools it is urgent and she will have incontinence. Last EGD in january 2024 and last colonoscopy she thinks was over 10 years ago. ROS Const Constitutional: Positive for fatigue, weakness (R knee) and weight change (loss); No fever(s), frequent falls or headache(s) ENT ENT: Positive for difficulty swallowing; No headache(s) Cardio Cardiology: Positive for leg pain with exertion Gastro GI: Positive for abdominal pain, bloating, change in bowel habits, constipation, diarrhea, heartburn, difficulty swallowing and nausea/dyspepsia; No excessive flatus, Vomiting blood/hematemesis, Blood in stool or vomiting Musc Musc (more content not included)... Normal [facility] .Auto Diffon 09-16-2024 Basophil, Absolute 0.0 10 3/mcL Normal 0.0-0.3 DAREN MAN MASSILLON Comment on above: Performed By: #### C BC, TSHR, CMP, ANEU, ADIFF, GFR #### [address] [address] Basophils/100 WBC (Bld) 0.7 % Normal 0.0-2.5 ANUP MASSILLON Comment on above: Performed By: #### C BC, TSHR, CMP, ANEU, ADIFF, GFR #### [address] [address] Eosinophil, Absolute 0.1 10 3/mcL Normal 0.0-0.7 AU LTMAN MASSILLON Comment on above: Performed By: #### C BC, TSHR, CMP, ANEU, ADIFF, GFR #### [address] [address] Eosinophils/100 WBC (Bld) 2.5 % Normal 0.0-6.0 ANUP [facility] Comment on above: Performed By: #### C BC, TSHR, CMP, ANEU, ADIFF, GFR #### [address] [address] Lymphocyte, Absolute 2.5 10 3/mcL Normal 0.9-4.3 AU LTMAN MASSILLON Comment on above: Performed By: #### C BC, TSHR, CMP, ANEU, ADIFF, GFR #### [address] [address] Lymphocytes/100 WBC (Bld) 43.8 % High 20.0-40.0 ANUP MAS[facility]ON Comment on above: Performed By: #### C BC, TSHR, CMP, ANEU, ADIFF, GFR #### [address] [address] Monocyte, Absolute 0.5 10 3/mcL Normal 0.1-1.4 DAREN MAN MASSILLON Comment on above: Performed By: #### C BC, TSHR, CMP, ANEU, ADIFF, GFR #### [address] [address] Monocytes/100 WBC (Bld) 8.8 % Normal 2.0-13.0 ANUP [facility] Comment on above: Performed By: #### C BC, TSHR, CMP, ANEU, ADIFF, GFR #### [address] [address] Neutrophils/100 WBC (Bld) 44.2 % Low 50.0-75.0 ANUP [facility] Comment on above: Performed By: #### C BC, TSHR, CMP, ANEU, ADIFF, GFR #### [address] [address] .GFRon 09-16-2024 GFR >60 Normal DAREN MAN MASSILLON Comment on above: Result Comment: GFR Population mean for , Non- Americans Ages 20-29 = 116 mL/min/1.73 sq.m. Ages 30-39 = 107 mL/min/1.73 sq.m. Ages 40-49 = 99 mL/min/1.73 sq.m. Ages 50-59 = 93 mL/min/1.73 sq.m. Ages 60-69 = 85 mL/min/1.73 sq.m. Ages 70+ = 75 mL/min/1.73 sq.m. Chronic Kidney Disease: Less than 60 mL/min/1.73 square meters End Stage Renal Disease: Less than 15 mL/min/1.73 square meters Performed By: #### C BC, TSHR, CMP, ANEU, ADIFF, GFR #### [address] [address] GFR Non- >60 Normal ANUP [facility] Comment on above: Result Comment: GFR Population mean for , Non- Americans Ages 20-29 = 116 mL/min/1.73 sq.m. Ages 30-39 = 107 mL/min/1.73 sq.m. Ages 40-49 = 99 mL/min/1.73 sq.m. Ages 50-59 = 93 mL/min/1.73 sq.m. Ages 60-69 = 85 mL/min/1.73 sq.m. Ages 70+ = 75 mL/min/1.73 sq.m. Chronic Kidney Disease: Less than 60 mL/min/1.73 square meters End Stage Renal Disease: Less than 15 mL/min/1.73 square meters Performed By: #### C BC, TSHR, CMP, ANEU, ADIFF, GFR #### [address] [address] .NEUABSon 09-16-2024 Neutrophil, Absolute 2.5 10 3/mcL Normal 2.3-8.1 AU LTMAN MASSILLON Comment on above: Performed By: #### C BC, TSHR, CMP, ANEU, ADIFF, GFR #### [address] [address] CBCon 09-16-2024 Erythrocyte distribution width (RBC) [Ratio] 13.3 % Normal 11.5-15.5 ANUP [facility] Comment on above: Performed By: #### C BC, TSHR, CMP, ANEU, ADIFF, GFR #### [place] [address] Hematocrit (Bld) [Volume fraction] 39.5 % Normal 34.0-46.0 ANUP [facility] Comment on above: Performed By: #### C BC, TSHR, CMP, ANEU, ADIFF, GFR #### [place] [address] Hgb 13.7 G/dL Normal 12.0-16.0 ANUP [facility] Comment on above: Performed By: #### C BC, TSHR, CMP, ANEU, ADIFF, GFR #### [place] [address] MCH (RBC) [Entitic mass] 32.3 pg Normal 27.0-33.0 ANUP [facility] Comment on above: Performed By: #### C BC, TSHR, CMP, ANEU, ADIFF, GFR #### [place] [address] MCHC 34.6 G/dL Normal 32.0-36.0 ANUP [facility] Comment on above: Performed By: #### C BC, TSHR, CMP, ANEU, ADIFF, GFR #### [place] [address] MCV (RBC) [Entitic vol] 93.6 fL Normal 80.0-99.0 ANUP [facility] Comment on above: Performed By: #### C BC, TSHR, CMP, ANEU, ADIFF, GFR #### [place] [address] Platelet 236 10 3/mcL Normal 150-450 ANUP [facility] Comment on above: Performed By: #### C BC, TSHR, CMP, ANEU, ADIFF, GFR #### [place] [address] Platelet mean volume (Bld) [Entitic vol] 9.5 fL Normal 6.6-10.5 ANUP [facility] Comment on above: Performed By: #### C BC, TSHR, CMP, ANEU, ADIFF, GFR #### [place] [id number] RBC 4.23 10 6/mcL Normal 4.10-5.30 ANUP [facility] Comment on above: Performed By: #### C BC, TSHR, CMP, ANEU, ADIFF, GFR #### [place] [address] WBC 5.7 10 3/mcL Normal 4.5-10.8 ANUP [facility] Comment on above: Performed By: #### C BC, TSHR, CMP, ANEU, ADIFF, GFR #### [place] [address] CMPon 09-16-2024 Albumin Level 3.8 G/dL Normal 3.2-4.8 ANUP [facility] Comment on above: Performed By: #### C BC, TSHR, CMP, ANEU, ADIFF, GFR #### [place] [address] Albumin/Globulin [Mass ratio] 1.2 {ratio} Normal 0.9-1.6 ANUP [facility] Comment on above: Performed By: #### C BC, TSHR, CMP, ANEU, ADIFF, GFR #### [place] [address] ALP [Catalytic activity/Vol] 72 U/L Normal 38-126 ANUP [facility] Comment on above: Performed By: #### C BC, TSHR, CMP, ANEU, ADIFF, GFR #### [place] [id number] ALT [Catalytic activity/Vol] 16 U/L Normal 10-49 ANUP [facility] Comment on above: Performed By: #### C BC, TSHR, CMP, ANEU, ADIFF, GFR #### [place] [id number] AST [Catalytic activity/Vol] 22 U/L Normal 8-34 ANUP [facility] Comment on above: Performed By: #### C BC, TSHR, CMP, ANEU, ADIFF, GFR #### [place] [id number] Bili Total 0.40 mg/dL Normal 0.20-1.20 ANUP [facility] Comment on above: Result Comment: Use of this assay is not recommended for patients undergoing treatment with eltrombopag due to the potential for falsely elevated results. Performed By: #### C BC, TSHR, CMP, ANEU, ADIFF, GFR #### [place] [address] BUN/Creatinine Ratio 24.7 ratio High 10.0-22.0 DAREN MAN MASSILLON Comment on above: Performed By: #### C BC, TSHR, CMP, ANEU, ADIFF, GFR #### [place] [address] Calcium [Mass/Vol] 11.2 mg/dL High 8.7-10.4 AULTMA N MASSILLON Comment on above: Performed By: #### C BC, TSHR, CMP, ANEU, ADIFF, GFR #### [place] [address] Chloride [Moles/Vol] 105 mmol/L Normal 98-110 DAREN MAN MASSILLON Comment on above: Performed By: #### C BC, TSHR, CMP, ANEU, ADIFF, GFR #### [place] [address] CO2 [Moles/Vol] 34 mmol/L High 22-32 ANUP [facility] Comment on above: Performed By: #### C BC, TSHR, CMP, ANEU, ADIFF, GFR #### [place] [address] Creatinine [Mass/Vol] 0.89 mg/dL Normal 0.50-1.20 ANUP [facility] Comment on above: Result Comment: Test ing performed on TIMPIK analyzer using enzymatic creatinine methodology. Performed By: #### C BC, TSHR, CMP, ANEU, ADIFF, GFR #### [place] [address] Electrolyte Balance 3.0 mEq/L Low 4.0-15.0 AULTM AN MASSILLON Comment on above: Performed By: #### C BC, TSHR, CMP, ANEU, ADIFF, GFR #### [facility] [address] [place], [place] [address] Globulin 3.1 G/dL Normal 1.5-3.8 ANUP MASSILLON Comment on above: Performed By: #### C BC, TSHR, CMP, ANEU, ADIFF, GFR #### [address] [address] Glucose [Mass/Vol] 75 mg/dL Normal 70-110 AULTMA N MASSILL[facility] Comment on above: Performed By: #### C BC, TSHR, CMP, ANEU, ADIFF, GFR #### [address] [address] Potassium [Moles/Vol] 4.3 mmol/L Normal 3.5-5.0 ANUP [facility] Comment on above: Performed By: #### C BC, TSHR, CMP, ANEU, ADIFF, GFR #### [address] [address] Sodium [Moles/Vol] 142 mmol/L Normal 136-145 AULTMA N MASSILLON Comment on above: Performed By: #### C BC, TSHR, CMP, ANEU, ADIFF, GFR #### [address] [address] Total Protein 6.9 G/dL Normal 5.7-8.2 ANUP [facility] Comment on above: Performed By: #### C BC, TSHR, CMP, ANEU, ADIFF, GFR #### [address] [address] Urea nitrogen [Mass/Vol] 22.0 mg/dL Normal 8.0-22.0 ANUP [facility] Comment on above: Performed By: #### C BC, TSHR, CMP, ANEU, ADIFF, GFR #### [address] [address] TSHRon 09-16-2024 TSH 3.091 mIU/mL Normal 0.550-4.78 0 ANUP [facility] Comment on above: Performed By: #### C BC, TSHR, CMP, ANEU, ADIFF, GFR #### [address] [address] No Panel Informationon 09-15 Culture Urine 10,000 - 50,000 cfu/ ml Mixed growth consistent with normal urogenital leo. [facility] PENICILLIN:SUSC:PT:ISOLATE:O RDQN:MICon 04-03-2024 Penicillin DULCE [Susc] 50,000 - 100,000 cfu/ml Enterococcus faecalis 50,000 - 100,000 cfu/ml Escherichia coli [facility] Penicillin DULCE [Susc]on Enterococcus faecalis Enterococcus faecalis [facility] Escherichia coli Escherichia coli [facility] [place] Final Surgical Pathology Rep [facility] 03-31-2024 Final Surgical Pathology Report . Pathology Reports Accession: Collected Date/Time: Received Date/Time: Pathologist: [id number] 03/27/2024 13:00 EDT 03/28/2024 10:19 EDT MD GABE DUNBAR Final Surgical Pathology Report DIAGNOSIS: UTERUS AND CERVIX: - CERVIX -MILD CHRONIC INFLAMMATION WITH NABOTHIAN CYSTS - ENDOMETRIUM -FIBROSIS - MYOMETRIUM -LEIOMYOMA CLINICAL INFORMATION: PELVIC PAIN, PELVIC CONGESTION SYNDROME Procedure: LAPAROSCOPIC ASSISTED VAGINAL HYSTERECTOMY Preoperative diagnosis: PELVIC PAIN, PELVIC CONGESTION SYNDROME Postoperative diagnosis: PELVIC PAIN, PELVIC CONGESTION SYNDROME SPECIMEN: A UTERUS AND CERVIX GROSS DESCRIPTION: All parts labelled with patient name and [id number] Received in formalin labelled uterus and cervix Weight/dimensions - 96 g and measures 10 cm (fundus to cervix), 4.5 cm (cornu to cornu), 3.5 cm (anterior to posterior). Serosa - fabian-pink focal areas of pinpoint hemorrhage Cervix/endocervix - 3 cm in diameter and 5 cm in length. The cervix is surrounded by a rim of vaginal cuff ranging from 0.3 to 1.1 cm in thickness. Endometrium - obliterated endometrial cavity with focal areas of scarring. Myometrium - fabian-pink measuring up to 2.5 cm with 1 anterior intramural white whorled well-circumscribed nodule measuring 1 x 0.7 x 1 cm. RS-4 Cassette Summary: A1 - Cervix A2 - Anterior endomyometrium A3 - Posterior endomyometrium A4 - Anterior white whorled nodule Isrrael Jhaveri, Pathologists' Geology Associate (ASCP) Performed by ISRRAEL JHAVERI MICROSCOPIC DESCRIPTION: The microscopic examination is performed, except in the case of Gross Only. Electronically Signed by Pathology Report verified by [facility] GABE DUNBAR MD Sign out Date: 03/31/2024 10:56 Performing Lab: [facility], [address] [place] [id number] [place] [address] Pathology Dept Disclaimer If ancillary studies were utilized, the following Laboratory Developed Test (LDT) disclaimer will apply: Pathology Reports Accession: Collected Date/Time: Received Date/Time: Pathologist: [id number] 03/27/2024 13:00 EDT 03/28/2024 10:19 EDT MD GABE DUNBAR Disclaimer Under CLIA requirements, [facility] is qualified to perform high complexity testing. For all ancillary stains, positive and negative controls stain appropriately. Performance characteristics of immunohistochemical and chromogenic in-situ hybridization tests have been determined by [facility]. These tests are used for clinical purposes, They should not be regarded as investigational or for research. Normal [facility] ([place]) .Auto Diffon 03-28-2024 Basophil, Absolute 0.0 10 3/mcL Normal 0.0-0.2 [facility] ([place]) Comment on above: Performed By: #### H PV #### [address] [address] Basophils/100 WBC (Bld) 0.1 % Normal 0.0-2.5 [facility] ([place]) Comment on above: Performed By: #### H PV #### [address] [address] Eosinophil, Absolute 0.0 10 3/mcL Normal 0.0-0.4 [facility] ([place]) Comment on above: Performed By: #### H PV #### [address] [address] Eosinophils/100 WBC (Bld) 0.2 % Normal 0.0-7.0 [facility] ([place]) Comment on above: Performed By: #### H PV #### [address] [address] Lymphocyte, Absolute 1.8 10 3/mcL Normal 0.8-3.9 [facility] ([place]) Comment on above: Performed By: #### H PV #### [address] [address] Lymphocytes/100 WBC (Bld) 15.9 % Normal 10.0-50.0 [facility] ([place]) Comment on above: Performed By: #### H PV #### [address] [address] Monocyte, Absolute 0.9 10 3/mcL Normal 0.2-1.0 [facility] ([place]) Comment on above: Performed By: #### H PV #### [address] [address] Monocytes/100 WBC (Bld) 8.1 % Normal 1.7-13.0 [facility] ([place]) Comment on above: Performed By: #### H PV #### [address] [address] Neutrophils/100 WBC (Bld) 75.7 % Normal 37.0-80.0 [facility] ([place]) Comment on above: Performed By: #### H PV #### [address] [address] .GFRon 03-28-2024 GFR 91 ml/min/1.73sqm Normal [facility] ([place]) Comment on above: Result Comment: GFR Population mean for , Non- Americans Ages 20-29 = 116 mL/min/1.73 sq.m. Ages 30-39 = 107 mL/min/1.73 sq.m. Ages 40-49 = 99 mL/min/1.73 sq.m. Ages 50-59 = 93 mL/min/1.73 sq.m. Ages 60-69 = 85 mL/min/1.73 sq.m. Ages 70+ = 75 mL/min/1.73 sq.m. Chronic Kidney Disease: Less than 60 mL/min/1.73 square meters End Stage Renal Disease: Less than 15 mL/min/1.73 square meters Performed By: #### H PV #### [address] [address] GFR Non- 75 ml/min/1.73sqm Normal [facility] ([place]) Comment on above: Result Comment: GFR Population mean for , Non- Americans Ages 20-29 = 116 mL/min/1.73 sq.m. Ages 30-39 = 107 mL/min/1.73 sq.m. Ages 40-49 = 99 mL/min/1.73 sq.m. Ages 50-59 = 93 mL/min/1.73 sq.m. Ages 60-69 = 85 mL/min/1.73 sq.m. Ages 70+ = 75 mL/min/1.73 sq.m. Chronic Kidney Disease: Less than 60 mL/min/1.73 square meters End Stage Renal Disease: Less than 15 mL/min/1.73 square meters Performed By: #### H PV #### [address] [address] .NEUABSon 03-28-2024 Neutrophil, Absolute 8.5 10 3/mcL High 2.9-6.2 [facility] ([place]) Comment on above: Performed By: #### H PV #### [address] [address] BMPon 03-28-2024 BUN/Creatinine Ratio 10 ratio Normal 7-27 [facility] ([place]) Comment on above: Performed By: #### H PV #### [address] [address] Calcium [Mass/Vol] 9.4 mg/dL Normal 8.4-10.2 [facility] ([place]) Comment on above: Performed By: #### H PV #### [address] [address] Chloride [Moles/Vol] 108 mmol/L High 98-107 [facility] ([place]) Comment on above: Performed By: #### H PV #### [address] [address] CO2 [Moles/Vol] 35 mmol/L High 22-29 [facility] ([place]) Comment on above: Performed By: #### H PV #### [place] [id number] Creatinine [Mass/Vol] 0.81 mg/dL Normal 0.55-1.02 [facility] ([place]) Comment on above: Performed By: #### H PV #### [place] [id number] Electrolyte Balance 0.0 mEq/L Low 4.0-15.0 [facility] ([place]) Comment on above: Performed By: #### H PV #### [place] [id number] Glucose [Mass/Vol] 101 mg/dL Normal 70-105 [facility] ([place]) Comment on above: Performed By: #### H PV #### [place] [address] Potassium [Moles/Vol] 4.8 mmol/L Normal 3.5-5.1 [facility] ([place]) Comment on above: Performed By: #### H PV #### [place] [address] Sodium [Moles/Vol] 143 mmol/L Normal 136-145 [facility] ([place]) Comment on above: Performed By: #### H PV #### [place] [address] Urea nitrogen [Mass/Vol] 8 mg/dL Normal 7-18 [facility] ([place]) Comment on above: Performed By: #### H PV #### [place] [id number] CBCon 03-28-2024 Erythrocyte distribution width (RBC) [Ratio] 13.3 % Normal 11.5-14.5 [facility] ([place]) Comment on above: Performed By: #### C TPCR, NGPCR1 #### [place] [id number] Hematocrit (Bld) [Volume fraction] 35.2 % Low 37.0-47.0 [facility] ([place]) Comment on above: Performed By: #### C TPCR, NGPCR1 #### [place] [id number] Hgb 12.0 G/dL Normal 12.0-16.0 [facility] ([place]) Comment on above: Performed By: #### C TPCR, NGPCR1 #### [place] [address] MCH (RBC) [Entitic mass] 32.2 pg High 27.0-31.2 [facility] ([place] Comment on above: Performed By: #### C TPCR, NGPCR1 #### [place] [address] MCHC 34.1 G/dL Normal 33.0-37.0 [facility] ([place]) Comment on above: Performed By: #### C TPCR, NGPCR1 #### [place] [address] MCV (RBC) [Entitic vol] 94.4 fL High 80.0-94.0 [facility] ([place]) Comment on above: Performed By: #### C TPCR, NGPCR1 #### [place] [address] Platelet 189 10 3/mcL Normal 130-400 [facility] ([place]) Comment on above: Performed By: #### C TPCR, NGPCR1 #### [place] [address] Platelet mean volume (Bld) [Entitic vol] 8.2 fL Normal 7.4-10.4 [facility] ([place] Comment on above: Performed By: #### C TPCR, NGPCR1 #### [place] [address] RBC 3.73 10 6/mcL Low 4.20-5.40 [facility] ([place]) Comment on above: Performed By: #### C TPCR, NGPCR1 #### [place] [address] WBC 11.3 10 3/mcL High 4.6-10.8 [facility] ([place]) Comment on above: Performed By: #### C TPCR, NGPCR1 #### [place] [address] LABORATORYOrdered By: SYSTEM SYSTEM on 03-28-2024 Basophil, Absolute 0.0 103/mcL Normal 0.0 - 0.2 10^3/mcL AO Workflow SS Basophils/100 WBC (Bld) 0.1 % Normal 0.0 - 2.5 % AO Workflow SS Calcium [Mass/Vol] 9.4 mg/dL Normal 8.4 - 10. 2 mg/dL AO ADM SS Chloride [Moles/Vol] 108 mmol/L High 98 - 10 7 mmol/L AO ADM SS CO2 [Moles/Vol] 35 mmol/L High 22 - 29 mmol/L AO ADM SS Creatinine [Mass/Vol] 0.81 mg/dL Normal 0.55 - 1.02 mg/dL AO ADM SS Electrolyte Balance 0.0 mEq/L Low 4.0 - 15 .0 mEq/L AO ADM SS Eosinophil, Absolute 0.0 103/mcL Normal 0.0 - 0 .4 10^3/mcL AO Workflow SS Eosinophils/100 WBC (Bld) 0.2 % Normal 0.0 - 7.0 % AO Workflow SS Erythrocyte distribution width (RBC) [Ratio] 13.3 % Normal 11.5 - 14.5 % AO Workflow SS GFR/1.73 sq M.predicted among blacks MDRD (S/P/Bld) [Vol rate/Area] 91 ml/min/1.73sqm Invalid Interpretation Code AO Chemistry S Comment on above: Interpretive Data: GFR Population mean for , Non- Americans Ages 20-29 = 116 mL/min/1.73 sq.m. Ages 30-39 = 107 mL/min/1.73 sq.m. Ages 40-49 = 99 mL/min/1.73 sq.m. Ages 50-59 = 93 mL/min/1.73 sq.m. Ages 60-69 = 85 mL/min/1.73 sq.m. Ages 70+ = 75 mL/min/1.73 sq.m. Chronic Kidney Disease: Less than 60 mL/min/1.73 square meters End Stage Renal Disease: Less than 15 mL/min/1.73 square meters GFR/1.73 sq M.predicted among non-blacks MDRD (S/P/Bld) [Vol rate/Area] 75 ml/min/1.73sqm Invalid Interpretation Code AO Chemistry S Comment on above: Interpretive Data: GFR Population mean for , Non- Americans Ages 20-29 = 116 mL/min/1.73 sq.m. Ages 30-39 = 107 mL/min/1.73 sq.m. Ages 40-49 = 99 mL/min/1.73 sq.m. Ages 50-59 = 93 mL/min/1.73 sq.m. Ages 60-69 = 85 mL/min/1.73 sq.m. Ages 70+ = 75 mL/min/1.73 sq.m. Chronic Kidney Disease: Less than 60 mL/min/1.73 square meters End Stage Renal Disease: Less than 15 mL/min/1.73 square meters Glucose [Mass/Vol] 101 mg/dL Normal 70 - 105 mg/dL AO ADM SS Hematocrit (Bld) [Volume fraction] 35.2 % Low 37.0 - 47.0 % AO Workflow SS Hemoglobin (Bld) [Mass/Vol] 12.0 G/dL Normal 12.0 - 16.0 G/dL AO Workflow SS Lymphocyte, Absolute 1.8 103/mcL Normal 0.8 - 3 .9 10^3/mcL AO Workflow SS Lymphocytes/100 WBC (Bld) 15.9 % Normal 10.0 - 50.0 % AO Workflow SS MCH (RBC) [Entitic mass] 32.2 pg High 27.0 - 31.2 pg AO Workflow SS MCHC 34.1 G/dL Normal 33.0 - 37.0 G/dL AO Workflow SS MCV (RBC) [Entitic vol] 94.4 fL High 80.0 - 94.0 fL AO Workflow SS Monocyte, Absolute 0.9 103/mcL Normal 0.2 - 1.0 10^3/mcL AO Workflow SS Monocytes/100 WBC (Bld) 8.1 % Normal 1.7 - 13.0 % AO Workflow SS Neutrophil, Absolute 8.5 103/mcL High 2.9 - 6 .2 10^3/mcL AO Workflow SS Neutrophils/100 WBC (Bld) 75.7 % Normal 37.0 - 80.0 % AO Workflow SS Platelet mean volume (Bld) [Entitic vol] 8.2 fL Normal 7.4 - 10.4 fL AO Workflow SS Platelets (Bld) [#/Vol] 189 103/mcL Normal 130 - 400 10^3/mcL AO Workflow SS Potassium [Moles/Vol] 4.8 mmol/L Normal 3.5 - 5.1 mmol/L AO ADM SS RBC (Bld) [#/Vol] 3.73 106/mcL Low 4.20 - 5.40 10^6/mcL AO Workflow SS Sodium [Moles/Vol] 143 mmol/L Normal 136 - 145 mmol/L AO ADM SS Urea nitrogen [Mass/Vol] 8 mg/dL Normal 7 - 18 mg/dL AO ADM SS Urea nitrogen/Creatinine [Mass ratio] 10 ratio Normal 7 - 27 ratio AO ADM SS WBC (Bld) [#/Vol] 11.3 103/mcL High 4.6 - 10.8 10^3/mcL AO Workflow SS .Auto Diffon 03-27-2024 Basophil, Absolute 0.0 10 3/mcL Normal 0.0-0.2 [facility] ([place]) Comment on above: Performed By: #### P REGU #### [address] [address] Basophils/100 WBC (Bld) 0.2 % Normal 0.0-2.5 [facility] ([place]) Comment on above: Performed By: #### P REGU #### [address] [address] Eosinophil, Absolute 0.0 10 3/mcL Normal 0.0-0.4 [facility] ([place]) Comment on above: Performed By: #### P REGU #### [address] [address] Eosinophils/100 WBC (Bld) 0.0 % Normal 0.0-7.0 [facility] ([place]) Comment on above: Performed By: #### P REGU #### [address] [address] Lymphocyte, Absolute 0.6 10 3/mcL Low 0.8-3.9 [facility] ([place]) Comment on above: Performed By: #### P REGU #### [address] [address] Lymphocytes/100 WBC (Bld) 5.7 % Low 10.0-50.0 [facility] ([place]) Comment on above: Performed By: #### P REGU #### [address] [address] Monocyte, Absolute 0.3 10 3/mcL Normal 0.2-1.0 [facility] ([place]) Comment on above: Performed By: #### P REGU #### [address] [address] Monocytes/100 WBC (Bld) 3.0 % Normal 1.7-13.0 [facility] ([place]) Comment on above: Performed By: #### P REGU #### [address] [address] Neutrophils/100 WBC (Bld) 91.1 % High 37.0-80.0 [facility] ([place]) Comment on above: Performed By: #### P REGU #### [address] [address] .NEUABSon 03-27-2024 Neutrophil, Absolute 9.0 10 3/mcL High 2.9-6.2 [facility] ([place]) Comment on above: Performed By: #### P REGU #### [address] [address] ABO/Rh (Gel)on 03-27-2024 ABO/Rh Interp Positive Invalid Interpretation Code [facility] ([place]) Comment on above: Performed By: #### C TPCR, NGPCR1 #### [address] [address] ABS (Gel)on 03-27-2024 ABSC Interp (Gel) Negative Normal [facility] ([place]) Comment on above: Performed By: #### C TPCR, NGPCR1 #### [address] [address] CBCon 03-27-2024 Erythrocyte distribution width (RBC) [Ratio] 13.3 % Normal 11.5-14.5 [facility] ([place]) Comment on above: Performed By: #### H PV #### [address] [address] Hematocrit (Bld) [Volume fraction] 37.4 % Normal 37.0-47.0 [facility] ([place]) Comment on above: Performed By: #### H PV #### [place] [address] Hgb 12.7 G/dL Normal 12.0-16.0 [facility] ([place] Comment on above: Performed By: #### H PV #### [place] [address] MCH (RBC) [Entitic mass] 32.4 pg High 27.0-31.2 [facility] ([place]) Comment on above: Performed By: #### H PV #### [place] [address] MCHC 34.0 G/dL Normal 33.0-37.0 [facility] ([place]) Comment on above: Performed By: #### H PV #### [place] [address] MCV (RBC) [Entitic vol] 95.2 fL High 80.0-94.0 [facility] ([place]) Comment on above: Performed By: #### H PV #### [place] [address] Platelet 202 10 3/mcL Normal 130-400 [facility] ([place]) Comment on above: Performed By: #### H PV #### [place] [address] Platelet mean volume (Bld) [Entitic vol] 8.0 fL Normal 7.4-10.4 [facility] ([place]) Comment on above: Performed By: #### H PV #### [place] [address] RBC 3.93 10 6/mcL Low 4.20-5.40 [facility] ([place]) Comment on above: Performed By: #### H PV #### [place] [id number] WBC 9.9 10 3/mcL Normal 4.6-10.8 [facility] ([place]) Comment on above: Performed By: #### H PV #### [address], [place] [address] LABORATORYOrdered By: SYSTEM SYSTEM on 03-27-2024 Basophil, Absolute 0.0 103/mcL Normal 0.0 - 0.2 10^3/mcL AO Workflow SS Basophils/100 WBC (Bld) 0.2 % Normal 0.0 - 2.5 % AO Workflow SS Eosinophil, Absolute 0.0 103/mcL Normal 0.0 - 0 .4 10^3/mcL AO Workflow SS Eosinophils/100 WBC (Bld) 0.0 % Normal 0.0 - 7.0 % AO Workflow SS Erythrocyte distribution width (RBC) [Ratio] 13.3 % Normal 11.5 - 14.5 % AO Workflow SS Hematocrit (Bld) [Volume fraction] 37.4 % Normal 37.0 - 47.0 % AO Workflow SS Hemoglobin (Bld) [Mass/Vol] 12.7 G/dL Normal 12.0 - 16.0 G/dL AO Workflow SS Lymphocyte, Absolute 0.6 103/mcL Low 0.8 - 3 .9 10^3/mcL AO Workflow SS Lymphocytes/100 WBC (Bld) 5.7 % Low 10.0 - 50.0 % AO Workflow SS MCH (RBC) [Entitic mass] 32.4 pg High 27.0 - 31.2 pg AO Workflow SS MCHC 34.0 G/dL Normal 33.0 - 37.0 G/dL AO Workflow SS MCV (RBC) [Entitic vol] 95.2 fL High 80.0 - 94.0 fL AO Workflow SS Monocyte, Absolute 0.3 103/mcL Normal 0.2 - 1.0 10^3/mcL AO Workflow SS Monocytes/100 WBC (Bld) 3.0 % Normal 1.7 - 13.0 % AO Workflow SS Neutrophil, Absolute 9.0 103/mcL High 2.9 - 6 .2 10^3/mcL AO Workflow SS Neutrophils/100 WBC (Bld) 91.1 % High 37.0 - 80.0 % AO Workflow SS Platelet mean volume (Bld) [Entitic vol] 8.0 fL Normal 7.4 - 10.4 fL AO Workflow SS Platelets (Bld) [#/Vol] 202 103/mcL Normal 130 - 400 10^3/mcL AO Workflow SS RBC (Bld) [#/Vol] 3.93 106/mcL Low 4.20 - 5.40 10^6/mcL AO Workflow SS WBC (Bld) [#/Vol] 9.9 103/mcL Normal 4.6 - 10.8 10^3/mcL AO Workflow SS LABORATORYOrdered By: Mayuri Garzon on 03-27-2024 ABO and Rh group Nom (Bld) Blood group A Rh(D) positive Invalid Interpretation Code AO BB Auto SS Blood group antibody screen Ql Negative ABSC (03/27/24 10:54 AM) Normal AO BB Auto SS LABORATORYOrdered By: Melida Lopez on 03-27-2024 HCG ( test) Ql Negative (03/27/24 10:54 AM) Normal AO Manual Urine SS test (u) int Not detected Invalid Interpretation Code AO Manual Urine SS PREGUon 03-27-2024 HCG ( test) Ql (U) Negative Normal [facility] ([place]) Comment on above: Performed By: #### P REGU #### [address] [address] test (u) int Not detected Invalid Interpretation Code [facility] ([place]) Comment on above: Performed By: #### P REGU #### [address] [address] .Auto Diffon 03-18-2024 Basophil, Absolute 0.0 10 3/mcL Normal 0.0-0.2 [facility] ([place]) Comment on above: Performed By: #### H PV #### [address] [address] Basophils/100 WBC (Bld) 0.5 % Normal 0.0-2.5 [facility] ([place]) Comment on above: Performed By: #### H PV #### [address] [address] Eosinophil, Absolute 0.2 10 3/mcL Normal 0.0-0.4 [facility] ([place]) Comment on above: Performed By: #### H PV #### [address] [address] Eosinophils/100 WBC (Bld) 2.6 % Normal 0.0-7.0 [facility] ([place] Comment on above: Performed By: #### H PV #### [address] [address] Lymphocyte, Absolute 2.4 10 3/mcL Normal 0.8-3.9 [facility] ([place]) Comment on above: Performed By: #### H PV #### [address] [address] Lymphocytes/100 WBC (Bld) 33.3 % Normal 10.0-50.0 [facility] ([place]) Comment on above: Performed By: #### H PV #### [address] [address] Monocyte, Absolute 0.5 10 3/mcL Normal 0.2-1.0 [facility] ([place]) Comment on above: Performed By: #### H PV #### [address] [address] Monocytes/100 WBC (Bld) 7.2 % Normal 1.7-13.0 [facility] ([place]) Comment on above: Performed By: #### H PV #### [address] [address] Neutrophils/100 WBC (Bld) 56.4 % Normal 37.0-80.0 [facility] ([place] Comment on above: Performed By: #### H PV #### [address] [address] .NEUABSon 03-18-2024 Neutrophil, Absolute 4.1 10 3/mcL Normal 2.9-6.2 [facility] ([place]) Comment on above: Performed By: #### H PV #### [address] [address] ABO/Rh (Gel)on 03-18-2024 ABO/Rh Interp Positive Invalid Interpretation Code [facility] ([place]) Comment on above: Performed By: #### H PV #### [address] [address] ABS (Gel)on 03-18-2024 ABSC Interp (Gel) Negative Normal [facility] ([place]) Comment on above: Performed By: #### H PV #### [address] [address] CBCon 03-18-2024 Erythrocyte distribution width (RBC) [Ratio] 13.7 % Normal 11.5-14.5 [facility] ([place]) Comment on above: Order Comment: Order placed by AP_HPV_ORDER rule from [id number] Performed By: #### H PV #### [place] [address] Hematocrit (Bld) [Volume fraction] 41.0 % Normal 37.0-47.0 [facility] ([place] Comment on above: Order Comment: Order placed by AP_HPV_ORDER rule from [id number] Performed By: #### H PV #### [place] [address] Hgb 13.9 G/dL Normal 12.0-16.0 [facility] ([place] Comment on above: Order Comment: Order placed by AP_HPV_ORDER rule from [id number] Performed By: #### H PV #### [place] [address] MCH (RBC) [Entitic mass] 32.3 pg High 27.0-31.2 [facility] ([place] Comment on above: Order Comment: Order placed by AP_HPV_ORDER rule from [id number] Performed By: #### H PV #### [place] [address] MCHC 34.0 G/dL Normal 33.0-37.0 [facility] ([place] Comment on above: Order Comment: Order placed by AP_HPV_ORDER rule from [id number] Performed By: #### H PV #### [place] [address] MCV (RBC) [Entitic vol] 95.0 fL High 80.0-94.0 [facility] ([place]) Comment on above: Order Comment: Order placed by AP_HPV_ORDER rule from [id number] Performed By: #### H PV #### [place] [address] Platelet 237 10 3/mcL Normal 130-400 [facility] ([place]) Comment on above: Order Comment: Order placed by AP_HPV_ORDER rule from [id number] Performed By: #### H PV #### [place] [address] Platelet mean volume (Bld) [Entitic vol] 7.9 fL Normal 7.4-10.4 [facility] ([place] Comment on above: Order Comment: Order placed by AP_HPV_ORDER rule from [id number] Performed By: #### H PV #### [place] [address] RBC 4.32 10 6/mcL Normal 4.20-5.40 [facility] ([place] Comment on above: Order Comment: Order placed by AP_HPV_ORDER rule from [id number] Performed By: #### H PV #### [place] [address] WBC 7.3 10 3/mcL Normal 4.6-10.8 [facility] ([place] Comment on above: Order Comment: Order placed by AP_HPV_ORDER rule from [id number] Performed By: #### H PV #### [place] [address] LABORATORYOrdered By: Melida Lopez on 03-18-2024 ABO and Rh group Nom (Bld) Blood group A Rh(D) positive Invalid Interpretation Code AO BB Auto SS Blood group antibody screen Ql Negative ABSC (03/18/24 1:31 PM) Normal AO BB Auto SS LABORATORYOrdered By: SYSTEM SYSTEM on 03-18-2024 Basophil, Absolute 0.0 103/mcL Normal 0.0 - 0.2 10^3/mcL AO Workflow SS Basophils/100 WBC (Bld) 0.5 % Normal 0.0 - 2.5 % AO Workflow SS Eosinophil, Absolute 0.2 103/mcL Normal 0.0 - 0 .4 10^3/mcL AO Workflow SS Eosinophils/100 WBC (Bld) 2.6 % Normal 0.0 - 7.0 % AO Workflow SS Erythrocyte distribution width (RBC) [Ratio] 13.7 % Normal 11.5 - 14.5 % AO Workflow SS Hematocrit (Bld) [Volume fraction] 41.0 % Normal 37.0 - 47.0 % AO Workflow SS Hemoglobin (Bld) [Mass/Vol] 13.9 G/dL Normal 12.0 - 16.0 G/dL AO Workflow SS Lymphocyte, Absolute 2.4 103/mcL Normal 0.8 - 3 .9 10^3/mcL AO Workflow SS Lymphocytes/100 WBC (Bld) 33.3 % Normal 10.0 - 50.0 % AO Workflow SS MCH (RBC) [Entitic mass] 32.3 pg High 27.0 - 31.2 pg AO Workflow SS MCHC 34.0 G/dL Normal 33.0 - 37.0 G/dL AO Workflow SS MCV (RBC) [Entitic vol] 95.0 fL High 80.0 - 94.0 fL AO Workflow SS Monocyte, Absolute 0.5 103/mcL Normal 0.2 - 1.0 10^3/mcL AO Workflow SS Monocytes/100 WBC (Bld) 7.2 % Normal 1.7 - 13.0 % AO Workflow SS Neutrophil, Absolute 4.1 103/mcL Normal 2.9 - 6 .2 10^3/mcL AO Workflow SS Neutrophils/100 WBC (Bld) 56.4 % Normal 37.0 - 80.0 % AO Workflow SS Platelet mean volume (Bld) [Entitic vol] 7.9 fL Normal 7.4 - 10.4 fL AO Workflow SS Platelets (Bld) [#/Vol] 237 103/mcL Normal 130 - 400 10^3/mcL AO Workflow SS RBC (Bld) [#/Vol] 4.32 106/mcL Normal 4.20 - 5.40 10^6/mcL AO Workflow SS WBC (Bld) [#/Vol] 7.3 103/mcL Normal 4.6 - 10.8 10^3/mcL AO Workflow SS NM GASTRIC EMPTYING STUDYon 02-26-2024 [place] GASTRIC EMPTYING STUDY ORIGINAL EXAMINATION: GASTRIC EMPTYING STUDY02/26/2024 2:35 pm GASTRIC EMPTYING Clinical Statement: Difficulty swallowing, weight loss, nausea, abdominal pain TECHNIQUE: Standard meal consisting of: Radiopharmaceutical: Tc-99m Sulfur Colloid po Dose: 1.8 mCi Tc-99m sulfur colloid in 4 oz of Egg Beaters 1 slice of bread, 2 Tsp of jelly 4 oz of water Anterior and posterior images of the stomach for 4 hours Calculate geometric mean of anterior and posterior images Calculate T 1/2 for gastric emptying Reference: Wilver TL, Jason M, Vero K, et al. Consensus Recommendations for Gastric Emptying Scintigraphy: A Joint Report of the [place] [employer] Society of Nuclear Medicine. Am J Gastroenterol 2008;103:753-763. COMPARISON: No prior gastric emptying studies available comparison. HISTORY: ORDERING SYSTEM PROVIDED HISTORY: Reason for Exam: difficulty swallowing, weight loss, nausea, abd pain FINDINGS: 30 minutes: 89 % Retention. A value lower than 70% suggests rapid gastric emptying. 60 minutes: 77 % Retention. A value less than 30% suggests rapid gastric emptying. A value greater than 90% suggests delayed gastric emptying. 120 minutes: 53 % Retention. A value greater than 60% suggests delayed gastric emptying. 180 minutes: 29 % Retention. A value greater than 30% suggests delayed gastric emptying. 240 minutes: 5 % Retention. A value greater than 10% suggests delayed gastric emptying. There is normal gastric emptying of solid food. The extrapolated T-1/2 is 126.5 minutes. The upper limit of normal for our laboratory is 120 minutes. IMPRESSION: Slightly prolonged extrapolated T half emptying time of 126.5 minutes likely secondary to the 1st 60 minutes of imaging acquisition. Otherwise normal gastric emptying of solid food. Interpreted by: Chika Castaneda Preliminary Report By: Chika Castaneda Electronically signed By Chika Castaneda Dictated Date: 02/26/2024 4:08:39 PM Prelim Date: 02/26/2024 4:12:32 PM Sign Date: 02/26/2024 4:12:32 PM Ordering Provider: TERI GARCIA [facility] ([place]) [place] ABDOMEN/PELVIS W/CONTRAST on 02-15-2024 CT ABDOMEN/PELVIS W/CONTRAST ORIGINAL EXAMINATION: CT OF THE ABDOMEN AND PELVIS WITH CONTRAST 02/15/2024 8:47 am TECHNIQUE: CT of the abdomen and pelvis was performed with the administration of intravenous contrast. Multiplanar reformatted images are provided for review. Automated exposure control, iterative reconstruction, and/or weight based adjustment of the mA/kV was utilized to reduce the radiation dose to as low as reasonably achievable. COMPARISON: None. HISTORY: ORDERING SYSTEM PROVIDED HISTORY: Reason for Exam: abd pain STATES DECREASE APPETITE, WEIGHT LOSS, CONSTIPATION FINDINGS: The lung bases demonstrate scattered areas of atelectasis/scarring. Left Bochdalek hernia. The liver demonstrates focal infiltration along the falciform ligament. No suspicious focal hepatic lesion. The spleen, adrenal glands, and pancreas are unremarkable. The gallbladder demonstrates no filling defects. Symmetric nephrograms. The ureters and bladder are unremarkable. Nondilated loops of small bowel. Normal appendix is identified. Scattered colonic diverticula without adjacent inflammation to suggest diverticulitis. Nonaneurysmal abdominal aorta. No free intraperitoneal fluid or air. No adnexal mass. Prominent parauterine vessels are noted within the pelvis. No enlarged lymph nodes. Multilevel degenerative changes of the spine most prominent inferiorly. Transitional lumbosacral vertebral body with pseudoarticulation on the left. No acute or aggressive osseous abnormality. IMPRESSION: No acute process within the abdomen/pelvis. Prominent parauterine vessels can be seen with pelvic congestion syndrome in the appropriate clinical setting. Colonic diverticulosis without diverticulitis. I have personally reviewed the images of this examination and agree with the resident's findings and interpretations. Interpreted by: Tej Diaz MD Preliminary Report By: Nova Aguillon Electronically signed By Tej Diaz MD Dictated Date: 02/15/2024 12:54:06 PM Prelim Date: 02/15/2024 2:26:19 PM Sign Date: 02/15/2024 2:26:19 PM Ordering Provider: TERI GARCIA [facility] ([place]) ED NOTEon 01-06-2024 ED NOTE HNO ID: [id number] Author: CHANCE LEE RN Service: Emergency Medicine Author Type: Registered Nurse Type: ED Notes Filed: 01/06/2024 16:45 Note Text: Pt arrived with complaints of abdominal pain. Pt seen here on 12/26 for the same and prescribed carafate and maalox. Per pt she is allergic to carafate and breaks out in a rash. Has continued to have increased abdominal pain and vomiting on and off. Normal [facility] ED PROV NOTEon 01-06-2024 ED PROV NOTE HNO ID: [id number] Author: RUPA ORDONEZ MD Service: Emergency Medicine Author Type: Physician Type: ED Provider Notes Filed: 01/09/2024 23:18 Note Text: ED Provider Note Patient Name: Kia Gonzalez : 1975 SERVICE DATE: 5/5/24 History Patient presents with: Abdominal Pain HPI Patient presents for evaluation of epigastric abdominal pain. She was seen here on the of last month just a few days ago. She was undergone extensive workup was diagnosed with gastritis and was actually discharged home on Carafate and Maalox. She thinks she might be allergic to make it to the Carafate because when she took it she started breaking out in a rash. She had to stop it and it was actually making her pain a bit better but then when she stopped it the pain worsened. No new symptoms no melena hematemesis hematochezia patient is noted that she had been given viscous lidocaine which very nicely improved her symptoms and she is requesting that today. She would like that rather than the Carafate that although it did help she feels she is sensitive to. PAST MEDICAL HISTORY Diagnosis Date Depression Generalized anxiety disorder Restless leg syndrome Right knee pain PAST SURGICAL HISTORY Procedure Laterality Date PAST SURGICAL HISTORY OF Right 08/14/2021 knee TONSILLECTOMY AND ADENOIDECTOMY TOTAL KNEE REPLACEMENT Left 2020 FAMILY HISTORY Problem Relation Age of Onset Heart disease Mother Breast Cancer Mother COPD Mother Arthritis Mother Heart disease Father Diabetes Father Lung Cancer Father COPD Brother Hypertension Brother Obstructive Sleep Apnea Brother Social History Tobacco Use Smoking status: Every Day Packs/day: .5 Types: Cigarettes Smokeless tobacco: Never Vaping Use Vaping Use: Former Substances: Nicotine, THC Devices: Pre-filled pod Substance and Sexual Activity Alcohol use: Yes Drug use: Yes Frequency: 3.0 times per week Types: Marijuana Sexual activity: Not on file ALLERGIES Allergen Reactions Carafate [Sucralfat* Rash Sulfamethoxazole-Tr* Swelling Review of Systems HENT: Negative. Respiratory: Negative. Cardiovascular: Negative. Gastrointestinal: Positive for abdominal pain. Negative for abdominal distention, anal bleeding, blood in stool, constipation, nausea, rectal pain and vomiting. Genitourinary: Negative. Musculoskeletal: Negative. Skin: Negative. Neurological: Negative. Hematological: Negative. Physical Exam Vitals [01/06/24 1641] BP Pulse Temp Temp src Resp SpO2 Weight Height 149/91 (!) 93 36.8 ?C (98.2 ?F) -- 16 98 % 49.4 kg (109 lb) -- Physical Exam Vitals and nursing note reviewed. Constitutional: General: She is not in acute distress. Appearance: She is well-developed. She is not ill-appearing, toxic-appearing or diaphoretic. HENT: Head: Normocephalic and atraumatic. Eyes: General: No scleral icterus. Cardiovascular: Rate and Rhythm: Normal rate and regular rhythm. Heart sounds: Normal heart sounds. No murmur heard. No friction rub. No gallop. Pulmonary: Effort: Pulmonary effort is normal. No respiratory distress. Breath sounds: Normal breath sounds. No stridor. No wheezing, rhonchi or rales. Chest: Chest wall: No tenderness. Abdominal: General: There is no distension or abdominal bruit. There are no signs of injury. Palpations: Abdomen is soft. There is no shifting dullness, fluid wave, hepatomegaly, splenomegaly, mass or pulsatile mass. Tenderness: There is no right CVA tenderness, guarding or rebound. Negative signs include Fuller's sign, Rovsing's sign and McBurney's sign. Neurological: Mental Status: She is alert. Diagnostic Testing ED Labs Ordered and Reviewed - No data to display Procedures ED Course / Clinical Impression Clinical Impressions as of 01/09/24 2315 Chronic gastritis without bleeding, unspecified gastritis type Hiatal hernia MDM / Disposition / Plan Differential Diagnoses - Gastritis possible peptic ulcer disease is more likely for the following reason(s): suggested by HANDP and consistent with laboratory studies - Intra-abdominal perforation is less likely for the following reason(s): HANDP not suggestive Disposition The patient was discharged. Counseled patient regarding suspected diagnosis. Prescriptions and Discharge Orders Discharge Orders LIDOCAINE VISCOUS 2 % solution NEEDED, Status: Discontinued Route: ORAL Dose: 15 mL LIDOCAINE VISCOUS 2 % solution NEEDED Route: ORAL Dose: 15 mL SIGNATURE: Rupa Ordonez MD - RUPA ORDONEZ 01/09/24 2318 Normal [facility] CBC W Auto Differential pane l (Bld)on 12-28-2023 Basophils (Bld) [#/Vol] 0.03 10*3/uL Normal <0.11 [facility] Comment on above: Order Comment: Speci men Type: BLOOD SPECIMENOrdering Facility: [facility] Address: [address] [place] [address] Performed By: #### 5 7021-8 ####[facility] LABCLIA [id number] [address] [place] Basophils/100 WBC (Bld) 0.5 % Normal [facility] Comment on above: Order Comment: Speci men Type: BLOOD SPECIMENOrdering Facility: [facility] Address: [address] [place] [address] Performed By: #### 5 7021-8 ####[facility] LABCLIA [id number] [place] [address] [place] Differential cell count method Nom (Bld) Auto Normal [facility] Comment on above: Order Comment: Speci men Type: BLOOD SPECIMENOrdering Facility: [facility] Address: [address] [place] [address] Performed By: #### 5 7021-8 ####[facility] LABCLIA [id number] [place] [address] [place] Eosinophils (Bld) [#/Vol] 0.07 10*3/uL Normal <0.46 [facility] Comment on above: Order Comment: Speci men Type: BLOOD SPECIMENOrdering Facility: [facility] Address: [address] [place] [address] Performed By: #### 5 7021-8 ####[facility] LABCLIA [id number] [address] [place] Eosinophils/100 WBC (Bld) 1.2 % Normal [facility] Comment on above: Order Comment: Speci men Type: BLOOD SPECIMENOrdering Facility: [facility] Address: [address] [place] [address] Performed By: #### 5 7021-8 ####[facility] LABCLIA [id number] [place] [address] [place] Erythrocyte distribution width (RBC) [Ratio] 12.2 % Normal 11.5-15.0 [facility] Comment on above: Order Comment: Speci men Type: BLOOD SPECIMENOrdering Facility: [facility] Address: [address] [place] [address] Performed By: #### 5 7021-8 ####[facility] LABCLIA [id number] [place] [address] [facility] [place] Hematocrit (Bld) [Volume fraction] 39.6 % Normal 36.0-46.0 [facility] Comment on above: Order Comment: Speci men Type: BLOOD SPECIMENOrdering Facility: [facility] Address: [address] [place] [address] Performed By: #### 5 7021-8 ####[facility] LABCLIA [id number] [place] [address] [place] Hemoglobin (Bld) [Mass/Vol] 13.3 g/dL Normal 11.5-15.5 [facility] Comment on above: Order Comment: Speci men Type: BLOOD SPECIMENOrdering Facility: [facility] Address: [address] [place] [address] Performed By: #### 5 7021-8 ####[facility] LABCLIA [id number] [place] [address] [place] Immature granulocytes (Bld) [#/Vol] 10*3/uL Normal <0.10 [facility] Comment on above: Order Comment: Speci men Type: BLOOD SPECIMENOrdering Facility: [facility] Address: [address] [place] [address] Performed By: #### 5 7021-8 ####NDQU[facility]IN [facility] LABCLIA [id number] [place] [address] [facility] [place] Immature granulocytes/100 WBC (Bld) 0.2 % Normal [facility] Comment on above: Order Comment: Speci men Type: BLOOD SPECIMENOrdering Facility: [facility] Address: [address] [place] [address] Performed By: #### 5 7021-8 ####[facility] LABCLIA [id number] [place] [address] [facility] [place] Lymphocytes (Bld) [#/Vol] 2.06 10*3/uL Normal 1.00-4.00 [facility] Comment on above: Order Comment: Speci men Type: BLOOD SPECIMENOrdering Facility: [facility] Address: [address] [place] [address] Performed By: #### 5 7021-8 ####[facility] LABCLIA [id number] [place] [address] [place] [facility] Lymphocytes/100 WBC (Bld) 35.8 % Normal [facility] Comment on above: Order Comment: Speci men Type: BLOOD SPECIMENOrdering Facility: [facility] Address: [address] [place] [address] Performed By: #### 5 7021-8 ####[facility] LABCLIA [id number] [place] [address] [place] MCH (RBC) [Entitic mass] 31.7 pg Normal 26.0-34.0 [facility] Comment on above: Order Comment: Speci men Type: BLOOD SPECIMENOrdering Facility: [facility] Address: [address] [place] [address] Performed By: #### 5 7021-8 ####[facility] LABCLIA [id number] [place] [address] [place] MCHC (RBC) [Mass/Vol] 33.6 g/dL Normal 30.5-36.0 [facility] Comment on above: Order Comment: Speci men Type: BLOOD SPECIMENOrdering Facility: [facility] Address: [address] [place] [address] Performed By: #### 5 7021-8 ####[facility] LABCLIA [id number] [place] [address] [place] MCV (RBC) [Entitic vol] 94.5 fL Normal 80.0-100.0 [facility] Comment on above: Order Comment: Speci men Type: BLOOD SPECIMENOrdering Facility: [facility] Address: [address] [place] [address] Performed By: #### 5 7021-8 ####[facility] LABCLIA [id number] [place] [address] [place] Monocytes (Bld) [#/Vol] 0.39 10*3/uL Normal <0.87 [facility] Comment on above: Order Comment: Speci men Type: BLOOD SPECIMENOrdering Facility: [facility] Address: [address] [place] [address] Performed By: #### 5 7021-8 ####[facility] LAB[facility] [id number] [place] [address] [place] Monocytes/100 WBC (Bld) 6.8 % Normal [facility] Comment on above: Order Comment: Speci men Type: BLOOD SPECIMENOrdering Facility: [facility] Address: [address] [place] [address] Performed By: #### 5 7021-8 ####[facility] LABCLIA [id number] [place] [address] [place] Neutrophils (Bld) [#/Vol] 3.19 10*3/uL Normal 1.45-7.50 [facility] Comment on above: Order Comment: Speci men Type: BLOOD SPECIMENOrdering Facility: [facility] Address: [address] [place] [address] Performed By: #### 5 7021-8 ####[facility] [id number] [place] [address] [place] Neutrophils/100 WBC (Bld) 55.5 % Normal [facility] Comment on above: Order Comment: Speci men Type: BLOOD SPECIMENOrdering Facility: [facility] Address: [address] [place] [address] Performed By: #### 5 7021-8 ####[facility] [id number] [place] [address] [place] Nucleated RBC (Bld) [#/Vol] Normal [facility] Comment on above: Order Comment: Speci men Type: BLOOD SPECIMENOrdering Facility: [facility] Address: [address] [place] [address] Performed By: #### 5 7021-8 ####[facility] LABCLIA [id number] [place] [address] [place] Nucleated RBC/100 WBC (Bld) [Ratio] Normal [facility] Comment on above: Order Comment: Speci men Type: BLOOD SPECIMENOrdering Facility: [facility] Address: [address] [place] [address] Performed By: #### 5 7021-8 ####[facility] LABCLIA [id number] [place] [address] [place] Platelet mean volume (Bld) [Entitic vol] 9.8 fL Normal 9.0-12.7 [facility] Comment on above: Order Comment: Speci men Type: BLOOD SPECIMENOrdering Facility: [facility] Address: [address] [place] [address] Performed By: #### 5 7021-8 ####NDQUENTIN [facility] LABCLIA [id number] [place] [address] [place] Platelets (Bld) [#/Vol] 227 10*3/uL Normal 150-400 [facility] Comment on above: Order Comment: Speci men Type: BLOOD SPECIMENOrdering Facility: [facility] Address: [address] [place] [address] Performed By: #### 5 7021-8 ####[facility] LABCLIA [id number] [place] [address] [place] RBC (Bld) [#/Vol] 4.19 10*6/uL Normal 3.90-5.20 [facility] Comment on above: Order Comment: Speci men Type: BLOOD SPECIMENOrdering Facility: [facility] Address: [address] [place] [address] Performed By: #### 5 7021-8 ####[facility] LABCLIA [id number] [place] [address] [facility] WBC (Bld) [#/Vol] 5.75 10*3/uL Normal 3.70-11.00 [facility] Comment on above: Order Comment: Speci men Type: BLOOD SPECIMENOrdering Facility: [facility] Address: [address] [place] [address] Performed By: #### 5 7021-8 ####[facility] LABCLIA [id number] [place] [address] [facility] Comprehensive metabolic 2000 panelon 12-28-2023 Albumin [Mass/Vol] 4.2 g/dL Normal 3.9-4.9 [facility] Comment on above: Order Comment: Speci men Type: BLOOD SPECIMEN Ordering Facility: [facility] Address: [address] [place] [address] Performed By: #### 2 4323-8, 3039-3, #### [facility] CLIA [id number] [address] [place] ALP [Catalytic activity/Vol] 44 U/L Normal 34-123 [facility] Comment on above: Order Comment: Speci men Type: BLOOD SPECIMEN Ordering Facility: [facility] Address: [address] [place] [address] Performed By: #### 2 4323-8, 3039-3, #### [facility] CLIA [id number] [address] [place] [address] [facility] ALT [Catalytic activity/Vol] 15 U/L Normal 7-38 [facility] Comment on above: Order Comment: Speci men Type: BLOOD SPECIMEN Ordering Facility: [facility] Address: [address] [place] [address] Performed By: #### 2 4323-8, 0-3, #### [facility] CLIA [id number] [address] [place] [address] [place] Anion gap [Moles/Vol] 6 mmol/L Low 9-18 [facility] Comment on above: Order Comment: Speci men Type: BLOOD SPECIMEN Ordering Facility: [facility] Address: [address] [place] [address] Performed By: #### 2 4323-8, 3040-3, #### [facility] CLIA [id number] [address] [place] [address] [place] AST [Catalytic activity/Vol] 17 U/L Normal 13-35 [facility] Comment on above: Order Comment: Speci men Type: BLOOD SPECIMEN Ordering Facility: [facility] Address: [address] [place] [address] Performed By: #### 2 4323-8, 3039-3, #### [facility] CLIA [id number] [address] [place] [address] [place] Bilirubin [Mass/Vol] 0.6 mg/dL Normal 0.2-1.3 [facility] Comment on above: Order Comment: Speci men Type: BLOOD SPECIMEN [facility] Facility[facility] Address: [address] [place] [address] Result Comment: Use of this assay is not recommended for patients undergoing treatment with eltrombopag due to the potential for falsely elevated results. Performed By: #### 2 4323-8, 3039-3, #### [facility] CLIA [id number] [address] [place], [place] [address] [place] Calcium [Mass/Vol] 10.9 mg/dL High 8.5-10.2 [facility] Comment on above: Order Comment: Speci men Type: BLOOD SPECIMEN [facility] Address: [address] [place] [address] Performed By: #### 2 4323-8, 3040-3, #### [facility] CLIA [id number] [address] [place], [place] [address] [place] Chloride [Moles/Vol] 106 mmol/L High 97-105 [facility] Comment on above: Order Comment: Speci men Type: BLOOD SPECIMEN [facility] Facility[facility] Address: [address] [place] [address] Performed By: #### 2 4323-8, 3040-3, #### [facility] CLIA [id number] [address] [place], [place] [address] [facility] [place] CO2 [Moles/Vol] 27 mmol/L Normal 22-30 [facility] Comment on above: Order Comment: Speci men Type: BLOOD SPECIMEN [facility] Address: [address] [place] [address] Performed By: #### 2 4323-8, 0-3, #### [facility] CLIA [id number] [address] [place], [place] [address] [place] [facility] Creatinine [Mass/Vol] 0.72 mg/dL Normal 0.58-0.96 [facility] Comment on above: Order Comment: Speci men Type: BLOOD SPECIMEN Ordering Facility: [facility] Address: [address] [place] [address] Result Comment: Use of this assay is not recommended for patients undergoing treatment with phenindione, due to the potential for falsely depressed results. Performed By: #### 2 4323-8, 0-3, #### [facility] CLIA [id number] [address] [place], [place] [address] [facility] Creatinine and Glomerular filtration rate.predicted panel (S/P/Bld) 103 mL/min/1.73m??? Normal >=60 [facility] Comment on above: Order Comment: Speci men Type: BLOOD SPECIMEN [facility] Address: [address] [place] [address] Result Comment: Raina mated Glomerular Filtration Rate (eGFR) is calculated using the 2020 CKD-EPI creatinine equation. This equation utilizes serum creatinine, sex, and age as parameters. The creatinine assay has traceable calibration to isotope dilution-mass spectrometry. Refer to KDIGO guidelines for clinical interpretation. In patients with unstable renal function, e.g. those with acute kidney injury, the eGFR may not accurately reflect actual GFR. Performed By: #### 2 4323-8, 0-3, #### [facility] CLIA [id number] [address] [place] [address] [place] Glucose [Mass/Vol] 85 mg/dL Normal 74-99 [facility] Comment on above: Order Comment: Broderick peter Type: BLOOD SPECIMEN Ordering Facility: [facility] Address: [address] [place], [place] [address] Result Comment: The [place] Diabetes Association (ADA) provides guidance for cutoff values for fasting glucose and random glucose. The ADA defines fasting as no caloric intake for at least 8 hours. Fasting plasma glucose results between 100 to 125 mg/dL indicate increased risk for diabetes (prediabetes). Fasting plasma glucose results greater than or equal to 126 mg/dL meet the criteria for diagnosis of diabetes. In the absence of unequivocal hyperglycemia, results should be confirmed by repeat testing. In a patient with classic symptoms of hyperglycemia or hyperglycemic crisis, random plasma glucose results greater than or equal to 200 mg/dL meet the criteria for diagnosis of diabetes. Reference: Standards of Medical Care in Diabetes 2016, [place] [employer] Association. Diabetes Care. 2016.39(Suppl 1). Performed By: #### 2 4323-8, 3039-3, #### [facility] CLIA [id number] [address] [place] [address] [place] Potassium [Moles/Vol] 3.7 mmol/L Normal 3.7-5.1 [facility] Comment on above: Order Comment: Broderick peter Type: BLOOD SPECIMEN [facility] Address: [address] [place] [address] Performed By: #### 2 4323-8, 3039-3, #### [facility] CLIA [id number] [address] [place] [address] [place] Protein [Mass/Vol] 6.6 g/dL Normal 6.3-8.0 [facility] Comment on above: Order Comment: Speci men Type: BLOOD SPECIMEN [facility] Address: [address] [place] [address] Performed By: #### 2 4323-8, 3040-3, #### [facility] CLIA [id number] [address] [place] [address] [facility] Sodium [Moles/Vol] 139 mmol/L Normal 136-144 [facility] Comment on above: Order Comment: Speci men Type: BLOOD SPECIMEN [facility]ing Facility: [facility] Address: [address] [place] [address] Performed By: #### 2 4323-8, 0-3, #### [place] [facility] CLIA [id number] [address] [place] Urea nitrogen [Mass/Vol] 10 mg/dL Normal 7-21 [facility] Comment on above: Order Comment: Speci men Type: BLOOD SPECIMEN [facility] Address: [address] [place] [address] Performed By: #### 2 4323-8, 3, #### [facility] CLIA [id number] [address] [place] [address] [facility] ED PROV NOTEon 12-28-2023 ED PROV NOTE HNO ID: [id number] Author: JAYESH MERCADO MD Service: Emergency Medicine Author Type: Physician Type: ED Provider Notes Filed: 01/05/2024 07:55 Note Text: ED Provider Note Patient Name: Kia Gonzalez : 1975 SERVICE DATE: 12/27/23 History Patient presents with: Abdominal Pain: Pt c/o upper abd pain for months. Pt is scheduled for GI scope January 13 but could not wait any longer. +nausea +weight loss Pt was told previously she has a small hernia. 48-year-old female with a history of a hiatal hernia presents for upper abdominal pain. Has an EGD scheduled for 01/13. Has been on Protonix for the last month or so but continues to have upper abdominal discomfort and nausea. Worsens with eating. Is concerned that her hiatal hernia may be increasing in size. Denies fever, chills, chest pain, shortness of breath, diarrhea, dysuria, neuro deficits. PAST MEDICAL HISTORY Diagnosis Date Depression Generalized anxiety disorder Restless leg syndrome Right knee pain PAST SURGICAL HISTORY Procedure Laterality Date PAST SURGICAL HISTORY OF Right 08/14/2021 knee TONSILLECTOMY AND ADENOIDECTOMY TOTAL KNEE REPLACEMENT Left 2020 FAMILY HISTORY Problem Relation Age of Onset Heart disease Mother Breast Cancer Mother COPD Mother Arthritis Mother Heart disease Father Diabetes Father Lung Cancer Father COPD Brother Hypertension Brother Obstructive Sleep Apnea Brother Social History Tobacco Use Smoking status: Every Day Packs/day: .5 Types: Cigarettes Smokeless tobacco: Never Vaping Use Vaping Use: Former Substances: Nicotine, THC Devices: Pre-filled pod Substance and Sexual Activity Alcohol use: Yes Drug use: Yes Frequency: 3.0 times per week Types: Marijuana Sexual activity: Not on file ALLERGIES Allergen Reactions Sulfamethoxazole-Tr* Swelling Review of Systems Constitutional: Negative for activity change, chills and fever. HENT: Negative for congestion and rhinorrhea. Eyes: Negative for pain and visual disturbance. Respiratory: Negative for cough and shortness of breath. Cardiovascular: Negative for chest pain and leg swelling. Gastrointestinal: Positive for abdominal pain and nausea. Negative for constipation, diarrhea and vomiting. Genitourinary: Negative for dysuria and frequency. Musculoskeletal: Negative for back pain and myalgias. Skin: Negative for rash and wound. Neurological: Negative for weakness and headaches. Psychiatric/Behavioral: Negative for confusion and suicidal ideas. All other systems reviewed and are negative. Physical Exam Vitals [12/27/23 2133] BP Pulse Temp Temp src Resp SpO2 Weight Height 130/94 88 36.6 ?C (97.9 ?F) Temporal 15 100 % 49.4 kg (109 lb) -- Physical Exam Vitals and nursing note reviewed. Constitutional: General: She is not in acute distress. Appearance: She is well-developed. HENT: Head: Normocephalic and atraumatic. Right Ear: External ear normal. Left Ear: External ear normal. Nose: Nose normal. Eyes: General: No scleral icterus. Right eye: No discharge. Left eye: No discharge. Extraocular Movements: Extraocular movements intact. Pupils: Pupils are equal, round, and reactive to light. Neck: Trachea: No tracheal deviation. Cardiovascular: Rate and Rhythm: Normal rate and regular rhythm. Heart sounds: Normal heart sounds. Pulmonary: Effort: Pulmonary effort is normal. No respiratory distress. Breath sounds: Normal breath sounds. No wheezing or rales. Chest: Chest wall: No tenderness. Abdominal: General: Bowel sounds are normal. There is no distension. Palpations: Abdomen is soft. Tenderness: There is no abdominal tenderness. There is no guarding or rebound. Musculoskeletal: General: No tenderness. Normal range of motion. Cervical back: Normal range of motion and neck supple. Skin: General: Skin is warm and dry. Findings: No rash. Neurological: Mental Status: She is alert and oriented to person, place, and time. Cranial Nerves: No cranial nerve deficit. Psychiatric: Thought Content: Thought content normal. Diagnostic Testing ED Labs Ordered and Reviewed COMPREHENSIVE METABOLIC PANEL - Abnormal; Notable for the following components: Result Value Ref Range Calcium, Total 10.9 (*) 8.5 - 10.2 mg/dL Chloride 106 (*) 97 - 105 mmol/L Anion Gap 6 (*) 9 - 18 mmol/L All other components within normal limits MAGNESIUM - Normal LIPASE - Normal COMPLETE BLOOD COUNT AND DIFFERENTIAL Procedures ED Course / Clinical Impression 48-year-old female with a history of a hiatal hernia presents for evaluation of epigastric discomfort. Differential includes GERD, gastritis, dyspepsia, worsening hiatal hernia. Overall appears well. Labs and x-ray ordered. CBC is unremarkable. CMP with slight hypercalcemia. Lipase normal. X-ray shows no acute processes on my review, in agreement with radiology read. Patient with some (more content not included)... Normal [facility] Lipase SerPl-cCncon 12-28-19 24 Lipase [Catalytic activity/Vol] 25 U/L Normal 16-61 [facility] Comment on above: Order Comment: Speci men Type: BLOOD SPECIMENOrdering Facility: [facility] Address: [address] [place], [place] [address] Performed By: #### 2 4323-8, 3040-3, 71224-9 ####[facility] LABCLIA [id number] [place] [address] [facility] [place] Magnesium SerPl-mCncon 12-27 Magnesium [Mass/Vol] 1.9 mg/dL Normal 1.7-2.3 [facility] Comment on above: Order Comment: Speci men Type: BLOOD SPECIMENOrdering Facility: [facility] Address: [address] [place] [address] Performed By: #### 2 4323-8, 3040-3, 03129-6 ####[facility] LABCLIA [id number] [place] [address] [place] XR CHEST 2V FRONTAL/LATon XR CHEST 2V FRONTAL/LAT * * *Final Report* * * DATE OF EXAM: Dec 27 2023 10:33PM GRX [id number] - XR CHEST 2V FRONTAL/LAT / PROCEDURE REASON: Other * * * * Physician Interpretation * * * * EXAMINATION: CHEST RADIOGRAPH (2 VIEW FRONTAL and LATERAL) CLINICAL HISTORY: Other, Evaluating for possible hiatal hernia MQ: XC2_6 EXAM DATE/TIME: 12/27/2023 10:33 PM COMPARISON: No relevant prior studies available. RESULT: Lines, tubes, and devices: None. Lungs and pleura: There is no pleural effusion or pneumothorax. The lungs are clear. Cardiomediastinal silhouette: Heart size and pulmonary vasculature are within normal limits. Bones and soft tissues: Unremarkable. IMPRESSION: No acute radiographic abnormality. Commutator Assembler: PSCB Transcribe Date/Time: Dec 27 2023 10:48P Dictated by : SHARIF TEJADA MD This examination was interpreted and the report reviewed and electronically signed by: SHARIF TEJADA MD on Dec 27 2023 10:53PM EST [id number] Normal [facility] Art Class Model Cytology Reporton 2023 Art Class Model Cytology Report . Pathology Reports Accession: Collected Date/Time: Received Date/Time: Pathologist: [id number] 10/15/2023 09:55 EST 10/15/2023 18:00 EST JORY BARRETT MD Art Class Model Cytology Report SPECIMEN: Specimen Description: Liquid Prep w/ HPV Specimen: Cervical Screening or Diagnostic: Screening RELEVANT HISTORY: LMP: 10/04/23 SPECIMEN ADEQUACY: SATISFACTORY FOR EVALUATION Endocervical/Transformation al zone component absent/insufficient INTERPRETATION/RESULTS: EPITHELIAL CELL ABNORMALITIES, SQUAMOUS Atypical squamous cells of undetermined significance (ASC-US) ORGANISMS: Shift in leo consistent with bacterial vaginosis HIGH RISK HPV TESTING: Event Code Result HPV Interp See Interp HPVN HPV Interp Text: High Risk HPV Typing: NEGATIVE HPV types 16, 18, 31, 33, 35, 39, 45, 51, 52, 56, 58, 59, 66 and 68 DNA were undetectable or below the pre-set threshold. The ajay High-Risk HPV DNA Test is not intended for use as a screening device for Pap normal women under age 30 and is not intended to substitute for regular Pap screening. The ajay High-Risk HPV DNA Test is designed to augment existing methods for the detection of cervical disease and should be used in conjunction with clinical information derived from other diagnostic and screening tests, physical examinations and full medical history in accordance with appropriate patient management procedures. NOTE: A negative result does not preclude the presence of HPV infection because results depend on adequate specimen collection, absence of inhibitors and sufficient DNA to be detected. As of: 10/22/23 12:04 EST COMMENT: This Pap Test was successfully processed and evaluated with the assistance of the VSportoPrep Test Imaging System. Pathology Reports Accession: Collected Date/Time: Received Date/Time: Pathologist: [id number] 10/15/2023 09:55 EST 10/15/2023 18:00 EST JORY BARRETT MD Electronically Signed by Pathology report verified by [facility] Screened by: ALVARO BROWN Electronically signed by JORY BARRETT Sign-Out Date: 10/23/2023 09:05 Performing Lab: [facility], [address] [place] [address] Pathology Dept Disclaimer The Pap test is a screening test for cervical cancer. As evidenced by published data, it is subject to both inherent false negative and false positive results. Your patient's results should be interpreted in context with pertinent clinical history including gynecological examination. Normal [facility] ([place]) HPVon 10-19-2023 HPV Interp Normal See Interp HPVN [facility] [place] Comment on above: Order Comment: Order placed by AP_HPV_ORDER rule from [id number] Result Comment: High Risk HPV Typing: NEGATIVE HPV types 16, 18, 31, 33, 35, 39, 45, 51, 52, 56, 58, 59, 66 and 68 DNA were undetectable or below the pre-set threshold. The ajay High-Risk HPV DNA Test is not intended for use as a screening device for Pap normal women under age 30 and is not intended to substitute for regular Pap screening. The ajay High-Risk HPV DNA Test is designed to augment existing methods for the detection of cervical disease and should be used in conjunction with clinical information derived from other diagnostic and screening tests, physical examinations and full medical history in accordance with appropriate patient management procedures. NOTE: A negative result does not preclude the presence of HPV infection because results depend on adequate specimen collection, absence of inhibitors and sufficient DNA to be detected. See Interp HPVN Performed By: #### H PV #### [place] [address] HPV Source Cervix Normal [facility]) Comment on above: Order Comment: Order placed by AP_HPV_ORDER rule from [id number] Performed By: #### H PV #### [place] [address] CTPCRon 10-16-2023 C. trachomatis Interp Normal See CT Interp N [facility] ([place]) Comment on above: Result Comment: C. t rachomatis DNA not detected. Specimen is presumptive negative for C. trachomatis. A negative result does not preclude C. trachomatis infection because results depend on adequate specimen collection, absence of inhibitors, and sufficient DNA to be detected. See CT Interp N Performed By: #### C TPCR, NGPCR1 #### [place] [address] C.trachomatis PCR Negative Normal Negative [facility] ([place]) Comment on above: Result Comment: Meryl reilly (PCR) assay performed on the [employer] 4800 system. Performed By: #### C TPCR, NGPCR1 #### [place] [id number] Chlam Source Cervix Normal [facility] ([place]) Comment on above: Performed By: #### C TPCR, NGPCR1 #### [facility] [address] [place] [address] [id number] 10-16-2023 GC PCR Source Cervix Normal [facility] ([place]) Comment on above: Performed By: #### C TPCR, NGPCR1 #### [facility] [address] [place] [address] N. gonorrhoeae (PCR) Negative Normal Negative [facility] ([place]) Comment on above: Result Comment: Mole cular (PCR) assay performed on the [employer] 4800 System. Performed By: #### C TPCR, NGPCR1 #### [address] [address] N. gonorrhoeae Interp Normal See NG Interp N [facility] ([place]) Comment on above: Result Comment: N. g onorrhoeae DNA not detected. Specimen is presumptive negative for N. gonorrhoeae. A negative result does not preclude Neisseria gonorrhoeae infection because results depend on adequate specimen collection, absence of inhibitors, and sufficient DNA to be detected. See NG Interp N Performed By: #### C TPCR, NGPCR1 #### [place] [address] LABORATORYOrdered By: Annamarie Singh on 10-15-2023 C. trachomatis DNA DRERICK+probe Ql (Unsp spec) Negative 2 (10/15/23 4:43 PM) Normal Negative [facility] Comment on above: Interpretive Data: M olecular (PCR) assay performed on the [employer]ay 4800 system. C. trachomatis DNA DERRICK+probe Ql (Unsp spec) C. trachomatis DNA not detected. Specimen is presumptive negative forC. trachomatis.A negative result does not preclude C. trachomatis infection becauseresults depend on adequate specimen collection, absence of inhibitors,and sufficient DNA to be detected. Normal See CT Interp N AH Auto Viro/Sero SS N. gonorrhoeae DNA DERRICK+probe Ql (Unsp spec) Negative 1 (10/15/23 4:43 PM) Normal Negative AH Auto Viro/Sero SS Comment on above: Interpretive Data: M olecular (PCR) assay performed on the Ludwig Ajay 4800 System. N. gonorrhoeae DNA DERRICK+probe Ql (Unsp spec) N. gonorrhoeae DNA not detected. Specimen is presumptive negative forN. gonorrhoeae. A negative result does not preclude Neisseria gonorrhoeaeinfection because results depend on adequate specimen collection, absenceof inhibitors, and sufficient DNA to be detected. Normal See NG Interp N AH Auto Viro/Sero SS LABORATORYOrdered By: Carlin Sellers on 10-15-2023 HPV Interp High Risk HPV Typing : NEGATIVEHPV types 16, 18, 31, 33, 35, 39, 45, 51, 52, 56, 58, 59, 66 and 68 DNA wereundetectable or below the pre-set threshold.The ajay High-Risk HPV DNA Test is not intended for use as a screening device forPap normal women under age 30 and is not intended to substitute for regular Papscreening.The ajay High-Risk HPV DNA Test is designed to augment existing methods for thedetection of cervical disease and should be used in conjunction with clinicalinformation derived from other diagnostic and screening tests, physical examinationsand full medical history in accordance with appropriate patient managementprocedures.NOTE: A negative result does not preclude the presence of HPV infection because resultsdepend on adequate specimen collection, absence of inhibitors and sufficientDNA to be detected. Normal See Interp HPVN Auto Viro/Sero SS Specimen source Nom (Unsp spec) Cervix (10/15/23 9:55 AM) Normal Auto Viro/Sero SS Laboratory - Specimen inform ationOrdered By: Annamarie Singh on 10-15-2023 Specimen source Nom (Unsp spec) Cervix (10/15/23 4:43 PM) Normal Auto Viro/Sero SS MA MAMMOGRAM SCREENING BILAT ERAL W/TOMOon 09-20-2023 MA MAMMOGRAM SCREENING BILATERAL W/ONEIL ORIGINAL FROM: ANUP [address]IN[address]G [address] [place], [place] [address] PROCEDURE FOR: KIA GONZALEZ [address] [place] [address] Home: PID#: [id number] Exam#: [id number] : 1975 Age: 48 TO: ELIJAH STEVE [address] [address] Fax: NO FAX EXAMINATION: SCREENING DIGITAL BILATERAL MAMMOGRAM WITH TOMOSYNTHESIS, 09/20/2023 8:04 am TECHNIQUE: Screening mammography of the bilateral breasts was performed with tomosynthesis. 2D standard and 3D tomosynthesis combination imaging performed through both breasts in the MLO and CC projection. Computer aided detection was utilized in the interpretation of this exam. COMPARISON: 07/23/2017 HISTORY: Breast cancer screening. FINDINGS: BREAST DENSITY: Heterogeneously dense There are benign appearing calcifications in both breasts. There are no significant masses or calcifications. IMPRESSION: No mammographic evidence of malignancy. Continued screening with annual mammograms is recommended. Marco A Wood risk calculations, generated with the history provided, report this patient's 10 year risk and lifetime risk for developing breast cancer at 2.1% and 9.7%, respectively. Based on this assessment tool, if the patient's calculated lifetime risk is below 20%, then the patient is considered at average risk for developing breast cancer. If the patient's calculated lifetime risk is at or above 20%, then the patient is considered high risk for developing breast cancer and may be a candidate for supplemental breast MRI screening in addition to annual mammographic screening per the [employer]. I have personally reviewed the images of this examination and agree with the resident's findings and interpretation. BIRADS: MAMMOGRAM BI-RADS: 2: Benign finding RECALL: 1 year screening RECALL TYPE: mammo LETTER SENT: Normal BI-RADS 1 and 2 Interpreted by: Alysia Arevalo MD Preliminary Report By: Susannah Colorado Electronically signed By Alysia Arevalo MD Dictated Date: 09/20/2023 10:40:20 AM Prelim Date: 09/20/2023 4:27:56 PM Sign Date: 09/20/2023 4:27:56 PM Ordering Provider: ELIJAH WILSON Mgmt Analyst: SAUL DURAN RT(R)(M)(CT) letter sent: Normal BI-RADS 1 and 2 Mammogram BI-RADS: 2 Benign Normal [facility] ([place]) CNOVon 09-13-2023 CNOV Office Visit (AGHWW1 ) KIA GONZALEZ ([id number]) 1975 F Date Time Provider Department 09/13/23 11:30 AM MANJIT ROMERO AGHWW1 During your visit today, we recorded the following information about you: Respiration Weight Height 18/minute 68 kg 1.651 m Manjit Romero PA-C 09/13/2023 11:52 AM Signed ORTHOPAEDIC OFFICE NOTE CHIEF COMPLAINT: Status post right total knee arthroplasty (08/16/2021) [facility], CRPS R LE HISTORY OF PRESENT ILLNESS: Kia Gonzalez is a 48 year old who presents in follow-up for right total knee arthroplasty and subsequent postoperative CRPS. She has been under the care of pain management with extraordinary improvements. Prednisone, Fosamax and physical therapy have accelerated her healing process and she is very grateful for her improvement. However lately she has been in decline and is returned to some of her baseline CRPS symptoms. She is extremely concerned that something is wrong with her artificial right knee. PHYSICAL EXAMINATION: Resp 18 Ht 5' 5 (1.65m) Wt 150 lb (68.0kg) BMI 24.96 kg/(m2). General Appearance: Well appearing, alert, in no acute distress, well-hydrated, well nourished thin Skin: Skin color, texture, turgor normal, no suspicious rashes or lesions. Peripheral Pulses: Normal, Capillary refill <2secs, strong peripheral pulses. Neurologic: NVI yes. + FHL/EHL bilateral great toe. Extremities: Inspection of the right lower extremity shows anterior incision over the knee which is healing well without signs of breakdown or drainage. Neutral alignment. Moderate tactile irritation to palpation. Tracking of the knee is smooth. ROM:0-125 Ligaments intact to valgus and varus stresses compartments are soft. Mild atrophy seen through the VMO and lateral quadricep. IMAGES: 3 views of the right knee show total knee arthroplasty (cemented) in anatomic position. Patella is natural. Femoral component is minimally flexed with ball Added to the anterior knee. No signs of loosening or component failure. ASSESSMENT AND PLAN: 1. History of total knee arthroplasty, right - ICD9: V43.65, ICD10: Z96.651 (primary diagnosis) 2. Complex regional pain syndrome i of right lower limb - ICD9: 337.22, ICD10: G90.521 Functional Plan: Kia has had some mild to moderate regression with respects to her CRPS right lower extremity. Good discussion about returning to her strategies of movement and strengthening to help counteract these irritations Assistance Devices: None Physical/Occupational Therapy: Important to continue aggressive and consistent physical therapy to the knee for strengthening and gait training. Kia declines physical therapy. Wound Care: N/A Pain Control: No likely benefit or improvement with the usage of narcotics. Fragility Fracture: N/A Additional: She will continue under the direction of pain management and can follow-up with orthopedics annually as needed. Manjit Romero PA-C Allergies As of Date: 09/13/2023 Noted Allergy Reaction SULFAMETHOXAZOLE-TRIMETHOPR IM 03/02/2022 7 - Swelling Date Reviewed: 09/13/2023 Reviewed by: Gayla Contreras LPN - Fully Assessed Reason for Visit: Established Patient [175] Swelling [205] Knee Pain [132] Primary Visit Diagnosis:History of total knee arthroplasty, right [Z96.651] Other Visit Diagnosis:Complex regional pain syndrome i of right lower limb [G90.521] Order(s):XR KNEE 3V FLEX/LAT/MERCH RIGHT (AK) [8129658] Order #: [id number] Prescriptions as of 09/13/2023 - VITAMIN C WITH IRMA HIPS 500 mg tablet Take 1 tablet by mouth twice daily - baclofen 2 %, bupivacaine 2 %, gabapentin 10 %, imipramine 3 %, NIFEdipine 2 % (CPD) Comments for compounding pharmacy: Apply 1-3 grams (pumps) to the affected area 3-4 times daily. May make substitutions as needed. - busPIRone (BUSPAR) 5 mg tablet - venlafaxine ER (EFFEXOR XR) 75 mg 24 hr capsule - valACYclovir (VALTREX) 500 mg tablet - oxybutynin (DITROPAN) 5 mg tablet 10 mg. - omeprazole (PRILOSEC) 40 mg capsule as needed. - drpeapnkibtm-sgb-ndhr-FA-vi t K (ADULTS MULTIVITAMIN) 18 mg iron-400 mcg-25 mcg tab Take by mouth. - fluticasone (FLONASE) 50 mcg/actuation nasal spray Use in the nose. Medication notes this encounter BUSPIRONE 5 MG TABLET >> Gayla Contreras LPN 09/13/2023 11:10 AM >> GAYLA CONTRERAS Kathy Sep 13, 2023 11:10 AM Course completed Problem List As Of Date 09/13/2023 Noted Resolved Complex regional pain syndrome i of right lower*04/04/2022 Chronic pain of right knee [M25.561, G89.29] 04/20/2022 Muscle weakness [M62.81] 04/20/2022 Disposition: Return if symptoms worsen or fail to improve. Follow-up and Disposition History for Encounter Date Provider Department Center 09/13/2023 [id number], JAMES AGHWW1 [facility] [place] Encounter Status:Closed by MANJIT ROMERO on 09/13/23 Normal [facility] .Auto Diffon 09-10-2023 Basophil, Absolute 0.0 10 3/mcL Normal 0.0-0.3 [facility] ([place]) Comment on above: Performed By: #### C TPCR, NGPCR1 #### [address] [address] Basophils/100 WBC (Bld) 0.7 % Normal 0.0-2.5 [facility] ([place]) Comment on above: Performed By: #### C TPCR, NGPCR1 #### [address] [address] Eosinophil, Absolute 0.4 10 3/mcL Normal 0.0-0.7 [facility] ([place]) Comment on above: Performed By: #### C TPCR, NGPCR1 #### [address] [address] Eosinophils/100 WBC (Bld) 6.2 % High 0.0-6.0 [facility] ([place]) Comment on above: Performed By: #### C TPCR, NGPCR1 #### [address] [address] Lymphocyte, Absolute 1.8 10 3/mcL Normal 0.9-4.3 [facility] ([place]) Comment on above: Performed By: #### C TPCR, NGPCR1 #### [address] [address] Lymphocytes/100 WBC (Bld) 27.4 % Normal 20.0-40.0 [facility] ([place]) Comment on above: Performed By: #### C TPCR, NGPCR1 #### [address] [address] Monocyte, Absolute 0.5 10 3/mcL Normal 0.1-1.4 [facility] ([place]) Comment on above: Performed By: #### C TPCR, NGPCR1 #### [address] [address] Monocytes/100 WBC (Bld) 7.1 % Normal 2.0-13.0 [facility] ([place]) Comment on above: Performed By: #### C TPCR, NGPCR1 #### [address] [address] Neutrophils/100 WBC (Bld) 58.6 % Normal 50.0-75.0 [facility] ([place]) Comment on above: Performed By: #### C TPCR, NGPCR1 #### [address] [address] .GFRon 09-10-2023 GFR >60 Normal [facility] ([place]) Comment on above: Result Comment: GFR Population mean for , Non- Americans Ages 20-29 = 116 mL/min/1.73 sq.m. Ages 30-39 = 107 mL/min/1.73 sq.m. Ages 40-49 = 99 mL/min/1.73 sq.m. Ages 50-59 = 93 mL/min/1.73 sq.m. Ages 60-69 = 85 mL/min/1.73 sq.m. Ages 70+ = 75 mL/min/1.73 sq.m. Chronic Kidney Disease: Less than 60 mL/min/1.73 square meters End Stage Renal Disease: Less than 15 mL/min/1.73 square meters Performed By: #### C TPCR, NGPCR1 #### [address] [address] GFR Non- >60 Normal [facility] ([place]) Comment on above: Result Comment: GFR Population mean for , Non- Americans Ages 20-29 = 116 mL/min/1.73 sq.m. Ages 30-39 = 107 mL/min/1.73 sq.m. Ages 40-49 = 99 mL/min/1.73 sq.m. Ages 50-59 = 93 mL/min/1.73 sq.m. Ages 60-69 = 85 mL/min/1.73 sq.m. Ages 70+ = 75 mL/min/1.73 sq.m. Chronic Kidney Disease: Less than 60 mL/min/1.73 square meters End Stage Renal Disease: Less than 15 mL/min/1.73 square meters Performed By: #### C TPCR, NGPCR1 #### [place] [address] .NEUABSon 09-10-2023 Neutrophil, Absolute 3.8 10 3/mcL Normal 2.3-8.1 [facility] ([place]) Comment on above: Performed By: #### C TPCR, NGPCR1 #### [address] [address] CBCon 09-10-2023 Erythrocyte distribution width (RBC) [Ratio] 13.3 % Normal 11.5-15.5 [facility] ([place]) Comment on above: Performed By: #### C TPCR, NGPCR1 #### [place] [address] Hematocrit (Bld) [Volume fraction] 39.5 % Normal 34.0-46.0 [facility] ([place]) Comment on above: Performed By: #### C TPCR, NGPCR1 #### [address] [address] Hgb 13.7 G/dL Normal 12.0-16.0 [facility] ([place]) Comment on above: Performed By: #### C TPCR, NGPCR1 #### [address] [address] MCH (RBC) [Entitic mass] 32.7 pg Normal 27.0-33.0 [facility] ([place]) Comment on above: Performed By: #### C TPCR, NGPCR1 #### [address] [address] MCHC 34.6 G/dL Normal 32.0-36.0 [facility] ([place]) Comment on above: Performed By: #### C TPCR, NGPCR1 #### [address] [address] MCV (RBC) [Entitic vol] 94.3 fL Normal 80.0-99.0 [facility] ([place]) Comment on above: Performed By: #### C TPCR, NGPCR1 #### [place] [id number] Platelet 263 10 3/mcL Normal 150-450 [facility] ([place]) Comment on above: Performed By: #### C TPCR, NGPCR1 #### [place] [address] Platelet mean volume (Bld) [Entitic vol] 9.0 fL Normal 6.6-10.5 [facility] ([place]) Comment on above: Performed By: #### C TPCR, NGPCR1 #### [place] [id number] RBC 4.19 10 6/mcL Normal 4.10-5.30 [facility] ([place]) Comment on above: Performed By: #### C TPCR, NGPCR1 #### [place] [address] WBC 6.6 10 3/mcL Normal 4.5-10.8 [facility] ([place]) Comment on above: Performed By: #### C TPCR, NGPCR1 #### [address] [address] CMPon 09-10-2023 Albumin Level 3.8 G/dL Normal 3.2-4.8 [facility] ([place]) Comment on above: Performed By: #### A DIFF, GFR, LIPID, CBC, ANEU, CMP #### [place] [id number] Albumin/Globulin [Mass ratio] 1.3 {ratio} Normal 0.9-1.6 [facility] ([place]) Comment on above: Performed By: #### A DIFF, GFR, LIPID, CBC, ANEU, CMP #### [place] [id number] ALP [Catalytic activity/Vol] 68 U/L Normal 38-126 [facility] ([place]) Comment on above: Performed By: #### A DIFF, GFR, LIPID, CBC, ANEU, CMP #### [place] [id number] ALT [Catalytic activity/Vol] 25 U/L Normal 10-49 [facility] ([place]) Comment on above: Performed By: #### A DIFF, GFR, LIPID, CBC, ANEU, CMP #### [place] [id number] AST [Catalytic activity/Vol] 28 U/L Normal 8-34 [facility] ([place]) Comment on above: Performed By: #### A DIFF, GFR, LIPID, CBC, ANEU, CMP #### [place] [id number] Bili Total 0.30 mg/dL Normal 0.20-1.20 [facility] ([place]) Comment on above: Result Comment: Use of this assay is not recommended for patients undergoing treatment with eltrombopag due to the potential for falsely elevated results. Performed By: #### A DIFF, GFR, LIPID, CBC, ANEU, CMP #### [place] [id number] BUN/Creatinine Ratio 20.0 ratio Normal 10.0-22.0 [facility] ([place]) Comment on above: Performed By: #### A DIFF, GFR, LIPID, CBC, ANEU, CMP #### [place] [id number] Calcium [Mass/Vol] 10.5 mg/dL High 8.7-10.4 [facility] ([place]) Comment on above: Performed By: #### A DIFF, GFR, LIPID, CBC, ANEU, CMP #### [address] [address] Chloride [Moles/Vol] 107 mmol/L Normal 98-110 [facility] ([place]) Comment on above: Performed By: #### A DIFF, GFR, LIPID, CBC, ANEU, CMP #### [address] [address] CO2 [Moles/Vol] 33 mmol/L High 22-32 [facility] ([place]) Comment on above: Performed By: #### A DIFF, GFR, LIPID, CBC, ANEU, CMP #### [address] [address] Creatinine [Mass/Vol] 0.65 mg/dL Normal 0.50-1.20 [facility] ([place]) Comment on above: Performed By: #### A DIFF, GFR, LIPID, CBC, ANEU, CMP #### [address] [address] Electrolyte Balance 0.0 mEq/L Low 4.0-15.0 [facility] ([place]) Comment on above: Performed By: #### A DIFF, GFR, LIPID, CBC, ANEU, CMP #### [address] [address] Globulin 2.9 G/dL Normal 1.5-3.8 [facility] ([place]) Comment on above: Performed By: #### A DIFF, GFR, LIPID, CBC, ANEU, CMP #### [address] [address] Glucose [Mass/Vol] 90 mg/dL Normal 70-110 [facility] ([place]) Comment on above: Performed By: #### A DIFF, GFR, LIPID, CBC, ANEU, CMP #### [address] [address] Potassium [Moles/Vol] 4.4 mmol/L Normal 3.5-5.0 [facility] ([place]) Comment on above: Performed By: #### A DIFF, GFR, LIPID, CBC, ANEU, CMP #### [address] [address] Sodium [Moles/Vol] 140 mmol/L Normal 136-145 [facility] ([place]) Comment on above: Performed By: #### A DIFF, GFR, LIPID, CBC, ANEU, CMP #### [address] [address] Total Protein 6.7 G/dL Normal 5.7-8.2 [facility] ([place]) Comment on above: Result Comment: No te - New Reference Range in effect 20 Performed By: #### A DIFF, GFR, LIPID, CBC, ANEU, CMP #### [address] [address] Urea nitrogen [Mass/Vol] 13.0 mg/dL Normal 8.0-22.0 [facility] ([place]) Comment on above: Performed By: #### A DIFF, GFR, LIPID, CBC, ANEU, CMP #### [address] [address] LIPIDon 09-10-2023 Cholesterol [Mass/Vol] 175 mg/dL Normal 50-199 [facility] ([place]) Comment on above: Result Comment: Chol esterol Reference Interval: Less than 200 Desirable 200-239 Borderline high risk 240 and above High risk Performed By: #### C TPCR, NGPCR1 #### [address] [address] Cholesterol in HDL [Mass/Vol] 75 mg/dL High 40-59 [facility] ([place]) Comment on above: Performed By: #### C TPCR, NGPCR1 #### [address] [address] Cholesterol in LDL [Mass/Vol] 78 mg/dL Normal 0-129 [facility] ([place]) Comment on above: Performed By: #### C TPCR, NGPCR1 #### [address] [address] Triglyceride [Mass/Vol] 109 mg/dL Normal 3-149 [facility] ([place]) Comment on above: Performed By: #### C TPCR, NGPCR1 #### [address] [address] João 03-15-2023 CNPN Telephone (AGSPINE3) KIA GONZALEZ ([id number]) 1975 F Date Time Provider Department 03/15/23 ALYSIA ZAPATA AGSPINE3 During your visit today, we recorded the following information about you: Mary Kolb 03/15/2023 9:37 AM Signed Pt left VM about making appt advising to make consult about stimulator and an accomodation for work. Mary Kolb Allergies As of Date: 03/15/2023 Noted Allergy Reaction SULFAMETHOXAZOLE-TRIMETHOPR IM 03/02/2022 7 - Swelling Date Reviewed: 01/19/2023 Reviewed by: Usama Navarrete MD - Fully Assessed Reason for Visit: Appointment [186] Prescriptions as of 03/15/2023 - VITAMIN C WITH IRMA HIPS 500 mg tablet Take 1 tablet by mouth twice daily - baclofen 2 %, bupivacaine 2 %, gabapentin 10 %, imipramine 3 %, NIFEdipine 2 % (CPD) Comments for compounding pharmacy: Apply 1-3 grams (pumps) to the affected area 3-4 times daily. May make substitutions as needed. - busPIRone (BUSPAR) 5 mg tablet - venlafaxine ER (EFFEXOR XR) 75 mg 24 hr capsule - valACYclovir (VALTREX) 500 mg tablet - oxybutynin (DITROPAN) 5 mg tablet 10 mg. - omeprazole (PRILOSEC) 40 mg capsule as needed. - ogtektqxiaul-nsd-ebnf-FA-vi t K (ADULTS MULTIVITAMIN) 18 mg iron-400 mcg-25 mcg tab Take by mouth. - fluticasone (FLONASE) 50 mcg/actuation nasal spray Use in the nose. Problem List As Of Date 03/15/2023 Noted Resolved Complex regional pain syndrome i of right lower*04/04/2022 Chronic pain of right knee [M25.561, G89.29] 04/20/2022 Muscle weakness [M62.81] 04/20/2022 Encounter Status:Closed by MARY KOLB on 03/15/23 [facility] CNPN Telephone (AGSPINE2) TATA GONZALEZODETTE Davila ([id number]) 1975 F Date Time Provider Department 03/15/23 SRI CERVANTES AGSPINE2 During your visit today, we recorded the following information about you: Sri Cervantes LMT 03/15/2023 1:21 PM Signed INSURANCE CO. ID # GROUP # CO-PAY DEDUCTIBLE COINSUR. OUT OF POCKET MAX PRIOR AUTH REQU'D LIMITATIONS REFERENCE # SPOKE TO: AETNA [id number] $0 300 90% $2300 $375.83 $827.66 NO [id number] ASH Wei Is this a Medicare or Medicaid product? No Does this follow Medicare guidelines? No Is this a [employer] product? No Does this require clinical submission through [facility]? No Chiropractor: Dr. Zapata Contracted: Yes Chiropractic benefits: In network Are the billable benefits a HARD LIMIT? Yes If yes, what is the mailing address for additional requests to be sent? Where are chiropractic claims sent: Is there a pre-existing rider on claims: Ask for the managed care department for benefits Be sure to ask: Are these supervised or unsupervised therapeutic modalities covered if billed by a chiropractor? CPT CODE NAME COVERED? 32977 Manual manipulations spine 1-2 Y [address]2740 61976 Manual manipulations spine 3-4 Manual manipulations spine 5 Y Y 14861 Manual manipulations of extremities 76673 Hot/cold packs 69536 Mechanical traction Y 30724 Electrical stimulation Y 03745 Therapeutic exercises Y 94775 Neuromuscular re-education Y 26335 Massage therapy 32600 [place] [address] Acupuncture < 15 minutes 69864 [id number] [address] Acupuncture > 15 minutes Acupuncture with stim < 15 minutes Acupuncture with stim > 15 minutes Sri Cervantes LMT Allergies As of Date: 03/15/2023 Noted Allergy Reaction SULFAMETHOXAZOLE-TRIMETHOPR IM 03/02/2022 7 - Swelling Date Reviewed: 01/19/2023 Reviewed by: Usama Navarrete MD - Fully Assessed Reason for Visit: Insurance Authorization [[id number]] Cmt: CHIRO 2022 Prescriptions as of 03/15/2023 - VITAMIN C WITH IRMA HIPS 500 mg tablet Take 1 tablet by mouth twice daily - baclofen 2 %, bupivacaine 2 %, gabapentin 10 %, imipramine 3 %, NIFEdipine 2 % (CPD) Comments for compounding pharmacy: Apply 1-3 grams (pumps) to the affected area 3-4 times daily. May make substitutions as needed. - busPIRone (BUSPAR) 5 mg tablet - venlafaxine ER (EFFEXOR XR) 75 mg 24 hr capsule - valACYclovir (VALTREX) 500 mg tablet - oxybutynin (DITROPAN) 5 mg tablet 10 mg. - omeprazole (PRILOSEC) 40 mg capsule as needed. - rhfdpgsubuax-wtn-jqqn-FA-vi t K (ADULTS MULTIVITAMIN) 18 mg iron-400 mcg-25 mcg tab Take by mouth. - fluticasone (FLONASE) 50 mcg/actuation nasal spray Use in the nose. Problem List As Of Date 03/15/2023 Noted Resolved Complex regional pain syndrome i of right lower*04/04/2022 Chronic pain of right knee [M25.561, G89.29] 04/20/2022 Muscle weakness [M62.81] 04/20/2022 Encounter Status:Closed by SRI CERVANTES on 03/15/23 Normal [facility] MRI LUMBAR SPINE WO IVCONon 09-20-2022 [facility] CEFUROXIME:SUSC:PT:ISOLATE:O RDQN:MICon 06-07-2022 Cefuroxime DULCE [Susc] 50,000 - 100,000 cfu/ml Escherichia coli [facility] Cefuroxime DULCE [Susc]on Escherichia coli Escherichia coli [facility] [place] CNPNon 03-29-2022 CNPN Telephone (AGPOB1) FRAME,KIA Davila ([id number]) 1975 F Date Time Provider Department 03/29/22 AG ORTH AGPOB1 During your visit today, we recorded the following information about you: aPrth Plascencia Clinical Material Handler Ppg 03/29/2022 11:15 AM Signed ----- Message from Sinan Carver sent at 03/29/2022 11:07 AM EDT ----- Regarding: Orthopedics / Open Knee: Total Knee Replacement / Previous Surgery By A Non-AG Provider Patient has been identified by name and Date of (Y/N): yes Patient: Kia Gonzalez Date of : 1975 Previous Provider Seen: none Body Part(s) Identified: right knee Diagnosis/Reason For Visit: pervious surgery by non ag provider Reason for the call/escalation: previous surgery by non ag If reason for call/escalation is discharge from ED/ER or Hospital, which facility was the patient seen at: non Was an appointment scheduled (Y/N): no Person calling if other than patient: no Return call to if other than patient: no Best contact number: [phone] Thank you, Sinan Carver March 29, 2022 11:08 AM Parth Plascencia Clinical Material Handler Ppg 03/29/2022 11:17 AM Signed Please schedule this patient with Manjit Romero PA-C. Parth Plascencia [facility] March 29, 2022 11:17 AM Tatyana Manning 03/29/2022 1:25 PM Signed Left message for patient. Tatyana Manning March 29, 2022 1:25 PM Allergies As of Date: 03/29/2022 Noted Allergy Reaction SULFAMETHOXAZOLE-TRIMETHOPR IM 03/02/2022 7 - Swelling Date Reviewed: 03/02/2022 Reviewed by: Heather Naty, PA-C - Fully Assessed Reason for Visit: Appointment [[id number]] Prescriptions as of 03/29/2022 - venlafaxine ER (EFFEXOR XR) 75 mg 24 hr capsule - valACYclovir (VALTREX) 500 mg tablet - traMADol (ULTRAM) 50 mg tablet - oxybutynin (DITROPAN) 5 mg tablet 10 mg. - omeprazole (PRILOSEC) 40 mg capsule as needed. - jqwzcbpnylkf-sof-huih-FA-vi t K (ADULTS MULTIVITAMIN) 18 mg iron-400 mcg-25 mcg tab Take by mouth. - gabapentin (NEURONTIN) 100 mg capsule Take 100 mg by mouth. - fluticasone (FLONASE ALLERGY RELIEF) 50 mcg/actuation nasal spray Use in the nose. Problem List As Of Date: 03/29/2022 (None) Encounter Status:Closed by ZITA OPERATIONS CLERK PARTH HARRY on 03/29/22 [facility] No Panel Informationon 09-29 Culture Urine No growth at 48 hours. [facility] LABORATORYOrdered By: SYSTEM SYSTEM on 08-21-2021 Base excess Calc (BldMV) [Moles/Vol] 3.0 mEq/L Invalid Interpretation Code 4.0 - 15.0 mEq/L AH ADM SS Basophils (Bld) [#/Vol] 0.00 103/mcL Invalid Interpretation Code 0.00 - 0.27 10^3/mcL AH Remisol SS Basophils/100 WBC (Bld) 0.4 % Invalid Interpretation Code 0.0 - 2.5 % AH Remisol SS Calcium [Mass/Vol] 9.5 mg/dL Invalid Interpretation Code 8.4 - 10.1 mg/dL AH ADM SS Chloride [Moles/Vol] 105 mmol/L Invalid Interpretation Code 98 - 110 mEq/L AH ADM SS CO2 [Moles/Vol] 31 mmol/L Invalid Interpretation Code 22 - 32 mEq/L AH ADM SS Creatinine [Mass/Vol] 0.61 mg/dL Invalid Interpretation Code 0.50 - 1.20 mg/dL AH ADM SS CRP [Mass/Vol] 7.3 mg/dL Invalid Interpretation Code 0.0 - 1.0 mg/dL AH ADM SS Eosinophils (Bld) [#/Vol] 0.20 103/mcL Invalid Interpretation Code 0.00 - 0.65 10^3/mcL AH Remisol SS Eosinophils/100 WBC (Bld) 2.7 % Invalid Interpretation Code 0.0 - 6.0 % AH Remisol SS Erythrocyte distribution width (RBC) [Ratio] 13.1 % Invalid Interpretation Code 11.5 - 15.5 % AH Remisol SS GFR/1.73 sq M.predicted among blacks MDRD (S/P/Bld) [Vol rate/Area] ml/min/1.73sqm Invalid Interpretation Code AH ADM SS GFR/1.73 sq M.predicted among non-blacks MDRD (S/P/Bld) [Vol rate/Area] ml/min/1.73sqm Invalid Interpretation Code AH ADM SS Glucose [Mass/Vol] 99 mg/dL Invalid Interpretation Code 70 - 110 mg/dL AH ADM SS Hematocrit (Bld) [Volume fraction] 35.8 % Invalid Interpretation Code 34.0 - 46.0 % AH Remisol SS Hemoglobin (Bld) [Mass/Vol] 12.0 G/dL Invalid Interpretation Code 12.0 - 16.0 G/dL AH Remisol SS Lymphocytes (Bld) [#/Vol] 1.50 103/mcL Invalid Interpretation Code 0.90 - 4.32 10^3/mcL AH Remisol SS Lymphocytes/100 WBC (Bld) 18.0 % Invalid Interpretation Code 20.0 - 40.0 % AH Remisol SS MCH (RBC) [Entitic mass] 32.6 pg Invalid Interpretation Code 27.0 - 33.0 pg AH Remisol SS MCHC (RBC) [Mass/Vol] 33.5 G/dL Invalid Interpretation Code 32.0 - 36.0 G/dL AH Remisol SS MCV (RBC) [Entitic vol] 97.3 fL Invalid Interpretation Code 80.0 - 99.0 fL AH Remisol SS Monocytes (Bld) [#/Vol] 0.60 103/mcL Invalid Interpretation Code 0.09 - 1.40 10^3/mcL AH Remisol SS Monocytes/100 WBC (Bld) 6.7 % Invalid Interpretation Code 2.0 - 13.0 % AH Remisol SS Neutrophils (Bld) [#/Vol] 6.00 103/mcL Invalid Interpretation Code 2.25 - 8.10 10^3/mcL AH Remisol SS Neutrophils/100 WBC (Bld) 72.2 % Invalid Interpretation Code 50.0 - 75.0 % AH Remisol SS Platelet mean volume (Bld) [Entitic vol] 7.6 fL Invalid Interpretation Code 6.6 - 10.5 fL AH Remisol SS Platelets (Bld) [#/Vol] 307 103/mcL Invalid Interpretation Code 150 - 450 10^3/mcL AH Remisol SS Potassium [Moles/Vol] 4.0 mmol/L Invalid Interpretation Code 3.5 - 5.0 mEq/L AH ADM SS RBC (Bld) [#/Vol] 3.68 106/mcL Invalid Interpretation Code 4.10 - 5.30 10^6/mcL AH Remisol SS Sodium [Moles/Vol] 139 mmol/L Invalid Interpretation Code 136 - 145 mEq/L AH ADM SS Urea nitrogen [Mass/Vol] 13.0 mg/dL Invalid Interpretation Code 8.0 - 22.0 mg/dL AH ADM SS Urea nitrogen/Creatinine [Mass ratio] 21.3 ratio Invalid Interpretation Code 10.0 - 22.0 ratio AH ADM SS WBC (Bld) [#/Vol] 8.40 103/mcL Invalid Interpretation Code 4.50 - 10.80 10^3/mcL AH Remisol SS LABORATORYOrdered By: Nate Sanabria on 08-21-2021 ESR 15 minute reading (Bld) [Velocity] 67 mm/hr Invalid Interpretation Code 0 - 20 mm/hr AH Manual Heme SS No Panel Informationon 08-21 Microscopic examination of blood, culture Culture has been received in lab and is no growth to date. Routine cultures are held for 5 days. [facility] NOVEL CORONAVIRUS NASOPHARYN GEAL - [facility] SPECIMEN ONLYon 07-02-2020 SARS-COV-2 NOT DETECTED Normal NOT DETECTED [facility] Comment on above: Order Comment: Viral transport media - Collection must be done while wearing N-95 mask, eye protection, gown and gloves. Please label ALL specimens as 2019-nCoV rule out and deliver by hand. This test was performed using real time PCR and has been approved for the qualitative detection of SARS-CoV-2 nucleic acid. The test has been authorized by the FDA under an emergency use authorization for use by authorized laboratories. Result Comment: Nega tive results do not preclude SARS-CoV-2 infection and should not be used as the sole basis for treatment or other patient management decisions. Optimum specimen types and timing for peak viral levels during infections caused by SARS-CoV-2 has not been determined. The possibility of a false negative result should especially be considered if the patient's recent exposures or clinical presentation suggest that SARS-CoV-2 infection is probable, and diagnostic tests for other causes of illness (e.g., other respiratory illness) are negative. Collection of a new specimen and re-testing may be necessary if the patient is critically ill or clinically deteriorating. Performed By: #### L [id number] #### [facility] (DEFAULT) [address] [place] [id number] NOVEL CORONAVIRUS NASOPHARYN GEAL - [facility] SPECIMEN ONLYon 06-25-2020 SARS-COV-2 NOT DETECTED Normal NOT DETECTED [facility] Comment on above: Order Comment: Viral transport media - Collection must be done while wearing N-95 mask, eye protection, gown and gloves. Please label ALL specimens as 2019-nCoV rule out and deliver by hand. This test was performed using real time PCR and has been approved for the qualitative detection of SARS-CoV-2 nucleic acid. The test has been authorized by the FDA under an emergency use authorization for use by authorized laboratories. Result Comment: Nega tive results do not preclude SARS-CoV-2 infection and should not be used as the sole basis for treatment or other patient management decisions. Optimum specimen types and timing for peak viral levels during infections caused by SARS-CoV-2 has not been determined. The possibility of a false negative result should especially be considered if the patient's recent exposures or clinical presentation suggest that SARS-CoV-2 infection is probable, and diagnostic tests for other causes of illness (e.g., other respiratory illness) are negative. Collection of a new specimen and re-testing may be necessary if the patient is critically ill or clinically deteriorating. Performed By: #### L [id number] #### [facility] (DEFAULT) [address] [place] [id number] NOVEL CORONAVIRUS NASOPHARYN GEAL - [facility] SPECIMEN ONLYon 06-11-2020 SARS-COV-2 NOT DETECTED Normal NOT DETECTED [facility] Comment on above: Order Comment: Viral transport media - Collection must be done while wearing N-95 mask, eye protection, gown and gloves. Please label ALL specimens as 2019-nCoV rule out and deliver by hand. This test was performed using real time PCR and has been approved for the qualitative detection of SARS-CoV-2 nucleic acid. The test has been authorized by the FDA under an emergency use authorization for use by authorized laboratories. Result Comment: Nega tive results do not preclude SARS-CoV-2 infection and should not be used as the sole basis for treatment or other patient management decisions. Optimum specimen types and timing for peak viral levels during infections caused by SARS-CoV-2 has not been determined. The possibility of a false negative result should especially be considered if the patient's recent exposures or clinical presentation suggest that SARS-CoV-2 infection is probable, and diagnostic tests for other causes of illness (e.g., other respiratory illness) are negative. Collection of a new specimen and re-testing may be necessary if the patient is critically ill or clinically deteriorating. Performed By: #### L [id number] #### [facility] (DEFAULT) [address] [place] [address] NOVEL CORONAVIRUS NASOPHARYN GEAL - [facility] SPECIMEN ONLYon 04-24-2020 SARS-COV-2 NOT DETECTED Normal NOT DETECTED [facility] Comment on above: Order Comment: Viral transport media - Collection must be done while wearing N-95 mask, eye protection, gown and gloves. Please label ALL specimens as 2019-nCoV rule out and deliver by hand. This test was performed using real time PCR for the qualitative detection of SARS-CoV-2 nucleic acid. It has not been cleared or approved by the FDA. This test was developed and its performance characteristics determined by [facility] at [facility]. This test is used for clinical purposes. It should not be regarded as investigational or for research. Result Comment: Nega tive results do not preclude SARS-CoV-2 infection and should not be used as the sole basis for treatment or other patient management decisions. Optimum specimen types and timing for peak viral levels during infections caused by SARS-CoV-2 has not been determined. The possibility of a false negative result should especially be considered if the patient's recent exposures or clinical presentation suggest that SARS-CoV-2 infection is probable, and diagnostic tests for other causes of illness (e.g., other respiratory illness) are negative. Collection of a new specimen and re-testing may be necessary if the patient is critically ill or clinically deteriorating. Performed By: #### L [id number] #### [facility] (DEFAULT) [address] [place] [address] Office Visiton 06-08-2017 Protein mass conc Done Invalid Interpretation Code [facility] Work Phone: [phone] Protein mass conc yes Invalid Interpretation Code [facility] Work Phone: [phone] Tobacco smoking status NHIS Current every day smoker Invalid Interpretation Code [facility] Work Phone: [phone] Office Visiton 04-27-2017 Documentation of current medications (procedure) Done Invalid Interpretation Code [facility] Work Phone: [phone] Protein mass conc Done Invalid Interpretation Code [facility] Work Phone: [phone] Protein mass conc yes Invalid Interpretation Code [facility] Work Phone: [phone] Smoking cessation education (procedure) yes Invalid Interpretation Code [facility] Work Phone: [phone] Tobacco smoking status NHIS Current every day smoker Invalid Interpretation Code [facility] Work Phone: [phone] Tobacco use CPHS Current every day smoker Invali d Interpretation Code [facility] Work Phone: [phone] Office Visiton 04-05-2017 Documentation of current medications (procedure) Done Invalid Interpretation Code [facility] Work Phone: [phone] Smoking cessation education (procedure) yes Invalid Interpretation Code [facility] Work Phone: [phone] Tobacco use CPHS Current every day smoker Invali d Interpretation Code [facility] Work Phone: [phone] Office Visiton 03-28-2017 [facility]: [phone] Protein mass conc yes [facility] Work Phone: [phone] Tobacco smoking status NHIS Current every day smoker [facility] Work Phone: [phone] Office [facility] 02-19-2017 Documentation of current medications (procedure) Done Invalid Interpretation Code [facility] Work Phone: [phone] Protein mass conc Done [facility] Work Phone: [phone] Protein mass conc yes [facility] Work Phone: [phone] Smoking cessation education (procedure) yes Invalid Interpretation Code [facility] Work Phone: [phone] Tobacco smoking status NHIS Current every day smoker [facility] Work Phone: [phone] Tobacco use CPHS Current every day smoker Invali d Interpretation Code [facility] Work Phone: [phone] Office Vis[facility] 02-07-2017 Protein mass conc Done [facility] Work Phone: [phone] Protein mass conc yes [facility] Work Phone: [phone] Tobacco smoking status NHIS Current every day smoker [facility] Work Phone: [phone] Office Vis[facility] 01-12-2017 Documentation of current medications (procedure) Done Invalid Interpretation Code [facility] Work Phone: [phone] Smoking cessation education (procedure) yes Invalid Interpretation Code [facility] Work Phone: [phone] Tobacco smoking status NHIS Current every day smoker [facility] Work Phone: [phone] Tobacco use CPHS Current every day smoker Invali d Interpretation Code [facility] Work Phone: [phone] Vital Signs Date Time Vital Sign Value Performing Clinician Facility 03-23-2025 14:25-0400 Body mass index (BMI) [Ratio] 19.9 kg/m2 Brown Omalley APRN.HAND COREMAKER Work Phone: [facility] 03-23-2025 14:25-0400 Body temperature 97.11 [degF] Brown Omalley APRN.HAND COREMAKER Work Phone: [facility] 03-23-2025 14:25-0400 Body weight 54.25 kg Brown Omalley APRN.HAND COREMAKER Work Phone: [facility] 03-23-2025 14:25-0400 Diastolic blood pressure 88 mm[Hg] Brown Omalley APRN.HAND COREMAKER Work Phone: [facility] 03-23-2025 14:25-0400 Heart rate 56 /min Brown Omalley APRN.HAND COREMAKER Work Phone: [facility] 03-23-2025 14:25-0400 Respiratory rate 16 /min Brown Omalley APRN.HAND COREMAKER Work Phone: [facility] 03-23-2025 14:25-0400 SaO2% (BldA) [Mass fraction] 100 % Brown Omalley APRN.HAND COREMAKER Work Phone: [facility] 03-23-2025 14:25-0400 Systolic blood pressure 142 mm[Hg] Brown Omalley APRN.HAND COREMAKER Work Phone: [facility] 01-13-2025 14:57-0400 Body temperature 96.8 [degF] [facility] 01-13-2025 14:57-0400 Diastolic blood pressure 73 mm[Hg] Out [facility] 01-13-2025 14:57-0400 Heart rate 62 /min [facility] 01-13-2025 14:57-0400 Respiratory rate 16 /min [facility] 01-13-2025 14:57-0400 SaO2% (BldA) [Mass fraction] 100 % Out [facility] 01-13-2025 14:57-0400 Systolic blood pressure 91 mm[Hg] Out [facility] 01-13-2025 13:35-0400 Body height 165.1 cm Out [facility] 01-13-2025 13:35-0400 Body mass index (BMI) [Ratio] 18.9 kg/m2 Out [facility] 01-13-2025 13:35-0400 Body weight 51.7 kg Out [facility] 12-12-2024 14:47-0400 Body temperature 97.1 [degF] Out [facility] 12-12-2024 14:47-0400 Diastolic blood pressure 75 mm[Hg] Out [facility] 12-12-2024 14:47-0400 Heart rate 62 /min [facility] 12-12-2024 14:47-0400 Respiratory rate 16 /min Out [facility] 12-12-2024 14:47-0400 Systolic blood pressure 95 mm[Hg] Out [facility] 12-12-2024 14:45-0400 SaO2% (BldA) [Mass fraction] 98 % Out [facility] 12-12-2024 12:58-0400 Body height 165.1 cm Out [facility] 12-12-2024 12:58-0400 Body mass index (BMI) [Ratio] 17.2 kg/m2 Out [facility] 12-12-2024 12:58-0400 Body weight 46.8 kg Out [facility] 04-13-2024 13:55-0400 Diastolic Blood Pressure Non-Invasive 86 mm[Hg] RONAK PHOENIX MD [facility] 04-13-2024 13:55-0400 Heart rate 75 /min RONAK PHOENIX MD [facility] 04-13-2024 13:55-0400 Respiratory rate 16 /min RONAK PHOENIX MD [facility] 04-13-2024 13:55-0400 Systolic Blood Pressure Non-Invasive 118 mm[Hg] RONAK PHOENIX MD [facility] 04-13-2024 12:08-0400 Body temperature 97.34 [degF] RONAK PHOENIX MD [facility] 04-13-2024 12:08-0400 Body weight 53.3 kg RONAK PHOENIX MD [facility] 04-13-2024 12:08-0400 Diastolic Blood Pressure Non-Invasive 84 mm[Hg] RONAK PHOENIX MD [facility] 04-13-2024 12:08-0400 Heart rate 78 /min RONAK PHOENIX MD [facility] 04-13-2024 12:08-0400 Respiratory rate 16 /min RONAK PHOENIX MD [facility] 04-13-2024 12:08-0400 Systolic Blood Pressure Non-Invasive 123 mm[Hg] RONAK PHOENIX MD [facility] 03-28-2024 06:16-0400 Body temperature 97.88 [degF] ALYSIA SOLITARIO MD [facility] 03-28-2024 06:16-0400 Diastolic Blood Pressure Non-Invasive 84 mm[Hg] ALYSIA SOLITARIO MD [facility] 03-28-2024 06:16-0400 Heart rate 68 /min ALYSIA SOLITARIO MD [facility] 03-28-2024 06:16-0400 Reason For Taking VItal Signs ALYSIA SOLITARIO MD [facility] 03-28-2024 06:16-0400 Respiratory rate 16 /min ALYSIA SOLITARIO MD [facility] 03-28-2024 06:16-0400 Systolic Blood Pressure Non-Invasive 115 mm[Hg] ALYSIA SOLITARIO MD [facility] 03-28-2024 03:19-0400 Body temperature 97.7 [degF] ALYSIA SOLITARIO MD [facility] 03-28-2024 03:19-0400 Diastolic Blood Pressure Non-Invasive 87 mm[Hg] ALYSIA SOLITARIO MD [facility] 03-28-2024 03:19-0400 Heart rate 81 /min ALYSIA SOLITARIO MD [facility] 03-28-2024 03:19-0400 Reason For Taking VItal Signs ALYSIA SOLITARIO MD [facility] 03-28-2024 03:19-0400 Respiratory rate 16 /min ALYSIA SOLITARIO MD [facility] 03-28-2024 03:19-0400 Systolic Blood Pressure Non-Invasive 119 mm[Hg] ALYSIA SOLITARIO MD [facility] 03-27-2024 23:25-0400 Body temperature 98.06 [degF] ALYSIA SOLITARIO MD [facility] 03-27-2024 23:25-0400 Diastolic Blood Pressure Non-Invasive 77 mm[Hg] ALYSIA SOLITARIO MD [facility] 03-27-2024 23:25-0400 Heart rate 77 /min ALYSIA SOLITARIO MD [facility] 03-27-2024 23:25-0400 Reason For Taking VItal Signs ALYSIA SOLITARIO MD [facility] 03-27-2024 23:25-0400 Respiratory rate 16 /min ALYSIA SOLITARIO MD [facility] 03-27-2024 23:25-0400 Systolic Blood Pressure Non-Invasive 108 mm[Hg] ALYSIA SOLITARIO MD [facility] 03-27-2024 16:46-0400 Body height 165 cm ALYSIA SOLITARIO MD [facility] 03-27-2024 16:46-0400 Body weight 56 kg ALYSIA SOLITARIO MD [facility] 03-27-2024 16:46-0400 Body weight 20.57 kg/m2 ALYSIA SOLITARIO MD [facility] 03-27-2024 14:07-0400 Body temperature 96.44 [degF] ALYSIA SOLITARIO MD [facility] 03-27-2024 14:05-0400 Respiratory Rate - Anes 12 br/min ALYSIA SOLITARIO MD [facility] 03-27-2024 14:00-0400 Respiratory Rate - Anes 14 br/min ALYSIA SOLITARIO MD [facility] 03-27-2024 13:55-0400 Respiratory Rate - Anes 13 br/min ALYSIA SOLITARIO MD [facility] 03-27-2024 11:07-0400 Body height 165 cm ALYSIA SOLITARIO MD [facility] 03-27-2024 11:07-0400 Body temperature 97.88 [degF] ALYSIA SOLITARIO MD [facility] 03-27-2024 11:07-0400 Body weight 52 kg ALYSIA SOLITARIO MD [facility] 03-27-2024 11:07-0400 Heart rate 58 /min ALYSIA SOLITARIO MD [facility] 03-18-2024 13:03-0400 Body height 165.1 cm ALYSIA SOLITARIO MD [facility] 03-18-2024 13:03-0400 Body weight 52 kg ALYSIA SOLITARIO MD [facility] 11-03-2022 11:11-0500 Body temperature 98.8 [degF] Tatyana Ames DO Work Phone: [facility] 11-03-2022 11:11-0500 Body weight 68.04 kg Tatyana Ames DO Work Phone: [facility] 11-03-2022 11:11-0500 Diastolic blood pressure 80 mm[Hg] Tatyana Ames DO Work Phone: [facility] 11-03-2022 11:11-0500 Heart rate 80 /min Tatyana Ames DO Work Phone: [facility] 11-03-2022 11:11-0500 Respiratory rate 16 /min Tatyana Ames DO Work Phone: [facility] 11-03-2022 11:11-0500 SaO2% (BldA) [Mass fraction] 97 % Tatyana Ames DO Work Phone: [facility] 11-03-2022 11:11-0500 Systolic blood pressure 131 mm[Hg] Tatyana Ames DO Work Phone: [facility] 10-31-2022 06:24-0500 Body height 165.1 cm Khushboo Jones APRN.HAND COREMAKER Work Phone: [facility] 10-31-2022 06:24-0500 Body weight 68.04 kg Khushboo Jones APRN.CNP Work Phone: [facility] 10-23-2022 12:22-0500 Diastolic blood pressure 80 mm[Hg] Darwin Simmons MD Work Phone: [facility] 10-23-2022 12:22-0500 Systolic blood pressure 119 mm[Hg] Darwin Simmons MD Work Phone: [facility] 10-23-2022 11:50-0500 Heart rate 73 /min Darwin Simmons MD Work Phone: [facility] 10-23-2022 11:50-0500 Respiratory rate 16 /min Darwin Simmons MD Work Phone: [facility] 10-23-2022 11:50-0500 SaO2% (BldA) [Mass fraction] 99 % Darwin Simmons MD Work Phone: [facility] 09-28-2022 08:38-0500 Heart rate 80 /min Avelina Korty DO Work Phone: [facility] 09-28-2022 08:38-0500 Respiratory rate 18 /min Avelina Korty DO Work Phone: [facility] 09-28-2022 08:38-0500 SaO2% (BldA) [Mass fraction] 99 % Avelina Korty DO Work Phone: [facility] 08-31-2022 10:09-0500 Heart rate 79 /min Avelina Korty DO Work Phone: [facility] 08-31-2022 10:09-0500 Respiratory rate 18 /min Avelina Korty DO Work Phone: [facility] 08-31-2022 10:09-0500 SaO2% (BldA) [Mass fraction] 99 % Avelina Korty DO Work Phone: [facility] 06-08-2022 15:19-0400 Body height 165.1 cm Manjit Romero PA-C Work Phone: [facility] 06-08-2022 15:19-0400 Body weight 61.69 kg Manjit Vickersach PA-C Work Phone: [facility] 06-08-2022 15:19-0400 Respiratory rate 20 /min Manjit Vickersach PA-C Work Phone: [facility] 05-25-2022 08:16-0400 Heart rate 76 /min Khushboo Hodakievic [employer] Work Phone: [facility] 05-25-2022 08:16-0400 Respiratory rate 14 /min Khushboo Hodakievic [employer]ER [employer].HAND COREMAKER Work Phone: [facility] 05-25-2022 08:16-0400 SaO2% (BldA) [Mass fraction] 99 % Khushboo Hodakievic [employer].HAND COREMAKER Work Phone: [facility] 03-02-2022 11:55-0400 Body temperature 98.49 [degF] Heather Marcelinoman PA-C Work Phone: [facility] 03-02-2022 11:55-0400 Body weight 59.88 kg Heather Alfonso PA-C Work Phone: [facility] 03-02-2022 11:55-0400 Diastolic blood pressure 82 mm[Hg] Heather Alfonso PA-C Work Phone: [facility] 03-02-2022 11:55-0400 Heart rate 74 /min Heather Alfonso PA-C Work Phone: [facility] 03-02-2022 11:55-0400 Respiratory rate 16 /min Heather Marcelinoman PA-C Work Phone: [facility] 03-02-2022 11:55-0400 SaO2% (BldA) [Mass fraction] 100 % Heather Alfonso PA-C Work Phone: [facility] 03-02-2022 11:55-0400 Systolic blood pressure 118 mm[Hg] Heather Alfonso PA-C Work Phone: [facility] 08-21-2021 06:09-0500 Diastolic blood pressure 79 mm[Hg] DHAVAL KAT MD [facility] 08-21-2021 06:09-0500 Heart rate 79 /min DHAVAL KAT MD [facility] 08-21-2021 06:09-0500 Mean blood pressure 86 mm[Hg] DHAVAL KAT MD [facility] 08-21-2021 06:09-0500 Respiratory rate 18 /min DHAVAL KAT MD [facility] 08-21-2021 06:09-0500 Systolic blood pressure 100 mm[Hg] DAHVAL KAT MD [facility] 08-21-2021 02:27-0500 Diastolic blood pressure 82 mm[Hg] DHAVAL KAT MD [facility] 08-21-2021 02:27-0500 Heart rate 87 /min DHAVAL KAT MD [facility] 08-21-2021 02:27-0500 Mean blood pressure 94 mm[Hg] DHAVAL KAT MD [facility] 08-21-2021 02:27-0500 Respiratory rate 18 /min DHAVAL KAT MD [facility] 08-21-2021 02:27-0500 Systolic blood pressure 119 mm[Hg] DHAVAL KAT MD [facility] 08-20-2021 22:14-0500 Body temperature 99.86 [degF] DHAVAL KAT MD [facility] 08-20-2021 22:14-0500 Body weight 65.9 kg DHAVAL KAT MD [facility] 08-20-2021 22:14-0500 Diastolic blood pressure 71 mm[Hg] DHAVAL KAT MD [facility] 08-20-2021 22:14-0500 Heart rate 90 /min DHAVAL KAT MD [facility] 08-20-2021 22:14-0500 Respiratory rate 20 /min DHAVAL KAT MD [facility] 08-20-2021 22:14-0500 Systolic blood pressure 106 mm[Hg] DHAVAL KAT MD [facility] 06-30-2016 12:32-0400 BMI (Body Mass Index) 24.46 kg/m2 [facility] Work Phone: 06-30-2016 12:32-0400 Body weight 66.68 kg Kezia Gonzalez [facility] Work Phone: 06-30-2016 12:32-0400 Height 165.1 cm [facility] Work Phone: 06-30-2016 12:32-0400 Weight 66.68 kg [facility] Work Phone: Encounters Encounter Date Encounter Type Care Provider Facility Start: 07-17-2025 ambulatory Lloyd Lee Facility :[facility] Start: 07-02-2025 End: 07-02-2025 ambulatory Teri Garcia NP Facility:[facility] Start: 05-07-2025 End: 05-07-2025 ambulatory Teri Garcia COVERAGE SPECIALIST-C Work Phone: -cat Scan [facility] Start: 05-07-2025 End: 05-07-2025 Patient encounter procedure Teri Chou PA -Cat Scan [facility] Work Phone: Start: 05-07-2025 End: 05-07-2025 ambulatory Teri Chou Facility:[facility] Start: 04-27-2025 End: 04-27-2025 ambulatory Teri Garcia COVERAGE SPECIALIST-C Work Phone: -Laboratory Specimen Start: 04-27-2025 End: 04-27-2025 Patient encounter procedure Teri Chou PA -Laboratory Specimen Work Phone: Start: 04-27-2025 End: 04-27-2025 ambulatory Teri Chou Facility:[facility] Start: 04-21-2025 End: 04-21-2025 Patient encounter procedure Teri DAVIES -[facility] Work Phone: Start: 04-21-2025 End: 04-21-2025 ambulatory Out of Town Doctor -[facility] Start: 04-21-2025 End: 04-21-2025 ambulatory Teri Chou Facility:[facility] Start: 03-23-2025 End: 03-23-2025 Office outpatient visit 15 minutes Brown Omalley APRN.HAND COREMAKER Work Phone: [facility] Comment on above: Left arm cellulitis (Primary Dx) Start: 03-23-2025 End: 03-23-2025 ambulatory TERI GARCIA Facility:[id number] Start: 02-09-2025 End: 02-09-2025 ambulatory Teri Garcia COVERAGE SPECIALIST-C Work Phone: [facility] Work Phone: Start: 02-09-2025 End: 02-09-2025 Patient encounter procedure Teri Chou PA -Radiology [facility] Work Phone: Start: 02-09-2025 End: 02-09-2025 ambulatory Teri Chou Facility:[facility] Start: 01-27-2025 End: 01-27-2025 Patient encounter procedure Teri DAVIES -[facility] Work Phone: Start: 01-27-2025 End: 01-27-2025 ambulatory Out of Town Doctor [facility] Work Phone: Start: 01-13-2025 Non-patient / Non-visit Lloyd Petty nd DO -[facility] Start: 01-13-2025 End: 01-13-2025 Admission to same day surgery center Lloyd Lee DO -Endoscopy Work Phone: Start: 01-13-2025 End: 01-13-2025 ambulatory Out of Town Doctor [facility] Work Phone: Start: 12-29-2024 End: 12-29-2024 Patient encounter procedure Teri DAVIES -[facility] Work Phone: Start: 12-29-2024 End: 12-29-2024 ambulatory Out of Town Doctor Facility:[facility] Start: 12-17-2024 End: 12-17-2024 Patient encounter procedure Teri DAVIES -Nuclear Medicine, [facility] Work Phone: Start: 12-17-2024 End: 12-17-2024 ambulatory Teri Chou Facility:[facility] Start: 12-14-2024 End: 12-15-2024 Emergency department patient visit TERI GARCIA Facility:[id number] Start: 12-12-2024 ambulatory Lloyd Lee Facility :[facility] Start: 12-12-2024 Non-patient / Non-visit Lloyd Fieldsreba sergey DO -[facility] Start: 12-12-2024 End: 12-12-2024 Admission to same day surgery center Lloyd Lee DO -Endoscopy Work Phone: Start: 12-12-2024 End: 12-12-2024 ambulatory Out of Town Doctor [facility] Work Phone: Start: 12-10-2024 End: 12-10-2024 Emergency department patient visit FRANK GOODE DO Facility:[facility] Start: 11-18-2024 End: 11-18-2024 Patient encounter procedure Teri DAVIES -[facility] Work Phone: Start: 11-18-2024 End: 11-18-2024 ambulatory Teri Chou Facility:[facility] Start: 11-12-2024 ambulatory TERI GARCIA [employer] Facility:A Start: 11-07-2024 End: 11-11-2024 ambulatory DIMITRY TYSON [employer]ER Facility:A Start: 11-07-2024 End: 11-07-2024 ambulatory DIMITRY Chaparro JAH [employer]ACH[employer] Facility:A Start: 10-06-2024 End: 10-06-2024 ambulatory TERI GARCIA [employer]EM[employer]ER Facility:A Start: 10-04-2024 End: 10-04-2024 Patient encounter procedure Teri DAVIES -[facility] Work Phone: Start: 10-04-2024 End: 10-04-2024 ambulatory Teri Chou Facility:[facility] Start: 09-30-2024 End: 09-30-2024 Patient encounter procedure Teri DAVIES -[facility] Work Phone: Start: 09-30-2024 End: 09-30-2024 ambulatory Out of Town Doctor Facility:[facility] Start: 09-16-2024 End: 09-16-2024 ambulatory TERI GARCIA [employer] Facility:A Start: 09-15-2024 End: 09-19-2024 ambulatory TERIMARTELL GARCIA [employer]ACHER [employer]ER Facility:[facility] Start: 09-15-2024 End: 09-19-2024 Outreach Lab TERI GARCIA [employer]ER [employer]-HAND COREMAKER [facility] Start: 04-13-2024 End: 04-13-2024 Emergency department patient visit RONAK PHOENIX MD [facility] Start: 04-03-2024 End: 04-07-2024 ambulatory ALYSIA SOLITARIO MD Facility:B Start: 04-03-2024 End: 04-07-2024 Outreach Lab ALYSIA SOLITARIO MD [facility] Start: 03-27-2024 End: 03-28-2024 ambulatory ALYSIA SOLITARIO MD Facility:[facility] Start: 03-27-2024 End: 03-28-2024 Observation ALYSIA SOLITARIO MD [facility] Start: 03-18-2024 End: 03-18-2024 Admission to establishment ALYSIA SOLITARIO MD [facility] Start: 03-18-2024 End: 03-18-2024 ambulatory ALYSIA SOLITARIO MD Facility:[facility] Start: 02-26-2024 End: 02-26-2024 ambulatory TERI GARCIA APRN-JEFF Facility:[facility] Start: 02-26-2024 End: 02-26-2024 Patient encounter procedure TERI GARCIA APRN-JEFF [facility] Start: 02-15-2024 End: 02-15-2024 ambulatory TERI GARCIA APRN-JEFF Facility:A Start: 01-06-2024 End: 01-06-2024 Emergency department patient visit RUPA CAREY MERY Facility:[facility] Start: 12-27-2023 Emergency department patient visit RUPA ORDONEZ Facility:[facility] Start: 10-15-2023 End: 10-19-2023 ambulatory TERI GARCIA APRN-HAND COREMAKER Facility:B Start: 10-15-2023 End: 10-19-2023 Encounter for gynecological examination (general) (routine) without abnormal findings TERI GARCIA APRN-JEFF Facility:[facility] Start: 10-15-2023 End: 10-19-2023 Outreach Lab TERI PEREYRA [facility] Start: 09-20-2023 End: 09-20-[address] ELIJAH WILSON DO Facility:[facility] Start: 09-20-2023 End: 09-20-[address] ELIJAH WILSON DO [facility] Start: 09-13-2023 End: 09-13-2023 ambulatory MANJIT ROMERO [facility] Start: 09-10-2023 End: 09-10-[address] ELIJAH WILSON DO Facility:A Start: 08-14-2023 End: 08-18-[address] ELIJAH WILSON DO Facility:[facility] Start: 03-15-2023 Telephone encounter Alysia Anglin DC Work Phone: [facility] Comment on above: Appointment Insurance Authorizat ion (CHIRO 2022) Start: 12-04-2022 End: 12-04-2022 Patient encounter procedure ARCHANA NAQVI PA-C [facility] Start: 11-23-2022 Refill Khushboo Jones APRN.CNP Work Phone: [facility] Comment on above: Refill Request Start: 11-07-2022 End: 11-07-2022 ambulatory Khushboo Jones APRN.HAND COREMAKER Work Phone: [facility] Comment on above: Complex regional chuy n syndrome type 1 affecting right lower leg (Primary Dx); Chronic pain of right knee; Complex regional pain syndrome i of right lower limb Start: 11-07-2022 End: 11-07-2022 Telemedicine consultation with patient Khushboo Jones APRN.HAND COREMAKER Work Phone: [facility] Start: 11-03-2022 End: 11-03-2022 Patient encounter procedure Tatyana Ames DO Work Phone: [facility] [place] Comment on above: Acute pharyngitis, u nspecified etiology (Primary Dx) Start: 10-23-2022 End: 10-23-2022 ambulatory Darwin Simmons MD Work Phone: [facility] Comment on above: Procedure; Low Back Pain Start: 10-23-2022 End: 10-23-2022 Patient encounter procedure Darwin Simmons MD Work Phone: [facility] Start: 09-28-2022 Telephone encounter Avelina price DO Work Phone: [facility] Comment on above: Patient Update (MEDI CATION) Start: 09-28-2022 End: 09-28-2022 Patient encounter procedure Avelina Hylton DO Work Phone: [facility] Comment on above: Complex regional chuy n syndrome i of right lower limb (Primary Dx); Chronic pain of right knee; Anxiety due to invasive procedure Start: 09-24-2022 Refill Khushboo Jones APRN.HAND COREMAKER Work Phone: [facility] Comment on above: Refill Request Start: 09-20-2022 End: 09-20-2022 Subsequent hospital visit by physician Stefano Eagle (1.5t) [facility] Comment on above: Chronic pain of righ t knee [M25.561, G89.29] Start: 09-16-2022 ambulatory Avelina Tovar O Work Phone: [facility] Comment on above: MRI is scheduled on Sep 20. Start: 09-12-2022 Telephone encounter Avelina price DO Work Phone: [facility] Comment on above: Other (Insurance den ied Lumbar MRI) Start: 08-31-2022 End: 08-31-2022 Patient encounter procedure Avelina Hylton DO Work Phone: [facility] Comment on above: Complex regional chuy n syndrome i of right lower limb (Primary Dx); Chronic pain of right knee; Spinal stenosis of lumbar region, unspecified whether neurogenic claudication present Start: 08-02-2022 ambulatory Khushboo Jones APRN.HAND COREMAKER Work Phone: [facility] Start: 08-02-2022 Patient encounter procedure Khushboo Jones APRN.HAND COREMAKER Work Phone: [facility] Comment on above: Missed appointment Start: 07-26-2022 Refill Khushboo Jones APRN.CNP Work Phone: [facility] Comment on above: Refill Request Start: 07-25-2022 Telephone encounter Ester Mendieta MD Work Phone: [facility] Comment on above: No Show (Missed # 1) Start: 07-19-2022 End: 07-19-2022 ambulatory Patti Langston PT Work Phone: [facility] Comment on above: Chronic pain of righ t knee (Primary Dx); Muscle weakness Start: 07-15-2022 ambulatory Nafisa de la rosa RN NURSE [employer] Comment on above: Knee Pain Start: 07-12-2022 End: 07-12-2022 ambulatory Patti Chapin PT Work Phone: [facility] Comment on above: Chronic pain of righ t knee (Primary Dx); Muscle weakness Start: 07-05-2022 End: 07-05-2022 ambulatory Patti Chapin PT Work Phone: [facility] Comment on above: Chronic pain of righ t knee (Primary Dx); Muscle weakness Start: 06-29-2022 End: 06-29-2022 ambulatory Robert Liu PT [facility] Comment on above: Chronic pain of righ t knee (Primary Dx); Muscle weakness Start: 06-23-2022 End: 06-23-2022 ambulatory Robert Liu PT [facility] Comment on above: Chronic pain of righ t knee (Primary Dx); Muscle weakness Start: 06-16-2022 End: 06-16-2022 ambulatory Robert Liu PT [facility] Comment on above: Chronic pain of righ t knee (Primary Dx); Muscle weakness Start: 06-13-2022 End: 06-13-2022 ambulatory Syl Arita CYBER FORENSICS ANALYST Work Phone: [facility] Comment on above: Chronic pain of righ t knee (Primary Dx); Muscle weakness Start: 06-08-2022 End: 06-08-2022 Patient encounter procedure Manjit Romero PA-C Work Phone: [facility] Comment on above: Complex regional chuy n syndrome i of right lower limb (Primary Dx); History of total knee arthroplasty, right Start: 06-08-2022 End: 06-08-2022 ambulatory Robert Liu PT [facility] Comment on above: Chronic pain of righ t knee (Primary Dx); Muscle weakness Start: 06-07-2022 End: 06-11-2022 Outreach Lab TERI GARCIA TEACHER [employer]-HAND COREMAKER [facility] Start: 06-06-2022 End: 06-06-2022 ambulatory Syl Arita CYBER FORENSICS ANALYST Work Phone: [facility] Comment on above: Chronic pain of righ t knee (Primary Dx); Muscle weakness Start: 06-05-2022 Telephone encounter Oriana Thornton T [facility] Comment on above: Insurance Authorizat ion (CHIRO 2021) Start: 05-25-2022 Telephone encounter Khushboo Jones [employer]ER [employer].HAND COREMAKER Work Phone: [facility] Comment on above: Injections (Injectio n questions ) FMLA Paperwork Start: 05-25-2022 End: 05-25-2022 Patient encounter procedure Khushboo Jones TEACHER [employer].HAND COREMAKER Work Phone: [facility] Comment on above: Chronic pain of righ t knee (Primary Dx); Patient risk and functional assessment; Complex regional pain syndrome i of right lower limb Start: 05-23-2022 End: 05-23-2022 ambulatory Robert Liu PT [facility] Comment on above: Chronic pain of righ t knee (Primary Dx); Muscle weakness Start: 05-10-2022 End: 05-10-2022 ambulatory Brown Cuadra PT Work Phone: [facility] Comment on above: Chronic pain of righ t knee (Primary Dx); Muscle weakness Start: 05-05-2022 End: 05-05-2022 ambulatory Syl Arita CYBER FORENSICS ANALYST Work Phone: [facility] Comment on above: Chronic pain of righ t knee (Primary Dx); Muscle weakness Start: 05-03-2022 End: 05-03-2022 ambulatory Syl Arita CYBER FORENSICS ANALYST Work Phone: [facility] Comment on above: Chronic pain of righ t knee (Primary Dx); Muscle weakness Start: 04-28-2022 End: 04-28-2022 ambulatory Syl Arita CYBER FORENSICS ANALYST Work Phone: [facility] Comment on above: Chronic pain of righ t knee (Primary Dx); Muscle weakness Start: 04-20-2022 End: 04-20-2022 ambulatory Robert Liu PT [facility] Comment on above: Chronic pain of righ t knee (Primary Dx); Muscle weakness Start: 03-29-2022 Telephone encounter Ag Orth Work Phone: [facility] Comment on above: Appointment Start: 03-02-2022 End: 03-02-2022 Patient encounter procedure Heather SOARESC Work Phone: [facility] [place] Comment on above: Hordeolum externum o f right upper eyelid (Primary Dx) Start: 09-29-2021 End: 10-03-2021 Outreach Lab MELANIE CLIFTON TEACHER [employer]-HAND COREMAKER [facility] Start: 08-22-2021 End: 08-22-2021 Patient encounter procedure JENELLE BONNER MD [facility] Start: 08-20-2021 End: 08-21-2021 Emergency department patient visit DHAVAL KAT MD [facility] Procedures Date Procedure Procedure Detail Performing Clinician Start: 05-07-2025 CT of abdominal vascular structures Thomas Garcia COVERAGE SPECIALIST-C Work Phone: Start: 04-27-2025 Clostridium difficile detection [facility] Start: 04-27-2025 Lactoferrin measurement [facility] Start: 04-27-2025 Nucleic acid assay [facility] Start: 04-27-2025 Iadna-dna/rna gi pthgn multiplex probe tq 6-11 [facility] Start: 04-21-2025 Chocolate RAST [facility] Doctor Start: 04-21-2025 Food RAST [facility] Doctor Start: 04-21-2025 Shrimp RAST [facility] Doctor Start: 02-09-2025 X-ray of esophagus with double contrast Teri Garcia NP-[place] Work Phone: Start: 01-13-2025 Colonoscopy [facility] Doctor Start: 12-17-2024 Radionuclide gastric emptying study Out [facility] Doctor Start: 12-12-2024 Esophagogastroduodenoscopy Out Town Doct or Start: 10-04-2024 Ultrasonography of abdomen Out [facility] Doct or Start: 09-20-2022 Mri spinal canal lumbar w/o contrast material Avelina Hylton DO Work Phone: Start: 05-25-2022 Adult depression screening assessment Khushboo Jones APRN.CNP Work Phone: Start: 04-05-2017 End: 04-16-2017 Arthrocentesis aspir&/inj major jt/bursa w/o us Tej Mcdonald Work Phone: Start: 04-05-2017 End: 04-16-2017 Drain/inject, joint/bursa Tej Mcdonald Work Phone: Start: 01-12-2017 End: 01-12-2017 Documentation of current medications Kezia Fry Start: 01-12-2017 End: 01-12-2017 Smoking cessation education Kezia Gonzalez Start: 12-18-2016 End: 12-29-2016 Arthrocentesis aspir&/inj major jt/bursa w/o us Tej Mcdonald Work Phone: Start: 12-18-2016 End: 12-29-2016 Drain/inject, joint/bursa Tej Mcdonald Work Phone: Start: 10-17-2016 Dilation and curettage DHAVAL KAT MD Start: 10-17-2016 Endometrial ablation DHAVAL KAT MD Start: 06-30-2016 End: 07-06-2016 Arthrocentesis aspir&/inj major jt/bursa w/o us Tej Mcdonald Work Phone: Start: 06-30-2016 End: 07-06-2016 Drain/inject, joint/bursa Tje Mcdonald Work Phone: Colonoscopy DHAVAL Tovar Knee region structur e (body structure) DHAVAL KAT MD Laparoscopic-assiste d vaginal hysterectomy ALYSIA SOLITARIO MD Loop electrosurgical excision procedure of cervix DHAVAL KAT MD Tonsillectomy DHAVAL KAT MD Plan of Treatment Date Care Activity Detail Author Start: 12-15-2027 Diabetes Screening Diabetes Screenin g [facility] Start: 05-04-2025 Influenza vaccination Influenza Vacc ine (#1) [facility] Start: 2025 Shingrix Vaccine (1 of 2) Shingrix Vaccine (1 of 2) [facility] Start: 01-13-2025 Colonoscopy w/biopsy single/multiple COLONOSCOPY AND BIOPSY [facility] Start: 01-13-2025 Patient discharge [facility] Start: 12-12-2024 Egd transoral biopsy single/multiple EGD BIOPSY SINGLE/MULTIPLE [facility] Start: 12-12-2024 Patient discharge [facility] Start: 05-04-2024 Covid-19 Vaccine ( season) Covid-19 Vaccine ( season) [facility] Start: 05-25-2023 Adult depression screening assessment DEPRESSION SCREENING [facility] Start: 05-04-2023 Influenza vaccination INFLUENZA (#1) [facility] Start: 09-03-2022 DEPRESSION ASSESSMENT DEPRESSION ASS ESSMENT [facility] Start: 05-04-2022 Influenza vaccination C [facility] Start: 09-03-2021 DEPRESSION ASSESSMENT DEPRESSION ASS ESSMENT [facility] Start: 2020 COLOGUARD (FIT-DNA) COLOGUARD (FIT-D NA) [facility] Start: 2020 Colonoscopy COLONOSCOPY [facility] Start: 2020 COLORECTAL CANCER SCREENING COLORECTAL CANCER SCREENING [facility] Start: [address] COLONOGRAPHY [facility] Start: 2020 DIABETES SCREEN DIABETES SCREEN [facility] Start: 2020 FECAL OCCULT BLOOD FECAL OCCULT BLOO D [facility] Start: 2020 Lipid panel Lipid Screening [facility] Start: 2020 LIPID SCREEN LIPID SCREEN [facility] Start: 2020 Screening for malign ant neoplasm of colon [facility] Start: 2020 SIGMOIDOSCOPY SIGMOIDOSCOPY [facility] Start: 03-07-2019 Pneumococcal Vaccine : 50+ (2 of 2 - PCV) Pneumococcal Vaccine: 50+ (2 of 2 - PCV) [facility] Start: 06-08-2017 End: 06-08-2017 Appointment Appointment [facility] Work Phone: Start: 04-25-2017 End: 04-25-2017 Appointment Appointment [facility] Work Phone: Start: 04-05-2017 End: 04-05-2017 Appointment Appointment [facility] Work Phone: Start: 03-28-2017 End: 03-28-2017 Appointment Appointment [facility] Work Phone: Start: 03-13-2017 End: 03-13-2017 Appointment Appointment [facility] Work Phone: Start: 02-19-2017 End: 02-19-2017 Appointment Appointment [facility] Work Phone: Start: 02-07-2017 End: 02-07-2017 Appointment Appointment [facility] Work Phone: Start: 02-07-2017 End: 02-07-2017 Appointment Appointment [facility] Work Phone: Start: 12-18-2016 End: 12-18-2016 Mri any jt lower extrem w/o contrast matrl MRI Joint Lower Extremity [facility] Work Phone: Start: 12-18-2016 End: 12-18-2016 Mri jnt of lwr extre w/o dye MRI Joint Lower Extremity [facility] Work Phone: Start: 2015 Mammography MAMMOGRAM [facility] Start: 2015 Screening for malign ant neoplasm of breast Mammogram Screening [facility] Start: 2005 HPV TESTING HPV TESTING [facility] Start: 1996 PAP TESTING PAP TESTING [facility] Start: 1996 Screening for malign ant neoplasm of cervix Cervical Cancer Screening [facility] Start: 1994 Hepatitis B Vaccine (1 of 3 - 19+ 3-dose series) Hepatitis B Vaccine (1 of 3 - 19+ 3-dose series) [facility] Start: 1994 Urine microalbumin profile [facility] Start: 1993 Anxiety Screening Anxiety Screening [facility] Start: 1993 Depression Screening Depression Scre ening [facility] Start: 1993 HEPATITIS C SCREENING HEPATITIS C SC [facility] Start: 1993 Hepatitis C screening Hepatitis C [facility] Start: 1993 HIV SCREENING HIV SCREENING [facility] Start: 1993 HIV screening HIV Screening [facility] Start: 1987 Adult depression screening assessment DEPRESSION SCREENING [facility] Start: 1981 PNEUMOCOCCAL (1 - PCV) PNEUMOCOCCAL (1 - PCV) [facility] Start: 1980 COVID-19 VACCINE (#1) COVID-19 VACCI NE (#1) [facility] Start: 1975 COVID-19 VACCINE (#1) COVID-19 VACCI NE (#1) [facility] Start: 1975 HEPATITIS B (1 of 3 - 3-dose series) HEPATITIS B (1 of 3 - 3-dose series) [facility] Clostridioides diffi cile DNA [Presence] in Unspecified specimen by DERRICK with probe detection [facility] CTA Abdominal vessel s WO and W contrast IV [facility] Elastase.pancreatic [Presence] in Stool [facility] Elastase.pancreatic [Presence] in Stool [facility] Giardia lamblia Ag [Presence] in Stool by Immunoassay [facility] Giardia lamblia Ag [Presence] in Stool by Immunoassay [facility] Injection anes lmbr/ thrc paravertbrl sympathetic INJECT NERV BLCK,PARAVERT SYMPATH Procedures Routine Complex regional pain syndrome type 1 affecting right lower leg Complex regional pain syndrome i of right lower limb Ordered: 10/23/2022 [facility] Work Phone: Comment on above: Ordered: 10/23/2022 Lactoferrin [Presenc e] in Stool by Immunoassay [facility] End: 09-30-2023 Mri spinal canal lumbar w/o contrast material MRI LUMBAR SPINE WO IVCON Radiology Routine Chronic pain of right knee Complex regional pain syndrome i of right lower limb 1 Occurrences starting 08/31/2022 until 09/30/2023 [facility] Work Phone: Comment on above: 1 Occurrences starti ng 08/31/2022 until 09/30/2023 Nucleic acid assay [facility] Patient Education KNEE%20PAIN [facility] Work Phone: Patient referral [facility] Work Phone: Protein measurement [facility] Protein measurement [facility] PT PLAN OF CARE CERTIFICATION PT PLAN OF CARE CERTIFICATION Procedures Routine Chronic pain of right knee Muscle weakness Ordered: 04/20/2022 [facility] Comment on above: Ordered: 04/20/2022 Radiologic exam esophagus double contrast study [facility] Radionuclide gastric emptying study [facility] Immunizations Immunization Date Immunization Notes Care Provider Alize perry 03-07-2018 pneumococcal polysaccharide vaccine, 23 valent DHAVAL KAT MD [facility] 05-22-2017 influenza virus vacc ine, unspecified formulation MELANIE [employer] [facility] Payers Date Payer Category Payer Self-pay 2024 Unknown [id number] 2024 Blue Cross Blue Shield BLUE ACCE SS PPO Member Subscriber Plan / Payer (Effective 2024-Present) Name: Kia Gonzalez Member ID: [id number] Relation to Subscriber: Self Name: Kia Gonzalez Subscriber ID: [id number] Payer ID: [id number] (NAIC) Type: PPO Address: [address] [place] [address] [id number] 2022 Unknown [id number] 2021 Medicaid [employer] MEDICAID [id number] 2021-Present [phone] [address] [place] [address] Medicaid [id number] .[id number] 2021 Medicaid [id number] 1.13.159 .[id number] 2020 Private Health Insurance [id number] .[id number] .2.7.3.151014.315 2017 Private Health Insurance [id number] 1975 Unknown [id number] 2.16.840.1.101415.3.579 .2.627 1975 Unknown [id number] 2.16.840.1.315343.3.579 .2.627 1975 Unknown [id number] 2.16.840.1.461430.3.579 .2. 1975 Unknown [id number] 2.840.1.322884.3.579 .2. 1975 Unknown [id number] 2.16840.1.721594.3.579 .2. 1975 Unknown [id number] 2.840.1.302543.3.579 .2. 1975 Unknown [id number] 2.840.1.349976.3.579 .2. 1975 Unknown [id number] .840.1.619937.3.579 .2. 1975 Unknown [id number] 2.840.1.340465.3.579 .2. 1975 Unknown [id number] 10.19.830.1.389588.3.579 .2. 1975 Unknown [id number] 840.1.532490.3.579 .2. 1975 Unknown [id number] 840.1.579700.3.579 .2. 1975 Unknown [id number] 840.1.557207.3.579 .2. 1975 Unknown [id number] 840.1.073719.3.579 .2. 1975 Unknown [id number] 840.1.039479.3.579 .2. 1975 Unknown [id number] 840.1.626930.3.579 .2. 1975 Unknown [id number] 840.1.660140.3.579 .2.627 Unknown [id number] 2840.1.753478.3.579 .2.462 Unknown [id number] 2.16.840.1.070481.3.579 .2.462 Unknown [id number] 2.16.840.1.223136.3.579 .2.462 Unknown [id number] 2.16.840.1.848878.3.579 .2.462 Unknown [id number] 2.16.840.1.258719.3.579 .2.462 Unknown [id number] 2.16.840.1.235820.3.579 .2.462 Unknown [id number] 2.16.840.1.141351.3.579 .2.462 Unknown [id number] 2.16.840.1.006284.3.579 .2.462 Unknown [id number] 2.16.840.1.200279.3.579 .2.462 Unknown [id number] 2.16.840.1.070509.3.579 .2.462 Unknown [id number] 2.16.840.1.286445.3.579 .2.462 Unknown [id number] 2.16.840.1.886983.3.579 .2.462 Unknown [id number] 2.16.840.1.727818.3.579 .2.462 Unknown [id number] 2.16.840.1.405656.3.579 .2.462 Unknown [id number] 2.16.840.1.070409.3.579 .2.462 Unknown [id number] 2.16.840.1.457845.3.579 .2.462 Unknown [id number] 2.16.840.1.797171.3.579 .2.462 Social History Date Type Detail Facility Start: 03-09-2021 End: 04-13-2024 Heavy tobacco smoker (finding) [facility] Start: 1975 Sex Assigned At Female A [facility] Start: 03-02-2022 End: 01-09-2025 Tobacco smoking status NHIS Smokes tobacco daily [facility] History of tobacco use Cigarette Smoker C [facility] Start: 03-02-2022 End: 03-23-2025 Tobacco use and exposure Smokeless tobacco non-user [facility] Start: 03-02-2022 End: 03-23-2025 Alcohol intake Current drinker of alcohol (finding) [facility] Start: 1975 Sex Assigned At Not on file C [facility] Start: 02-20-2022 End: 08-06-2022 Exposure to SARS-CoV-2 (event) Not sure [facility] Start: 05-25-2022 End: 01-19-2023 History of Social function [facility] Start: 05-25-2022 End: 01-19-2023 Tobacco use panel [facility] Adult Depression Screening Assessment 2 [facility] Start: 01-29-2024 Tobacco smoking status Light t obacco smoker (finding) [facility] [place] Sexual Orientation [facility] yogesh [facility] Start: 02-26-2019 End: 12-12-2024 Sex Female (finding) [facility] NEGATED: Highlighted row Not [facility] Goals Date Patient Goal Desired Activity /State Functional Status Date Assessment Result Facility 04-13-2024 Functional Status Standard Safet y ID band on, Allergy Band on, Call device within reach, Bed in low position, Wheels locked, Bedside Cart Locked, Safety level maintained [facility] 03-28-2024 Functional Status Nurse Safety C riri q2hrs Performed Other: 7am-919am [facility] 03-28-2024 Functional Status Room check performed [facility] 03-28-2024 Functional Status [facility] 03-27-2024 Functional [address] [facility] 03-27-2024 Functional Status [facility] 03-27-2024 Functional Status Sensory Deficits None A [facility] 03-27-2024 Functional Status [facility] 03-27-2024 Functional Status Maintained [facility] 03-18-2024 Functional Status Sensory Deficits None A [facility] Mental Status Date Assessment Result Facility 01-13-2025 Cognitive function Voice/Name [facility] Work Phone: 12-12-2024 Cognitive function Voice/Name;Touch/Shaki ng [facility] Work Phone: 04-13-2024 Mental Status Orientation Oriented x 4 [facility] 04-13-2024 Mental Status [facility] 03-28-2024 Mental Status Oriented x 4 [facility] 03-27-2024 Mental Status [facility] 03-27-2024 Mental Status [facility] Clinical Notes 04-12-2021 to 05-10-2025 Brown Omalley, [employer]ER - 03/23/2025 3:01 PM EDTPatient Instructions Note Date & Type Note Facility 05-10-2025 Radiology Diagnostic study note [facility] [address] [place], [place] [address] CTA Abdomen W/WO Contrast MR#: [id number] Acct: [id number] Name: KIA GONZALEZ Rep #: [id number] : 1975 F 50 From: Dulce Santos MD PCP: SANDI Rick Status: REG C DESIRAE Study:CTA Abdomen W/WO Contrast Date of Exam: 05/07/25 Exam# [id number] Ordering Dr: Teri Chou PROCEDURE: CTA ABDOMEN W/WO CONTRAST 05/07/2025 REASON FOR EXAM: RULE OUT SMA SYNDROME TECHNIQUE: Procedure Code: [id number] Modality: CT Procedure: CTA ABDOMEN W/WO CONTRAST Multiplanar Sagittal and Coronal images were obtained. 3D and or MIPS post processing was performed CONTRAST: Isovue 370 VOLUME: 100 mL One or more dose reduction techniques were used (e.g., Automated exposure control, adjustment of the mA and/or kV according to patient size, use of iterative reconstruction technique). RADIATION DOSE SUMMARY: CTDlvol: 49 mGy DLP: 317.7 mGycm COMPARISON: None. FINDINGS: Lung bases: Mild dependent atelectasis. ABDOMEN Liver: Hyper enhancing lesion inferior right lobe of the liver image 68, measures 1.2 cm. Remainder liver negative. Biliary system: Negative for intrahepatic or extrahepatic ductal dilatation. Gallbladder: Negative. Negative for cholecystitis. Spleen: Negative. Pancreas: Negative. Adrenals: Negative. Kidneys: Negative. Negative for kidney stones, cysts or masses. Bowel: Marked increased stool throughout the colon. Negative for small or large-bowel obstruction. Appendix: Imaged portions negative. Vasculature: The duodenum does extend between the superior mesenteric artery andaorta with a distance of between 6 and 9 mm. No evidence of dilatation of the duodenum related to this and therefore no definitive mass effect. Remainder of the celiac artery and branches, superior mesenteric artery and branches, renal arteries inferior mesenteric artery and branches negative. Negative for atherosclerotic vascular calcifications of the abdominal aorta and its branches. Peritoneum / Retroperitoneum: Negative. Bones and Soft Tissues: Age appropriate degenerative changes of the lumbar spine hips and pelvis. CT/CTA Abdomen W/WO Contrast IMPRESSION: Duodenum does extend between the superior mesenteric artery and aorta with a diameter of 6-9 mm without evidence of dilatation of the duodenum. Therefore no definitive SMA syndrome. No definitive mass effect or dilatation of the duodenum as above. Marked constipation. Reading Location: [facility] CC: SANDI Garcia; KEKE Morales ~ Commutator Assembler: Signed [facility] 03-23-2025 Note HNO ID: [id number] Author: BROWN OMALLEY APRN.HAND COREMAKER Service: ? Author Type: Nurse Practitioner Type: Progress Notes Filed: 03/23/2025 15:03 Note Text: [facility] [place] Subjective Subjective Kia Gonzalez is a 50 year old female who presents with chief complaint of Possible insect/spider bite (States she doesn't see a bite. She just believes it might be a spider bite. It is her left arm and left hand. She states swelling and some redness. ) HPI Kia Gonzalez is a 50-year-old female presenting with a possible spider bite. Kia reports waking up on Sunday morning with pruritus and swelling on her arm, which she suspects is due to a spider bite that occurred on Sunday night. The swelling has progressively worsened, extending from her arm to her hand and fingers, accompanied by numbness, tingling, and pain. She notes warmth in the affected area and has observed erythema and swelling. She has a history of cellulitis infections. She has tried hydrocortisone cream at home without relief. Review of Systems Musculoskeletal: (+) arm pain Skin: (+) itching, (+) warmth, (+) redness, (+) swelling Neurological: (+) numbness, (+) tingling Objective Objective BP 142/88 (BP Site: Right Arm, BP Position: Sitting, BP Cuff Size: Regular Adult) Pulse (!) 56 Temp 36.2 ?C (97.1 ?F) (Temporal) Resp 16 Wt 54.2 kg (119 lb 9.6 oz) LMP (LMP Unknown) SpO2 100% BMI 19.90 kg/m? Physical Exam Vitals and nursing note reviewed. Constitutional: General: She is not in acute distress. Appearance: Normal appearance. She is well-developed and well-groomed. She is not ill-appearing, toxic-appearing or diaphoretic. HENT: Head: Normocephalic and atraumatic. Mouth/Throat: Comments: +PND Eyes: Conjunctiva/sclera: Conjunctivae normal. Pulmonary: Effort: Pulmonary effort is normal. Musculoskeletal: General: Normal range of motion. Cervical back: Normal range of motion and neck supple. Skin: General: Skin is warm and dry. Comments: Area noted in picture but is region of edema, erythema and slight warmth. Radial pulse intact. Able to move all joints with no difficulty. NVI. Cap refill less than 3 seconds. Neurological: General: No focal deficit present. Mental Status: She is alert and oriented to person, place, and time. Psychiatric: Mood and Affect: Mood normal. Behavior: Behavior normal. Behavior is cooperative. General: No acute distress. Skin: Erythema and swelling of the arm. Procedures Assessment/MDM 1. Left arm cellulitis (L03.114) Erythema, edema, warmth, and pruritus noted on the left arm, extending from the initial site to the fingers. Symptoms began approximately 1.5 days ago, likely secondary to an insect or spider bite. Differential includes cellulitis versus histamine reaction. - Prescribed oral antibiotics to address potential infection. - Prescribed prescription-strength topical anti-pruritic cream. - Advised patient to monitor symptoms closely; if no improvement within 2-3 days or if symptoms worsen, instructed to seek immediate evaluation in the emergency department. - Discussed potential complications, including systemic spread of infection via the lymphatic system which she should present to the ER if this does occur. - Sent prescriptions to [facility] across the street. Histamine reaction versus cellulitis Patient given educational materials - see patient instructions. Discussed use, benefit, and side effects of prescribed medications. All patient questions answered. Pt voiced understanding and agrees with treatment plan. Patient advised if symptoms worsen or persist, they are to follow up with PCP or ED. Patient agreeable with treatment plan. Recording using ListMin[employer] software for draft documentation of the visit was discussed with the patient/authorized c s s representative; all questions welcomed and answered. Patient/authorized c s s representative agreed to proceed orderTalk might have been used to help with documentation of this chart. Brown Omalley APRN-GRETEL 03/23/2025 3:01 PM Differential Diagnoses - Left arm cellulitis is more likely for the following reason(s): suggested by HANDP Disposition The patient was discharged. [facility] 03-23-2025 History of Present illness Narrative Images from the original note were not included. [facility] [place] Subjective Subjective Kia Gonzalez is a 50 year old female who presents with chief complaint of Possible insect/spider bite (States she doesn't see a bite. She just believes it might be a spider bite. It is her left arm and left hand. She states swelling and some redness. ) HPI Kia Gonzalez is a 50-year-old female presenting with a possible spider bite. Kia reports waking up on Sunday morning with pruritus and swelling on her arm, which she suspects is due to a spider bite that occurred on Sunday night. The swelling has progressively worsened, extending from her arm to her hand and fingers, accompanied by numbness, tingling, and pain. She notes warmth in the affected area and has observed erythema and swelling. She has a history of cellulitis infections. She has tried hydrocortisone cream at home without relief. Review of Systems Musculoskeletal: (+) arm pain Skin: (+) itching, (+) warmth, (+) redness, (+) swelling Neurological: (+) numbness, (+) tingling Objective Objective BP 142/88 (BP Site: Right Arm, BP Position: Sitting, BP Cuff Size: Regular Adult) Pulse (!) 56 Temp 36.2 C (97.1 F) (Temporal) Resp 16 Wt 54.2 kg (119 lb 9.6 oz) LMP (LMP Unknown) SpO2 100% BMI 19.90 kg/m Physical Exam Vitals and nursing note reviewed. Constitutional: General: She is not in acute distress. Appearance: Normal appearance. She is well-developed and well-groomed. She is not ill-appearing, toxic-appearing or diaphoretic. HENT: Head: Normocephalic and atraumatic. Mouth/Throat: Comments: +PND Eyes: Conjunctiva/sclera: Conjunctivae normal. Pulmonary: Effort: Pulmonary effort is normal. Musculoskeletal: General: Normal range of motion. Cervical back: Normal range of motion and neck supple. Skin: General: Skin is warm and dry. Comments: Area noted in picture but is region of edema, erythema and slight warmth. Radial pulse intact. Able to move all joints with no difficulty. NVI. Cap refill less than 3 seconds. Neurological: General: No focal deficit present. Mental Status: She is alert and oriented to person, place, and time. Psychiatric: Mood and Affect: Mood normal. Behavior: Behavior normal. Behavior is cooperative. General: No acute distress. Skin: Erythema and swelling of the arm. Procedures Assessment/MDM 1. Left arm cellulitis (L03.114) Erythema, edema, warmth, and pruritus noted on the left arm, extending from the initial site to the fingers. Symptoms began approximately 1.5 days ago, likely secondary to an insect or spider bite. Differential includes cellulitis versus histamine reaction. - Prescribed oral antibiotics to address potential infection. - Prescribed prescription-strength topical anti-pruritic cream. - Advised patient to monitor symptoms closely; if no improvement within 2-3 days or if symptoms worsen, instructed to seek immediate evaluation in the emergency department. - Discussed potential complications, including systemic spread of infection via the lymphatic system which she should present to the ER if this does occur. - Sent prescriptions to [facility] across the street. Histamine reaction versus cellulitis Patient given educational materials - see patient instructions. Discussed use, benefit, and side effects of prescribed medications. All patient questions answered. Pt voiced understanding and agrees with treatment plan. Patient advised if symptoms worsen or persist, they are to follow up with PCP or ED. Patient agreeable with treatment plan. Recording using ListMin[employer] software for draft documentation of the visit was discussed with the patient/authorized c s s representative; all questions welcomed and answered. Patient/authorized c s s representative agreed to proceed Dragon might have been used to help with documentation of this chart. CAL Noriega 03/23/2025 3:01 PM Differential Diagnoses - Left arm cellulitis is more likely for the following reason(s): suggested by H&P Disposition The patient was discharged. documented in this encounter [facility] 03-23-2025 Instructions Brown Omalley APRN.CNP - 03/23/2025 2:42 PM EDT [facility] [place] [address] [place], [place] [address] Emergency Department Diagnosis: Assessment CELLULITIS: Your exam shows you have an infection of the skin called cellulitis. This infection usually develops after an injury, cut, bite, or sting, but may occur without any known cause. Usually there is a localized area of redness, swelling, and pain which gets constantly bigger unless treatment is started. If cellulitis is severe or does not respond to initial treatment, hospital care with antibiotic injections may be needed. Treatment of cellulitis includes antibiotics along with resting and elevating the affected area until the infection improves. You should apply moist, warm compresses to the area for 30 minutes 4 times daily also. Please see your doctor if the pain and swelling from your infection are not better after two days of treatment. Call your doctor or go to the emergency department right away if you develop fever, chills, or other serious problems. You may require a tetanus booster if you are not current with your inmunizations. documented in this encounter [facility] 02-09-2025 Radiology Diagnostic study note [facility] Imaging Services [address] [place] [address] Esophagus Dual Contrast MR#: [id number] Acct: [id number] Name: KIA GONZALEZ Rep #: [id number] : 1975 F 49 From: Eulogio Dozier MD PCP: SANDI Rick Status: REG C LI Study:Esophagus Dual Contrast Date of Exam: 02/09/25 Exam# [id number] Ordering Dr: Teri Chou PROCEDURE: ESOPHAGUS DUAL CONTRAST 02/09/2025 REASON FOR EXAM: DIFFICULTY SWALLOWING TECHNIQUE: The patient ingested barium. Multiple images of the esophagus were obtained. 36 seconds of fluoroscopy. 1.8 mGy. COMPARISON: None FINDINGS: The patient ingested barium. Multiple images were obtained. The esophagus is unremarkable. No evidence of obstruction. No mass lesion is seen. No evidence of gastroesophageal reflux. The patient ingested a 12 mm tablet the barium without any difficulty. RAD/Esophagus Dual Contrast IMPRESSION: Unremarkable air contrast upper GI series. Reading Location: [place] [address] CC: SANDI Garcia; KEKE Morales ~ Commutator Assembler: Signed [facility] 01-13-2025 History and physical note Note Date/Time January 13, 2025 12:40pm [facility] Medical Records Department [address] [facility] [place] [address] History & Physical Exam 01/13/25 1239 MR#: [id number] Acct: [id number] Name: KIA GONZALEZ Rep #:[id number] : 1975 49 From: Lloyd Lee DO PCP: SANDI Rick Status:REG S DC Location: [place] [address] HPI - General General Date of Admission: 01/13/25 Date of Service: 01/13/25 Chief Complaint: Abdominal pain HPI Narrative KIA GONZALEZ, is a 49 F who presents for the evaluation of epigastric pain BGI established Sep 2024 with weight loss, difficulty swallowing,heartburn and irregular bm. EGD 07.17.17; Suspected Barrets esophagus, small amount of food debris in stomach, mild gastritis, normal duodenum EGD 5.18.24; small hiatal hernia, mild gastritis EGD 5..24; normal mucosa in the whole esophagus, erythema and congestion in the antrum, normal duodenum CT abd/pelvis 6.14.24; NO acute process within the abd/pelvis GES 6..24; slightly prolonged extrapolated T half emptying time of 126.5 minutes likely secondary to the 1st 60 minutes of imaging acquisition. Other marcelino normal RUQ US 2.1.25; normal Last OV 3.18.25 Pt continues to have issues with oral intake. She gets full veryquickly after eating. Unable to gain weight. Continues to smoke marijuana EGD 4; - Normal esophagus. - Bilious gastric fluid. - Erythematous mucosa in the gastric body and antrum. Biopsied. - Erythematous duodenopathy. 4 hour GES 4.16.25; normal OV 4.28.25; Pt has been able to eat some soft foods without pain. She tells me Dr. Lee wanted to get a barium swallow after the EGD. She still has episodes of severe pain but Levsin and zofran has been helpful. [facility] Medical History History of MRSA infection Congenital hernia of foramen of [place] Wears glasses Post-menopausal Anxiety Marijuana use Arthritis Anemia Back pain Difficulty swallowing History of ulceration History of IBS Gastric reflux Vapes nicotine containing substance Smoker Hoarseness History of pain when walking Herpes simplex viral infection Depression Anesthesia complication Polycystic ovaries Neuropathy Heart murmur Irritable bowel syndrome Headache, migraine Gastrointestinal problem Back problem Seasonal allergies Home Medications ?Medication ?Instructions ?Recorded ?Last Taken ?Type multivitamin 1 ea PO DAILY 03/07/1712/10 History lactobacillus combination no.4 3 3,000 mmu cells PO QD AY 09/30/24 12/10/24 History billion cell capsule (Probiotic) magnesium 250 mg tablet 250 mg PO QDAY 09/30/2405/28 History oxybutynin chloride 10 mg 10 mg PO BID 09/30/24 History tablet,extended release 24 hr pantoprazole 40 mg tablet,delayed 40 mg PO BID 5 12/10/24 History release valacyclovir 500 mg tablet 500 mg PO QDAY 09/30/2405/28 History fluticasone propionate 50 1 spray intranasal DAILY PRN 12/12/24 12/10/24 History mcg/actuation nasal allergy symptoms spray,suspension (24 Hour Allergy Relief) hyoscyamine sulfate 0.125 mg tablet 0.125 mg PO BID-QI D PRN dyspepsia 12/16/24 Unknown Rx #30 tabs ondansetron 8 mg disintegrating 8 mg PO Q12H PRN nause a and 12/29/24 Unknown Rx tablet vomiting #30 tabs Allergy/AdvReac Type Severity Reaction Status Date / Time sucralfate (From Carafate) Allergy Severe Swelling Verified 01/09/25 09:16 soy Allergy Hives Verified 01/09/25 09:16 sulfamethoxazole (From Allergy Swelling Verified 01/09/25 09:16 Bactrim) trimethoprim (From Bactrim) Allergy Swelling Verified 01/09/25 09:16 Family History Mother Cancer Anemia Arthritis Breast cancer Father Cancer Hypertension Heart disease Diabetes Myocardial infarction, Onset Age: 59 Brother Hypertension Hypercholesteremia Sister Arthritis Other Anxiety Surgical History History of esophagogastroduodenoscopy (EGD) History of hysterectomy History of total right knee replacement S/P right knee arthroscopy History of tonsillectomy Social History Smoking Status: Current every day smoker tobacco type: cigarettes alcohol intake: current substance use type: marijuana ROS Constitutional Constitutional: Denies fatigue, fever(s), poor appetite, weight gain or weight loss Gastrointestinal Gastrointestinal: Denies belching, bloating, change in bowel habits, change in stool character, chewing difficulty, coffee ground emesis, constipation, cramping, diarrhea, dyspepsia, dysphagia, early satiety, excessive flatus, fecalincontinence, heartburn, hematemesis, hematochezia, hemorrhoids, loose stools, melena, nausea, odynophagia, rectal bleeding, tenesmus, vomiting or weight changes Physical Exam Const alert, oriented x3, no apparent distress and healthy appearing General Appearance: cooperative GI normal to inspection, nondistended, normoactive bowel sounds, soft to palpation,non-tender and non-distended Percussion: normal to percussion Rectal Exam: deferred Assessment & Plan Assessment/Plan (1) Constipation: (2) Gastroparesis: (3) Nausea: (4) Abdominal pain: (5) Difficulty swallowing: PLAN: Assessment and Plan Assessment and Plan (1) Difficulty swallowing: Status: Acute Comment: FOR YEARS Plan: This is a 49 yo female pt here today for f/u after EGD. Pt established with [facility] in Sep 2024 with complaints of abdominal pain, weight loss, and n/v. She underwent 4 hour GES and RUQ US which were normal. Recent EGD showing bilious gastric fluid and inflammation. 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 However this wasnot ordered. I have put this order in now. She has been doing better since the scope and has been able to eat more and gain a little weight. She will continue Levsin and Zofran PRN which seems to help with her episodes of epigastric pain. SHe will f/u in3 months. -Continue Levsin and Zofran PRN -Barium esophagram -f/u in 3 months (2) Nausea: Status: Acute (3) Abdominal pain: Status: Acute Orders: Orders Esophagus Dual Contrast Today R13.10 - Dysphagia, unspecified Medications: New ondansetron 8 mg PO Q12H PRN 30 tabs 2RF nausea and vomiting 01/13/25 1240 <Electronically signed by Lloyd Lee DO> Cosigner Signature (if applicable): CC: SANDI Garcia; Lloyd Lee DO~ Signed [facility] Work Phone: 1(514) 314-744205-13-2025 Consult note [facility] Medical Records Department [address] [place] [address] Anesthesia Postop Eval I 01/13/25 1435 MR#: [id number] Acct: [id number] Name: KIA GONZALEZ Rep #:[id number] : 1975 49 From: Rupa Moore PCP: SANDI Rick Status:REG S DC Y Race: C Location: [place] [address] Anesthesia: Postop Eval I Current Vital Signs Temperature: 97 F Pulse Rate: 68 Blood Pressure: 91/61 Respiratory Rate: 16 Pulse Ox: 100 Oxygen Delivery Method: Room Air Assessment Airway patent: Yes Spontaneous unlabored respirations: Yes Mental status: Asleep nausea: No Vomiting: No Anesthesia Complication: No Fluid Hydration Crystalloid volume administer (ml): 900 Total IV fluid infused: 900 Progress Note Anesthesia document: Postop Eval 1 completed: Yes 01/13/25 1436 > Date _ Rupa Moore Cosigner Signature: Date CC: ~ Signed [facility]05-13-2025 Evaluation note* Diagnosis Onset Date Resolution Status Admit Date Abdominal pain acute January 13, 2025 12:33pm Constipation acute January 13 12:33pm Difficulty swallowing acute January 13, 2025 12:33pm Gastroparesis acute January 13, 2 025 12:33pm Nausea acute January 13, 2025 12:33pm Abdominal pain acute January 27, 2025 7:12am Constipation acute January 27 7:12am Gastroparesis acute January 27, 2 025 7:12am Nausea acute January 27, 2025 7:12am Abdominal pain acute April 1:43pm Constipation acute April 21, 2025 1:43pm Nausea acute April 21, 2 025 1:43pm Weight loss acute April 21, 2025 1:43pm [facility] Work Phone: 1(114) 671-464805-13-2025 Procedure note [facility] Medical Records Department [address] [place] [address] Colonoscopy Report MR#: [id number] Acct: [id number] Name: KIA GONZALEZ Rep #:[id number] : 1975 49 From: Lloyd Friend DO PCP: Teri Lorson, COVERAGE SPECIALIST-C Status:REG S DC Patient Name: Kia Gonzalez Procedure Date: 01/13/2025 1:18 PM Date of : 1975 Age: 49 Procedure: Colonoscopy Indications: Screening for colorectal malignant neoplasm Providers: Lloyd Lee DO Referring MD: Teri Garcia Medicines: Monitored Anesthesia Care Patient Profile: This is a 49 year old female. Refer to note in patient chart for documentation of history and physical. Last Colonoscopy: none. The patient's first colonoscopy is today. Complications: No immediate complications. Procedure: Pre-Anesthesia Assessment: - Prior to the procedure, a History and Physical was performed, and patient medications and allergies were reviewed. The patient is competent. The risks and benefits of the procedure and the sedation options and risks were discussed with the patient. All questions were answered and informed consent was obtained. Patient identification and proposed procedure were verified in the pre-procedure area. Mental Status Examination: alert and oriented. Airway Examination: normal oropharyngeal airway and neck mobility. Respiratory Examination: clear to auscultation. CV Examination: normal. Prophylactic Antibiotics: The patient does not require prophylactic antibiotics. Prior Anticoagulants: The patient has taken no anticoagulant or antiplatelet agents except for NSAID medication. ASA Grade Assessment: II - A patient with mild systemic disease. After reviewing the risks and benefits, the patient was deemed in satisfactory condition to undergo the procedure. The anesthesia plan was to use monitored anesthesia care (MAC). Immediately prior to administration of medications, the patient was re-assessed for adequacy to receive sedatives. The heart rate, respiratory rate, oxygen saturations, blood pressure, adequacy of pulmonary ventilation, and response to care were monitored throughout the procedure. The physical status of the patient was re-assessed after the procedure. After I obtained informed consent, the scope was passed under direct vision. Throughout the procedure, the patient's blood pressure, pulse, and oxygen saturations were monitored continuously. The Colonoscope was introduced through the anus and advanced to the cecum, identified by appendiceal orifice and ileocecal valve. The colonoscopy was performed without difficulty. The patient tolerated the procedure well. The quality of the bowel preparation was fair. The ileocecal valve, appendiceal orifice, and rectum were photographed. Scope In: 2:01:50 PM Scope Withdrawal Time 0 hours 10 minutes 35 seconds Scope Out: 2:23:50 PM Total Procedure Duration Time 0 hours 22 minutes 0 seconds Findings: The perianal and digital rectal examinations were normal. A 5 mm polyp was found in the rectum. The polyp was sessile. The polyp was removed with a jumbo cold forceps. Resection and retrieval were complete. Verification of patient identification for the specimen was done. Estimated blood loss was minimal. A few small-mouthed diverticula were found in the recto-sigmoid colon and sigmoid colon. Stool was found in the sigmoid colon, in the transverse colon, in the ascending colon and in the cecum. The exam was otherwise without abnormality on direct and retroflexion views. Impression: - Preparation of the colon was fair. - One 5 mm polyp in the rectum, removed with a jumbo cold forceps. Resected and retrieved. - Diverticulosis in the recto-sigmoid colon and in the sigmoid colon. - Stool in the sigmoid colon, in the transverse colon, in the ascending colon and in the cecum. - The examination was otherwise normal on direct and retroflexion views. Recommendation: - Discharge patient to home. - Resume previous diet. - Continue present medications. - Await pathology results. - Repeat colonoscopy in 5 years for surveillance. Procedure Code(s): --- Professional --- 83263, Colonoscopy, flexible; with biopsy, single or multiple CPT copyright 2021 [employer]. All rights reserved. The codes documented in this report are preliminary and upon chief investigator review may be revised to meet current compliance requirements. Lloyd Lee DO 01/13/2025 2:27:28 PM This report has been signed electronically. Number of Addenda: 0 Note Initiated On: 01/13/2025 1:18 PM 01/13/25 1427 Date _ Lloyd Dorman Signature: Date (if indicated) CC: SANDI Garcia; Lloyd Lee DO ~ Date Dictated: 01/13/25 1318 Date Transcribed: Commutator Assembler: SILVESTRE Signed [facility]05-13-2025 Procedure note [facility] Medical Records Department [address] [place] [address] Operative Report - CC Letter MR#: [id number] Acct: [id number] Name: KIA GONZALEZ Rep #:[id number] : 1975 49 From: Lloyd Lee DO PCP: SANDI Rick Status:REG S DC 01/13/2025 Teri Garcia Re : Colonoscopy procedure for Kia Gonzalez Dear Jose This procedure was performed on Monday, January 13, 2025. My impressions and recommendations are as follows: Impressions : - Preparation of the colon was fair. - One 5 mm polyp in the rectum, removed with a jumbo cold forceps. Resected and retrieved. - Diverticulosis in the recto-sigmoid colon and in the sigmoid colon. - Stool in the sigmoid colon, in the transverse colon, in the ascending colon and in the cecum. - The examination was otherwise normal on direct and retroflexion views. Recommendations : - Discharge patient to home. - Resume previous diet. - Continue present medications. - Await pathology results. - Repeat colonoscopy in 5 years for surveillance. My findings are described in the full procedure note, which is enclosed. If I can be of further assistance, please feel free to contact me at . Sincerely, Lloyd Lee DO 01/13/2025 2:27:28 PM This report has been signed electronically. 01/13/25 1427 Date _ Lloyd Dorman Signature: Date (if indicated) CC: COVERAGE SPECIALISTKelvin Garcia; Lloyd Lee DO ~ Date Dictated: 01/13/25 1318 Date Transcribed: Commutator Assembler: SILVESTRE Signed [facility]05-13-2025 History and physical note [facility] Medical Records Department [address] [place] [address] History & Physical Exam 01/13/25 1239 MR#: [id number] Acct: [id number] Name: KIA GONZALEZ Rep #:[id number] : 1975 49 From: Lloyd Lee DO PCP: Teri Garcia COVERAGE SPECIALIST-C Status:REG S DC Location: [place] [address] HPI - General General Date of Admission: 01/13/25 Date of Service: 01/13/25 Chief Complaint: Abdominal pain HPI Narrative KIA GONZALEZ, is a 49 F who presents for the evaluation of epigastric pain I established Sep 2024 with weight loss, difficulty swallowing,heartburn and irregular bm. EGD ..; Suspected Barrets esophagus, small amount of food debris in stomach, mild gastritis, normal duodenum EGD 24; small hiatal hernia, mild gastritis EGD 24; normal mucosa in the whole esophagus, erythema and congestion in the antrum, normal duodenum CT abd/pelvis .; NO acute process within the abd/pelvis GES 6..24; slightly prolonged extrapolated T half emptying time of 126.5 minutes likely secondaryto the 1st 60 minutes of imaging acquisition. Other marcelino normal RUQ US 2.1.25; normal Last OV 3.18.25 Pt continues to have issues with oral intake. She gets full veryquickly after eating. Unable to gain weight. Continues to smoke marijuana EGD .07.28; - Normal esophagus. - Bilious gastric fluid. - Erythematous mucosa in the gastric body and antrum. Biopsied. - Erythematous duodenopathy. 4 hour GES 4.16.25; normal OV 4.28.25; Pt has been able to eat some soft foods without pain. She tells me Dr. Lee wanted toget a barium swallow after the EGD. She still has episodes of severe pain but Levsin and zofran hasbeen helpful. [facility] Medical History History of MRSA infection Congenital hernia of foramen of [place] Wears glasses Post-menopausal Anxiety Marijuana use Arthritis Anemia Back pain Difficulty swallowing History of ulceration History of IBS Gastric reflux Vapes nicotine containing substance Smoker Hoarseness History of pain when walking Herpes simplex viral infection Depression Anesthesia complication Polycystic ovaries Neuropathy Heart murmur Irritable bowel syndrome Headache, migraine Gastrointestinal problem Back problem Seasonal allergies Home Medications ?Medication ?Instructions ?Recorded ?Last Taken ?Type multivitamin 1 ea PO DAILY 03/07/1712/10 History lactobacillus combination no.4 3 3,000 mmu cells PO QD AY 09/30/24 12/10/24 History billion cell capsule (Probiotic) magnesium 250 mg tablet 250 mg PO QDAY 09/30/2405/28 History oxybutynin chloride 10 mg 10 mg PO BID 09/30/24 History tablet,extended release 24 hr pantoprazole 40 mg tablet,delayed 40 mg PO BID 5 12/10/24 History release valacyclovir 500 mg tablet 500 mg PO QDAY 09/30/2405/28 History fluticasone propionate 50 1 spray intranasal DAILY PRN 12/12/24 12/10/24 History mcg/actuation nasal allergy symptoms spray,suspension (24 Hour Allergy Relief) hyoscyamine sulfate 0.125 mg tablet 0.125 mg PO BID-QI D PRN dyspepsia 12/16/24 Unknown Rx #30 tabs ondansetron 8 mg disintegrating 8 mg PO Q12H PRN nause a and 12/29/24 Unknown Rx tablet vomiting #30 tabs Allergy/AdvReac Type Severity Reaction Status Date / Time sucralfate (From Carafate) Allergy Severe Swelling Verified 01/09/25 09:16 soy Allergy Hives Verified 01/09/25 09:16 sulfamethoxazole (From Allergy Swelling Verified 01/09/25 09:16 Bactrim) trimethoprim (From Bactrim) Allergy Swelling Verified 01/09/25 09:16 Family History Mother Cancer Anemia Arthritis Breast cancer Father Cancer Hypertension Heart disease Diabetes Myocardial infarction, Onset Age: 59 Brother Hypertension Hypercholesteremia Sister Arthritis Other Anxiety Surgical History History of esophagogastroduodenoscopy (EGD) History of hysterectomy History of total right knee replacement S/P right knee arthroscopy History of tonsillectomy Social History Smoking Status: Current every day smoker tobacco type: cigarettes alcohol intake: current substance use type: marijuana ROS Constitutional Constitutional: Denies fatigue, fever(s), poor appetite, weight gain or weight loss Gastrointestinal Gastrointestinal: Denies belching, bloating, change in bowel habits, change in stool character, chewing difficulty, coffee ground emesis, constipation, cramping, diarrhea, dyspepsia, dysphagia, earlysatiety, excessive flatus, fecalincontinence, heartburn, hematemesis, hematochezia, hemorrhoids, loose stools, melena, nausea, odynophagia, rectal bleeding, tenesmus, vomiting or weight changes Physical Exam Const alert, oriented x3, no apparent distress and healthy appearing General Appearance: cooperative GI normal to inspection, nondistended, normoactive bowel sounds, soft to palpation,non-tender and non-distended Percussion: normal to percussion Rectal Exam: deferred Assessment & Plan Assessment/Plan (1) Constipation: (2) Gastroparesis: (3) Nausea: (4) Abdominal pain: (5) Difficulty swallowing: PLAN: Assessment and Plan Assessment and Plan (1) Difficulty swallowing: Status: Acute Comment: FOR YEARS Plan: This is a 49 yo female pt here today for f/u after EGD. Pt established with [facility] in Sep 2024 with complaints of abdominal pain, weight loss, and n/v. She underwent 4 hour GES and RUQ US which were normal. Recent EGD showing bilious gastric fluid and inflammation. 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 However this wasnot ordered. I have put this order in now. She has been doing better since the scope and has been able to eat more and gain a little weight. She will continue Levsin and Zofran PRN which seems to help with her episodes of epigastric pain. SHe will f/u in3 months. -Continue Levsin and Zofran PRN -Barium esophagram -f/u in 3 months (2) Nausea: Status: Acute (3) Abdominal pain: Status: Acute Orders: Orders Esophagus Dual Contrast Today R13.10 - Dysphagia, unspecified Medications: New ondansetron 8 mg PO Q12H PRN 30 tabs 2RF nausea and vomiting 01/13/25 1240 Cosigner Signature (if applicable): CC: SANDI Garcia; Lloyd Lee, ~ Signed [facility]05-13-2025 [facility] Medical Records Department [address] [place] [address] History Physical Exam 01/13/25 1239 MR#: [id number] Acct: [id number] Name: KIA GONZALEZ Rep #: [id number] : 1975 49 From: Lloyd eLe DO PCP: SANDI Rick Status:REG [facility] Location: [place] [address] HPI - General General Date of Admission: 01/13/25 Date of Service: 01/13/25 Chief Complaint: Abdominal pain HPI Narrative KIA GONZALEZ, is a 49 F who presents for the evaluation of epigastric pain [facility] established Sep 2024 with weight loss, difficulty swallowing,heartburn and irregular bm. EGD ..17; Suspected Barrets esophagus, small amount of food debris in stomach, mild gastritis, normal duodenum EGD 5.18.24; small hiatal hernia, mild gastritis EGD 5..24; normal mucosa in the whole esophagus, erythema and congestion in the antrum, normal duodenum CT abd/pelvis 6.14.24; NO acute process within the abd/pelvis GES 6.25.24; slightly prolonged extrapolated T half emptying time of 126.5 minutes likely secondary to the 1st 60 minutes of imaging acquisition. Other marcelino normal RUQ US 2.1.25; normal Last OV 3.18.25 Pt continues to have issues with oral intake. She gets full very quickly after eating. Unable to gain weight. Continues to smoke marijuana EGD 4.07.28; - Normal esophagus. - Bilious gastric fluid. - Erythematous mucosa in the gastric body and antrum. Biopsied. - Erythematous duodenopathy. 4 hour GES 4.16.25; normal OV 4.28.25; Pt has been able to eat some soft foods without pain. She tells me Dr. Lee wanted to get a barium swallow after the EGD. She still has episodes of severe pain but Levsin and zofran has been helpful. [facility] Medical History History of MRSA infection Congenital hernia of foramen of [place] Wears glasses Post-menopausal Anxiety Marijuana use Arthritis Anemia Back pain Difficulty swallowing History of ulceration History of IBS Gastric reflux Vapes nicotine containing substance Smoker Hoarseness History of pain when walking Herpes simplex viral infection Depression Anesthesia complication Polycystic ovaries Neuropathy Heart murmur Irritable bowel syndrome Headache, migraine Gastrointestinal problem Back problem Seasonal allergies Home Medications ???Medication ???Instructions ???Recorded ???Last Taken ???Type multivitamin 1 ea PO DAILY 03/07/17 12/10/24 Hi story lactobacillus combination no.4 3 3,000 mmu cells PO QDAY 09/30/24 0 12/10/24 History billion cell capsule (Probiotic) magnesium 250 mg tablet 250 mg PO QDAY 09/30/24 12/10/24 H istory oxybutynin chloride 10 mg 10 mg PO BID 09/30/24 12/11/24 His tory tablet,extended release 24 hr pantoprazole 40 mg tablet,delayed 40 mg PO BID 09/30/24 12/10/24 Hi story release valacyclovir 500 mg tablet 500 mg PO QDAY 09/30/24 12/10/24 H istory fluticasone propionate 50 1 spray intranasal DAILY PRN 12/1212/10/24 History mcg/actuation nasal allergy symptoms spray,suspension (24 Hour Allergy Relief) hyoscyamine sulfate 0.125 mg tablet 0.125 mg PO BID-QID PRN dyspeps ia 12/16/24 Unknown Rx #30 tabs ondansetron 8 mg disintegrating 8 mg PO Q12H PRN nausea and Unknown Rx tablet vomiting #30 tabs Allergy/AdvReac Type Severity Reaction Status Date / Time sucralfate (From Carafate) Allergy Severe Swelling Verified 01/09/25 09:16 soy Allergy Hives Verified 01/09/25 09:16 sulfamethoxazole (From Allergy Swelling Verified 01/09/25 09:16 Bactrim) trimethoprim (From Bactrim) Allergy Swelling Verified 01/09/25 09:16 Family History Mother Cancer Anemia Arthritis Breast cancer Father Cancer Hypertension Heart disease Diabetes Myocardial infarction, Onset Age: 59 Brother Hypertension Hypercholesteremia Sister Arthritis Other Anxiety Surgical History History of esophagogastroduodenoscopy (EGD) History of hysterectomy History of total right knee replacement S/P right knee arthroscopy History of tonsillectomy Social History Smoking Status: Current every day smoker tobacco type: cigarettes alcohol intake: current substance use type: marijuana ROS Constitutional Constitutional: Denies fatigue, fever(s), poor appetite, weight gain or weight loss Gastrointestinal Gastrointestinal: Denies belching, bloating, change in bowel habits, change in stool character, chewing difficulty, coffee ground emesis, constipation, cramping, diarrhea, dyspepsia, dysphagia, early satiety, excessive flatus, fecal incontinence, heartburn, hematemesis, he (more content not included)...[facility]04-28-2025 Evaluation note* Diagnosis Onset Date Resolution Status Admit Date Abdominal pain acute December 7:59am Difficulty swallowing acute Dec 7:59am Nausea acute December 29 7:59am Abdominal pain acute January 13, 2025 12:33pm Constipation acute January 13 12:33pm Difficulty swallowing acute January 13, 2025 12:33pm Gastroparesis acute January 13, 2 025 12:33pm Nausea acute January 13, 2025 12:33pm Abdominal pain acute January 27, 2025 7:12am Constipation acute January 27 7:12am Gastroparesis acute January 27, 2 025 7:12am Nausea acute January 27, 2025 7:12am Abdominal pain acute April 1:43pm Constipation acute April 21, 2025 1:43pm Gastroparesis acute April 1:43pm Nausea acute April 21, 2 025 1:43pm [facility] Work Phone: 1(212) 191-842304-28-2025 Evaluation note* Diagnosis Onset Date Resolution Status Admit Date Abdominal pain acute December 7:59am Difficulty swallowing acute Dec 7:59am Nausea acute December 29 7:59am Abdominal pain acute January 13, 2025 12:33pm Constipation acute January 13 12:33pm Difficulty swallowing acute January 13, 2025 12:33pm Gastroparesis acute January 13, 2 025 12:33pm Nausea acute January 13, 2025 12:33pm Abdominal pain acute January 27, 2025 7:12am Constipation acute January 27 7:12am Gastroparesis acute January 27, 2 025 7:12am Nausea acute January 27, 2025 7:12am Abdominal pain acute April 1:43pm Constipation acute April 21, 2025 1:43pm Nausea acute April 21, 2 025 1:43pm Weight loss acute April 21, 2025 1:43pm [facility] Work Phone: 1(244) 617-384004-13-2025 NoteHNO ID: [id number] Author: REGGIE RATLIFF RT(R) Service: ? Author Type: Technologist Type: Progress Notes Filed: 12/14/2024 23:02 Note Text: Radiology Service Progress Note PATIENT NAME: Kia Gonzalez DATE OF SERVICE: December 14, 2024 TIME: 11:02 PM PATIENT IDENTITY VERIFICATION COMPLETED USING TWO (2) IDENTIFIERS: Name and Date of confirmed by patient verbally. FALL SCREENING: Has the patient had 2 falls in the last year or 1 fall with injury or currently using an Ambulatory Assistive Device (Walker, Cane, Wheelchair, Crutches, etc.)? Emergency Room Patient: Screened in ED PATIENT GENDER DATA: Assigned female at . status: : No status: NO. PATIENT RELEVANT IMPLANT DATA REVIEWED: Not Applicable PATIENT PRESENTS WITH AN IMPLANTABLE OR ATTACHED CEMENT BOAT AND BARGE LOADER: No RADIOLOGY DEPARTMENT: General X-ray: Exam(s) Completed: Abdomen X-Ray: acute abdomen w/ PA chest PERIPHERAL IV DATA: Not applicable SIGNED BY: RT Vickie(R) December 14, 2024 11:02 PM[facility] [id number] Consult note [facility] Medical Records Department [address] [place] [address] Anesthesia Postop Eval II 12/12/24 1459 MR#: [id number] Acct: [id number] Name: KIA GONZALEZ Rep #:[id number] : 1975 49 From: Jay Fay MD PCP: SANDI Rick Status:REG S DC Y Race: C Location: [place] [address] Anesthesia Postop Eval I Sum Postop Eval Completion status Anesthesia document: Postop Eval 1 completed: Yes Anesthesia Postop Eval I Summary Anesthesia Postop Eval I Summary: Anesthesia Postop Eval I: Assessment Summary Airway patent Yes 12/12/24 14:17 [email or web address] Spontaneous unlabored Yes 12/12/24 14:17 [email or web address] respirations Mental status Asleep 12/12/24 14:17 [email or web address] nausea No 12/12/24 14:17 [email or web address] Vomiting No 12/12/24 14:17 [email or web address] Anesthesia Postop Eval I: Fluid Summary Crystalloid volume administer 30 12/12/24 14:17 [email or web address] (ml) Colloids volume administered ( ml) Blood Product volume administered (ml) Total IV fluid infused 30 12/12/24 14:17 [email or web address] Anesthesia Postop Eval I: Summary Notes Anesthesia Complication No 12/12/24 14:17 [email or web address] Anesthesia Complication Comment: Post-operative progress note Anesthesia: Postop Eval II Evaluation Mental status: Awake Pain Level: 0 nausea: No Vomiting: No 12/12/24 1459 > Date _ Jay Fay MD [facility] Signature: Date CC: ~ Signed [facility]04-11-2025 Consult note [facility] Medical Records Department [address] [place] [address] Anesthesia Postop Eval I 12/12/24 1416 MR#: [id number] Acct: [id number] Name: KIA GONZALEZ LOYDA Rep #:[id number] : 1975 49 From: Rupa Moore PCP: Teri Garcia COVERAGE SPECIALIST-C Status:REG S DC Y Race: C Location: [place] [address] Anesthesia: Postop Eval I Current Vital Signs Temperature: 97.9 F Pulse Rate: 71 Blood Pressure: 86/67 Respiratory Rate: 16 Pulse Ox: 98 Oxygen Delivery Method: Room Air Assessment Airway patent: Yes Spontaneous unlabored respirations: Yes Mental status: Asleep nausea: No Vomiting: No Anesthesia Complication: No Fluid Hydration Crystalloid volume administer (ml): 30 Total IV fluid infused: 30 Progress Note Anesthesia document: Postop Eval 1 completed: Yes 12/12/24 1417 > Date _ Rupa Cavazosignkirill Signature: Date CC: ~ Signed [facility]04-11-2025 Procedure note [facility] Medical Records Department [address] [place] [address] Operative Report - CC Letter MR#: [id number] Acct: [id number] Name: KIA GONZALEZ Rep #:[id number] : 1975 49 From: Lloyd Lee DO PCP: Teri Garcia NP-C Status:REG S DC 12/12/2024 Teri Garcia Re : Upper GI endoscopy procedure for Kia Gonzalez Chuy Garcia This procedure was performed on Thursday, December 12, 2024. My impressions and recommendations are as follows: Impressions : - Normal esophagus. - Bilious gastric fluid. - Erythematous mucosa in the gastric body and antrum. Biopsied. - Erythematous duodenopathy. Recommendations : - Discharge patient to home. - Resume previous diet. - Continue present medications. - Await pathology results. My findings are described in the full procedure note, which is enclosed. If I can be of further assistance, please feel free to contact me at . Sincerely, Lloyd Lee DO 12/12/2024 2:15:28 PM This report has been signed electronically. 12/12/24 1415 Date _ Lloydlilliana Templetonignkirill Signature: Date (if indicated) CC: COVERAGE SPECIALIST-Brandon Garcia; Lloyd Jesus, ~ Date Dictated: 12/12/24 1345 Date Transcribed: Commutator Assembler: SILVESTRE Signed [facility]04-11-2025 Consult note Author Jay Fay [facility] Note Date/Time December 12, 2024 12: 15pm [facility] Medical Records Department [address] [place] [address] Pre-Anesthesia Evaluation 12/12/24 1215 MR#: [id number] Acct: [id number] Name: KIA GONZALEZ Rep #:[id number] : 1975 49 From: Jay Fay MD PCP: SANDI Rick Status:REG S DC Y Race: C Location: [place] [address] ASA Classification* ASA Classification ASA Classification: 2 Assessment & Plan Anesthesia* Anesthesia Assessment Anesthesia Assessment: Discussed sedation and/or anesthesia options, risks, benefits, and alternatives with patient/parents/legal guardian/POA. Questions invited. The patient/parents/legal guardian/POA seems to understand and agrees to proceedwith anesthesia plan. Reviewed the physical assessment, medical history, allergy history and patient home medications list prior to surgery/procedure/anesthetic and documented any changes. Performed airway and anesthesia risk assessments. 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 When Was Last Pacemaker Check QUESTION #4 FULL TEXT: You/Your Family Experience fever (hyperthermia) with Anesthesia Last Oral Intake Last Oral intake: Last Oral Intake NPO since Meds taken in AM with sips of water? 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 Female Yes 12/10/24 10:38 HX of Motion Sickness Yes 12/10/24 10:38 HX of N/V After Surgery Yes 12/10/24 10:38 Non-Smoker No 12/10/24 10:38 Duration of Surgery greater No 12/10/24 10:38 than 60 minutes Number of Risk Factors 3 12/10/24 10:38 PONV Score Moderate Risk 12/10/24 10:38 Respiratory Assessment Respiratory Assessment - crowning hammer operator: Respiratory Tract Infection Hx - crowning hammer operator Hx Respiratory Tract Infection No 12/10/24 10:38 STOP Sleep Apnea STOP Sleep Apnea - crowning hammer operator: STOP Sleep Apnea - crowning hammer operator Hx Hypertension No 12/10/24 10:38 Hx Sleep Apnea No 12/10/24 10:38 CPAP BIPAP Do you snore loudly (louder No 12/10/24 10:38 than talking or can be heard Do you often feel tired/ No 12/10/24 10:38 fatigued/ sleepy during daytime? Has anyone observed you stop No 12/10/24 10:38 breathing during sleep? STOP Results Negative 12/10/24 10:38 QUESTION #5 FULL TEXT : Do you snore loudly (louder than talking or can be heard through closed doors)? 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 Specify any problems Hx of Preganancy in last 3 No 12/10/24 10:38 Months Nurse Filling Out Transfusion VCHRISTIN 12/10/24 10:38 & Questions: Date: 12/10/24 12/10/24 10:38 Time: 10:42 12/10/24 10:38 Patient unable to answer at this time (ie. 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 Hx Now No 12/10/24 10:38 Gestational Age (in weeks): EDC: Hx Hx Para Hx Section SAB No 12/10/24 10:38 PFSH Medical History Wears glasses MRSA infection Post-menopausal Anxiety Marijuana use Arthritis Anemia Back pain Difficulty swallowing History of ulceration History of IBS Gastric reflux Vapes nicotine containing substance Smoker Hoarseness History of pain when walking Herpes simplex viral infection Depression Anesthesia complication Polycystic ovaries Neuropathy Heart murmur Irritable bowel syndrome Hives Headache, migraine Gastrointestinal problem Back problem Seasonal allergies Home Medications ?Medication ?Instructions ?Recorded ?Last Taken ?Type multivitamin 1 ea PO DAILY 03/07/17 Unkno wn History lactobacillus combination no.4 3 3,000 mmu cells PO QD AY 09/30/24 Unknown History billion cell capsule (Probiotic) magnesium 250 mg tablet 250 mg PO QDAY 09/30/24 Unkn own History oxybutynin chloride 10 mg 10 mg PO BID 09/30/24 Unknow n History tablet,extended release 24 hr pantoprazole 40 mg tablet,delayed 20 mg PO BID 5 Unknown History release valacyclovir 500 mg tablet 500 mg PO QDAY 09/30/24 Unk nown History ondansetron 8 mg disintegrating 8 mg PO Q12H PRN nause a and 12/10/24 Unknown History tablet vomiting Allergy/AdvReac Type Severity Reaction Status Date / Time sucralfate (From Carafate) Allergy Severe Swelling Verified 12/10/24 10:25 sulfamethoxazole (From Allergy Swelling Verified 12/10/24 10:25 Bactrim) trimethoprim (From Bactrim) Allergy Swelling Verified 12/10/24 10:25 Family History Mother Cancer Anemia Arthritis Breast cancer Father Cancer Hypertension Heart disease Diabetes Myocardial infarction, Onset Age: 59 Brother Hypertension Hypercholesteremia Sister Arthritis Other Anxiety Surgical History History of esophagogastroduodenoscopy (EGD) History of hysterectomy History of total right knee replacement S/P right knee arthroscopy History of tonsillectomy Social History Smoking Status: Current every day smoker tobacco type: cigarettes alcohol intake: current substance use type: marijuana Review of Systems (Anesthesia) ROS Narrative System reviewed and no additional complaints, except as documented. 12/12/24 1215 <Electronically signed by Jay Fay MD > Date _ Jay Fay MD Cosigner Signature: Date CC: ~ Signed [facility] Work Phone: 1(367) 800-985104-11-2025 Procedure note [facility] Medical Records Department [address] [place] [address] EGD Report MR#: [id number] Acct: [id number] Name: KIA GONZALEZ Rep #:[id number] : 1975 49 From: Lloyd Lee DO PCP: SANDI Rick Status:REG S DC Patient Name: Kia Gonzalez Procedure Date: 12/12/2024 1:45 PM Date of : 1975 Age: 49 Procedure: Upper GI endoscopy Indications: Epigastric abdominal pain, Functional Dyspepsia Providers: Lloyd Lee DO Medicines: Monitored Anesthesia Care Patient Profile: This is a 49 year old female. Refer to note in patient chart for documentation of history and physical. Patient has symptoms of chronic epigastric abdominal pain, chronic dyspepsia and chronic nausea. Complications: No immediate complications. Procedure: Pre-Anesthesia Assessment: - Prior to the procedure, a History and Physical was performed, and patient medications and allergies were reviewed. The patient is competent. The risks and benefits of the procedure and the sedation options and risks were discussed with the patient. All questions were answered and informed consent was obtained. Patient identification and proposed procedure were verified by the physician in the pre-procedure area. Mental Status Examination: alert and oriented. Airway Examination: normal oropharyngeal airway and neck mobility. Respiratory Examination: clear to auscultation. CV Examination: normal. Prophylactic Antibiotics: The patient does not require prophylactic antibiotics. Prior Anticoagulants: The patient has taken no anticoagulant or antiplatelet agents except for NSAID medication. ASA Grade Assessment: II - A patient with mild systemic disease. After reviewing the risks and benefits, the patient was deemed in satisfactory condition to undergo the procedure. The anesthesia plan was to use monitored anesthesia care (MAC). Immediately prior to administration of medications, the patient was re-assessed for adequacy to receive sedatives. The heart rate, respiratory rate, oxygen saturations, blood pressure, adequacy of pulmonary ventilation, and response to care were monitored throughout the procedure. The physical status of the patient was re-assessed after the procedure. After obtaining informed consent, the endoscope was passed under direct vision. Throughout the procedure, the patient's blood pressure, pulse, and oxygen saturations were monitored continuously. The gastroscope was introduced through the mouth, and advanced to the third part of the duodenum. Small bowel enteroscopy was deemed necessary. The upper GI endoscopy was accomplished without difficulty. The patient tolerated the procedure well. Scope In: 2:02:01 PM Scope Out: 2:06:55 PM Total Procedure Duration Time 0 hours 4 minutes 54 seconds Findings: The examined esophagus was normal. Bilious fluid was found in the gastric body. Patchy mildly erythematous mucosa without bleeding was found in the gastric body and in the gastric antrum. Biopsies were taken with a cold forceps for histology. Verification of patient identification for the specimen was done. Biopsies were taken with a cold forceps for Helicobacter pylori testing. Verification of patient identification for the specimen was done. Estimated blood loss was minimal. Patchy mildly erythematous mucosa without active bleeding and with no stigmata of bleeding was found in the duodenal bulb and in the first portion of the duodenum. Impression: - Normal esophagus. - Bilious gastric fluid. - Erythematous mucosa in the gastric body and antrum. Biopsied. - Erythematous duodenopathy. Recommendation: - Discharge patient to home. - Resume previous diet. - Continue present medications. - Await pathology results. Procedure Code(s): --- Professional --- 94095, Small intestinal endoscopy, enteroscopy beyond second portion of duodenum, not including ileum; with biopsy, single or multiple CPT copyright 2021 [employer]. All rights reserved. The codes documented in this report are preliminary and upon chief investigator review may be revised to meet current compliance requirements. Lloyd Lee DO 12/12/2024 2:15:28 PM This report has been signed electronically. Number of Addenda: 0 Note Initiated On: 12/12/2024 1:45 PM 12/12/24 1415 Date _ Lloyd Lee DO Cosigner Signature: Date (if indicated) CC: SANDI Garcia; Lloyd Lee DO ~ Date Dictated: 12/12/245 Date Transcribed: Commutator Assembler: RF Signed [facility]04-11-2025 History and physical note [facility] Medical Records Department [address] [place] [address] History & Physical Exam 12/12/24 1342 MR#: [id number] Acct: [id number] Name: KIA GONZALEZ Rep #:[id number] : 1975 49 From: Lloyd Lee DO PCP: Teri Lorson, COVERAGE SPECIALIST-C Status:REG S DC Location: [facility] HPI - General General Date of Admission: 12/12/24 Date of Service: 12/12/24 Chief Complaint: weight loss and abdominal pain with dysphagia HPI Narrative KIA GONZALEZ, is a 49 F who presents abdominal pain, constipation and weight loss. EGD ..17; Suspected Barrets esophagus, small amount of food debris in stomach, mild gastritis, normal duodenum EGD 5..24; small hiatal hernia, mild gastritis EGD 5..24; normal mucosa in the whole esophagus, erythema and congestion in the antrum, normal duodenum CT abd/pelvis 6.24; NO acute process within the abd/pelvis GES 6..24; slightly prolonged extrapolated T half emptying time of 126.5 minutes likely secondaryto the 1st 60 minutes of imaging acquisition. Other marcelino normal BGI established 1.28.25 with complaints of weight loss, difficult swallowing, heartburn and irregular bowels. Previous work up with [facility]. Smokes marijuana daily to stimulate appetite. On Pantoprazole 40 mg BID. Last EGD in 2023 and last colonoscopy about 10 years ago. RUQ US 2.1.25; normal OV 3.18.25; Pt has been struggling with oral intake. She feels full very quicklyafter eating. She is taking nutritional powder for extra calories. She is eatingmostly bland food and avoiding gluten and soy. She is unable to gain weight. Shecontinues to smoke marijuana. She has questions regarding oxybutynin for her bladder incontinence. [facility] History Congenital hernia of foramen of [place] Wears glasses MRSA infection Post-menopausal Anxiety Marijuana use Arthritis Anemia Back pain Difficulty swallowing History of ulceration History of IBS Gastric reflux Vapes nicotine containing substance Smoker Hoarseness History of pain when walking Herpes simplex viral infection Depression Anesthesia complication Polycystic ovaries Neuropathy Heart murmur Irritable bowel syndrome Hives Headache, migraine Gastrointestinal problem Back problem Seasonal allergies Home Medications ?Medication ?Instructions ?Recorded ?Last Taken ?Type multivitamin 1 ea PO DAILY 03/07/1712/10 History lactobacillus combination no.4 3 3,000 mmu cells PO QD AY 09/30/24 12/10/24 History billion cell capsule (Probiotic) magnesium 250 mg tablet 250 mg PO QDAY 09/30/24 04/05/28 History oxybutynin chloride 10 mg 10 mg PO BID 09/30/24 History tablet,extended release 24 hr pantoprazole 40 mg tablet,delayed 20 mg PO BID 5 12/10/24 History release valacyclovir 500 mg tablet 500 mg PO QDAY 09/30/2405/28 History ondansetron 8 mg disintegrating 8 mg PO Q12H PRN nause a and 12/10/24 12/10/24 History tablet vomiting fluticasone propionate 50 1 spray intranasal DAILY PRN 12/12/24 12/10/24 History mcg/actuation nasal allergy symptoms spray,suspension (24 Hour Allergy Relief) Allergy/AdvReac Type Severity Reaction Status Date / Time sucralfate (From Carafate) Allergy Severe Swelling Verified 12/12/24 12:52 soy Allergy Hives Verified 12/12/24 12:52 sulfamethoxazole (From Allergy Swelling Verified 12/12/24 12:52 Bactrim) trimethoprim (From Bactrim) Allergy Swelling Verified 12/12/24 12:52 Family History Mother Cancer Anemia Arthritis Breast cancer Father Cancer Hypertension Heart disease Diabetes Myocardial infarction, Onset Age: 59 Brother Hypertension Hypercholesteremia Sister Arthritis Other Anxiety Surgical History History of esophagogastroduodenoscopy (EGD) History of hysterectomy History of total right knee replacement S/P right knee arthroscopy History of tonsillectomy Social History Smoking Status: Current every day smoker tobacco type: cigarettes alcohol intake: current substance use type: marijuana ROS Constitutional Constitutional: Denies fatigue, fever(s), poor appetite, weight gain or weight loss Gastrointestinal Gastrointestinal: Denies belching, bloating, change in bowel habits, change in stool character, chewing difficulty, coffee ground emesis, constipation, cramping, diarrhea, dyspepsia, dysphagia, earlysatiety, excessive flatus, fecalincontinence, heartburn, hematemesis, hematochezia, hemorrhoids, loose stools, melena, nausea, odynophagia, rectal bleeding, tenesmus, vomiting or weight changes Vital Signs Vital Signs Vital Signs: 12/12/24 12:58 12/12/24 12:58 Temperature 98 F Temperature Source Temporal Pulse Rate 57 L Respiratory Rate 16 Respiratory Pattern Normal Blood Pressure 118/86 H Blood Pressure Mean 96 Blood Pressure Source Monitor Blood Pressure Position Semi-Fowlers Blood Pressure Location Left Arm Pulse Ox 100 Oxygen Delivery Method Room Air Weight Weight: 103 lb 2.821 oz Body Mass Index (BMI) 17.2 Physical Exam Const alert, oriented x3, no apparent distress and healthy appearing General Appearance: cooperative GI normal to inspection, nondistended, normoactive bowel sounds, soft to palpation,non-tender and non-distended Percussion: normal to percussion Rectal Exam: deferred Assessment & Plan Assessment/Plan (1) Constipation: (2) Gastroparesis: (3) Nausea: (4) Loose stools: (5) Abdominal pain: PLAN: Assessment and Plan Assessment and Plan (1) Gastroparesis: Status: Acute Plan: This is a 49 yo female pt with hx of gastroparesis here today for f/u. Pt continues to struggle with oral intake due to early satiety. She cannot maintaina normal weight. I reviewed options for treatment with patient. She declines tx with Reglan as she is concern about side effects. Will order 4 hour gastric emptying study and consider referral to gastroparesis clinic if indicated. She will also have a repeat EGD. She has not had a colonoscopy in 10 years so she will have one in conjunction with the EGD. She is having constipation. I provided samples of Linzess 72 mcg and if she has good results I will send in prescription for this. -4 hour GES -EGD and colonoscopy -Declines Reglan -Consider other tx for gastroparesis -Consider referral to gastroparesis appointemnt (2) Nausea: Status: Acute (3) Constipation: Status: Acute Orders: Orders Gastric Emptying Study - 4 HR Today K31.84 - Gastroparesis 12/12/24 1344 Cosigner Signature (if applicable): CC: SANDI Garcia; Lloyd Friend, DO~ Signed [facility]04-11-2025 [facility] Medical Records Department [address] [place] [address] History Physical Exam 12/12/24 1342 MR#: [id number] Acct: [id number] Name: KIA GONZALEZ Rep #: [id number] : 1975 49 From: Lloyd Lee DO PCP: SANDI Rick Status:REG [facility] Location: [place] [address] HPI - General General Date of Admission: 12/12/24 Date of Service: 12/12/24 Chief Complaint: weight loss and abdominal pain with dysphagia HPI Narrative KIA GONZALEZ, is a 49 F who presents abdominal pain, constipation and weight loss. EGD 11.14.17; Suspected Barrets esophagus, small amount of food debris in stomach, mild gastritis, normal duodenum EGD 5.18.24; small hiatal hernia, mild gastritis EGD 5.13.24; normal mucosa in the whole esophagus, erythema and congestion in the antrum, normal duodenum CT abd/pelvis 6.14.24; NO acute process within the abd/pelvis GES 6.25.24; slightly prolonged extrapolated T half emptying time of 126.5 minutes likely secondary to the 1st 60 minutes of imaging acquisition. Other marcelino normal BGI established 1.28.25 with complaints of weight loss, difficult swallowing, heartburn and irregular bowels. Previous work up with Qing HARDWICK. Smokes marijuana daily to stimulate appetite. On Pantoprazole 40 mg BID. Last EGD in 2023 and last colonoscopy about 10 years ago. RUQ US 2.1.25; normal OV 3.18.25; Pt has been struggling with oral intake. She feels full very quickly after eating. She is taking nutritional powder for extra calories. She is eating mostly bland food and avoiding gluten and soy. She is unable to gain weight. She continues to smoke marijuana. She has questions regarding oxybutynin for her bladder incontinence. [facility] Medical History Congenital hernia of foramen of [place] Wears glasses MRSA infection Post-menopausal Anxiety Marijuana use Arthritis Anemia Back pain Difficulty swallowing History of ulceration History of IBS Gastric reflux Vapes nicotine containing substance Smoker Hoarseness History of pain when walking Herpes simplex viral infection Depression Anesthesia complication Polycystic ovaries Neuropathy Heart murmur Irritable bowel syndrome Hives Headache, migraine Gastrointestinal problem Back problem Seasonal allergies Home Medications ???Medication ???Instructions ???Recorded ???Last Taken ???Type multivitamin 1 ea PO DAILY 03/07/17 12/10/24 Hi story lactobacillus combination no.4 3 3,000 mmu cells PO QDAY 09/30/24 0 12/10/24 History billion cell capsule (Probiotic) magnesium 250 mg tablet 250 mg PO QDAY 09/30/24 12/10/24 H istory oxybutynin chloride 10 mg 10 mg PO BID 09/30/24 12/11/24 His tory tablet,extended release 24 hr pantoprazole 40 mg tablet,delayed 20 mg PO BID 09/30/24 12/10/24 Hi story release valacyclovir 500 mg tablet 500 mg PO QDAY 09/30/24 12/10/24 H istory ondansetron 8 mg disintegrating 8 mg PO Q12H PRN nausea and 12/10/24 History tablet vomiting fluticasone propionate 50 1 spray intranasal DAILY PRN 12/1212/10/24 History mcg/actuation nasal allergy symptoms spray,suspension (24 Hour Allergy Relief) Allergy/AdvReac Type Severity Reaction Status Date / Time sucralfate (From Carafate) Allergy Severe Swelling Verified 12/12/24 12:52 soy Allergy Hives Verified 12/12/24 12:52 sulfamethoxazole (From Allergy Swelling Verified 12/12/24 12:52 Bactrim) trimethoprim (From Bactrim) Allergy Swelling Verified 12/12/24 12:52 Family History Mother Cancer Anemia Arthritis Breast cancer Father Cancer Hypertension Heart disease Diabetes Myocardial infarction, Onset Age: 59 Brother Hypertension Hypercholesteremia Sister Arthritis Other Anxiety Surgical History History of esophagogastroduodenoscopy (EGD) History of hysterectomy History of total right knee replacement S/P right knee arthroscopy History of tonsillectomy Social History Smoking Status: Current every day smoker tobacco type: cigarettes alcohol intake: current substance use type: marijuana ROS Constitutional Constitutional: Denies fatigue, fever(s), poor appetite, weight gain or weight loss Gastrointestinal Gastrointestinal: Denies belching, bloating, change in bowel habits, change in stool character, chewing difficulty, coffee ground emesis, constipation, cramping, diarrhea, dyspepsia, dysphagia, early satiety, excessive flatus, fecal incontinence, heartburn, hematemesis, hematochezia, hemorrhoids, loose stools, melena, nausea, odynophagia, rectal bleeding, tenesmus, vomiting or weight c (more content not included)...[facility]04-11-2025 Consult note [facility] Medical Records Department [address] [place] [address] Pre-Anesthesia Evaluation 12/12/24 1215 MR#: [id number] Acct: [id number] Name: KIA GONZALEZ Rep #:[id number] : 1975 49 From: Jay Fay MD PCP: SANDI Rick Status:REG S DC Y Race: C Location: [place] [address] ASA Classification* ASA Classification ASA Classification: 2 Assessment & Plan Anesthesia* Anesthesia Assessment Anesthesia Assessment: Discussed sedation and/or anesthesia options, risks, benefits, and alternatives with patient/parents/legal guardian/POA. Questions invited. The patient/parents/legal guardian/POA seems to understand and agrees to proceedwith anesthesia plan. Reviewed the physical assessment, medical history, allergy history and patient home medications list prior to surgery/procedure/anesthetic and documented any changes. Performed airway and anesthesia risk assessments. 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 When Was Last Pacemaker Check QUESTION #4 FULL TEXT: You/Your Family Experience fever (hyperthermia) with Anesthesia Last Oral Intake Last Oral intake: Last Oral Intake NPO since Meds taken in AM with sips of water? 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 Female Yes 12/10/24 10:38 HX of Motion Sickness Yes 12/10/24 10:38 HX of N/V After Surgery Yes 12/10/24 10:38 Non-Smoker No 12/10/24 10:38 Duration of Surgery greater No 12/10/24 10:38 than 60 minutes Number of Risk Factors 3 12/10/24 10:38 PONV Score Moderate Risk 12/10/24 10:38 Respiratory Assessment Respiratory Assessment - crowning hammer operator: Respiratory Tract Infection Hx - crowning hammer operator Hx Respiratory Tract Infection No 12/10/24 10:38 STOP Sleep Apnea STOP Sleep Apnea - crowning hammer operator: STOP Sleep Apnea - crowning hammer operator Hx Hypertension No 12/10/24 10:38 Hx Sleep Apnea No 12/10/24 10:38 CPAP BIPAP Do you snore loudly (louder No 12/10/24 10:38 than talking or can be heard Do you often feel tired/ No 12/10/24 10:38 fatigued/ sleepy during daytime? Has anyone observed you stop No 12/10/24 10:38 breathing during sleep? STOP Results Negative 12/10/24 10:38 QUESTION #5 FULL TEXT : Do you snore loudly (louder than talking or can be heard through closeddoors)? 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 Specify any problems Hx of Preganancy in last 3 No 12/10/24 10:38 Months Nurse Filling Out Transfusion VCHRISTIN 12/10/24 10:38 & Questions: Date: 12/10/24 12/10/24 10:38 Time: 10:42 12/10/24 10:38 Patient unable to answer at this time (ie. 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 Hx Now No 12/10/24 10:38 Gestational Age (in weeks): EDC: Hx Hx Para Hx Section SAB No 12/10/24 10:38 PFS Medical History Wears glasses MRSA infection Post-menopausal Anxiety Marijuana use Arthritis Anemia Back pain Difficulty swallowing History of ulceration History of IBS Gastric reflux Vapes nicotine containing substance Smoker Hoarseness History of pain when walking Herpes simplex viral infection Depression Anesthesia complication Polycystic ovaries Neuropathy Heart murmur Irritable bowel syndrome Hives Headache, migraine Gastrointestinal problem Back problem Seasonal allergies Home Medications ?Medication ?Instructions ?Recorded ?Last Taken ?Type multivitamin 1 ea PO DAILY 03/07/17 Unkno wn History lactobacillus combination no.4 3 3,000 mmu cells PO QD AY 09/30/24 Unknown History billion cell capsule (Probiotic) magnesium 250 mg tablet 250 mg PO QDAY 09/30/24 Unkn own History oxybutynin chloride 10 mg 10 mg PO BID 09/30/24 Unknow n History tablet,extended release 24 hr pantoprazole 40 mg tablet,delayed 20 mg PO BID 5 Unknown History release valacyclovir 500 mg tablet 500 mg PO QDAY 09/30/24 Unk nown History ondansetron 8 mg disintegrating 8 mg PO Q12H PRN nause a and 12/10/24 Unknown History tablet vomiting Allergy/AdvReac Type Severity Reaction Status Date / Time sucralfate (From Carafate) Allergy Severe Swelling Verified 12/10/24 10:25 sulfamethoxazole (From Allergy Swelling Verified 12/10/24 10:25 Bactrim) trimethoprim (From Bactrim) Allergy Swelling Verified 12/10/24 10:25 Family History Mother Cancer Anemia Arthritis Breast cancer Father Cancer Hypertension Heart disease Diabetes Myocardial infarction, Onset Age: 59 Brother Hypertension Hypercholesteremia Sister Arthritis Other Anxiety Surgical History History of esophagogastroduodenoscopy (EGD) History of hysterectomy History of total right knee replacement S/P right knee arthroscopy History of tonsillectomy Social History Smoking Status: Current every day smoker tobacco type: cigarettes alcohol intake: current substance use type: marijuana Review of Systems (Anesthesia) ROS Narrative System reviewed and no additional complaints, except as documented. 12/12/24 1215 > Date _ Jay Fay MD Cosigner Signature: Date CC: ~ Signed [facility]03-18-2025 Evaluation note* Diagnosis Onset Date Resolution Status Admit Date Constipation acute November 18, 2024 6:58am Gastroparesis acute November 18, 2024 6:58am Nausea acute November 18 6:58am Abdominal pain acute December 12:09pm Constipation acute December 12, 2024 12:09pm Gastroparesis acute December 12, 2024 12:09pm Loose stools acute December 12, 2024 12:09pm Nausea acute December 12 12:09pm Abdominal pain acute December 7:59am Difficulty swallowing acute Dec 7:59am Nausea acute December 29 7:59am Abdominal pain acute January 13, 2025 12:33pm Constipation acute January 13 12:33pm Difficulty swallowing acute January 13, 2025 12:33pm Gastroparesis acute January 13, 2 025 12:33pm Nausea acute January 13, 2025 12:33pm Abdominal pain acute January 27, 2025 7:12am Constipation acute January 27 7:12am Gastroparesis acute January 27, 025 7:12am Nausea acute January 27, 2025 7:12am [facility] Work Phone: 1(235) 340-296503-09-2025 Note. MICRO - Microbiology PROCEDURE: Urine Culture [*1] SOURCE: Urine, Clean Catch BODY SITE: COLLECTED DATE/TIME: 11/07/2024 15:35 EST RECEIVED DATE/TIME: 11/07/2024 22:00 EST START DATE/TIME: 11/07/2024 22:00 EST FREE TEXT SOURCE: FINAL REPORTS Final Report [] Verified Date/Time/Personnel: 11/09/2024 06:50 EDT 10,000 - 50,000 cfu/ml Mixed growth consistent with normal urogenital leo. PRELIMINARY REPORTS Preliminary Report [] Verified Date/Time/Personnel: 11/08/2024 11:47 EST No growth to date Preliminary Report [] Verified Date/Time/Personnel: 11/07/2024 22:59 EST Specimen received in lab. Performing Locations *1: This test was performed at: [facility], [address] [place] [address], [facility] , [facility] [id number] Evaluation note* Diagnosis Onset Date Resolution Status Admit Date Abdominal pain acute September 302024 7:07am Loose stools acute September 7:07am Nausea acute September 30, 2024 7:07am Gastroesophageal reflux disease none active September 30, 2024 7:07am Constipation acute November 18, 2024 6:58am Gastroparesis acute November 18, 2024 6:58am Nausea acute November 18 6:58am Abdominal pain acute December 12:09pm Constipation acute December 12, 2024 12:09pm Gastroparesis acute December 12, 2024 12:09pm Loose stools acute December 12, 2024 12:09pm Nausea acute December 12 12:09pm [facility] Work Phone: 1(406) 903-912801-28-2025 Evaluation note* Diagnosis Onset Date Resolution Status Admit Date Abdominal pain acute September 302024 7:07am Loose stools acute September 7:07am Nausea acute September 30, 2024 7:07am Gastroesophageal reflux disease none active September 30, 2024 7:07am Constipation acute November 18, 2024 6:58am Gastroparesis acute November 18, 2024 6:58am Nausea acute November 18 6:58am Abdominal pain acute December 12:09pm Constipation acute December 12, 2024 12:09pm Gastroparesis acute December 12, 2024 12:09pm Loose stools acute December 12, 2024 12:09pm Nausea acute December 12 12:09pm Abdominal pain acute December 7:59am Difficulty swallowing acute Dec 7:59am Nausea acute December 29 7:59am Abdominal pain acute January 13, 2025 12:33pm Constipation acute January 13 12:33pm Difficulty swallowing acute January 13, 2025 12:33pm Gastroparesis acute January 13, 2 025 12:33pm Nausea acute January 13, 2025 12:33pm [facility] Work Phone: 1(336) 391-202501-15-2025 Note. MICRO - Microbiology PROCEDURE: Urine Culture [*1] SOURCE: Urine, Clean Catch BODY SITE: COLLECTED DATE/TIME: 09/15/2024 07:57 EST RECEIVED DATE/TIME: 09/15/2024 20:01 EST START DATE/TIME: 09/15/2024 20:02 EST FREE TEXT SOURCE: FINAL REPORTS Final Report [] Verified Date/Time/Personnel: 09/17/2024 07:34 EST 10,000 - 50,000 cfu/ml Mixed growth consistent with normal urogenital leo. PRELIMINARY REPORTS Preliminary Report [] Verified Date/Time/Personnel: 09/16/2024 08:33 EST No growth to date Performing Locations *1: This test was performed at: [facility], [address] [place] [address], [phone] , [facility]08-11-2024 Hospital Discharge instructions Patient Education 04/13/2024 13:40:49 Post Op Wound Check, Bleeding Wound Check After Surgery: Bleeding Surgery involves cutting through layers of skin, fatty tissue, muscle, and sometimes bone and cartilage. Stitches or shaun are used to close all layers of the wound. The stitches on the inside willdissolve in about 2 to 3 weeks. Any stitches or shaun used on the outside need to be removed in about 7 to 14 days, depending on the location. It is normal to have some clear or bloody discharge on the wound covering or bandage (dressing) forthe first few days after surgery. If your wound was stitched closed, you should not have to change the dressing more than 3 times a day in the first few days. Bleeding or discharge requiring more frequent dressing changes can be a sign of a problem. If this occurs, notify your healthcare provider right away. Home care Different types of surgery require different types of care and dressing changes. It is important tofollow all instructions and advice from your surgeon, as well as other members of your healthcare team. Wound care If you smoke, get help to quit. Smoking interferes with wound healing. Ask your healthcare providerabout ways to quit. Keep the wound clean, as directed by your healthcare provider. Change the dressing as directed. Change the dressing sooner if it becomes wet or stained with bloodor fluid from the wound. Bathe with a sponge (no shower or tub baths) for the first few days after surgery, or until there is no more drainage from the wound. Unless you received different instructions from your surgeon, youcan then shower. Don't soak the area in water (no baths or swimming) until the tape, sutures, or shaun are removed and any wound opening has dried out and healed. Changing the dressing Wash your hands before changing the dressings. Carefully remove the dressing and tape; don t just yank it off. If it sticks to the wound, you may need to wet it a little to remove it, unless your healthcare provider told you not to wet it. Wash your hands again before putting on a new, clean dressing. Gently clean the wound with clean water (or saline) using gauze or a clean washcloth. Don't rub it or pick at it. Don't use soap, alcohol, hydrogen peroxide, or any other cleanser. If you were told to dry the wound before putting on a new dressing, gently pat it dry. Don't rub. Put the old dressing in a sealed plastic bag and throw it in the trash. Don't reuse it! Wash your hands again when you are done. Types of dressings Your healthcare team will tell you what type of dressing to put on your wound. Follow your healthcare team s instructions carefully, and contact them if you have any questions. Two common types of dressings are described below. You may have one of these or another type. Dry dressing. Use dry gauze. If the wound is still draining, use a nonadherent dressing, which shouldn t stick to the wound. Wet-to-dry dressing. Wet the gauze, and squeeze out the excess water (or saline), before putting iton. Then, cover this with a dry pad. Medicines If you were given antibiotics, take them until they are used up or your healthcare provider tells you to stop. It is important to finish the antibiotics even though you feel better, to make sure the infection has cleared. You can take acetaminophen or ibuprofen for pain, unless you were given a different pain medicine to use. (Note: If you have chronic liver or kidney disease, or have ever had a stomach ulcer or gastrointestinal bleeding, or are taking blood thinner medicines, talk with your healthcare provider before using these medicines.) Aspirin should never be used in anyone under 18 years of age who is ill with a fever. It may cause severe liver damage. Follow-up care Follow up with your healthcare provider, or as advised, for your next wound check or removal of stitches, shaun, or tape. If a culture was done, you will be notified if the results will affect your treatment. You can callas directed for the results. If imaging tests, such as X-rays, an ultrasound, or CT scan were done, they will be reviewed by a specialist. You will be notified of the results, especially if they affect treatment. Call 911 Call 911 if any of these occur: Trouble breathing or swallowing Wheezing Hoarse voice or trouble speaking Extreme confusion Extreme drowsiness or trouble awakening Fainting or loss of consciousness Rapid heart rate or very slow heart rate Vomiting blood, or large amounts of blood in stool Discomfort in the center of the chest that feels like pressure, squeezing, a sense of fullness, or pain Discomfort or pain in other upper body areas, such as the back, one or both arms, neck, jaw, or stomach Stroke symptoms (spot a stroke FAST ) oF: Face drooping. One side of the face is numb or droops. oA: Arm weakness. One arm feels weak or numb. oS: Speech difficulty: Speech is slurred, or the person is unable to speak. oT: Time to call 911. Even if symptoms go away, call 911. When to seek medical advice Call your healthcare provider right away if any of the following occur: Fluid or blood soaking 5 or more bandages a day during the first 3 days after surgery Fluid or blood still draining from the wound more than 3 days after surgery Increasing pain at the site of surgery Fever of 100.4 F (38 C) or higher, or as directed by your healthcare provider Redness around the wound Pus coming from the wound Vomiting, constipation, or diarrhea [id number] [employer]. [address] [place] [address]. All rights reserved. This information is not intended as a substitute for professional medical care. Always follow yourhealthcare professional's instructions. Follow Up Care 04/13/2024 12:06:24 With:ALYSIA SOLITARIO MD Address: [address] [facility] [address] [facility] [place] [address]- [phone] When:2-4 days With:TERI GARCIA TE[facility]ER [facility] Address: [address] [facility] [address] [facility] [place] [address]- [phone] When:2-4 days [facility] 08-11-2024 Emergency department Discharge summary Discharge Instructions Thank you for allowing [facility] to assist you with your healthcare needs. The following is importantdischarge information regarding your hospital visit. Diagnosis from Today's Visit Vaginal bleeding What to Do Next Instructions from Your Care Team You were evaluated today for concerns of vaginal bleeding. Examination showed some small oozing from the vaginal cuff. We talked with Dr. Solitario who would like you to call the office in the morning around 830 for follow-up. Continue to use pads as needed, keep track of how many you fully soaked through prior to follow-up. No qualifying data available. Post Acute Orders No qualifying data available. You Need to Schedule the Following Appointments Follow Up with RYAN WATT, ALYSIA Britton When:Within 2-4 days Where:[address] [facility] [address] [facility] [place] [address]- [phone] Follow Up with TERI GARCIA APRN-HAND COREMAKER When:Within 2-4 days Where:[address] [facility] [place] [address]- [phone] Allergies Bactrim Swelling Carafate Swelling Soy Medications Please ask your primary doctor or pharmacist before taking any other medication not listed, including over the counter drugs, herbal medications, vitamins and or supplements as they may interact withyour home medications. What How Much When Instructions Last Dose Unchanged diclofenac (diclofenac sodium 75 mg oral delayed release tablet) 1 tab(s) by mouth Two (2) times a day as needed for as needed for arthritis Unchanged fluticasone nasal (Flonase 50 mcg/ inh nasal spray) 1 spray(s) each nostril Once a day (in the morning) Unchanged ibuprofen (IBU 600 mg oral tablet) 1 tab(s) by mouth Every 8 hours Duration: 10 Days Unchanged lactobacillus acidophilus (Acidophilus Probiotic Blend oral capsule) 1 cap by mouth Two (2) times a day Unchanged magnesium oxide (Magnesium 250 mg tablet) 2 tab(s) by mouth Once a day Unchanged Misc Medication (chlorzoxazone 250 mg tablet) As needed for Pain Unchanged multivitamin (Multivitamin) 1 tab(s) by mouth Every day Unchanged oxybutynin (oxybutynin 5 mg oral tablet) 2 tab(s) by mouth Two (2) times a day Unchanged pantoprazole (pantoprazole 40 mg oral enteric coated tablet) 1 tab(s) by mouth Once a day Unchanged pramipexole (Mirapex 0.5 mg oral tablet) 1 tab(s) by mouth Two (2) times a day Duration: 30 Days Unchanged valACYclovir (valACYclovir 500 mg oral tablet) 1 tab(s) by mouth Once a day Unchanged venlafaxine (Effexor XR 37.5 mg oral capsule, extended release) 1 cap by mouth Two (2) times a day Please take this list to your next doctor s visit. Bring all medications you take, including over the counter medications, herbals and other supplements with you to your doctor s visit. Patients and families are reminded to discard old lists and to update any records with all medication providers or retail pharmacies. Education Materials Wound Check After Surgery: Bleeding Surgery involves cutting through layers of skin, fatty tissue, muscle, and sometimes bone and cartilage. Stitches or shaun are used to close all layers of the wound. The stitches on the inside willdissolve in about 2 to 3 weeks. Any stitches or shaun used on the outside need to be removed in about 7 to 14 days, depending on the location. It is normal to have some clear or bloody discharge on the wound covering or bandage (dressing) forthe first few days after surgery. If your wound was stitched closed, you should not have to change the dressing more than 3 times a day in the first few days. Bleeding or discharge requiring more frequent dressing changes can be a sign of a problem. If this occurs, notify your healthcare provider right away. Home care Different types of surgery require different types of care and dressing changes. It is important tofollow all instructions and advice from your surgeon, as well as other members of your healthcare team. Wound care If you smoke, get help to quit. Smoking interferes with wound healing. Ask your healthcare providerabout ways to quit. Keep the wound clean, as directed by your healthcare provider. Change the dressing as directed. Change the dressing sooner if it becomes wet or stained with bloodor fluid from the wound. Bathe with a sponge (no shower or tub baths) for the first few days after surgery, or until there is no more drainage from the wound. Unless you received different instructions from your surgeon, youcan then shower. Don't soak the area in water (no baths or swimming) until the tape, sutures, or shaun are removed and any wound opening has dried out and healed. Changing the dressing Wash your hands before changing the dressings. Carefully remove the dressing and tape; don t just yank it off. If it sticks to the wound, you may need to wet it a little to remove it, unless your healthcare provider told you not to wet it. Wash your hands again before putting on a new, clean dressing. Gently clean the wound with clean water (or saline) using gauze or a clean washcloth. Don't rub it or pick at it. Don't use soap, alcohol, hydrogen peroxide, or any other cleanser. If you were told to dry the wound before putting on a new dressing, gently pat it dry. Don't rub. Put the old dressing in a sealed plastic bag and throw it in the trash. Don't reuse it! Wash your hands again when you are done. Types of dressings Your healthcare team will tell you what type of dressing to put on your wound. Follow your healthcare team s instructions carefully, and contact them if you have any questions. Two common types of dressings are described below. You may have one of these or another type. Dry dressing. Use dry gauze. If the wound is still draining, use a nonadherent dressing, which shouldn t stick to the wound. Wet-to-dry dressing. Wet the gauze, and squeeze out the excess water (or saline), before putting iton. Then, cover this with a dry pad. Medicines If you were given antibiotics, take them until they are used up or your healthcare provider tells you to stop. It is important to finish the antibiotics even though you feel better, to make sure the infection has cleared. You can take acetaminophen or ibuprofen for pain, unless you were given a different pain medicine to use. (Note: If you have chronic liver or kidney disease, or have ever had a stomach ulcer or gastrointestinal bleeding, or are taking blood thinner medicines, talk with your healthcare provider before using these medicines.) Aspirin should never be used in anyone under 18 years of age who is ill with a fever. It may cause severe liver damage. Follow-up care Follow up with your healthcare provider, or as advised, for your next wound check or removal of stitches, shaun, or tape. If a culture was done, you will be notified if the results will affect your treatment. You can callas directed for the results. If imaging tests, such as X-rays, an ultrasound, or CT scan were done, they will be reviewed by a specialist. You will be notified of the results, especially if they affect treatment. Call 911 Call 911 if any of these occur: Trouble breathing or swallowing Wheezing Hoarse voice or trouble speaking Extreme confusion Extreme drowsiness or trouble awakening Fainting or loss of consciousness Rapid heart rate or very slow heart rate Vomiting blood, or large amounts of blood in stool Discomfort in the center of the chest that feels like pressure, squeezing, a sense of fullness, or pain Discomfort or pain in other upper body areas, such as the back, one or both arms, neck, jaw, or stomach Stroke symptoms (spot a stroke FAST ) oF: Face drooping. One side of the face is numb or droops. oA: Arm weakness. One arm feels weak or numb. oS: Speech difficulty: Speech is slurred, or the person is unable to speak. oT: Time to call 911. Even if symptoms go away, call 911. When to seek medical advice Call your healthcare provider right away if any of the following occur: Fluid or blood soaking 5 or more bandages a day during the first 3 days after surgery Fluid or blood still draining from the wound more than 3 days after surgery Increasing pain at the site of surgery Fever of 100.4 F (38 C) or higher, or as directed by your healthcare provider Redness around the wound Pus coming from the wound Vomiting, constipation, or diarrhea 5717-2894 [employer]. [address] [place] [address]. All rights reserved. This information is not intended as a substitute for professional medical care. Always follow yourhealthcare professional's instructions. Additional Information VACCINATE! IT SAVES LIVES! Members of the community who have not yet received the COVID-19 vaccine and would like to receive it can visit one of [facility] vaccine clinics. There are many vaccine clinic locations within the [facility]. For locations and available times, please visit [email or web address]/. It is important to note that some COVID mobile vaccine clinics are held outdoors and may be canceled in rainy or stormy conditions. To learn more about pediatric vaccinations (ages 5-11), we invite you to visit the [facility] webpage. [email or web address].[email or web address].org/pages/[email or web address]-Psnawqcotcf-Hkaublslyl-Zikeq-Rjt stions.htmlTo learn more about the COVID-19 vaccine, we invite you to visit the CDC website for a list of frequently asked questions. https://www.cdc.gov/coronavirus/2019-ncov/vaccines/faq.html [facility] Patient Portal Access Instructions: Stay connected with your healthcare team and access your personal medical information anytime with the [facility] Patient Portal. If you would like a full copy of your medical records please contact the [facility] Medical Records Department Sunday through Sunday between 8a.m. and 4:30p.m. Please follow the directions below to access the portal: 1.Access the email account you provided upon registration to the [facility].2.Look for an invitation email from [facility].3.Open the email and access the invitation link: Accept Invitation to [facility]4.Fill in the required goodman to create your account. Sign into [email or web address] with your username and password that you created in the above steps to stay up to date. You can then view a summary of results, a summary of your visits, and the ability to download your summaries to your computer or send the information securely to a physician. Remember that your healthcare information is confidential, so carefully consider who you will allow to register on the [facility] Patient Portal for access to your information. You can also access the [facility] Patient Portal on the [employer] gage. Simply click on Health Records under [employer] and then click on the An[employer] logo. HOW TO SAFELY DISPOSE OF PRESCRIPTION MEDICATIONS Please use one of the following methods to safely dispose of your unused medications. 1.Use a drug disposal kit: the drug disposal pouch allows you to safely discard your old and unuseddrugs. Ask your nurse to give you one when you are discharged.2.Visit a local take-back location: Many local pharmacies and police departments have programs that collect old and unwanted prescriptiondrugs. Call your local pharmacy or go to http://Today Tix.HIGH MOBILITY/7C7Aw8z to find one close to you.3.Make use of household items: Use cat litter or old coffee grounds to dispose medications if other options arenot available. Mix your drugs with these household products, seal them in an airtight container andthrow it into the garbage. Call [facility]: [phone] to be sure your drugs can be disposed of in this way. Some medicines may require a different approach.4.Never flush your medications down the toilet. IF YOU HAVE BEEN PRESCRIBED AN OPIOIDS FOR PAIN If you have been prescribed an opioid (such as hydrocodone, oxycodone or morphine), it is critical to understand the possible side effects and risks of opioid pain medications. Even when taken as directed, opioids can have several side effects including: Tolerance, meaning you might need to take more of a medication for the same pain relief. Nausea, vomiting and/or constipation. Sleepiness, dizziness, dry mouth, confusion, depression or itching. Physical dependence, meaning you have withdrawal symptoms when a medication is stopped ? this can develop within a few days. KNOW YOUR RESPONSIBILITIES It is important to know exactly how much and how often to take the opioid pain medications you are prescribed. Never take opioids in higher amounts or more often than prescribed. Do not combine opioids with alcohol or other drugs that cause drowsiness, such as benzodiazepines, also known as benzos,including diazepam and alprazolam, muscle relaxants or sleep aids. Never sell or share prescriptionopioids. This is illegal. Store opioids in a secure place and out of reach of others (including children, family, friends and visitors). The last page(s) of this document has been signed and retained as a CHART COPY Signatures Patient Education Materials Post Op Wound Check, Bleeding Medication Leaflets My discharge plan and instructions have been reviewed and explained to me and I,KIA GONZALEZ understand my current condition and have read and understand these discharge instructions. I have received a written copy of the plan/instructions. If I have questions, I am aware that I should contact my doctor. Patient/Med Dir Signature: Date/Time: Relationship to Patient: Witness Name/Signature: Date/Time: [facility]08-04-2024 Note. MICRO - Microbiology PROCEDURE: Urine Culture [*1] SOURCE: Urine, Clean Catch BODY SITE: Bladder COLLECTED DATE/TIME: 04/03/2024 16:48 EDT RECEIVED DATE/TIME: 04/03/2024 20:20 EDT START DATE/TIME: 04/03/2024 20:21 EDT FREE TEXT SOURCE: FINAL REPORTS Final Report [] Verified Date/Time/Personnel: 04/06/2024 08:32 EDT 50,000 - 100,000 cfu/ml Enterococcus faecalis 50,000 - 100,000 cfu/ml Escherichia coli PRELIMINARY REPORTS Preliminary Report [] Verified Date/Time/Personnel: 04/05/2024 08:01 EDT 50,000 - 100,000 cfu/ml Enterococcus faecalis 50,000 - 100,000 cfu/ml Escherichia coli DULCE to follow Preliminary Report [] Verified Date/Time/Personnel: 04/04/2024 14:56 EDT Culture results pending. SUSCEPTIBILITY RESULTS Enterococcus faecalis Antibiotic DULCE Dilut DULCE Inter Ampicillin <=2 Susceptible Ciprofloxacin <=1 Susceptible Gentamicin <=500 Susceptible synergy ID Panel Not Not Applicable Applicable Levofloxacin <=1 Susceptible Nitrofurantoin <=32 Susceptible Vancomycin 1 Susceptible Escherichia coli Antibiotic DULCE Dilut DULCE Inter Ampicillin <=8 Susceptible Ampicillin/ <=4/2 Susceptible Sulbactam Aztreonam <=4 Susceptible Cefazolin <=2 Susceptible Ciprofloxacin <=0.25 Susceptible Ertapenem <=0.5 Susceptible Gentamicin <=2 Susceptible ID Panel Not Not Applicable Applicable Imipenem <=1 Susceptible Levofloxacin <=0.5 Susceptible Meropenem <=1 Susceptible Minocycline <=4 Susceptible Nitrofurantoin <=32 Susceptible Trimethoprim/ <=0.5/9.5 Susceptible Sulfa Performing Locations *1: This test was performed at: [facility], [address] [place] [address], [id number] , [facility] ([place])03-28-2024 Note Discharge Instructions Thank you for allowing [facility] to assist you with your healthcare needs. The following is importantdischarge information regarding your hospital visit. Your Care Team Alysia Solitario Your Diagnosis Post-op pain S/P laparoscopic assisted vaginal hysterectomy (LAVH) What to do next Follow Up Appointments Follow Up with RYAN WATT, ALYSIA Britton Where:[address] [place] [address] [place] [address] [phone] Additional Information: Please schedule a postoperative appointment for one week after surgery (04/03) Allergies Bactrim Swelling Carafate Swelling Soy Medications Please ask your primary doctor or pharmacist before taking any other medication not listed, including over the counter drugs, herbal medications, vitamins and or supplements as they may interact withyour home medications. What How Much When Why Instructions Last Dose New acetaminophen-oxyCODONE (Percocet 5 mg-325 mg oral tablet) 1 tab(s) by mouth Every 6 hours as needed for Pain S/P laparoscopic assisted vaginal hysterectomy (LAVH) Post-op pain Duration: 7 Days Pickup at [facility] Unchanged diclofenac (diclofenac sodium 75 mg oral delayed release tablet) 1 tab(s) by mouth Two (2) times a day Unchanged fluticasone nasal (Flonase 50 mcg/ inh nasal spray) 1 spray(s) each nostril Once a day (in the morning) Unchanged ibuprofen (IBU 600 mg oral tablet) 1 tab(s) by mouth Every 8 hours Duration: 10 Days Pickup at [facility] Unchanged lactobacillus acidophilus (Acidophilus Probiotic Blend oral capsule) 1 cap by mouth Two (2) times a day Unchanged magnesium oxide (Magnesium 250 mg tablet) 2 tab(s) by mouth Once a day Unchanged Misc Medication (chlorzoxazone 250 mg tablet) Unchanged multivitamin (Multivitamin) 1 tab(s) by mouth Every day Unchanged oxybutynin (oxybutynin 5 mg oral tablet) 2 tab(s) by mouth Two (2) times a day Unchanged pantoprazole (pantoprazole 40 mg oral enteric coated tablet) 1 tab(s) by mouth Once a day Unchanged pramipexole (Mirapex 0.5 mg oral tablet) 1 tab(s) by mouth Two (2) times a day Duration: 30 Days Unchanged valACYclovir (valACYclovir 500 mg oral tablet) 1 tab(s) by mouth Once a day Unchanged venlafaxine (Effexor XR 37.5 mg oral capsule, extended release) 1 cap by mouth Two (2) times a day Pharmacy Information [facility]: [address] [place], [place] [id number] [phone] Please take this list to your next doctor s visit. Bring all medications you take, including over the counter medications, herbals and other supplements with you to your doctor s visit. Patients and families are reminded to discard old lists and to update any records with all medication providers or retail pharmacies. Education Materials Total Laparoscopic Hysterectomy, Care After This sheet gives you information about how to care for yourself after your procedure. Your health care provider may also give you more specific instructions. If you have problems or questions, contact your health care provider. What can I expect after the procedure? After the procedure, it is common to have: Pain and bruising around your incisions. A sore throat, if a breathing tube was used during surgery. Fatigue. Poor appetite. Less interest in sex. If your ovaries were also removed, it is also common to have symptoms of menopause such as hot flashes, night sweats, and lack of sleep (insomnia). Follow these instructions at home: Bathing Do not take baths, swim, or use a hot tub until your health care provider approves. You may need toonly take showers for 2 3 weeks. Keep your bandage (dressing) dry until your health care provider says it can be removed. Incision care Follow instructions from your health care provider about how to take care of your incisions. Make sure you: ? Wash your hands with soap and water before you change your dressing. If soap and water are not available, use hand supervisor malted milk. ? Change your dressing as told by your health care provider. ? Leave stitches (sutures), skin glue, or adhesive strips in place. These skin closures may need to stay in place for 2 weeks or longer. If adhesive strip edges start to loosen and curl up, you may trim the loose edges. Do not remove adhesive strips completely unless your health care provider tells you to do that. Check your incision area every day for signs of infection. Check for: ? Redness, swelling, or pain. ? Fluid or blood. ? Warmth. ? Pus or a bad smell. Activity Get plenty of rest and sleep. Do not lift anything that is heavier than 10 lbs (4.5 kg) for one month after surgery, or as long as told by your health care provider. Do not drive or use heavy machinery while taking prescription pain medicine. Do not drive for 24 hours if you were given a medicine to help you relax (sedative). Return to your normal activities as told by your health care provider. Ask your health care provider what activities are safe for you. Lifestyle Do not use any products that contain nicotine or tobacco, such as cigarettes and e-cigarettes. These can delay healing. If you need help quitting, ask your health care provider. Do not drink alcohol until your health care provider approves. General instructions Do not douche, use tampons, or have sex for at least 6 weeks, or as told by your health care provider. Take adlq-doi-mcepybu and prescription medicines only as told by your health care provider. To monitor yourself for a fever, take your temperature at least once a day during recovery. If you struggle with physical or emotional changes after your procedure, speak with your health care provider or a therapist. To prevent or treat constipation while you are taking prescription pain medicine, your health care provider may recommend that you: ? Drink enough fluid to keep your urine clear or pale yellow. ? Take haag-znt-mxyaegw or prescription medicines. ? Eat foods that are high in fiber, such as fresh fruits and vegetables, whole grains, and beans. ? Limit foods that are high in fat and processed sugars, such as fried and sweet foods. Keep all follow-up visits as told by your health care provider. This is important. Contact a health care provider if: You have chills or a fever. You have redness, swelling, or pain around an incision. You have fluid or blood coming from an incision. Your incision feels warm to the touch. You have pus or a bad smell coming from an incision. An incision breaks open. You feel dizzy or light-headed. You have pain or bleeding when you urinate. You have diarrhea, nausea, or vomiting that does not go away. You have abnormal vaginal discharge. You have a rash. You have pain that does not get better with medicine. Get help right away if: You have a fever and your symptoms suddenly get worse. You have severe abdominal pain. You have chest pain. You have shortness of breath. You faint. You have pain, swelling, or redness on your leg. You have heavy vaginal bleeding with blood clots. Summary After the procedure it is common to have abdominal pain. Your provider will give you medication forthis. Do not take baths, swim, or use a hot tub until your health care provider approves. Do not lift anything that is heavier than 10 lbs (4.5 kg) for one month after surgery, or as long as told by your health care provider. Notify your provider if you have any signs or symptoms of infection after the procedure. This information is not intended to replace advice given to you by your health care provider. Make sure you discuss any questions you have with your health care provider. Document Released: 06/10/2014 Document Revised: 08/02/2018 Document Reviewed: 10/31/2017 [employer] Patient Education 2020 [employer]. Additional Information VACCINATE! IT SAVES LIVES! Members of the community who have not yet received the COVID-19 vaccine and would like to receive it can visit one of [facility] vaccine clinics. There are many vaccine clinic locations within the [facility]. For locations and available times, please visit [email or web address]/. It is important to note that some COVID mobile vaccine clinics are held outdoors and may be canceled in rainy or stormy conditions. To learn more about pediatric vaccinations (ages 5-11), we invite you to visit the [facility] webpage. [email or web address]/[email or web address] [email or web address] learn more about the COVID-19 vaccine, we invite you to visit the CDC website for a list of frequently asked questions.https://www.cdc.gov/coronavirus/2019-ncov/vaccines/faq.html [facility] Patient Portal Access Instructions: Stay connected with your healthcare team and access your personal medical information anytime with the [facility] Patient Portal. Please follow the directions below to create your [facility] account: 1.Access the email account you provided upon registration to the hospital/physician office.2.Look for an invitation email from [facility].3.Open the email and access the invitation link: AcceptInvitation to [facility].4.Fill in the required goodman to create your account. To access your account, visit [email or web address]. Click the blue button labeled Access Patient Portal and then log in with the username and password that you created in the steps above. You will be able to view your test results, lab results, a summary of your visits, upcoming appointments and more. There is also a convenient messaging option where you can send secure messages to your p rovider. In addition, you will have the ability to download any documents or summaries to your computer and/or send the information securely to a physician. Remember that your healthcare information is confidential, so carefully consider who you will allowto register on the [facility] Patient Portal for access to your information. You can also access the [facility] Patient Portal on the [facility] gage. Simply click on Patient Portal and then log into your account. If you would like to receive a full copy of your medical records, please contact the [facility] Medical Records Department by calling [phone], Sunday through Sunday between 8 a.m. and 4:30 p.m. HOW TO SAFELY DISPOSE OF PRESCRIPTION MEDICATIONS Please use one of the following methods to safely dispose of your unused medications. 1.Use a drug disposal kit: the drug disposal pouch allows you to safely discard your old and unuseddrugs. Ask your nurse to give you one when you are discharged.2.Visit a local take-back location: Many local pharmacies and police departments have programs that collect old and unwanted prescriptiondrugs. Call your local pharmacy or go to http://Today Tix.HIGH MOBILITY/7R2Gz0d to find one close to you.3.Make use of household items: Use cat litter or old coffee grounds to dispose medications if other options arenot available. Mix your drugs with these household products, seal them in an airtight container andthrow it into the garbage. Call [facility]: [phone] to be sure your drugs can be disposed of in this way. Some medicines may require a different approach.4.Never flush your medications down the toilet. IF YOU HAVE BEEN PRESCRIBED AN OPIOID FOR PAIN If you have been prescribed an opioid (such as hydrocodone, oxycodone or morphine), it is critical to understand the possible side effects and risks of opioid pain medications. Even when taken as directed, opioids can have several side effects including: Tolerance, meaning you might need to take more of a medication for the same pain relief. Nausea, vomiting and/or constipation. Sleepiness, dizziness, dry mouth, confusion, depression or itching. Physical dependence, meaning you have withdrawal symptoms when a medication is stopped, can develop within a few days. KNOW YOUR RESPONSIBILITIES It is important to know exactly how much and how often to take the opioid pain medications you are prescribed. Never take opioids in higher amounts or more often than prescribed. Do not combine opioids with alcohol or other drugs that cause drowsiness, such as benzodiazepines, also known as benzos, including diazepam and alprazolam, muscle relaxants or sleep aids. Never sell or share prescription opioids. This is illegal. Store opioids in a secure place and out of reach of others (including children, family, friends and visitors). The last page of this document has been signed and retained as a CHART COPY. Signatures Patient Education Materials Total Laparoscopic Hysterectomy, Care After Medication Leaflets My discharge plan and instructions have been reviewed and explained to me and I,TATA GONZALEZIE Giovanni understand my current condition and have read and understand these discharge instructions. I have received a written copy of the plan/instructions. If I have questions, I am aware that I should contact my doctor. Patient/Med Dir Signature: Date/Time: Relationship to Patient: Witness Name/Signature: Date/Time: [facility]07-26-2024 Note 1. Progress note: Well this morning no complaints of any pain. She has not voided yet as her catheter was just removed. No nausea or vomiting. Reports no bleeding. Afebrile vital signs stable. Globin not yet returned from the lab. Urine output is good. Abdomen issoft nontender incision dressings are dry. No vaginal bleeding. Doing well on postoperative day #1 after LAVH. Cleared for discharge home today. Discharge instructions and warnings were given. Instructed to call for a postoperative appointment next week. Discharge prescriptions were sent. Digitally Signed by ALYSIA SOLITARIO MD on 03/28/2024 06:30 AM [facility]07-25-2024 Hospital Discharge instructions Patient Education 03/27/2024 14:22:07 Total Laparoscopic Hysterectomy, Care After Total Laparoscopic Hysterectomy, Care After This sheet gives you information about how to care for yourself after your procedure. Your health care provider may also give you more specific instructions. If you have problems or questions, contact your health care provider. What can I expect after the procedure? After the procedure, it is common to have: Pain and bruising around your incisions. A sore throat, if a breathing tube was used during surgery. Fatigue. Poor appetite. Less interest in sex. If your ovaries were also removed, it is also common to have symptoms of menopause such as hot flashes, night sweats, and lack of sleep (insomnia). Follow these instructions at home: Bathing Do not take baths, swim, or use a hot tub until your health care provider approves. You may need toonly take showers for 2 3 weeks. Keep your bandage (dressing) dry until your health care provider says it can be removed. Incision care Follow instructions from your health care provider about how to take care of your incisions. Make sure you: ?Wash your hands with soap and water before you change your dressing. If soap and water are not available, use hand supervisor malted milk. ?Change your dressing as told by your health care provider. ?Leave stitches (sutures), skin glue, or adhesive strips in place. These skin closures may need to stay in place for 2 weeks or longer. If adhesive strip edges start to loosen and curl up, you may trim the loose edges. Do not remove adhesive strips completely unless your health care provider tells you to do that. Check your incision area every day for signs of infection. Check for: ?Redness, swelling, or pain. ?Fluid or blood. ?Warmth. ?Pus or a bad smell. Activity Get plenty of rest and sleep. Do not lift anything that is heavier than 10 lbs (4.5 kg) for one month after surgery, or as long as told by your health care provider. Do not drive or use heavy machinery while taking prescription pain medicine. Do not drive for 24 hours if you were given a medicine to help you relax (sedative). Return to your normal activities as told by your health care provider. Ask your health care provider what activities are safe for you. Lifestyle Do not use any products that contain nicotine or tobacco, such as cigarettes and e-cigarettes. These can delay healing. If you need help quitting, ask your health care provider. Do not drink alcohol until your health care provider approves. General instructions Do not douche, use tampons, or have sex for at least 6 weeks, or as told by your health care provider. Take erjs-lkd-wspyjzq and prescription medicines only as told by your health care provider. To monitor yourself for a fever, take your temperature at least once a day during recovery. If you struggle with physical or emotional changes after your procedure, speak with your health care provider or a therapist. To prevent or treat constipation while you are taking prescription pain medicine, your health care provider may recommend that you: ?Drink enough fluid to keep your urine clear or pale yellow. ?Take ohmq-ljj-ygpxizf or prescription medicines. ?Eat foods that are high in fiber, such as fresh fruits and vegetables, whole grains, and beans. ?Limit foods that are high in fat and processed sugars, such as fried and sweet foods. Keep all follow-up visits as told by your health care provider. This is important. Contact a health care provider if: You have chills or a fever. You have redness, swelling, or pain around an incision. You have fluid or blood coming from an incision. Your incision feels warm to the touch. You have pus or a bad smell coming from an incision. An incision breaks open. You feel dizzy or light-headed. You have pain or bleeding when you urinate. You have diarrhea, nausea, or vomiting that does not go away. You have abnormal vaginal discharge. You have a rash. You have pain that does not get better with medicine. Get help right away if: You have a fever and your symptoms suddenly get worse. You have severe abdominal pain. You have chest pain. You have shortness of breath. You faint. You have pain, swelling, or redness on your leg. You have heavy vaginal bleeding with blood clots. Summary After the procedure it is common to have abdominal pain. Your provider will give you medication forthis. Do not take baths, swim, or use a hot tub until your health care provider approves. Do not lift anything that is heavier than 10 lbs (4.5 kg) for one month after surgery, or as long as told by your health care provider. Notify your provider if you have any signs or symptoms of infection after the procedure. This information is not intended to replace advice given to you by your health care provider. Make sure you discuss any questions you have with your health care provider. Document Released: 06/10/2014 Document Revised: 08/02/2018 Document Reviewed: 10/31/2017 [employer] Patient Education 2020 [employer]. Follow Up Care 03/04/2024 14:01:55 With:ALYSIA SOLITARIO MD Address: [address] [place] [address] [facility] [place] [address]- [phone] When: Unknown Comments:Please schedule a postoperative appointment for one week after surgery (04/03) [facility] 07-25-2024 Evaluation + Plan noteExtracted from: Title:Clinical Document Author:ALYSIA SOLITARIO MD Date:03/27/24 [facility] ADMISSION HISTORY AN D PHYSICIAL CHIEF COMPLAINT: Chronic pelvic pain HISTORY OF PRESENT ILLNESS: Kia is a 49-year-old 1 para 1 who presents with complaints of chronic lower pelvic pain. 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 In office ultrasound confirms very prominent pelvic vasculature. She has a history of tubal ligation and LEEP procedure. She has also had a NovaSure endometrial ablation. History also significant for possible polycystic ovary syndrome. REVIEW OF SYSTEMS: Chronic pelvic pain that sometimes can be debilitating. Review of systems otherwise unremarkable ACTIVE PROBLEMS: (24) Abdominal pain (44079852) Allergic rhinitis (451522146) Alternating constipation and diarrhea (397185306) Cystitis (95959949) Dysphagia (35152383) Generalized anxiety disorder (27833594) GERD - Gastro-esophageal reflux disease (0514552319) Herpes simplex (600557343) History of total right knee replacement (TKR) (4244991231) IBS - Irritable bowel syndrome (9949707795) Lumbar pain (625919836) Major depressive disorder (3802348184) Nausea (8496346156) Osteoarthritis of knee (196557288) Pelvic congestion syndrome (44847662) Pelvic pain (039060283) Plantar wart (535624263) Restless leg syndrome ([id number]) Screening for colon cancer (809517835) TMJ (temporomandibular joint syndrome) ([id number]) Tobacco use (6826205502) Unintentional weight loss (6748733928) Vulvar mass (946745929) Well woman exam with routine gynecological exam (226014580) MEDICATIONS: Active Inpt Meds: cefOXitin (Mefoxin) Start: 03/27/24 6:00:00 EDT, Dose = 2 gram(s), IV Piggyback, PREOP pharm, Rate: 200 mL/hr, Infuse over: 30 minute(s), 0 Active PRN Meds: None One Time Meds: None Active IV Meds: Lactated Ringers Infusion 1000 mL (LR 1000 mL) Start: 03/27/24 6:00:00 EDT, 18 hour(s), Stop date 03/28/24 17:59:00 EDT, Rate: 20 mL/hr ALLERGIES: (3) Bactrim Carafate Soy FAMILY HISTORY: No significant family history pertaining to this admission SOCIAL HISTORY: Non-smoker, no significant alcohol use. No toxic habits PHYSICAL EXAM: VITALS: No Data Available 24 Hr Tmax: No Data Available 36 Hr Tmax: No Data Available Vital Signs are the last 5 in the past 48 hours. Weights display the last 5 within 7 days. Initial Wt: No Data Available Current Wt: No Data Available GENERAL: Appears well HEENT: Normocephalic CARDIOVASCULAR: Regular rate and rhythm normal blood pressure RESPIRATORY: Clear bilaterally ABDOMEN: Soft nontender no significant masses EXREMETIES: No significant edema no deformity NEUROLOGICAL: Intact PSYCHIATRIC: No signs of acute anxiety or depression LABS: No 36hr Lab Data DIAGNOSTICS: CT scan shows prominent pelvic vasculature. Normal size uterus and ovaries. Office ultrasound confirms prominent pelvic vasculature. IMPRESSION: Chronic pelvic pain possibly related to pelvic congestion syndrome. PLAN: Options for treatment discussed with the patient. Option for LAVH with or without bilateral oophorectomy was discussed. Limitations of surgery were reviewed. Procedures, risks, and postoperative expectations were also reviewed. This also included the possibility that this may not resolve her chronic pelvic pain. All questions were answered and consents were obtained. [facility] 07-25-2024 Anesthesiology Consult note Patient: KIA GONZALEZ Age: 49 years Sex: Female : 1975 Associated Diagnoses: None Author: SAIRA LEVY APRN-ROBBI Preoperative Information Time of last food or liquid consumption: 03/27/2024 00:00:00 Anesthesia history Patient's history: agitation post op. Family's history: negative. Review of Systems Ear/Nose/Mouth/Throat: Negative. Respiratory: smoker. Cardiovascular: Negative. Gastrointestinal: Reflux. Genitourinary: Negative. Endocrine: Negative. Musculoskeletal: RLS. Integumentary: Negative. Neurologic: depression. Health Status Allergies: Allergic Reactions (Selected) Severity Not Documented Bactrim- Swelling. Carafate- Swelling. Soy- No reactions were documented., Allergies (3) ActiveSeverityReaction SoyNone Documented BactrimSwelling CarafateSwelling Current medications: (Selected) Inpatient Medications Ordered Demerol (PACU): 25 mg, 1 mL, IV Push, q4h, PRN: Pain, breakthrough LR 1000 mL: 20 mL/hr, Intravenous LR 1000 mL: 20 mL/hr, Intravenous, Stop: 03/28/24 17:59:00 EDT Mefoxin: 2 gram(s), 200 mL/hr, IV Piggyback, PREOP pharm Zofran ( PACU ): 4 mg, 2 mL, IV Push, AsDirected, PRN: Nausea/Vomiting morphine ( PACU ): 2 mg, 1 mL, IV Push, q5min, PRN: Pain, scale 4-6 Prescriptions Prescribed Acidophilus Probiotic Blend oral capsule: 1 cap(s), Oral, BID, 60 cap(s), 0 Refill(s) Effexor XR 37.5 mg oral capsule, extended release: 37.5 mg, 1 cap(s), Oral, BID, 180 cap(s), 3 Refill(s) Mirapex 0.5 mg oral tablet: 0.5 mg, 1 tab(s), Oral, BID, for 30 day(s), 60 tab(s), 5 Refill(s) oxybutynin 5 mg oral tablet: 10 mg, 2 tab(s), Oral, BID, 360 tab(s), 3 Refill(s) valACYclovir 500 mg oral tablet: 500 mg, 1 tab(s), Oral, qDay, 90 tab(s), 1 Refill(s) Documented Medications Documented Flonase 50 mcg/inh nasal spray: 1 spray(s), Nostril, each, qAM, 0 Refill(s) Magnesium 250 mg tablet: 500 mg, 2 tab(s), Oral, qDay, 0 Refill(s) Multivitamin: 1 tab(s), Oral, Daily, 0 Refill(s) chlorzoxazone 250 mg tablet: 0 Refill(s) diclofenac sodium 75 mg oral delayed release tablet: 75 mg, 1 tab(s), Oral, BID, 180 tab(s), 0 Refill(s) pantoprazole 40 mg oral enteric coated tablet: 40 mg, 1 tab(s), Oral, qDay, 0 Refill(s), Medications (6) Active Scheduled: (1) ceFOXitin 2 gram(s), IV Piggyback, PREOP pharm Continuous: (2) Lactated Ringers 1000 mL 1,000 mL, Intravenous, 20 mL/hr Lactated Ringers Infusion 1000 mL 1,000 mL, Intravenous, 20 mL/hr PRN: (3) meperidine 25 mg 1 mL, IV Push, q4h morphine 2 mg/mL 1 mL syringe 2 mg 1 mL, IV Push, q5min ondansetron 2 mg/ 1 mL 2 mL INJ 4 mg 2 mL, IV Push, AsDirected Problem list: Medical Abdominal pain / SNOMED CT 91174919 / Confirmed Allergic rhinitis / SNOMED CT 238333934 / Confirmed Alternating constipation and diarrhea / SNOMED CT 820153890 / Confirmed Cystitis / SNOMED CT 14135316 / Confirmed Dysphagia / SNOMED CT 21110774 / Confirmed Generalized anxiety disorder / SNOMED CT 50536195 / Confirmed GERD - Gastro-esophageal reflux disease / SNOMED CT 3670684869 / Confirmed Herpes simplex / SNOMED CT 157980329 / Confirmed History of total right knee replacement (TKR) / SNOMED CT 3860362838 / Confirmed IBS - Irritable bowel syndrome / SNOMED CT 1976947505 / Confirmed Lumbar pain / SNOMED CT 963406696 / Confirmed Major depressive disorder / SNOMED CT 8051298283 / Confirmed Vulvar mass / SNOMED CT 624020830 / Confirmed Nausea / SNOMED CT 9766228485 / Confirmed Osteoarthritis of knee / SNOMED CT 882211931 / Confirmed Pelvic pain / SNOMED CT 357180133 / Confirmed Well woman exam with routine gynecological exam / SNOMED CT 373326816 / Confirmed Screening for colon cancer / SNOMED CT 077459756 / Confirmed Pelvic congestion syndrome / SNOMED CT 90377510 / Confirmed Restless leg syndrome / SNOMED CT [id number] / Confirmed TMJ (temporomandibular joint syndrome) / SNOMED CT [id number] / Confirmed Unintentional weight loss / SNOMED CT 9859983440 / Confirmed Plantar wart / SNOMED CT 241295062 / Confirmed, Active Problems (24) Abdominal pain Allergic rhinitis Alternating constipation and diarrhea Cystitis Dysphagia Generalized anxiety disorder GERD - Gastro-esophageal reflux disease Herpes simplex History of total right knee replacement (TKR) IBS - Irritable bowel syndrome Lumbar pain Major depressive disorder Nausea Osteoarthritis of knee Pelvic congestion syndrome Pelvic pain Plantar wart Restless leg syndrome Screening for colon cancer TMJ (temporomandibular joint syndrome) Tobacco use Unintentional weight loss Vulvar mass Well woman exam with routine gynecological exam Histories Past Medical History: Active Restless leg syndrome ([id number]) GERD - Gastro-esophageal reflux disease (6263821475) IBS - Irritable bowel syndrome (3933266572) Herpes simplex (914018827) TMJ (temporomandibular joint syndrome) ([id number]) Lumbar pain (863603499) Resolved Depression (433923425): Resolved. Anxiety (01609852): Resolved. Abnormal uterine bleeding (AUB) ([id number]): Resolved. Anxiety and depression (308412411): Resolved. Preop examination (297108209): Resolved. Hordeolum externum (stye) (2804454583): Resolved. Urine frequency (899275798): Resolved. Family History: Breast cancer Mother Heart disease Mother Malignant tumor of lung Father () [place] - Myocardial infarction Father () HTN - Hypertension Mother Brother COPD (chronic obstructive pulmonary disease) 01-Mar-2016 02:40:22<$> Mother Procedure history: Salpingectomy (0836015847) on 10/17/2016 at 41 Years. Dilation and curettage (55906452) on 10/17/2016 at 41 Years. Endometrial ablation (289554598) on 10/17/2016 at 41 Years. Tonsillectomy (942914274). LEEP procedure of cervix (63732065). Colonoscopy (423602728). Knee (987138789). Social History: Social & Psychosocial Habits Alcohol 4Risk Assessment: Denies Alcohol Use 03/27/2024 Use: Current Frequency: 1-2 times per year Substance Abuse 4Risk Assessment: Denies Substance Abuse 03/27/2024 Use: Past Type: Marijuana Frequency: Daily Comment: quit weed end of December 2023 - 01/29/2024 14:17 - Sharmila Doll LPN Tobacco 03/27/2024 Tobacco Use: 4 or less cigarettes(less Type: Cigarettes Home/Environment 03/27/2024 Primary Development Representative: self Nutrition/Health 03/27/2024 Caffeine intake amount: green tea Physical Examination Vital Signs 03/27/2024 11:07 EDT Temperature Temporal Artery 36.6 DegC Peripheral Pulse Rate 58 bpm LOW Respiratory Rate 12 br/min LOW Systolic Blood Pressure Non-Invasive 115 mmHg Diastolic Blood Pressure Non-Invasive 81 mmHg Vital Signs (last 24 hrs) Last Charted Temp Apxnanxz13.6 DegC (MAR 27 11:07) JAQ612 mmHg (MAR 27 11:07) DBP81 mmHg (MAR 27 11:07) Measurements from flowsheet : Measurements 03/27/2024 11:07 EDT Height 165 cm Admission Weight 52 kg [place] Body Weight 56.91 kg Admission Body Mass Index 19.1 m2 Pain assessment: Pain Assessment 03/27/2024 11:07 EDT Primary Pain Intensity 0 Pain Scale Type 0-10 Pain scale . General: Alert and oriented. Airway: Normal temporomandibular joint mobility. Mallampati classification: II (soft palate, fauces, uvula visible). Head: Normocephalic. Dentition Evaluation: Own teeth. Neck: Supple. Respiratory: Lungs are clear to auscultation. Cardiovascular: Normal rate. Heart Sounds: Normal. Gastrointestinal: Soft. Musculoskeletal Normal range of motion. Integumentary: Intact. Neurologic: Alert, Oriented. Review / Management Results review: No qualifying data available , Lab results 03/27/2024 11:17 EDT SN - Preop - CTm Pt Ready for OR/Proced 03/27/2024 11:17 03/27/2024 11:10 EDT Patient Dressed In Hospital gown Preop Nasal Swab Povidone-Iodine CHG Skin Prep Completed for Eligible Surgery 03/27/2024 11:07 EDT Height 165 cm Admission Weight 52 kg [place] Body Weight 56.91 kg Admission Body Mass Index 19.1 m2 Temperature Temporal Artery 36.6 DegC Peripheral Pulse Rate 58 bpm LOW Respiratory Rate 12 br/min LOW Systolic Blood Pressure Non-Invasive 115 mmHg Diastolic Blood Pressure Non-Invasive 81 mmHg Primary Pain Intensity 0 Pain Scale Type 0-10 Pain scale Heart Rhythm Regular Respirations Unlabored Respiratory Pattern Regular Oxygen Saturation 100 % Abdomen Description Non-distended, Symmetric Abdomen Palpation Non-Tender Bowel Sounds All Quadrants Present Urinary Elimination Voiding, no difficulties Skin Temperature Warm Skin Description Normal for ethnicity Skin Integrity Intact Characteristics of Speech Clear Level of Consciousness Alert Strength All Extremities Strong Tone All Extremities Normal Sensation All Extremities Intact Affect/Behavior Appropriate, Calm, Cooperative Orientation Oriented x 4 Activity Status ADL Awake, Resting Standard Safety ID band on, Allergy Band on, Call device within reach, Bed in low position, Wheels locked, Upper/Half-Length side-rails up, Phone within reach, personal items within reach, Visitor atbedside, Safety level maintained 03/27/2024 11:06 EDT Allergies Yes Consent Form Signed Yes CHG Preoperative Wash/Wipe Night before procedure, Day of procedure History & Physical On Chart Yes NPO Status Maintained Allergy Band on and Verified Yes Patient ID Band on and Verified Yes Implants Verified Yes Pacemaker/AICD Verified Yes Site Verified by Patient/Family Yes Blood Consent Signed Yes Last Fluid Intake 03/27/2024 7:00 Last Food Intake 03/26/2024 20:00 03/27/2024 11:05 EDT Designated Person #1 We May Share PHI Designated Person #1 We May Share PHI Designated Person #1 Relationship Daughter Privacy Restrictions Requested None Status No, per patient Sensory Deficits None Sleep Apnea Snore Yes Sleep Apnea Tired No Sleep Apnea Obstruction No Sleep Apnea Pressure No Sleep Apnea BMI No Sleep Apnea Age No Sleep Apnea Neck No Sleep Apnea Gender No Sleep Apnea Score 1 Diagnosed With Sleep Apnea No Advanced Directives No - refuses information Infectious Disease Symptoms Patient states no symptoms Infectious Disease Recent Exposure No Alcohol and Drug Use No Employee of Institutional Living No Health Care Employee No History of Exposure to TB No History of Positive Chest X-Ray for TB No History of Positive TB Skin Test No Homeless No Known Immunosuppression No Recent Immigrant No Resident of Institutional Living No Bloody Sputum No Fatigue No Fever No Loss of Appetite No Night Sweats No Persistent Cough > 3 Weeks No Weight Loss No Pre-Op Patient Education NPO after midnight, No smoking after midnight, No makeup, No jewelry, Responsible Alliance Party, Aware of surgery location, Pre-op education done, 1 bottle CHG wash with instructionsgiven, Instructed to take ordered medications, SSI prevention handout given SN - Preprocedure Comments Spoke with patient, Verbalizes/Nonverbally indicates understanding, Other: PROTONIX Barriers to Learning None evident Teaching Method Explanation, Printed materials Preferred Spoken Language Belarusian Preferred Written Language Belarusian Teaching Evaluation No further teaching needed Safety Brochure Information Reviewed Unable to complete Anup Jacobo Video Viewed No Information Given by Patient Patient's Current Physicians DR. GARCIA Discharge To, Anticipated Home independently Prev Test Positive/Diagnosis w/COVID-19 No Current Quarantine/Isolated any Illness No Any Contact with Sick Animals/Birds No Traveled Anywhere in Last 30 Days No Lost Weight Unintentionally Recently No Eat Poorly Due to Decreased Appetite No Total MST Score 0 No Personal Devices, Patient Valuables None Anesthesia/Transfusions Prior anesthesia Admission Note-Nursing Same Day Patient History 03/27/2024 10:55 EDT SN - Preop - CTm Pt in SDS Room 03/27/2024 10:52 03/27/2024 10:54 EDT Test Urine Negative test (u) int test (u) int QC PRGUN Negative QC PRGUP Positive 03/27/2024 8:00 EDT [place] History and Physical . Assessment and Plan [place] [employer] (ASA) physical status classification: Class II. Anesthetic Preoperative Plan Premedication: intravenous. Anesthetic technique: General. Induction: intravenously. Maintenance airway: Oral endotracheal tube. Postoperative pain management: Per surgeon. Risks discussed: nausea, vomiting, sore throat. Informed consent: signed by patient. Digitally Signed by SAIRA LEVY on 03/27/2024 12:04 PM [facility]07-25-2024 Note [facility] ADMISSION HISTORY AND PHYSICIAL CHIEF COMPLAINT: Chronic pelvic pain HISTORY OF PRESENT ILLNESS: Kia is a 49-year-old 1 para 1 who presents with complaints of chronic lower pelvic pain. 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 In office ultrasound confirms very prominent pelvic vasculature. Shehas a history of tubal ligation and LEEP procedure. She has also had a NovaSure endometrial ablation. History also significant for possible polycystic ovary syndrome. REVIEW OF SYSTEMS: Chronic pelvic pain that sometimes can be debilitating. Review of systems otherwise unremarkable ACTIVE PROBLEMS: (24) Abdominal pain (75342325) Allergic rhinitis (325060943) Alternating constipation and diarrhea (761942593) Cystitis (73701557) Dysphagia (46408761) Generalized anxiety disorder (52443554) GERD - Gastro-esophageal reflux disease (7644789154) Herpes simplex (922057676) History of total right knee replacement (TKR) (1722222931) IBS - Irritable bowel syndrome (3838948793) Lumbar pain (363499767) Major depressive disorder (7364739537) Nausea (7295468391) Osteoarthritis of knee (026757987) Pelvic congestion syndrome (26057345) Pelvic pain (830892139) Plantar wart (858166955) Restless leg syndrome ([id number]) Screening for colon cancer (750437658) TMJ (temporomandibular joint syndrome) ([id number]) Tobacco use (6322100561) Unintentional weight loss (8687846336) Vulvar mass (045581273) Well woman exam with routine gynecological exam (280536686) MEDICATIONS: Active Inpt Meds: cefOXitin (Mefoxin) Start: 03/27/24 6:00:00 EDT, Dose = 2 gram(s), IV Piggyback, PREOP pharm, Rate:200 mL/hr, Infuse over: 30 minute(s), 0 Active PRN Meds: None One Time Meds: None Active IV Meds: Lactated Ringers Infusion 1000 mL (LR 1000 mL) Start: 03/27/24 6:00:00 EDT, 18 hour(s), Stop date 03/28/24 17:59:00 EDT, Rate: 20 mL/hr ALLERGIES: (3) Bactrim Carafate Soy FAMILY HISTORY: No significant family history pertaining to this admission SOCIAL HISTORY: Non-smoker, no significant alcohol use. No toxic habits PHYSICAL EXAM: VITALS: No Data Available 24 Hr Tmax: No Data Available 36 Hr Tmax: No Data Available Vital Signs are the last 5 in the past 48 hours. Weights display the last 5 within 7 days. Initial Wt: No Data Available Current Wt: No Data Available GENERAL: Appears well HEENT: Normocephalic CARDIOVASCULAR: Regular rate and rhythm normal blood pressure RESPIRATORY: Clear bilaterally ABDOMEN: Soft nontender no significant masses EXREMETIES: No significant edema no deformity NEUROLOGICAL: Intact PSYCHIATRIC: No signs of acute anxiety or depression LABS: No 36hr Lab Data DIAGNOSTICS: CT scan shows prominent pelvic vasculature. Normal size uterus and ovaries. Office ultrasound confirms prominent pelvic vasculature. IMPRESSION: Chronic pelvic pain possibly related to pelvic congestion syndrome. PLAN: Options for treatment discussed with the patient. Option for LAVH with or without bilateral oophorectomy was discussed. Limitations of surgery were reviewed. Procedures, risks, and postoperative expectations were also reviewed. This also included the possibility that this may not resolve her chronic pelvic pain. All questions were answered and consents were obtained. Digitally Signed by ALYSIA SOLITARIO MD on 03/27/2024 08:04 AM [facility]06-25-2024 Note ORIGINAL EXAMINATION: GASTRIC EMPTYING STUDY02/26/2024 2:35 pm GASTRIC EMPTYING Clinical Statement: Difficulty swallowing, weight loss, nausea, abdominal pain TECHNIQUE: Standard meal consisting of: Radiopharmaceutical: Tc-99m Sulfur Colloid po Dose: 1.8 mCi Tc-99m sulfur colloid in 4 oz of Egg Beaters 1 slice of bread, 2 Tsp of jelly 4 oz of water Anterior and posterior images of the stomach for 4 hours Calculate geometric mean of anterior and posterior images Calculate T 1/2 for gastric emptying Reference: Wilver TL, Jason M, Vero K, et al. Consensus Recommendations for Gastric Emptying Scintigraphy: A Joint Report of the [place] Neurogastroenterology and Motility Society of Nuclear Medicine. Am J Gastroenterol 2008;103:753-763. COMPARISON: No prior gastric emptying studies available comparison. HISTORY: ORDERING SYSTEM PROVIDED HISTORY: Reason for Exam: difficulty swallowing, weight loss, nausea, abd pain FINDINGS: 30 minutes: 89 % Retention. A value lower than 70% suggests rapid gastric emptying. 60 minutes: 77 % Retention. A value less than 30% suggests rapid gastric emptying. A value greater than 90% suggests delayed gastric emptying. 120 minutes: 53 % Retention. A value greater than 60% suggests delayed gastric emptying. 180 minutes: 29 % Retention. A value greater than 30% suggests delayed gastric emptying. 240 minutes: 5 % Retention. A value greater than 10% suggests delayed gastric emptying. There is normal gastric emptying of solid food. The extrapolated T-1/2 is 126.5 minutes. The upper limit of normal for our laboratory is 120 minutes. IMPRESSION: Slightly prolonged extrapolated T half emptying time of 126.5 minutes likely secondary to the 1st 60 minutes of imaging acquisition. Otherwise normal gastric emptying of solid food. Interpreted by: Chika Castaneda Preliminary Report By: Chika Castaneda Electronically signed By Chika Castaneda Dictated Date: 02/26/2024 4:08:39 PM Prelim Date: 02/26/2024 4:12:32 PM Sign Date: 02/26/2024 4:12:32 PM Ordering Provider: [facility]04-26-2024 NoteHNO ID: [id number] Author: RAMSEY TEMPLE PA-C Service: Emergency Medicine Author Type: Physician Geology Associate Type: Progress Notes Filed: 12/28/2023 15:41 Note Text: Patient's pharmacy called and told the [facility] staff that [facility] cannot compound the Maalox prescription that was prescribed to her yesterday, she requested it to be sent to compounding pharmacy of [facility]. I did send the Maalox prescription to compounding pharmacy [facility] for patient.[facility]01-11-2024 NoteHNO ID: [id number] Author: MANJIT ROMERO PA-C Service: ? Author Type: Physician Geology Associate Type: Progress Notes Filed: 09/13/2023 11:52 Note Text: ORTHOPAEDIC OFFICE NOTE CHIEF COMPLAINT: Status post right total knee arthroplasty (08/16/2021) [facility], CRPS R LE HISTORY OF PRESENT ILLNESS: Kia Gonzalez is a 48 year old who presents in follow-up for right total knee arthroplasty and subsequent postoperative CRPS. She has been under the care of pain management with extraordinary improvements. Prednisone, Fosamax and physical therapy have accelerated her healing process and she is very grateful for her improvement. However lately she has been in decline and is returned to some of her baseline CRPS symptoms. She is extremely concerned that something is wrong with her artificial right knee. PHYSICAL EXAMINATION: Resp 18 Ht 5' 5 (1.65m) Wt 150 lb (68.0kg) BMI 24.96 kg/(m2). General Appearance: Well appearing, alert, in no acute distress, well-hydrated, well nourished thin Skin: Skin color, texture, turgor normal, no suspicious rashes or lesions. Peripheral Pulses: Normal, Capillary refill <2secs, strong peripheral pulses. Neurologic: NVI yes. + FHL/EHL bilateral great toe. Extremities: Inspection of the right lower extremity shows anterior incision over the knee which is healing well without signs of breakdown or drainage. Neutral alignment. Moderate tactile irritation to palpation. Tracking of the knee is smooth. ROM:0-125 Ligaments intact to valgus and varus stresses compartments are soft. Mild atrophy seen through the VMO and lateral quadricep. IMAGES: 3 views of the right knee show total knee arthroplasty (cemented) in anatomic position. Patella is natural. Femoral component is minimally flexed with ball Added to the anterior knee. No signs of loosening or component failure. ASSESSMENT AND PLAN: 1. History of total knee arthroplasty, right - ICD9: V43.65, ICD10: Z96.651 (primary diagnosis) 2. Complex regional pain syndrome i of right lower limb - ICD9: 337.22, ICD10: G90.521 Functional Plan: Kia has had some mild to moderate regression with respects to her CRPS right lower extremity. Good discussion about returning to her strategies of movement and strengthening to help counteract these irritations Assistance Devices: None Physical/Occupational Therapy: Important to continue aggressive and consistent physical therapy to the knee for strengthening and gait training. Kia declines physical therapy. Wound Care: N/A Pain Control: No likely benefit or improvement with the usage of narcotics. Fragility Fracture: N/A Additional: She will continue under the direction of pain management and can follow-up with orthopedics annually as needed. KEKE [facility]12-14-2023 Note. MICRO - Microbiology PROCEDURE: Urine Culture [*1] SOURCE: Urine, Clean Catch BODY SITE: COLLECTED DATE/TIME: 08/14/2023 09:37 EST RECEIVED DATE/TIME: 08/14/2023 20:19 EST START DATE/TIME: 08/14/2023 20:19 EST FREE TEXT SOURCE: FINAL REPORTS Final Report [] Verified Date/Time/Personnel: 08/16/2023 07:51 EST <10,000 cfu/ml. No Significant growth. Sensitivity not indicated. PRELIMINARY REPORTS Preliminary Report [] Verified Date/Time/Personnel: 08/15/2023 09:09 EST No growth to date Performing Locations *1: This test was performed at: [facility], [address] [place] [address], [facility]- , [facility] ([place])03-15-2023 Miscellaneous Notes* Telephone Encounter - Sri Cervantes LMT - 03/15/2023 1:07 PM EDT INSURANCE CO. ID # GROUP # CO-PAY DEDUCTIBLE COINSUR. OUT OF POCKET MAX PRIOR AUTH REQU'D LIMITATIONS REFERENCE # SPOKE TO: MISSYIndigoJOSE [id number] $0 300 90% $2300 $375.83 $827.66 NO [id number] [id number] ASH Wei Is this a Medicare or Medicaid product? No Does this follow Medicare guidelines? No Is this a [employer] product? No Does this require clinical submission through [employer]? No Chiropractor: Dr. Zapata Contracted: Yes Chiropractic benefits: In network Are the billable benefits a HARD LIMIT? Yes If yes, what is the mailing address for additional requests to be sent? Where are chiropractic claims sent: Is there a pre-existing rider on claims: Ask for the managed care department for benefits Be sure to ask: Are these supervised or unsupervised therapeutic modalities covered if billed by [facility]? CPT CODE NAME COVERED? 41903 Manual manipulations spine 1-2 Y 07185 56191 Manual manipulations spine 3-4 Manual manipulations spine 5 Y Y 58211 Manual manipulations of extremities 00232 Hot/cold packs 97427 Mechanical traction Y 59919 Electrical stimulation Y 35765 Therapeutic exercises Y 17776 Neuromuscular re-education Y 22876 Massage therapy 93111 Manual therapy Y 85745 Acupuncture < 15 minutes [id number] Acupuncture > 15 minutes Acupuncture with stim < 15 minutes Acupuncture with stim > 15 minutes Sri Cervantes LMT documented in [facility] encounter[facility]07-13-[facility]23 Miscellaneous Notes* Telephone Encounter - Mary Kolb - 03/15/2023 9:35 AM EDT Pt left VM about making appt advising to make consult about stimulator and an accomodation for work. Mary Kolb documented in this encounterSelect [facility]03-23-2023 Miscellaneous Notes* Telephone Encounter - Avelina Hylton DO - 11/23/2022 12:16 PM EDT Will defer to Khushboo in regards to continuing this medication which I normally don't prescribe. Avelina Hylton DO * Telephone Encounter - Lexus Kay - 11/23/2022 10:01 AM EDT [facility] Telephone Medication Refill Request Name/dose: Vit C with Irma Hips 500mg Tablet Amount dispensed monthly: 60 Date last filled: 10/24/2022 Date last seen in office: 09/28/2022 Provider: Avelina Hylton DO Next scheduled visit: 12/20/2022 Pharmacy: [facility] [address] [place] [id number] [facility] [phone] [facility] [phone] Lexus Kay LPN November 23, 2022 10:02 AM documented in this encounterSelect [facility]03-07-2023 History of Present illness Narrative* Khushboo Jones, [employer].HAND COREMAKER - 11/07/2022 2:15 PM EST VIRTUAL VISIT PROGRESS NOTE This is a virtual visit using Audio only. It required patient-provider interaction for the medical decision making as documented below. Kia Gonzalez is a 47 year old female seen for leg pain, pain score 4/10 She had the right SNB on 10/25/[address] Simmons that has helped the pain here by over 80%. The nerve pain is much better and she has more ROM. She has stiffness mostly and the swelling is better. She is now working on strengthening so she can move more normal. She is recovering from strep and is on antibiotics for this. She is horse from this and is on steroids which has helped the knee pain. She is hopeful to strengthen now. Ht 165.1 cm (5' 5) Wt 68 kg (150 lb) LMP (LMP Unknown) BMI 24.96 kg/m . HISTORY REVIEWED (electronic chart updated): PAST MEDICAL HISTORY Diagnosis Date Depression Generalized anxiety disorder Restless leg syndrome Right knee pain PAST SURGICAL HISTORY Procedure Laterality Date PAST SURGICAL HISTORY OF Right 08/14/2021 knee TONSILLECTOMY & ADENOIDECTOMY <AGE 12 TOTAL KNEE REPLACEMENT Left 2020 FAMILY HISTORY Problem Relation Age of Onset Heart disease Mother Breast Cancer Mother COPD Mother Arthritis Mother Heart disease Father Diabetes Father Lung Cancer Father COPD Brother Hypertension Brother Obstructive Sleep Apnea Brother Social History Tobacco Use Smoking status: Every Day Types: Cigarettes Smokeless tobacco: Never Vaping Use Vaping Use: current everyday user Substances: Nicotine, THC Devices: Pre-filled pod Substance Use Topics Alcohol use: Yes Drug use: Yes Types: Marijuana Current Outpatient Medications Medication Sig ascorbic acid, vitamin C, (VITAMIN C WITH IRMA HIPS) 500 mg tablet Take 1 tablet by mouth twice daily. diclofenac, EC, (VOLTAREN) 75 mg EC tablet Take 1 tablet by mouth twice daily as needed (for pain.). busPIRone (BUSPAR) 5 mg tablet venlafaxine ER (EFFEXOR XR) 75 mg 24 hr capsule valACYclovir (VALTREX) 500 mg tablet oxybutynin (DITROPAN) 5 mg tablet 10 mg. omeprazole (PRILOSEC) 40 mg capsule as needed. efpxeitpafgs-dwq-apdi-FA-vit K (ADULTS MULTIVITAMIN) 18 mg iron-400 mcg-25 mcg tab Take by mouth. fluticasone (FLONASE) 50 mcg/actuation nasal spray Use in the nose. No current facility-administered medications for this visit. ALLERGIES Allergen Reactions Sulfamethoxazole-Tr* Swelling REVIEW OF SYSTEMS: GENERAL: no fever HEENT: see HPI NECK: denies swelling or pain in neck RESPIRATORY: cough due to recent illness CARDIOVASCULAR: no chest pain, no palpitations GI: no abdominal pain : urination is normal MUSCULOSKELETAL: as above, no other joint pain/muscle ache SKIN: no rash PSYCH: sleep is normal HEMATOLOGY/LYMPHOLOGY: negative for prolonged bleeding ENDOCRINE: denies cold/heat intolerance NEURO: admits to paresthesia in the right leg and admits to weakness in the right leg PHYSICAL EXAMINATION: VIDEO EXAM: (if completed, performed via video enabled technology) No exam performed ASSESSMENT: Complex regional pain syndrome type 1 affecting right lower leg - ICD9: 733.7, ICD10: G90.521 PLAN: She is going to resume her HEP learned in PT. we did discuss some of the other desensitization exercises she can do including some of the apps available on the Internet. I did add performix pain cream to see if this can help some of her residual neuropathic pain that she is experiencing. Patient Instructions Ice and heat as tolerated Activity as tolerated I have communicated my name and active licensure. The patient's identity and physical location wereverified at the time of this visit. Either the patient or their legal c s s representative has been informed of the risks and benefits of -- and alternatives to -- treatment through a remote evaluation andconsents to proceed with the evaluation remotely. I spent a total of 15 minutes on the date of the service which included preparing to see the patient, qsdf-le-izdi patient care, completing clinical documentation, and ordering medications, tests, orprocedures Khushboo Jones APRN.HAND COREMAKER documented in this encounterSelect [facility]03-03-2023 History of Present illness Narrative* Tatyana Ames, - 11/03/2022 11:54 AM EST Kia Gonzalez is a 47 year old FEMALE who presents with Sore Throat (Cough congestion started sunday) HPI PAST MEDICAL HISTORY Diagnosis Date Depression Generalized anxiety disorder Restless leg syndrome Right knee pain ACTIVE PROBLEM LIST Complex Regional Pain Syndrome I of Right Lower Limb Chronic Pain of Right Knee Muscle Weakness Current Outpatient Medications Medication Sig Dispense Refill ascorbic acid, vitamin C, (VITAMIN C WITH IRMA HIPS) 500 mg tablet Take 1 tablet by mouth twice daily. 60 tablet 0 diclofenac, EC, (VOLTAREN) 75 mg EC tablet Take 1 tablet by mouth twice daily as needed (for pain.). 60 tablet 2 busPIRone (BUSPAR) 5 mg tablet venlafaxine ER (EFFEXOR XR) 75 mg 24 hr capsule valACYclovir (VALTREX) 500 mg tablet oxybutynin (DITROPAN) 5 mg tablet 10 mg. omeprazole (PRILOSEC) 40 mg capsule as needed. aqokmzdpaybu-boc-ilwb-FA-vit K (ADULTS MULTIVITAMIN) 18 mg iron-400 mcg-25 mcg tab Take by mouth. fluticasone (FLONASE) 50 mcg/actuation nasal spray Use in the nose. dexAMETHasone (DECADRON) 4 mg tablet Take 1 tablet by mouth once daily for 4 days. 4 tablet 0 benzonatate (TESSALON PERLES) 100 mg capsule Take 2 capsules by mouth three times daily as needed for up to 7 days. 42 capsule 0 amoxicillin (AMOXIL) 875 mg tablet Take 1 tablet by mouth twice daily for 10 days. 20 tablet 0 Current Facility-Administered Medications Medication Dose Route Frequency Provider Last Rate Last Admin dexAMETHasone sodium phosphate 10 mg for oral administration (DECADRON) 10 mg ORAL ONCE Tatyanagiovanni Reyessara Ames, Social History Tobacco Use Smoking status: Every Day Types: Cigarettes Smokeless tobacco: Never Vaping Use Vaping Use: current everyday user Substances: Nicotine, THC Devices: Pre-filled pod Substance Use Topics Alcohol use: Yes Drug use: Yes Types: Marijuana Alcohol Use: Yes Tobacco Use: Types: Cigarettes FAMILY HISTORY Problem Relation Age of Onset Heart disease Mother Breast Cancer Mother COPD Mother Arthritis Mother Heart disease Father Diabetes Father Lung Cancer Father COPD Brother Hypertension Brother Obstructive Sleep Apnea Brother Review of Systems Constitutional: Positive for chills, fever and malaise/fatigue. HENT: Positive for congestion, sinus pain and sore throat. Respiratory: Positive for cough, sputum production and wheezing. Gastrointestinal: Positive for nausea. Musculoskeletal: Positive for myalgias. All other systems reviewed and are negative. BP 131/80 Pulse 80 Temp 98.8 Resp 16 Wt 150 lb (68.0kg) SpO2 97% Physical Exam Vitals and nursing note reviewed. Constitutional: Appearance: Normal appearance. HENT: Head: Normocephalic and atraumatic. Right Ear: Tympanic membrane normal. Left Ear: Tympanic membrane normal. Nose: Congestion and rhinorrhea present. Mouth/Throat: Pharynx: Posterior oropharyngeal erythema present. Eyes: Extraocular Movements: Extraocular movements intact. Conjunctiva/sclera: Conjunctivae normal. Pupils: Pupils are equal, round, and reactive to light. Cardiovascular: Rate and Rhythm: Normal rate and regular rhythm. Pulses: Normal pulses. Heart sounds: Normal heart sounds. Pulmonary: Effort: Pulmonary effort is normal. Breath sounds: Wheezing and rhonchi present. Abdominal: General: Bowel sounds are normal. Musculoskeletal: General: Normal range of motion. Lymphadenopathy: Cervical: Cervical adenopathy present. Skin: General: Skin is warm. Capillary Refill: Capillary refill takes less than 2 seconds. Neurological: General: No focal deficit present. Mental Status: She is alert and oriented to person, place, and time. Psychiatric: Mood and Affect: Mood normal. Behavior: Behavior normal. ASSESSMENT/PLAN: 1. Acute pharyngitis, unspecified etiology - ICD9: 462, ICD10: J02.9 - suspect strep - Discussed supportive care treatment with fluids, rest and analgesia. - DEXAMETHASONE SODIUM PHOSPHATE 10 MG/ML INJECTION FOR ORAL USE - DEXAMETHASONE 4 MG TABLET - BENZONATATE 100 MG CAPSULE - AMOXICILLIN 875 MG TABLET Tatyana Ames documented in this encounterSelect [facility]02-28-2023 Instructions* Patient Instructions* Khushboo Jones APRN.JEFF - 10/31/2022 6:24 AM EST Ice and heat as tolerated Activity as tolerated documented in this encounterSelect [facility]02-20-2023 Instructions* Patient Instructions* Froylan Davey LPN - 10/23/2022 11:49 AM EST PROCEDURE DISCHARGE INSTRUCTIONS 10/23/2022 Kia Gonzalez 1975 Physician: Darwin Simmons MD Procedure: Other: lumbar sympathetic Post Procedure Instructions: If sedation given, no driving the day of the procedure., Rest the day of the procedure., Pain should gradually subside over the next 2-3 weeks., Avoid movements that may aggravate pain., Apply cold compresses to injection site if needed., If medically acceptable, take over the counter anti-inflammatories such as ibuprofen or Aleve if needed for post procedure discomfort., No hot baths, hot tubs or hot compresses for 24 hours., and Increased pain the day after the procedure may occur. If you have any of the following signs or symptoms, please call our office at Fever and/or chills Swelling and/or drainage from injection site New pain that is different than your normal pain (other than soreness at the site of the procedure) Stiff neck Shortness of breath Severe increase in pain Motor dysfunctions, such as difficulty walking, bowel or bladder dysfunction and/or incontinence Headache that is severe, light sensitive or develops when changing positions (positional headache) Nausea and/or vomiting accompanied by headache that started 24-48 hours after the procedure If you have any emergent concerns, please call 911 or go to your local emergency room. Please also contact our office to let us know you will be seeking emergency care and why. documented in this encounterSelect [facility]02-20-2023 Nurse Note* Froylan Davey LPN - 10/23/2022 11:49 AM EST Dressing dry and intact, no drainage noted. The patient denies numbness, tingling, weakness, shortness of breath, dizziness or headache. Pain level 2/10. Patient given discharge instructions and escorted to transportation via ambulatory method. Froylan Davey LPN * Lexus Kay - 10/23/2022 11:02 AM EST Procedure to be performed: Lumbar Sympathetic Nerve Block Patient was wheeled on stretcher from pre op bay to procedure room and assisted onto the procedure tablePatient s procedure was performed in an [facility] Procedure room. Pause completed at each level by provider to verify correct level and laterality placement Pressure was applied to patient s injection site(s) and bleeding was minimal. Patient had no complaint of shortness of breath, dizziness, headache, numbness, tingling, weakness or complications from procedure. Patient was assisted from the procedure table onto the stretcher and wheeled into a post op bay. Patient was advised a clinician will be to obtain another set of vitals. Time Out: 1120 Confirmed patient name, date of , procedure site, laterality, and allergies Procedure Start: 1123 Procedure End: 1138 * Karey Cedillo LPN - 10/23/2022 10:48 AM EST [employer] Machine Operator's Name: MITCH Are you on a blood thinner: NO If yes, is a hold required: N Last dose of blood thinner: N INR Result today: N Do you require a Lovenox bridge:N Are you a diabetic:N Are you/or could you be : NO Are you taking Xanax for the procedure: no Are you currently on a steroid? NO Are you currently on an antibiotic: NO Have you had a COVID-19 vaccine in the last 14 days Or are you scheduled to receive one? NO documented in this encounterSelect Medical [facility]02-20-2023 History of Present illness Narrative* Darwin Simmons MD - 10/23/2022 11:00 AM EST [facility] Date: 10/23/2022 Patient name: Kia Gonzalez Physician performing procedure: Darwin Simmons MD, PhD Procedure: Lumbar Sympathetic Blockade with Steroid Infiltration under fluoroscopic guidance Side Treated: Right Approach: Right Oblique Injectate: A total of 11 mL, consisting of 1mL of Depo-medrol (40mg/cc), 5mL of 2% Lidocaine and 5mL of 0.5% Bupivacaine Improvement after today's procedure: as per nursing report Diagnosis: (G90.521) Complex regional pain syndrome type 1 affecting right lower leg (primary encounter diagnosis) (G90.521) Complex regional pain syndrome i of right lower limb Comments: Patient has left-sided sacralization of the L5 vertebral body level. HPI: Kia Gonzalez is an 47 year old FEMALE with depression, generalized anxiety disorder, RLS, smoking, EtOH & THC abuse, OA s/p L TKR, s/p R TKR c/b CRPS of RLE with who presents today for anelective lumbar sympathetic nerve block. Patient otherwise denies fevers, chills, weakness, saddle anesthesia, bowel or bladder incontinenceor recent antibiotic or anticoagulant use. Review of Systems: Pertinent Positives: MSK: pain in the region being treated Neuro: No weakness or numbness in the region being treated Skin: Negative (No itching) Eyes: Negative (No blurred or double vision) Respiratory: Negative (No Cough, Qiilfgvqx-kv-rdwfbm, Dyspnea on exertion, wheezing) Cardiovascular: Negative (No Chest Pain, Tightness, Pressure, Palpitations) Gastrointestinal: Negative (No Abdominal pain, Nausea, Vomiting, Constipation, Diarrhea) Genitourinary: Negative (No dysuria) Hematologic: Negative (No bleeding, bruising) OB: is Denied or Not Applicable Endocrine: Negative (No hot/cold intolerance) Psychiatric: Negative (No depression, anxiety or suicidal ideation) ALLERGIES Allergen Reactions Sulfamethoxazole-Tr* Swelling Current Outpatient Medications on File Prior to Visit Medication Sig ascorbic acid, vitamin C, (VITAMIN C WITH IRMA HIPS) 500 mg tablet Take 1 tablet by mouth twice daily. diclofenac, EC, (VOLTAREN) 75 mg EC tablet Take 1 tablet by mouth twice daily as needed (for pain.). busPIRone (BUSPAR) 5 mg tablet alendronate (FOSAMAX) 10 mg tablet Take 4 tablets by mouth In AM with cup of water on empty stomach. Nothing else by mouth and stay upright for 30 min. venlafaxine ER (EFFEXOR XR) 75 mg 24 hr capsule valACYclovir (VALTREX) 500 mg tablet oxybutynin (DITROPAN) 5 mg tablet 10 mg. omeprazole (PRILOSEC) 40 mg capsule as needed. akvkeyzqeotv-qgl-dqkm-FA-vit K (ADULTS MULTIVITAMIN) 18 mg iron-400 mcg-25 mcg tab Take by mouth. fluticasone (FLONASE) 50 mcg/actuation nasal spray Use in the nose. No current facility-administered medications on file prior to visit. PAST MEDICAL HISTORY Diagnosis Date Depression Generalized anxiety disorder Restless leg syndrome Right knee pain PAST SURGICAL HISTORY Procedure Laterality Date PAST SURGICAL HISTORY OF Right 08/14/2021 knee TONSILLECTOMY & ADENOIDECTOMY <AGE 12 TOTAL KNEE REPLACEMENT Left 2020 FAMILY HISTORY Problem Relation Age of Onset Heart disease Mother Breast Cancer Mother COPD Mother Arthritis Mother Heart disease Father Diabetes Father Lung Cancer Father COPD Brother Hypertension Brother Obstructive Sleep Apnea Brother Social History Tobacco Use Smoking status: Every Day Types: Cigarettes Smokeless tobacco: Never Vaping Use Vaping Use: current everyday user Substances: Nicotine, THC Devices: Pre-filled pod Substance Use Topics Alcohol use: Yes Drug use: Yes Types: Marijuana Attestation Information obtained by others were confirmed and edited as necessary on 10/22/2022 by Darwin Simmons MD. Objective Exam: Vitals: As per nursing documentation Constitutional: Normal Appearance, Oriented to Time, Place and Person Head: No lacerations, no external signs of trauma Eyes: Conjunctiva clear. No discharge from the eyes Cardiovascular: Appears well-perfused Pulmonary: Non-labored respirations Abdominal: Non-distended Skin: No visible rashes or ecchymosis Psychiatric: Mood appropriate for given condition Neurological: no focal deficits, gross movements are limited by pain, but otherwise unremarkable Data Reviewed: Nursing note and vitals reviewed. Additional imaging reviewed as appropriate Assessment and Plan: We discussed their current plan and the pathology responsible for the patient's pain. Specific counseling related to the procedure was provided regarding the risks, benefits and alternatives. The patient wishes to proceed with the plan as noted above. Encounter Diagnosis ICD-10-CM 1. Complex regional pain syndrome type 1 affecting right lower leg G90.521 INJECT NERV BLCK,PARAVERT SYMPATH iohexol 300 mg IV injection (OMNIPAQUE 300) lidocaine 10 mg/mL (1 %) 100 mg injection (XYLOCAINE) bupivacaine (PF) 0.5 % (5 mg/mL) 25 mg injection methylPREDNISolone acetate 40 mg injection (DEPO-Medrol) lidocaine (PF) 20 mg/mL (2 %) 200 mg injection (XYLOCAINE) 2. Complex regional pain syndrome i of right lower limb G90.521 INJECT NERV BLCK,PARAVERT SYMPATH iohexol 300 mg IV injection (OMNIPAQUE 300) lidocaine 10 mg/mL (1 %) 100 mg injection (XYLOCAINE) bupivacaine (PF) 0.5 % (5 mg/mL) 25 mg injection methylPREDNISolone acetate 40 mg injection (DEPO-Medrol) lidocaine (PF) 20 mg/mL (2 %) 200 mg injection (XYLOCAINE) UNIVERSAL PROTOCOL / SAFETY CHECKLIST Procedure to be Performed: as stated above Sign In: A Moment of CARE was completed. Personnel directly involved with the procedure wore the appropriate PPE (Personal Protective Equipment). Patient/Surrogate Stated/Verified: PATIENT VERIFIED(optional for EMERGENT procedures): Patient name, Date of , Relevant allergies and The intended procedure Time Out Communication: Intended patient and procedure match the source documents. Consent documented and matches the intended procedure. Relevant labs, photos, and/or imaging studies have been reviewed. Medications required for procedure verified. Sign Out: SIGN OUT (optional for EMERGENT procedures): No specimen collected. Time out to confirm patient name, date of , procedure site, laterality, and allergies performed by physician. Please see nursing note for exact times (time out, procedure start, procedure end). [facility] protocol documentation / Pre-Procedure checklist: Unless stated otherwise in the procedure note, the risks include but are not limited to infection, allergic reaction, increased pain, lack of therapeutic benefit, steroid reaction, nerve damage, paralysis, stroke, epidural hematoma, syncope, headache, respiratory or cardiac arrest, pneumothorax, and scar formation Time Out was led by the physician in the procedure room, with the patient and all staff present andparticipating The following information was verified: name, date of , procedure site (marked), laterality, anticoagulants and allergies [facility] protocol documentation / Pre-Procedure Checklist: Consent: Obtained in writing prior to procedure Unless stated otherwise in the procedure note, the risks include but are not limited to infection, allergic reaction, increased pain, lack of therapeutic benefit, steroid reaction, nerve damage, paralysis, stroke, epidural hematoma, syncope, headache, respiratory or cardiac arrest, pneumothorax, and scar formation Once the plan was agreed upon, the patient gave written consent to proceed and was transported intothe procedure room Surgical/Procedure pause or Time Out : Time Out was led by the physician in the procedure room, with the patient and all staff present andparticipating The following information was verified during the Time Out process: Patient name, patient date of , procedure site (marked), laterality, anticoagulants and allergies Anticoagulants: reviewed with patient, notable for: none DESCRIPTION OF PROCEDURE: Informed consent was obtained prior to the procedure and questions were answered including the risks, benefits, alternative treatment options, and prognosis. The risks are as mentioned above, except for pneumothorax. IV access was obtained prior to the procedure. The patient was brought to the fluoroscopy suite. The patient was positioned prone on the fluoroscopy table. The area of the lumbar spine was prepped with chlorhexidine and draped in a sterile fashion. The L2 vertebral body was identified using fluoroscopy and then a posterolateral oblique view of the region overlying the superior portion of this vertebral body was obtained under fluoroscopic visualizationsuch that the transverse process was superimposed along the lateral edge of the vertebral body. The skin and subcutaneous tissues overlying the transverse process was anesthetized using lidocaine 1% using a 25G 1.5inch needle. Under fluoroscopic guidance, a 22 gauge, 7 inch spinal needle was slowly advanced to the anterolateral border of the L2 vertebral body initially in the oblique view and then in the lateral view untilthe tip of the needle was located just posterior to the anterior margin of the vertebral body. The position of the needle was confirmed using oblique, AP and lateral fluoroscopic imaging. Negative aspiration for blood or CSF was confirmed. Omnipaque 300 was then injected through the needle confirming smooth contrast spread along the psoas fascia. Additional views were taken in AP and lateral positions. The above injectate was then slowly administered in increments with intermittent negative aspiration for blood with real-time monitoring of vital signs without incident. The patient had no painon injection. The needle was removed and bleeding was nil. A sterile dressing was applied. Please see the nursing note for exact times (time out, procedure start, procedure end). After careful removal of the needle, there was minimal bleeding. The injection site was covered with appropriate sterile dressing. The patient was noted to have tolerated the procedure well and was discharged after an appropriate period of post-procedure observation. The patient was instructed to contact us if there were any complications. The patient was advised to follow-up with the requesting physician within one to two weeks or as per their requested follow-up plan. Post procedure visit summary with written instructions was offered to the patient. Darwin Simmons MD, PhD Pain Management [facility] * Karey Cedillo LPN - 10/23/2022 10:47 AM EST Review of Systems Constitutional: Negative for activity change, appetite change, chills, fever and unexpected weight change. Genitourinary: Negative for difficulty urinating. Musculoskeletal: Positive for arthralgias, back pain, joint swelling and myalgias. Negative for gait problem, neck pain and neck stiffness. Neurological: Negative for weakness, numbness and headaches. Psychiatric/Behavioral: Positive for sleep disturbance. Negative for dysphoric mood and suicidal ideas. The patient is nervous/anxious. documented [facility] encounter[facility] Miscellaneous Notes* Addendum Note - Avelina Hylton DO - 09/28/2022 9:22 AM ESTAddended by: AVELINA HYLTON on: 09/28/2022 09:22 AM Modules accepted: Orders documented in this encounterSelect [facility]01-26-2023 Miscellaneous Notes* Telephone Encounter - Yenny Roland - 09/28/2022 9:14 AM EST Opened in Error documented in this encounterSelect [facility]01-26-2023 History of Present illness Narrative* Avelina Warner, DO - 09/28/2022 8:45 AM EST [facility] Today's Date: 09/28/22 Last Visit: 08/31/22 Name: Kia Gonzalez : 1975 Purpose: follow up Chief complaint: R knee pain Interval History: Since last visit, she reports her R knee pain is unchanged. A lumbar MRI was denied by her insurance which was later overturned after a P2P. She completed this and it revealed mild degenerative changes and no high grade stenosis. Discussed moving forward with a lumbar sympathetic block for both diagnostic and therapeutic purposes. Initial HPI: (Obtained on 08/31/2022) Kia Gonzalez is a 47 year old year-old female with a PMHx of R knee OA s/p replacement and CRPS of R leg, smoking, EtOH & THC abuse who presents having been referred by Avelina Hylton, for evaluation and management of the above-mentioned chief complaint. This has been present since knee replacement Aug 2021. The onset of symptoms was sudden and was without associated trauma. Treatments to date include the following: Medications (See below), Surgery (See below), Physical Therapy , and Home Exercise Program . Surgery was R knee replacement, PT completed 07/2022, HEP 3-4 times a week since then. Pain Description: Timing: intermittant Character: Numb, Tingling, and Shooting Primary Location: R knee Radiation: down leg to foot and up thigh Exacerbating factors: stairs Relieving factors: medications Interferes with: stairs, physical activity, and social activities The patient denies difficulty with bowel or bladder control, unintentional weight loss, and fevers,chills, or night sweats. Current Status: INTAKE PAIN ASSESSMENT 08/31/2022 09/28/2022 Are you having pain associated with your visit today? Yes, Provider notified Yes, Provider notified Pain Scales Verbal (Numeric Rating or Visual Analog Scale) Verbal (Numeric Rating or Visual Analog Scale) Pain Level 2 2 Pain Location Knee-Right Knee-Right Description Numbness;Sharp Other: See comment;Sharp Duration Amount of Time - - Duration Units Years Years Frequency Intermittent Continuous Intervention/Comfort measure Other: See comment Medication Comments nothing helps - Pain Assessment - - Current Pain Medications: Opioids: NSAIDS: diclofenac 75 mg BID prn- helps with inflammation but not with hypersensitivity pain Anti-depressants: Effexor 75 mg daily Anti-convulsants: Muscle relaxants: Others: Analgesia: partially adequate Current Anti-Coagulant Use: No PAST Pain Medications (for the chief complaint(s)): Opioids: NSAIDS: Anti-depressants: Anti-convulsants: Gabapentin 100 mg BID-stopped as this was not effective, but was never increased to a higher level. Muscle Relaxants: Others: Allergies: ALLERGIES Allergen Reactions Sulfamethoxazole-Tr* Swelling Data Reviewed: Reviewed personally on today's date Relevant Imaging: Lumbar MRI 09/20/22 Counting reference: Transitional anatomy is present. For the purposes of this dictation, there is sacralization of the L5 vertebral body to the left of midline. A well-developed but congenitally short L5-S1 disc space is present. Iliac wings at L3-L4 on the coronal shoe cementer. By convention, 5 lumbar vertebral bodies are assumed. General: There is minimal grade I anterolisthesis of L3 on L4 and L4 on L5. No pars interarticularis defect is identified. Vertebral body heights are preserved. Moderate disc height loss L4-L5 with surrounding discogenic endplate degenerative changes. Disc heights are otherwise maintained. Marrow signal is mildly heterogeneous but nonfocal within the imaged volume. The distal spinal cord is normal in volume, contour, and signal. The conus medullaris terminates at L1-L2, in proper position. T12-L1: No disc bulge. Minimal bilateral facet arthropathy. No neural foraminal or spinal canal stenosis. L1-L2: Minimal annular bulge. Mild bilateral facet arthropathy. Minimal bilateral neural foraminal narrowing. No spinal canal stenosis. L2-L3: Minimal annular bulge with minimal flattening of the ventral thecal sac. Mild bilateral neural foraminal narrowing. No spinal canal stenosis. L3-L4: Minimal annular bulge. Minimal left facet arthropathy. No neural foraminal or spinal canal stenosis. L4-L5: Minimal pseudodisc appearance with superimposed broad-based disc bulge. Minimal flattening of the ventral thecal sac. Mild right and minimal left facet arthropathy. Mild to moderate left and mild right neural foraminal narrowing. No spinal canal stenosis. L5-S1: Transitional anatomy. Negative. The visualized portions of the sacroiliac joints are unremarkable, bilaterally. The imaged paraspinal soft tissues are unremarkable. Electrodiagnostic Study (EMG): None Recent labs: No results found for: GLUC, K, NA, CHLOR, CO2, CREAT, BUN, ANION, CA, GFR, EGFRAA, NAAGFR Pain Procedures: DATE PROCEDURE IMPROVEMENT None to date at this practice Compliance: PDMP website checked and validated. All prescriptions have been APPROPRIATELY filled. No suspiciousactivity was identified. 09/28/22 by Avelina Hylton DO Last Drug screen: N/A Current Medications, Past Medical History, Past Surgical History, Family History, Social History and Review of Systems: On today's date, noted above, I have confirmed and edited as necessary, the PFSH and ROS obtained by others. Physical Exam: 09/28/22 0838 Pulse: 80 Resp: 18 SpO2: 99% Constitutional:normal weight HEENT: Normal Cephalic, Atraumatic, Non-icteric sclera Eyes: Conjunctiva clear. No discharge from eyes Cardiovascular: Appears well perfused Lymphatic: No visible regional lymphadenopathy Skin: No visible rashes or ecchymosis Psychiatric: Full affect, Alert, Pleasant Neuro: Sensation intact in b/l LE Negative SLR b/l R Knee(s): Inspection: No edema, effusion, erythema, warmth, well healed surgical scar. No skin or color changes noted on exam but patient reports color changes Palpation: TTP globally of R knee as well as R lower leg Range of Motion: Limited active flexion and extension on the right as compared to the left Limited strength (4+/5) with resisted extension and flexion on the right as compared to the left No crepitus Impression & Plan: 47 year old female with significant past medical history for R knee OA s/p replacement and CRPS of R leg, smoking, EtOH & THC abuse who presents with complaint(s) of right knee pain secondary to CRPS after she had her right knee replaced. She has completed PT and is doingHEP regularly. We will continue with medication management and send for a lumbar sympathetic block. Diagnoses: No diagnosis found. Kia Gonzalez would benefit from the following to decrease pain, improve function and/or work participation, and improve quality of life: Interventional Procedure(s): Lumbar sympathetic block under fluoroscopic guidance The risks, benefits, alternative treatment options and prognosis of the procedure were discussed and all of the patient's questions/concerns were addressed to the patient's satisfaction. The patient expressed understanding and gave verbal consent to proceed. Medications: Continue Diclofenac 75 mg twice daily as needed. Discussed not taking any other NSAIDs while takingdiclofenac. Tylenol 1000 mg 3 times daily as needed Addendum: During check out patient asked for anxiolytic. Will send in sublingual xanax to take prior to procedure. Functional Adventism: Completed PT for right leg. Encourage patient to complete HEP 3-4 times perweek Additional Studies: None Referrals: None Depending on response to the above plan, consider: Restarting gabapentin at a higher dose versus Lyrica. Follow-up: next available appointment for the ordered procedure(s) Attribution: In addition to reviewing the information noted above, some elements copied from my most recent clinical note(s), including the physical exam (completed in entirety today), and the impression and plan sections, have been updated where appropriate. All reflect current medical decision making from today's date. Avelina Hylton DO Pain Management [facility] * Bert Leonardo MA - 09/28/2022 8:37 AM EST Review of Systems Constitutional: Negative for activity change, chills, fever and unexpected weight change. Gastrointestinal: Negative for bowel retention or incontinence Genitourinary: Negative for difficulty urinating. Negative for bladder retention or incontinence Musculoskeletal: Positive for arthralgias, back pain, gait problem, joint swelling and myalgias. Negative for neck pain and neck stiffness. Neurological: Positive for weakness, numbness and headaches. Psychiatric/Behavioral: Positive for dysphoric mood and sleep disturbance. Negative for suicidal ideas. The patient is nervous/anxious. documented in this encounterSelect [facility]01-23-2023 Miscellaneous Notes* Addendum Note - Khushboo Jones APRN.[facility] - 09/25/2022 9:48 AM EST Addended by: KHUSHBOO JONES on: 09/25/2022 09:48 AM Modules accepted: Orders * Telephone Encounter - Avelina Hylton DO - 09/25/2022 9:19 AM EST Will defer to Khushboo regarding refills of this. Avelina Hylton DO * Telephone Encounter - Lexus Kay - 09/25/2022 8:13 AM EST [facility] Telephone Medication Refill Request Name/dose: Vitamin C With Irma Hips 500mg Tablet Amount dispensed monthly: 60 Date last filled: 08/25/2022 Date last seen in office: 08/31/2022 Provider: Avelina Hylton DO Next scheduled visit: 09/28/2022 Pharmacy: [address] [id number] - [facility] [phone] [facility] [phone] Lexus Kay LPN September 25, 2022 8:19 AM documented in this encounterSelect [facility]01-10-2023 Miscellaneous Notes* Telephone Encounter - JEMAL Lora - 09/12/2022 10:20 AM EST Insurance denied because of lack of PT. They did sent the notes so I am not sure why it is still denied. Peer to peer can be done ABRIL. How would you like to proceed? Angie King Clinical Material Handler to Dr. Simmons, Dr. Hylton, Cassia Russell PA-C, Workers Compensation [facility] P: [id number] / F: [phone] / [email or web address] * Telephone Encounter - JEMAL Lora - 09/12/2022 10:19 AM EST Peer to Peer Information Is a Peer to Peer available? Yes Does Peer to Peer need to be scheduled? No Who can schedule? N/A Who can complete the Peer to Peer? MD, COVERAGE SPECIALIST, PA, LN Allowable Peer to Peer timeframe? As soon as possible Payer Information Insurance Name [facility] MEDICAID Insurance P2P opt 2 / opt 1 Case tracking # [id number] Appeal Information Appeal Address N/A Appeal Fax# N/A Special Appeal Instructions N/A Allowable Timeframe for Appeal N/A Facility Information Location [facility] [id number] Tax ID# [id number] Patient Demographics Patient Last Name FRAME Patient First Name KIA Date of 1975 Clinical/Denial Information Ordering Provider AVELINA HYLTON Approved Services N/A Denied Services [id number] MRI LUMBAR SPINE WO IVCON Alternative Recommendation : N/A Date of Service (DOS) 09/20/2022 Denial Reason A person might need a(n) Lumbar Spine MRI if these notes have/has been given: doctor's notes that say you did six weeks of back stretches (physical therapy, chiropractic treatments, or medically directed home exercise program) in the last six months. If you did this, the notes do not show the dates that you did the exercises. The information we got did not include these notes. Clinical Documentation Provided OFFICE NOTES: OFFICE 08/31/2022 SUMMARY 08/31/2022 & 07/04/2022 OTHER: PHYSICAL THERAPY 07/12/2022, 07/05/2022,06/29/2022, 06/16/2022, 06/13/2022, 06/08/2022, 06/06/2022, 06/02/2022, 05/30/2022, 05/23/2022, 05/17/2022, 05/10/2022, 05/05/2022, 05/03/2022, 04/28/2022, documented in this encounterSelect [facility]12-29-2022 History of Present illness Narrative* Avelina Hylton, DO - 08/31/2022 10:15 AM EST [facility] Today's Date: 08/31/2022 Last Visit: 05/25/22 Name: Kia Gonzalez : 1975 Purpose: follow up- new to me Chief complaint: R knee pain Interval History: None Initial HPI: (Obtained on 08/31/2022) Kia Gonzalez is a 47 year old year-old female with a PMHx of R knee OA s/p replacement and CRPS of R leg, smoking, EtOH & THC abuse who presents having been referred by Avelina Hylton, for evaluation and management of the above-mentioned chief complaint. This has been present since knee replacement Aug 2021. The onset of symptoms was sudden and was without associated trauma. Treatments to date include the following: Medications (See below), Surgery (See below), Physical Therapy , and Home Exercise Program . Surgery was R knee replacement, PT completed 07/2022, HEP 3-4 times a week since then. Pain Description: Timing: intermittant Character: Numb, Tingling, and Shooting Primary Location: R knee Radiation: down leg to foot and up thigh Exacerbating factors: stairs Relieving factors: medications Interferes with: stairs, physical activity, and social activities The patient denies difficulty with bowel or bladder control, unintentional weight loss, and fevers,chills, or night sweats. Current Status: INTAKE PAIN ASSESSMENT 08/06/2022 08/31/2022 Are you having pain associated with your visit today? - Yes, Provider notified Pain Scales - Verbal (Numeric Rating or Visual Analog Scale) Pain Level 3 2 Pain Location Leg-Right Knee-Right Description - Numbness;Sharp Duration Amount of Time - - Duration Units - Years Frequency - Intermittent Intervention/Comfort measure - Other: See comment Comments - nothing helps Pain Assessment Assessment - Current Pain Medications: Opioids: NSAIDS: Prednisone taper- helped Anti-depressants: Effexor 75 mg daily Anti-convulsants: Muscle relaxants: Others: Analgesia: not adequate Current Anti-Coagulant Use: No PAST Pain Medications (for the chief complaint(s)): Opioids: NSAIDS: Anti-depressants: Anti-convulsants: Gabapentin 100 mg BID-stopped as this was not effective, but was never increased to a higher level. Muscle Relaxants: Others: Allergies: ALLERGIES Allergen Reactions Sulfamethoxazole-Tr* Swelling Data Reviewed: Reviewed personally on today's date Relevant Imaging: Needs Lumbar MRI for sympathetic block Electrodiagnostic Study (EMG): None Recent labs: No results found for: GLUC, K, NA, CHLOR, CO2, CREAT, BUN, ANION, CA, GFR, EGFRAA, NAAGFR Pain Procedures: DATE PROCEDURE IMPROVEMENT None to date at this practice Compliance: PDMP website checked and validated. All prescriptions have been APPROPRIATELY filled. No suspiciousactivity was identified. 08/31/2022 by Avelina Hylton, DO Regular Tramadol from Ortho after surgery until 02/28/22 Last Drug screen: N/A Current Medications, Past Medical History, Past Surgical History, Family History, Social History and Review of Systems: On today's date, noted above, I have confirmed and edited as necessary, the PFSH and ROS obtained by others. Physical Exam: 08/31/22 1009 Pulse: 79 Resp: 18 SpO2: 99% Constitutional:normal weight HEENT: Normal Cephalic, Atraumatic, Non-icteric sclera Eyes: Conjunctiva clear. No discharge from eyes Cardiovascular: Appears well perfused Lymphatic: No visible regional lymphadenopathy Skin: No visible rashes or ecchymosis Psychiatric: Full affect, Alert, Pleasant R Knee(s): Inspection: No edema, effusion, erythema, warmth, well healed surgical scar. No skin or color changes noted on exam but patient reports color changes Palpation: TTP globally of R knee as well as R lower leg Range of Motion: Limited active flexion and extension on the right as compared to the left Limited strength (4+/5) with resisted extension and flexion on the right as compared to the left No crepitus Impression & Plan: 47 year old female with significant past medical history for R knee OA s/p replacement and CRPS of R leg, smoking, EtOH & THC abuse who presents with complaint(s) of right knee pain secondary to CRPS after she had her right knee replaced. We will continue with medication management and plan for a lumbar sympathetic block after lumbar MRI is completed which is required prior to this injection. Diagnoses: (G90.521) Complex regional pain syndrome i of right lower limb (primary encounter diagnosis) (M25.561, G89.29) Chronic pain of right knee (M48.061) Spinal stenosis of lumbar region, unspecified whether neurogenic claudication present Kia Gonzalez would benefit from the following to decrease pain, improve function and/or work participation, and improve quality of life: Interventional Procedure(s): None The risks, benefits, alternative treatment options and prognosis of the procedure were discussed and all of the patient's questions/concerns were addressed to the patient's satisfaction. The patient expressed understanding and gave verbal consent to proceed. Medications: Diclofenac 75 mg twice daily as needed. Discussed not taking any other NSAIDs while taking diclofenac. Tylenol 1000 mg 3 times daily as needed Functional Adventism: Completed PT for right leg. Encourage patient to complete HEP 3-4 times perweek Additional Studies: Lumbar MRI, patient to follow-up with orthopedic surgeon outside facility to check on MRI compatibility of her right knee replacement hardware Referrals: None Depending on response to the above plan, consider: Restarting gabapentin at a higher dose versus Lyrica. Follow-up: 4-6 weeks for an office visit Attribution: In addition to reviewing the information noted above, some elements copied from my most recent clinical note(s), including the physical exam (completed in entirety today), and the impression and plan sections, have been updated where appropriate. All reflect current medical decision making from today's date. Avelina Hylton DO Pain Management [facility] * Bert Leonardo MA - 08/31/2022 10:08 AM EST Review of Systems Constitutional: Negative for activity change, chills, fever and unexpected weight change. Gastrointestinal: Negative for bowel retention or incontinence Genitourinary: Negative for difficulty urinating. Negative for bladder retention or incontinence Musculoskeletal: Positive for arthralgias, back pain, gait problem, joint swelling, myalgias, neck pain and neck stiffness. Neurological: Positive for weakness and numbness. Negative for headaches. Psychiatric/Behavioral: Positive for dysphoric mood and sleep disturbance. Negative for suicidal ideas. The patient is nervous/anxious. documented in this encounter[facility]11-30-2022 Miscellaneous Notes* Telephone Encounter - Lesly Ames - 08/02/2022 2:33 PM EST Patient has been called and scheduled. Lesly Ames documented in this encounterSelect [facility]11-23-2022 Miscellaneous Notes* Telephone Encounter - Ingris Martinez MA - 07/26/2022 9:07 AM EST Left voicemail for patient informing them that refills can not be given until she is seen in office. Ingris Martinez MA * Telephone Encounter - Lexus Kay - 07/26/2022 7:23 AM EST [facility] Telephone Medication Refill Request Name/dose: Vitamin C with Irma Hips 500mg tablet Amount dispensed monthly: 60 Date last filled: 06/29/2022 Date last seen in office: 05/25/2022 Provider: DARRYL Lizarraga Next scheduled visit: None Pharmacy: [facility] [address] [place] [phone] [facility] [phone] [facility] [phone] Lexus Kay LPN July 26, 2022 7:24 AM documented in this encounterSelect [facility]11-22-2022 Miscellaneous Notes* Telephone Encounter - Kezia Cole - 07/25/2022 1:51 PM EST No Show Documentation Kia Davila Frame no showed for an appointment on 07/25/22 with Ester Mendieta MD at 9:30. She was scheduled for follow up from nerve block. I called and LVM with the patient regarding her missed appointment. Kia stated the reason that she missed her appointment was because . Resources discussed/offered to patient: reschedule No show determined to be fault of patient: Yes This is the patients first and second no show in the last 12 months. Patient was rescheduled for . Letter mailed : Yes Is this the Third or Fourth No Show? No Kezia Kelsey July 25, 2022 1:58 PM documented in this encounterSelect [facility]11-16-2022 History of Present illness Narrative* Patti Langston, PT - 07/19/2022 2:02 PM EST Episode Visit Count: 19 Therapist That Will Accept/Oversee The Plan Of Care: Robert Liu PT Start of Care Date: 04/20/22 Onset Date: 10/21/21 Plan of Care Certification Date: 04/20/22 Next Certification Due Date: 07/19/22 REHABILITATION AND SPORTS THERAPY PHYSICAL THERAPY DISCONTINUANCE OF CARE PLAN OF CARE UPDATE: Assessment: Kia Gonzalez is discontinued from Physical Therapy services due to goal achievement and maximal benefit.. Patient was seen for 19 visits from Start of Care Date: 04/20/22 to 07/19/2022nd treatment included: Therapeutic exercise, Neuromuscular re-education, Manual therapy, Self-carehome management, and Modalities: E-Stim Unattended. Pt and PT in mutual agreement of discharge. Pt encouraged to continue home exercise program 3-4x/week for further gains/maintenance. Pt encouraged to contact PT/clinic for any future questions/concerns. Goals for Episode of Care: created on 04/20/22 through 07/19/22 Patient will perform 5 squats with no pain or deviation -MET [place] in home exercise program. -MET Patient will decrease pain rating by 2 points to meet minimal clinical important difference for numeric pain rating scale._MET Patient will increase active ROM of R knee flex to 125 deg to allow pt to to improve performance of ADLs and to improve gait mechanics / gait pattern . -MET Patient will demonstrate increase in R lower extremity strength to 5/5 during manual muscle testing in order to improve function for basic self-care tasks and prior functional tasks. -MET Perform walking, standing, stairs, and squatting without pain. -MET Patient Goals: would like to gain strength and decrease pain to get back to everyday activities Updated goals 06/23/22 Patient will tolerate working 11-12hour shifts without pain or limitation. MET SUBJECTIVE: . Pt reports work is going well because they are working with her and within her limits. She reports her knee feels much better when she wears a brace at work. She will be getting a new pair of shoes for work. She will doff brace during work and at home to perform knee stretches. She reports improvements in the mobility of her knee. She feels limited with some strength in her knee. Functional Limitations: heavy exertion;lifting;physical activities Pain: Pain Pain Level: 1 Pain Location: Knee - Right Description: Tightness Frequency: Intermittent Post Treatment Pain Post Treatment Pain Level: No Change PROMIS Scales T-scores: mean of general population = 50. 5 points is clinically meaningfully difference Percentiles provide an indication of how the patient's score ranks in relation to the general population. Higher percentile rankings indicate better function/quality of life. 50th percentile is the average of the general population and indicates half of respondents had a worse score. T-scores: mean of general population = 50. 5 points is clinically meaningfully difference Percentiles provide an indication of how the patient's score ranks in relation to the general population. Higher percentile rankings indicate better function/quality of life. 50th percentile is the average of the general population and indicates half of respondents had a worse score. OBJECTIVE MEASURES WITH LEVEL OF FUNCTION: LE AROM R Knee Flexion: 130 Degrees LE Strength R Hip Extension: 5/5 R Hip Flexion (L2): 5/5 R Hip ABduction: 5/5 R Hip Internal Rotation: 5/5 R Hip External Rotation: 5/5 R Knee Extension (L3): 5/5 R Knee Flexion: 5/5 Functional Strength Minisquat: good technique/mechanics TREATMENT: Therapeutic Exercise: 1: recheck of goals 2: Pt educated on continuing HEP 3-4x/week 3: *belarusian lunge 2x8 R 4: *R stance fwd heel taps x10 5: *R stance lat heel taps x10 6: *wall sits 3x30 Skilled Intervention: Patient was educated in proper exercise technique and purpose for exercises. Reviewed and educated patient on additions/changes for home exercise program as above (*). Skilled judgment was provided in selection of appropriate interventions. Correct performance of therapeutic exercises was facilitated with verbal, visual, and tactile cuing. Billing Therapeutic Exercise Treatment Minutes: 30 Total Treatment Time Minutes (timed/untimed): 30 Patti Langston PT documented in this encounterSelect [facility]11-12-2022 Miscellaneous Notes* Telephone Encounter - Nafisa Cazares RN - 07/15/2022 2:46 PM EST Pt of [facility] calling with concern for leg numbness. Attempt to conf to but pt said she is at work now so will call back later. Phone number provided. documented in this encounterSelect [facility]11-09-2022 History of Present illness Narrative* Patti Chapin PT - 07/12/2022 6:30 PM EST Episode Visit Count: 18 Therapist That Will Accept/Oversee The Plan Of Care: Robert Liu PT Start of Care Date: 04/20/22 Onset Date: 10/21/21 Plan of Care Certification Date: 04/20/22 Next Certification Due Date: 07/19/22 REHABILITATION AND SPORTS THERAPY PHYSICAL THERAPY TREATMENT NOTE ASSESSMENT: Kia Gonzalez tolerated the session with no issues. She demonstrated improvements in squat mechanics with tactile cueing at her knees from theraband, absence of knee valgus and good hiphinge. Pt beginning to have nerve pain in right knee again as prednisone tapers off. Pt educated tocontact physician and notify of her returning nerve pain. The patient will continue to benefit fromongoing skilled physical therapy to progress toward set goals. PLAN FOR NEXT VISIT: progress LE strength, balance, quad control SUBJECTIVE: Pt returned to work this past Sunday and yesterday - 11 hour shifts. She wore a brace during her work shift yesterday because her knee felt weak. She had soreness after her shift yesterday and has increased nerve pain. Pain: Pain Pain Level: 1 Pain Location: Knee - Right Description: Sore Frequency: Intermittent Post Treatment Pain Post Treatment Pain Level: (weak) OBJECTIVE MEASURES WITH LEVEL OF FUNCTION: TREATMENT: Therapeutic Exercise: 2: goblet squat 10# KB 2x12 (L3 at knees) 5: side stepping L3 at knees 3x10 6: monster walks L3 at knees 3x10 7: 7 step ups with UE support 2x12 RLE 8: 7 lateral heel taps Ue support, 2x12 RLE 9: Pt educated on continuing desensitization techniques to knee by self massage and brushing with different surfaces 10: 2 fwd heel taps 2x12 RLE Skilled Intervention: Patient was educated in proper exercise technique and purpose for exercises. Skilled judgment was provided in selection of appropriate interventions. Correct performance of therapeutic exercises was facilitated with verbal, visual, and tactile cuing. Billing Therapeutic Exercise Treatment Minutes: 43 Total Treatment Time Minutes (timed/untimed): 43 Patti Chapin PT documented in this encounterSelect [facility]11-02-2022 History of Present illness Narrative* Patti Chapin PT - 07/05/2022 3:36 PM EDT Episode Visit Count: 17 Therapist That Will Accept/Oversee The Plan Of Care: Robert Liu PT Start of Care Date: 04/20/22 Onset Date: 10/21/21 Plan of Care Certification Date: 04/20/22 Next Certification Due Date: 07/19/22 REHABILITATION AND SPORTS THERAPY PHYSICAL THERAPY TREATMENT NOTE ASSESSMENT: Kia Gonzalez tolerated the session with no issues. She demonstrated difficulty with bilateral medial knee collapse initially, corrected after adding L3 band around knees for tactile cueing. She demonstrates good knee control during slider squats/lunges. The patient will continue to benefit from ongoing skilled physical therapy to progress toward set goals. PLAN FOR NEXT VISIT: progress LE strength, balance, quad control SUBJECTIVE: Pt reports she is still taking prednisone and begins weaning tomorrow. She continues tohave numbness in right knee but the nerve pain has decreased. Pt reports the exercises are getting better. She is compliant with her home exercise program. Pain: Pain Pain Level: 0 Pain Location: Knee - Right Post Treatment Pain Post Treatment Pain Level: No Change OBJECTIVE MEASURES WITH LEVEL OF FUNCTION: TREATMENT: Therapeutic Exercise: 1: 10# KB deadlift 3x10 2: *BW squat 3x10 (2 sets with L3 at knees for tactile cues) 3: slider lunges 2x10 ea 4: slider squat 2x10 ea (lateral) Skilled Intervention: Patient was educated in proper exercise technique and purpose for exercises. Reviewed and educated patient on additions/changes for home exercise program as above (*). Skilled judgment was provided in selection of appropriate interventions. Correct performance of therapeutic exercises was facilitated with verbal, visual, and tactile cuing. Billing Therapeutic Exercise Treatment Minutes: 40 Total Treatment Time Minutes (timed/untimed): 40 Patti Chapin PT documented in this encounterSelect [facility]10-27-2022 History of Present illness Narrative* Robert Liu PT - 06/29/2022 5:37 PM EDT Episode Visit Count: 16 Therapist That Will Accept/Oversee The Plan Of Care: Robert Liu PT Start of Care Date: 04/20/22 Onset Date: 10/21/21 Plan of Care Certification Date: 04/20/22 Next Certification Due Date: 07/19/22 Patient Identified by Name and Date of : Yes REHABILITATION AND SPORTS THERAPY PHYSICAL THERAPY TREATMENT NOTE ASSESSMENT: Kia Gonzalez tolerated the session with no issues. She demonstrated good understanding of ability to return to work. The patient will continue to benefit from ongoing skilled physical therapy to progress toward set goals. Focus today on long conversation about stability of the knee to return to work. 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 Educated patient on importance of activity modification and taking rest breaks as needed. Patientwith concerns of implant coming loose, reassuring patient that at this stage of her healing the implant should be stable and again needs to focus on appropriately utilizing rest breaks when things get sore. Patient 10 minutes late this date. 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 Has some apprehension and concerns about returning to work. Pain: Pain Pain Level: 2 Pain Location: Knee - Right Description: Sore (muscle soreness) OBJECTIVE MEASURES WITH LEVEL OF FUNCTION: TREATMENT: Therapeutic Exercise: 1: bridge 3 x10 2: *education on activity modification and rest breaks as needed when returning to work 3: *education on use of bracing when at work to assist with knee stability 4: *education on knee replacement and implant stability 5: *education on need for rest during exercise to decrease soreness and allow muscles to recover Skilled Intervention: Patient was educated in proper exercise technique and purpose for exercises. Reviewed and educated patient on additions/changes for home exercise program as above (*). Billing Therapeutic Exercise Treatment Minutes: 30 Total Treatment Time Minutes (timed/untimed): 30 Robert Liu PT , DPT, CSCS documented in this encounterSelect [facility]10-21-2022 History of Present illness Narrative* Robert Liu PT - 06/23/2022 10:58 AM EDT Episode Visit Count: 15 Therapist That Will Accept/Oversee The Plan Of Care: Robert Liu PT Start of Care Date: 04/20/22 Onset Date: 10/21/21 Plan of Care Certification Date: 04/20/22 Next Certification Due Date: 07/19/22 Patient Identified by Name and Date of : Yes REHABILITATION AND SPORTS THERAPY PHYSICAL THERAPY PROGRESS REPORT PLAN OF CARE UPDATE: Assessment: Kia Gonzalez demonstrates moderate improvement in standing, walking, and squatting. She hasprogressed toward goals. Patient continues to present with impairments in strength and tissuetenderness that interfere with prolonged standing and walking . Current prognosis is Fair due to: clinical presentation;chronic nature of impairments . She will benefit from continued skilled therapyservices to meet the updated goals for this plan of care as noted below. Discussed with patient about continuing PT for the next 4 weeks at 1x/week, focusing on land based therapy to address impairments listed. Goals for Episode of Care: created on 04/20/22 through 07/19/22 Patient will perform 5 squats with no pain or deviation -MET [place] in home exercise program. -MET Patient will decrease pain rating by 2 points to meet minimal clinical important difference for numeric pain rating scale._MET Patient will increase active ROM of R knee flex to 125 deg to allow pt to to improve performance of ADLs and to improve gait mechanics / gait pattern . -MET Patient will demonstrate increase in R lower extremity strength to 5/5 during manual muscle testing in order to improve function for basic self-care tasks and prior functional tasks. -PROGRESSING Perform walking, standing, stairs, and squatting without pain. -MET Patient Goals: would like to gain strength and decrease pain to get back to everyday activities Updated goals 06/23/22 Patient will tolerate working 11-12hour shifts without pain or limitation. Planned Interventions, Frequency, and Duration: 1x/week, 4 weeks Total Number of Visits Planned: 24 Patient to be seen for Therapeutic exercise (67519);Neuromuscular re-education (82715);Manual therapy (93452);Therapeutic activities (61258);Self-long-term management (16461);Gait Training (17267);Aquatic PT (66812);Patient/Family/Caregiver Education;Body Mechanics Training PLAN FOR NEXT VISIT: progress LE strength, balance, quad control SUBJECTIVE: Patient Reason for Visit: Patient notes the things are going well and has noticed some improvement in her nerve pain at the knee. will be starting back at [employer] on , -37wmeu shifts. Pain: Pain Pain Level: 0 Pain Location: Knee - Right PROMIS Scales T-scores: mean of general population = 50. 5 points is clinically meaningfully difference Percentiles provide an indication of how the patient's score ranks in relation to the general population. Higher percentile rankings indicate better function/quality of life. 50th percentile is the average of the general population and indicates half of respondents had a worse score. T-scores: mean of general population = 50. 5 points is clinically meaningfully difference Percentiles provide an indication of how the patient's score ranks in relation to the general population. Higher percentile rankings indicate better function/quality of life. 50th percentile is the average of the general population and indicates half of respondents had a worse score. OBJECTIVE MEASURES WITH LEVEL OF FUNCTION: LE Strength R Hip Flexion (L2): 4+/5 R Knee Extension (L3): 5/5 R Knee Flexion: 5/5 R Ankle Dorsiflexion (L4): 5/5 TREATMENT: Therapeutic Exercise: 1: (see objective) 2: SL leg press 50lbs 3 x10 3: squat on BOSU (ball side down) 3 x6 (performed at counter) 4: slider squat 2 x8 bilat 6: *LAQ 3lbs x10, 4lbs x10, 5lbs x10 Skilled Intervention: Patient was educated in proper exercise technique and purpose for exercises. Reviewed and educated patient on additions/changes for home exercise program as above (*). Skilled judgment was provided in selection of appropriate interventions. Neuromuscular Re-Education: 4: round BAPS board balance 1 min, 2 rounds no MANUSCRIPT READER Skilled Intervention: Skilled judgment used to assess appropriate program for balance and coordination activity. Billing Therapeutic Exercise Treatment Minutes: 35 Neuromuscular Re-Education Treatment Minutes: 5 Total Treatment Time Minutes (timed/untimed): 40 Robert Liu PT , DPT, CSCS documented in this encounterSelect [facility]10-14-2022 History of Present illness Narrative* Robert Liu PT - 06/16/2022 10:15 AM EDT Episode Visit Count: 14 Therapist That Will Accept/Oversee The Plan Of Care: Robert Liu PT Start of Care Date: 04/20/22 Onset Date: 10/21/21 Plan of Care Certification Date: 04/20/22 Next Certification Due Date: 07/19/22 Patient Identified by Name and Date of : Yes REHABILITATION AND SPORTS THERAPY PHYSICAL THERAPY TREATMENT NOTE ASSESSMENT: Kia Gonzalez tolerated the session with expected muscle soreness. She demonstrated improvements in tolerance for similar loading and new progressions to there ex. The patient will continue to benefit from ongoing skilled physical therapy to progress toward set goals. PLAN FOR NEXT VISIT: Progress LE strength, mobility SUBJECTIVE: Patient Reason for Visit: Patient notes that things are continuing to go well. feels some saensitivity still but is much more tolerable. Pain: Pain Pain Level: 0 Pain Location: Knee - Right OBJECTIVE MEASURES WITH LEVEL OF FUNCTION: TREATMENT: Therapeutic Exercise: 1: bridge 3 x10 2: leg press 2 up 1 down 30lbs x10, 50lbs 2x10 4: *SLR 2 x10 6: LAQ 2lbs 2-3s holds 3 x10 Skilled Intervention: Patient was educated in proper exercise technique and purpose for exercises. Reviewed and educated patient on additions/changes for home exercise program as above (*). Skilled judgment was provided in selection of appropriate interventions. Neuromuscular Re-Education: 1: *side step at wall 3 rounds 10m, focus on proprioceptive control during L stance 2: *SL stance R side 3 x30s 3: STS on airex 3 x10 4: round BAPS board balance 1 min, 1 finger MANUSCRIPT READER to no hands Skilled Intervention: Skilled judgment used to assess appropriate program for balance and coordination activity. Billing Therapeutic Exercise Treatment Minutes: 20 Neuromuscular Re-Education Treatment Minutes: 25 Total Treatment Time Minutes (timed/untimed): 45 Robert Liu PT , DPT, CSCS documented in this encounterSelect [facility]10-11-2022 History of Present illness Narrative* Syl Lyla, CYBER FORENSICS ANALYST - 06/13/2022 7:26 AM EDT Episode Visit Count: 13 Therapist That Will Accept/Oversee The Plan Of Care: Robert Liu PT Start of Care Date: 04/20/22 Onset Date: 10/21/21 Plan of Care Certification Date: 04/20/22 Next Certification Due Date: 07/19/22 REHABILITATION AND SPORTS THERAPY PHYSICAL THERAPY TREATMENT NOTE ASSESSMENT: Kia Gonzalez tolerated the session with expected muscle soreness. She demonstrated improvements in general exercise tolerance and balance. Patient was able to complete step-ups withoutholding onto the railing. The patient will continue to benefit from ongoing skilled physical therapy to progress toward set goals. PLAN FOR NEXT VISIT: Progress LE strength, mobility SUBJECTIVE: Patient reports she is now able to lift her leg up (SLR). She thinks the prednisone is helping. Shewas able to walk up the steps at the doctor's office without difficulty. Pain: Pain Pain Location: Knee - Right Description: Tightness OBJECTIVE MEASURES WITH LEVEL OF FUNCTION: TREATMENT: Aquatic Therapy: Footwear on pool deck pre-treatment: Yes, patient wearing appropriate footwear andappeared safe on pool deck Footwear on pool deck post-treatment: Yes, patient wearing appropriate footwear and appeared safe on pool deck Aquatic Therapy (46114): Walking;Step Activities;Posture / Trunk Exercise;Lower Extremity;Stretching and Flexibility Walking: Forward Walking;Backward Walking;Lateral/ Side Stepping;1 Forward Walking: x 3 laps Backward Walking: x 3 laps Lateral/Side Stepping: x 3 laps Step Activities: Forward Step Up;1 Forward Step Up: 8 x15 (No UE if able) 1: Heel Touches 4, 2x10 Posture/Trunk Exercise: Abdominal Stabalization Push - Pull Lower Extremity: Squats;Hip Flexion;Hip Extension;Hip Abduction;Knee Hamstring Curls;Heel Raises;Single Leg Stance;3 Squats: 8 x20 Hip Flexion: x20 Hip Extension: x20 Hip Abduction: x20 Knee Hamstring Curls: HB x20 Heel Raises: 8 x20 1: LE Noodle Pushdowns x20 3: Seated Bike x5' Abbreviation Leiva: BA = buoyancy assisted BR = buoyancy resisted BS = buoyancy supported reps = repetitions HEP = home exercise program Skilled Intervention: Patient was educated in proper exercise technique and purpose for exercises. Skilled judgment was provided in selection of appropriate interventions. Correct performance of exercises was facilitated with verbal and visual cueing. Billing Aquatic Therapy Treatment Minutes: 25 Total Treatment Time Minutes (timed/untimed): 40 Syl Arita PTA documented in this encounter[facility]10-[facility]22 History of Present illness Narrative* Manjit Romero PA-C - 06/08/2022 3:17 PM EDT Images from the original note were not included. ORTHOPAEDIC OFFICE NOTE CHIEF COMPLAINT: Status post right total knee arthroplasty (08/16/2021) [facility], CRPS R LE HISTORY OF PRESENT ILLNESS: Kia Gonzalez is a 47 year old who presents in follow-up for right total knee arthroplasty and subsequent postoperative CRPS. She has been under the care of pain management with extraordinary improvements. Prednisone, Fosamax and physical therapy have accelerated her healing process and she is very grateful for her improvement. PHYSICAL EXAMINATION: Resp 20 Ht 5' 5 (1.65m) Wt 136 lb (61.7kg) BMI 22.63 kg/(m^2). General Appearance: Well appearing, alert, in no acute distress, well-hydrated, well nourished thin Skin: Skin color, texture, turgor normal, no suspicious rashes or lesions. Peripheral Pulses: Normal, Capillary refill <2secs, strong peripheral pulses. Neurologic: NVI yes. + FHL/EHL bilateral great toe. Extremities: Inspection of the right lower extremity shows anterior incision over the knee which ishealing well without signs of breakdown or drainage. Neutral alignment. Mild tactile irritation to palpation. Tracking of the knee is smooth. ROM:0-128 Ligaments intact to valgus and varus stresses compartments are soft. Significant atrophy seen through the VMO and lateral quadricep. IMAGES: 3 views of the right knee show total knee arthroplasty (cemented) in anatomic position. Patella is natural. Femoral component is minimally flexed with ball Added to the anterior knee. No signs of loosening or component failure. ASSESSMENT AND PLAN: 1. Complex regional pain syndrome i of right lower limb - ICD9: 337.22, ICD10: G90.521 (primary diagnosis) 2. History of total knee arthroplasty, right - ICD9: V43.65, ICD10: Z96.651 Functional Plan: She continues with significant improvement with reduction of pain and increase strength to the right lower extremity after being seen and treated through the pain management clinic. Assistance Devices: None Physical/Occupational Therapy: Important to continue aggressive and consistent physical therapy to the knee for strengthening and gait training. Wound Care: N/A Pain Control: No likely benefit or improvement with the usage of narcotics. Fragility Fracture: N/A Additional: She will continue under the direction of pain management and can follow-up with orthopedics annually as needed. Manjit Romero PA-C documented in this encounterSelect [facility]10-06-2022 History of Present illness Narrative* Robert Liu PT - 06/08/2022 11:43 AM EDT Episode Visit Count: 12 Therapist That Will Accept/Oversee The Plan Of Care: Robert Liu PT Start of Care Date: 04/20/22 Onset Date: 10/21/21 Plan of Care Certification Date: 04/20/22 Next Certification Due Date: 07/19/22 Patient Identified by Name and Date of : Yes REHABILITATION AND SPORTS THERAPY PHYSICAL THERAPY TREATMENT NOTE ASSESSMENT: Kia Gonzalez tolerated the session with expected muscle soreness. She demonstrated improvements in proprioception and with increasing strengthening with better control. The patient will continue to benefit from ongoing skilled physical therapy to progress toward set goals. PLAN FOR NEXT VISIT: Progress LE strength, mobility. motor control SUBJECTIVE: Patient Reason for Visit: Patient notes that things are going well. Has seen a dramaticimprovement in function, pain levels, conrtol but still has some sensitivity issues going on. Thinks that the medications are finally helping. Pain: Pain Pain Level: 2 (with movement) OBJECTIVE MEASURES WITH LEVEL OF FUNCTION: TREATMENT: Therapeutic Exercise: 1: bridge 2 x10 2: SAQ 2 x10 3: QS 2-3s holds 2 x15 4: *SLR 2 x8 5: staggered STS R leg back 2 x8 6: LAQ L1 3 x6 Skilled Intervention: Patient was educated in proper exercise technique and purpose for exercises. Reviewed and educated patient on additions/changes for home exercise program as above (*). Skilled judgment was provided in selection of appropriate interventions. Neuromuscular Re-Education: 1: multiple knee angle proprioceptive matching to opp knee. 1 round 6 (4/6 correct) 2: walking marches at wall no MANUSCRIPT READER. flat foot transitoning to heel strike with increase in subjective challenge and slower performance Skilled Intervention: Skilled judgment used to assess appropriate program for balance and coordination activity. Education in proprioceptive/kinesthetic awareness during dynamic activities and LAQ. Billing Therapeutic Exercise Treatment Minutes: 30 Neuromuscular Re-Education Treatment Minutes: 10 Total Treatment Time Minutes (timed/untimed): 40 Robert Liu PT , DPT, CSCS documented in this encounterSelect [facility]10-04-2022 History of Present illness Narrative* Syl Arita, CYBER FORENSICS ANALYST - 06/06/2022 7:57 AM EDT Episode Visit Count: 11 Therapist That Will Accept/Oversee The Plan Of Care: Robert Liu PT Start of Care Date: 04/20/22 Onset Date: 10/21/21 Plan of Care Certification Date: 04/20/22 Next Certification Due Date: 07/19/22 REHABILITATION AND SPORTS THERAPY PHYSICAL THERAPY TREATMENT NOTE ASSESSMENT: Kia Gonzalez tolerated the session with expected muscle soreness. She demonstrated good tolerance for today's session. Heel touches caused increased soreness. The patient will continueto benefit from ongoing skilled physical therapy to progress toward set goals. PLAN FOR NEXT VISIT: Progress LE strength, mobility SUBJECTIVE: Patient reports knee swelling is decreasing, but continues to have cheng-shaped edema/pain. Pain: Pain Pain Location: Knee - Right OBJECTIVE MEASURES WITH LEVEL OF FUNCTION: TREATMENT: Aquatic Therapy: Footwear on pool deck pre-treatment: Yes, patient wearing appropriate footwear andappeared safe on pool deck Footwear on pool deck post-treatment: Yes, patient wearing appropriate footwear and appeared safe on pool deck Aquatic Therapy (25860): Walking;Step Activities;Posture / Trunk Exercise;Lower Extremity;Stretching and Flexibility Walking: Forward Walking;Backward Walking;Lateral/ Side Stepping;1 Forward Walking: x 3 laps Backward Walking: x 3 laps Lateral/Side Stepping: x 3 laps Step Activities: Forward Step Up;1 Forward Step Up: 8 x10 1: Heel Touches 4, 2x10 Posture/Trunk Exercise: Abdominal Stabalization Push - Pull Lower Extremity: Squats;Hip Flexion;Hip Extension;Hip Abduction;Knee Hamstring Curls;Heel Raises;Single Leg Stance;3 Squats: 8 x20 Hip Flexion: x20 Hip Extension: x20 Hip Abduction: x20 Knee Hamstring Curls: HB x20 Heel Raises: 8 x20 3: Seated Bike x5' Abbreviation Leiva: BA = buoyancy assisted BR = buoyancy resisted BS = buoyancy supported reps = repetitions HEP = home exercise program Skilled Intervention: Patient was educated in proper exercise technique and purpose for exercises. Skilled judgment was provided in selection of appropriate interventions. Correct performance of exercises was facilitated with verbal and visual cueing. Billing Aquatic Therapy Treatment Minutes: 25 Total Treatment Time Minutes (timed/untimed): 40 Syl Arita PTA documented in this encounterSelect [facility]10-03-2022 Miscellaneous Notes* Telephone Encounter - Oriana Thornton LMT - 06/05/2022 9:51 AM EDT INSURANCE CO. ID # GROUP # [id number]-PAY DEDUCTIBLE COINSUR. OUT OF POCKET MAX PRIOR AUTH REQU'D LIMITATIONS REFERENCE # SPOKE TO: [facility] MEDICAID [id number] - - - - - 15 MP 30 [facility] [id number] MIKE Taylor Is this a Medicare or Medicaid product? Y Does this follow Medicare guidelines? N Is this a [facility] product? N Does this require clinical submission through [facility]? N Chiropractor: Dr. Zapata Contracted: Y Chiropractic benefits: In network Are the billable benefits a HARD LIMIT? Y If yes, what is the mailing address for additional requests to be sent? Where are chiropractic claims sent: Is there a pre-existing rider on claims: Ask for the managed care department for benefits Be sure to ask: Are these supervised or unsupervised therapeutic modalities covered if billed by [facility]? CPT CODE NAME COVERED? 41075 Manual manipulations spine 1-2 Y 33460 64768 Manual manipulations spine 3-4 Manual manipulations spine 5 Y Y 44877 Manual manipulations of extremities 94642 Hot/cold packs 27818 Mechanical traction 01049 Electrical stimulation 69327 Therapeutic exercises 73482 Neuromuscular re-education 25567 Massage therapy 31683 Manual therapy 51297 Acupuncture < 15 minutes Y 61133 10206 13525 Acupuncture > 15 minutes Acupuncture with stim < 15 minutes Acupuncture with stim > 15 minutes Y documented in this encounterSelect [facility]09-22-2022 Miscellaneous Notes* Telephone Encounter - Khushboo Jones APRN.CNP - 05/25/2022 10:40 AM EDT Accomodation paperwork for [facility] has been completed. Please make a copy and fax for the patient. Please let the patient know. Thanks Khushboo Jones APRN.JEFF * Telephone Encounter - Lesly Ames - 05/25/2022 9:44 AM EDT Patient filled out paperwork hoping she filled it out correctly. But needs Khushboo to fill it out forher work. Patient stated if it is not done, her work will not allow her to sit and will get fired if its not on her file. documented in this encounterSelect [facility]09-22-2022 Miscellaneous Notes* Telephone Encounter - Kezia Cole - 05/25/2022 9:04 AM EDT 1.Are you diabetic No 2. Are you on any blood thinners? No 3. Are you taking any aspirin? No 4. Have you had any recent imaging done on your body part that's being injected? Yes xrays 5. Do you have any allergies to latex? No 6. Do you have any allergies to seafood? No 7. Do you have any allergies to shellfish? No 8. Do you have any allergies to x-ray dye? No 9. Are you taking Xanax for the procedure? No 10. Have you done physical therapy in the last year? Yes If yes, When and Where? [facility] (Medical Records Release needs to be signed.) 11. Were the pre-procedure instructions explained to the patient? Yes 12. Do you have a pacemaker? No 13. Do you have an internal stimulator of any kind? No If yes, please bring the remote with you to your procedure visit. 14. Have you received the COVID-19 Vaccine? No. If yes, date(s) received: (Patient should not receive a procedure including steroids 14 days prior to their first dose of theCOVID vaccine. They should not receive any procedure containing steroids in the time frame between their 1st and 2nd doses of the COVID vaccine. They should not receive a procedure containing steroids 14 days after their 2nd dose of the COVID vaccine.) Kezia Cole' documented in this encounterSelect [facility]09-22-2022 History of Present illness Narrative* Khushboo Jones, [employer]ER [employer].HAND COREMAKER - 05/25/2022 8:11 AM EDT Images from the original note were not included. Subjective Pt has been referred to us by Manjit ADAN for consult and eval of possible CRPS The history is provided by the patient. Musculoskeletal Problem This is a chronic problem. The problem occurs constantly. The problem has been unchanged. Pertinentnegatives include no chest pain, headaches, nausea, vomiting or weakness. Associated symptoms comments: 12/11 sharp burning right knee. Kia Gonzalez is a 47 year old female who presents to the office today with a right knee pain began 2 months post TKR while in PT she had nerve pain a few weeks after surgery. SHe developed intenseknee pain when she was in PT on hte stationary bike and wit squat maneuvers she felt a click and the knee would not bend. Subsequent right knee swelling on lateral aspect. She has had xrays in November at [facility] that showed intact hardware. She has tried dry needling, TENSPhysical Therapy and home exercise plan. She has had right knee surgery with Dr Jenelle Bonner on 08/16/2021. She finds bending,standing and walking aggravate the pain, whilesitting does provide some relief. She is not able to stand or ambulate pain free. She is currently taking tramadol per Dr. Jenelle Bonner. The gabapentin did not help. She currently smokes cigarettes (1/2-1 ppd and vapes) and is a drinker 1-2 times per month . She has not been treated for alcohol addiction in the past and she is currently using illicit drugs- MARIJUANA . She is currently employed has not had to miss work. 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 Risk Assessment: PACHECO-7: PACHECO - 7 SCORES 05/25/2022 PACHECO-7 Score 15 (0-4) minimal anxiety, (5-9) mild anxiety, (10-14) moderate anxiety, (15-21) severe anxiety PHQ-9: PHQ-9 05/25/2022 Score 12 (0-4) minimal depression, (5-9) mild depression, (10-14) moderate depression, (15-19) moderately severe depression, (20-27) severe depression Opioid Risk Tool: Family History of Substance Abuse: 0 - No Personal History of Substance Abuse: 0 - No Age between 16-45: 0 - No History of Pre-Adolescence Sexual Abuse: 0 - No Psychological Disease: 0 - No Risk Total: 0 Total Score Risk Category: Low Risk 0-3 Review of Systems Eyes: Positive for blurred vision. Respiratory: Negative for shortness of breath. Cardiovascular: Negative for chest pain and leg swelling. Gastrointestinal: Positive for constipation and diarrhea. Negative for nausea and vomiting. Genitourinary: Negative for dysuria. Skin: Negative for itching. Neurological: Negative for dizziness, tingling, weakness and headaches. Endo/Heme/Allergies: Bruises/bleeds easily. Psychiatric/Behavioral: Positive for depression. Negative for suicidal ideas. PAST MEDICAL HISTORY Diagnosis Date Depression Generalized anxiety disorder Restless leg syndrome PAST SURGICAL HISTORY Procedure Laterality Date TONSILLECTOMY & ADENOIDECTOMY <AGE 12 TOTAL KNEE REPLACEMENT Left 2020 FAMILY HISTORY Problem Relation Age of Onset Heart disease Mother Breast Cancer Mother COPD Mother Arthritis Mother Heart disease Father Diabetes Father Lung Cancer Father COPD Brother Hypertension Brother Obstructive Sleep Apnea Brother Social History Tobacco Use Smoking status: Every Day Types: Cigarettes Smokeless tobacco: Never Vaping Use Vaping Use: current everyday user Substances: Nicotine, THC Devices: Pre-filled pod Substance Use Topics Alcohol use: Yes Drug use: Yes Types: Marijuana Current Meds busPIRone (BUSPAR) 5 mg tablet venlafaxine ER (EFFEXOR XR) 75 mg 24 hr capsule valACYclovir (VALTREX) 500 mg tablet traMADol (ULTRAM) 50 mg tablet oxybutynin (DITROPAN) 5 mg tablet 10 mg. omeprazole (PRILOSEC) 40 mg capsule as needed. mleuzuujlokv-bze-yflv-FA-vit K (ADULTS MULTIVITAMIN) 18 mg iron-400 mcg-25 mcg tab Take by mouth. gabapentin (NEURONTIN) 100 mg capsule Take 100 mg by mouth. fluticasone (FLONASE) 50 mcg/actuation nasal spray Use in the nose. Objective LMP (LMP Unknown) Physical Exam Constitutional: General: She is not in acute distress. Appearance: She is not ill-appearing. HENT: Head: Normocephalic and atraumatic. Right Ear: External ear normal. Left Ear: External ear normal. Eyes: Conjunctiva/sclera: Conjunctivae normal. Cardiovascular: Pulses: Normal pulses. Pulmonary: Effort: Pulmonary effort is normal. No respiratory distress. Musculoskeletal: Cervical back: Neck supple. No rigidity. Right knee: Swelling (lateral aspect cresent pattern), deformity (right quadriceps atrophy) and laceration (well healed surgical incision) present. Decreased range of motion (almost full extension toapprox 8 degrees). Tenderness present over the lateral joint line. Left knee: Normal. 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 Brownish tint to lower aspect right knee RLE strength 3/5 right 5/5 left Skin: General: Skin is warm and dry. Capillary Refill: Capillary refill takes 2 to 3 seconds. Neurological: Mental Status: She is alert and oriented to person, place, and time. Psychiatric: Mood and Affect: Mood normal. Behavior: Behavior normal. To make the clinical diagnosis of CRPS, the following criteria must be met: 1. Continuing pain, which is disproportionate to any inciting event 2. Must report at least one symptom in three of the four following categories: Sensory: _x__ Hyperesthesia ___x_ Allodynia Vasomotor: ___x Temperature asymmetry ___x Skin color changes (rught knee brownish discoloration) ___ Sudomotor Edema: ___x_ Edema ___ Sweating asymmetry (right ankle) Motor/Trophic: ____ Motor dysfunction (weakness, tremor, dystonia) ___ Trophic changes (hair, nail, skin) 3. Must display at least one sign at time of evaluation in two or more of the following categories: Sensory: _x__ Hyperalgesia __x_ Allodynia Vasomotor: _x__ Evidence of temperature asymmetry __x_ skin color changes and/or asymmetry Sudomotor/Edema: ___ Temperature asymmetry (>1 C) _x__ Skin color changes and/or asymmetry __x_ Evidence of edema ___ sweating asymmetry Trophic: __x__ Decreased range of motion ___ Motor dysfunction (weakness, tremor, dystonia) ___ Trophic changes (hair, nail, skin) (ref: Harden et al. Proposed new diagnostic criteria for complex regional pain syndrome. Pain Med. 2006-Feb;8(4):326-31.) ASSESSMENT/PLAN: 1. Chronic pain of right knee - ICD9: 719.46, 338.29, ICD10: M25.561, G89.29 (primary diagnosis) Greenlight done today to assess ORT (0 low ), anxiety and depression. I do not see a need for a psych referral at this time Examined patient and confirmed leiva findings on history and examination and ROS as noted above. Risks, benefits, and alternatives to the procedure were discussed with the patient. The patient waseducated about special protocols to mitigate any exposure or infection risk in our facility and patient wishes to proceed with the procedure. H&P done 05/25/2022 Today on exam I am confident she has CRPS in the knee. She meets all the diagnostic criteria for this. Going to send her for a right lower extremity sympathetic nerve block along with the prednisone taper Fosamax and vitamin C. I would like her to continue in physical therapy to see if we can assist some of the atrophy she has in the right quad. 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 2. Patient risk and functional assessment - ICD9: V82.89, ICD10: Z13.89 3. Complex regional pain syndrome i of right lower limb - ICD9: 337.22, ICD10: G90.521 Khushboo Jones APRN.JEFF documented in this encounterSelect [facility]09-22-2022 Instructions* Patient Instructions* Khushboo Jones APRN.CNP - 05/25/2022 8:08 AM EDT Ice and heat as tolerated Activity as tolerated documented in this encounterSelect [facility]09-20-2022 History of Present illness Narrative* Robert Liu PT - 05/23/2022 11:51 AM EDT Episode Visit Count: 8 Therapist That Will Accept/Oversee The Plan Of Care: Robert Liu PT Start of Care Date: 04/20/22 Onset Date: 10/21/21 Plan of Care Certification Date: 04/20/22 Next Certification Due Date: 07/19/22 Patient Identified by Name and Date of : Yes REHABILITATION AND SPORTS THERAPY PHYSICAL THERAPY PROGRESS REPORT PLAN OF CARE UPDATE: Assessment: Kia Gonzalez demonstrates moderate improvement in rising from a chair, standing, andwalking. She hasprogressed toward goals. Patient continues to present with impairments in strength and tissue tenderness that interfere with walking and standing, squatting . Current prognosis is Fair due to: clinical presentation;chronic nature of impairments . She will benefit from continued skilled therapy services to meet the updated goals for this plan of care as noted below. Patient is benefiting from the combination of land based and aquatic therapy to address pain and function. Will continue for the next month. Goals for Episode of Care: created on 04/20/22 through 07/19/22 Patient will perform 5 squats with no pain or deviation [place] in home exercise program. -MET Patient will decrease pain rating by 2 points to meet minimal clinical important difference for numeric pain rating scale. -PROGRESSING Patient will increase active ROM of R knee flex to 125 deg to allow pt to to improve performance of ADLs and to improve gait mechanics / gait pattern . -MET Patient will demonstrate increase in R lower extremity strength to 5/5 during manual muscle testing in order to improve function for basic self-care tasks and prior functional tasks. -PROGRESSING Perform walking, standing, stairs, and squatting without pain. -MET Patient Goals: would like to gain strength and decrease pain to get back to everyday activities Planned Interventions, Frequency, and Duration: 2x/week, 12 weeks Total Number of Visits Planned: 24 Patient to be seen for Therapeutic exercise (63464);Neuromuscular re-education (80187);Manual therapy (27749);Therapeutic activities (48151);Self-long-term management (23592);Gait Training (25981);Aquatic PT (86961);Patient/Family/Caregiver Education;Body Mechanics Training PLAN FOR NEXT VISIT: desensitization techniques, LE strength, quad control, proprioception SUBJECTIVE: Patient Reason for Visit: Patient notes that she is a little bit sore today. Has been diong a little better overall. notes there is still some unsteadiness with walking. Will be seeing pain management for the first time on . Pain: Pain Pain Level: 3 Pain Location: Knee - Right PROMIS Scales T-scores: mean of general population = 50. 5 points is clinically meaningfully difference Percentiles provide an indication of how the patient's score ranks in relation to the general population. Higher percentile rankings indicate better function/quality of life. 50th percentile is the average of the general population and indicates half of respondents had a worse score. T-scores: mean of general population = 50. 5 points is clinically meaningfully difference Percentiles provide an indication of how the patient's score ranks in relation to the general population. Higher percentile rankings indicate better function/quality of life. 50th percentile is the average of the general population and indicates half of respondents had a worse score. OBJECTIVE MEASURES WITH LEVEL OF FUNCTION: Knee Observations R Knee Palpation Tenderness: (able to palpate this date, still has sensitivity to scar and local spots along the anterior knee) LE AROM R Knee Extension: 0 Degrees R Knee Flexion: 129 Degrees (anterior knee tightness) LE Strength R Hip Flexion (L2): 4/5 (painful to medial knee) R Knee Extension (L3): 4+/5 R Knee Flexion: 4+/5 (knee tightness) R Ankle Dorsiflexion (L4): 4+/5 (lateral knee pain) Functional Strength Minisquat: quad dominant, 25% depth, unable to control, knee is stiff and painful TREATMENT: Self-Jail Management: 1: (see objective) 2: *education on maintaining HEP Skilled Intervention: Skilled judgment in the selection of proper modification for activity of daily living/home management based on clinical presentation, deficits, and needs. Physical assistance was provided during education for modifications and patient safety. Reviewed patient specific diagnosis in relation to activities of daily living/home management. Billing Self-Care/Home Management Treatment Minutes: 38 Total Treatment Time Minutes (timed/untimed): 40 Robert Liu PT , DPT, CSCS documented in this encounter[facility]09-07-[facility]22 History of Present illness Narrative* Brown Cuadra PT - 05/10/2022 10:01 AM EDT Episode Visit Count: 5 Therapist That Will Oversee The Plan Of Care: Robert Liu PT Start of Care Date: 04/20/22 Onset Date: 10/21/21 Plan of Care Certification Date: 04/20/22 Next Certification Due Date: 07/19/22 REHABILITATION AND SPORTS THERAPY PHYSICAL THERAPY TREATMENT NOTE ASSESSMENT: Kia Gonzalez tolerated the session with expected muscle soreness. She demonstrated difficulty with quadriceps activation and endurance as well as hypersensitivity of knee. The patient will continue to benefit from ongoing skilled physical therapy to progress toward set goals. PLAN FOR NEXT VISIT: NMES to VMO, gentle manual, quad endurance, glute medius SUBJECTIVE: No changes to date Pain: OBJECTIVE MEASURES WITH LEVEL OF FUNCTION: LE Strength Lower Extremity Dynamometer Testing : Yes Dynamometer Strength Right Quadriceps Strength (lbs): 25.8 Left Quadriceps Strength (lbs): 45.7 Quad Strength Limb Symmetry Index (%): 56.46 Right Hamstring Strength (lbs): 10.7 Left Hamstring Strength (lbs): 25.5 Hamstring Strength Limb Symmetry Index(%): 41.96 TREATMENT: Therapeutic Exercise: 1: *eccentric SLRs 1x10 2: *SAQ 5 sec hold 2x10 3: *LAQ 90-45, 5 sec hold 10 reps 4: *TKE L2 3x10 5: instruction on slef patellar mobs Skilled Intervention: Patient was educated in proper exercise technique and purpose for exercises. Reviewed and educated patient on additions/changes for home exercise program as above (*). Provided written instruction for home exercise program to facilitate proper performance and compliance. Manual Therapy: 1: Distal right ITB ischemic release 2: Grade 3 knee flexion mobilizations 3: Patellar mobilizations all directions grade 2-3 Dry Needling: Dry needling to following Trigger points: distal ITB and Homeostatic points: Saphenous Needle length: 50mm 2.0 in . [place] used 2, needles removed 2. Dry needling technique used: Pistoning. Patient education on purpose, precautions, safety, risks, and other treatment options regarding dry needling. Verbal consent received. Skilled Intervention: Manual skills to improve joint mobility, ROM, and decrease pain. Utilized anatomy knowledge of the therapist, and assessment of patient's response to intervention. Self-Jail Management: 1: eduation on involved tissues relative to symptoms and plan of care, visual aides used Skilled Intervention: Provided written instruction for home program to facilitate proper performance and compliance. Billing Therapeutic Exercise Treatment Minutes: 15 Manual TherapyTreatment Minutes: 25 Self-Care/Home Management Treatment Minutes: 5 Total Treatment Time Minutes (timed/untimed): 50 Brown Cuadra PT documented in this encounterSelect [facility]09-02-2022 History of Present illness Narrative* Syl Arita PTA - 05/05/2022 12:18 PM EDT Episode Visit Count: 4 Therapist That Will Oversee The Plan Of Care: Robert Liu PT Start of Care Date: 04/20/22 Onset Date: 10/21/21 Plan of Care Certification Date: 04/20/22 Next Certification Due Date: 07/19/22 REHABILITATION AND SPORTS THERAPY PHYSICAL THERAPY TREATMENT NOTE ASSESSMENT: Kia Gonzalez tolerated the session with expected muscle soreness. She demonstrated good tolerance for today's progressions. She needed to use her hands in the water some for sit/stands. The patient will continue to benefit from ongoing skilled physical therapy to progress toward set goals. PLAN FOR NEXT VISIT: Progress LE strength, mobility SUBJECTIVE: Patient reports she felt fine after the last aquatics session. Pain: Pain Pain Level: 2 Pain Location: Knee - Right OBJECTIVE MEASURES WITH LEVEL OF FUNCTION: TREATMENT: Aquatic Therapy: Footwear on pool deck pre-treatment: Yes, patient wearing appropriate footwear andappeared safe on pool deck Footwear on pool deck post-treatment: Yes, patient wearing appropriate footwear and appeared safe on pool deck Aquatic Therapy (97853): Walking;Step Activities;Posture / Trunk Exercise;Lower Extremity;Stretching and Flexibility Walking: Forward Walking;Backward Walking;Lateral/ Side Stepping;1 Forward Walking: x 3 laps Backward Walking: x 3 laps Lateral/Side Stepping: x 3 laps Step Activities: Forward Step Up Forward Step Up: 8 x15 each Posture/Trunk Exercise: Abdominal Stabalization Push - Pull Water Depth: KB Push x15 Lower Extremity: Squats;Hip Flexion;Hip Extension;Hip Abduction;Knee Hamstring Curls;Heel Raises;Single Leg Stance;3 Squats: x15 Hip Flexion: x15 Hip Extension: x15 Hip Abduction: x15 Knee Hamstring Curls: HB x15 Heel Raises: x15 Single Leg Stance: 10 x5 each 1: LE Noodle Pushdowns REGULAR x15 Stretching and Flexibility: Iliotibial Band/ Tensor Fascia Latae Abbreviation Leiva: BA = buoyancy assisted BR = buoyancy resisted BS = buoyancy supported reps = repetitions HEP = home exercise program Skilled Intervention: Patient was educated in proper exercise technique and purpose for exercises. Skilled judgment was provided in selection of appropriate interventions. Correct performance of exercises was facilitated with verbal and visual cueing. Billing Aquatic Therapy Treatment Minutes: 25 Total Treatment Time Minutes (timed/untimed): 40 Syl Arita PTA documented in this encounterSelect [facility]08-31-2022 History of Present illness Narrative* Syl Arita PTA - 05/03/2022 8:01 AM EDT Episode Visit Count: 3 Therapist That Will Oversee The Plan Of Care: Robert Liu PT Start of Care Date: 04/20/22 Onset Date: 10/21/21 Plan of Care Certification Date: 04/20/22 Next Certification Due Date: 07/19/22 REHABILITATION AND SPORTS THERAPY PHYSICAL THERAPY TREATMENT NOTE ASSESSMENT: Kia Gonzalez tolerated the session with expected muscle soreness. She demonstrated difficulty with laying prone and supine due to LE pain. Patient has weakness in RLE and difficulty attimes completing exercises. The patient will continue to benefit from ongoing skilled physical therapy to progress toward set goals. PLAN FOR NEXT VISIT: Progress LE strength, ROM SUBJECTIVE: Patient reports she missed her last appointment due to oversleeping. Her dog was attacked on Sunday and she needed to put him down. Pain: Pain Pain Location: Knee - Right OBJECTIVE MEASURES WITH LEVEL OF FUNCTION: TREATMENT: Therapeutic Exercise: 1: Nustep LE/UE L3 x5' (subjective taken) 2: Incline 3x30 3: Supine hamstring stretch 3x30 4: Prone quad stretch 3x30 (towel under knee) 5: *Bridge 3 x10 6: *SLR x10 7: *SL Clams, L2, 2x10 8: *LAQ 5 x10 9: *Seated hamstring curls, L2, 2x10 Skilled Intervention: Patient was educated in proper exercise technique and purpose for exercises. Reviewed and educated patient on additions/changes for home exercise program as above (*). Skilled judgment was provided in selection of appropriate interventions. Provided written instruction for home exercise program to facilitate proper performance and compliance. Billing Therapeutic Exercise Treatment Minutes: 45 Total Treatment Time Minutes (timed/untimed): 45 Syl Arita PTA documented in this encounterSelect [facility]08-26-2022 History of Present illness Narrative* Syl Arita PTA - 04/28/2022 11:44 AM EDT Episode Visit Count: 2 Therapist That Will Oversee The Plan Of Care: Robert Liu PT Start of Care Date: 04/20/22 Onset Date: 10/21/21 Plan of Care Certification Date: 04/20/22 Next Certification Due Date: 07/19/22 REHABILITATION AND SPORTS THERAPY PHYSICAL THERAPY TREATMENT NOTE ASSESSMENT: Kia Gonzalez tolerated the session with expected muscle soreness. She demonstrated difficulty with squats, step-ups and LE noodle pushdowns due to weakness and discomfort/pain. The patient will continue to benefit from ongoing skilled physical therapy to progress toward set goals. PLAN FOR NEXT VISIT: Progress LE strength, mobility SUBJECTIVE: Patient reports she was up all night with knee pain. (Pain is the worst at night.) She works at [employer], so is on her feet a lot. Pain: Pain Pain Location: Knee - Right OBJECTIVE MEASURES WITH LEVEL OF FUNCTION: TREATMENT: Aquatic Therapy: Footwear on pool deck pre-treatment: Yes, patient wearing appropriate footwear andappeared safe on pool deck Footwear on pool deck post-treatment: Yes, patient wearing appropriate footwear and appeared safe on pool deck Aquatic Therapy ([id number]): Walking;Step Activities;Posture / Trunk Exercise;Lower Extremity;Stretching and Flexibility Walking: Forward Walking;Backward Walking;Lateral/ Side Stepping;1 Forward Walking: x 3 laps Backward Walking: x 3 laps Lateral/Side Stepping: x 3 laps Step Activities: Forward Step Up Forward Step Up: 8 x10 each Posture/Trunk Exercise: Abdominal Stabalization Push - Pull Water Depth: KB Push x15 Lower Extremity: Squats;Hip Flexion;Hip Extension;Hip Abduction;Knee Hamstring Curls;Heel Raises;Single Leg Stance;3 Squats: x15 Hip Flexion: x15 Hip Extension: x15 Hip Abduction: x15 Knee Hamstring Curls: HB x15 Heel Raises: x15 1: LE Noodle Pushdowns REGULAR x15 Stretching and Flexibility: Iliotibial Band/ Tensor Fascia Latae Abbreviation Leiva: BA = buoyancy assisted BR = buoyancy resisted BS = buoyancy supported reps = repetitions HEP = home exercise program Skilled Intervention: Patient was educated in proper exercise technique and purpose for exercises. Skilled judgment was provided in selection of appropriate interventions. Correct performance of exercises was facilitated with verbal and visual cueing. Billing Aquatic Therapy Treatment Minutes: 40 Total Treatment Time Minutes (timed/untimed): 40 Syl Arita PTA documented in this encounterSelect [facility]08-18-2022 History of Present illness Narrative* Robert Liu PT - 04/20/2022 2:48 PM EDT Episode Visit Count: 1 Therapist That Will Oversee The Plan Of Care: Robert Liu PT Start of Care Date: 04/20/22 Onset Date: 10/21/21 Plan of Care Certification Date: 04/20/22 Next Certification Due Date: 07/19/22 Patient Identified by Name and Date of : Yes REHABILITATION AND SPORTS THERAPY PHYSICAL THERAPY EVALUATION PLAN OF CARE: Assessment: Kia Gnozalez presents with chief complaint of R knee pain with mobility and strengthdeficits that interferes with rising from a chair;standing;walking;stair negotiation;squatting . She presents with impairments in overall weak R LE, limited knee ROM, hypersensitivity to touch of knee, impaired balance, positive slump test. Signs and symptoms may be result of overall weakness and hypersensitivity to the knee. Prognosis for therapy is Fair due to: clinical presentation;chronic nature of impairments . She will benefit from skilled therapy services to meet the goals established for this plan of care as noted below. Patient may benefit from aquatic therapy for strength as well as impacts for reducing pain in the knee. Patient with high level of sensitivity to the R knee, unable to palpate or perform light touch. Goals for Episode of Care: created on 04/20/22 through 07/19/22 Patient will perform 5 squats with no pain or deviation [place] in home exercise program. Patient will decrease pain rating by 2 points to meet minimal clinical important difference for numeric pain rating scale. Patient will increase active ROM of R knee flex to 125 deg to allow pt to to improve performance ofADLs and to improve gait mechanics / gait pattern . Patient will demonstrate increase in R lower extremity strength to 5/5 during manual muscle testingin order to improve function for basic self-care tasks and prior functional tasks. Perform walking, standing, stairs, and squatting without pain. Patient Goals: would like to gain strength and decrease pain to get back to everyday activities Planned Interventions, Frequency, and Duration: Current Frequency: 2x/week Duration: 12 weeks Total Number of Visits Planned: 24 Planned Treatment Interventions: Therapeutic exercise ([id number]);Neuromuscular re- education (96927);Manual therapy (39825);Therapeutic activities (49066);Self- long-term management (92793);Gait Training (51708);Aquatic PT (40903);Patient/Family/Caregiver Education;Body Mechanics Training PLAN FOR NEXT VISIT: ITB length, glute strength, LE strength Patient demonstrates good understanding of plan of care and treatment. The above goals and plan of care were discussed and agreed upon by patient/family. SUBJECTIVE: Kia Gonzalez is a 47 year old female seen today for R knee painful locking and snapping that began after her initial PT back in . Has R tKA back in 2020. Walking, stairs down>up, squatting all make the knee worse. Is getting no relief at all. N/T are local to the knee, does have some shooting down to the foot. Has some back pain as well but that has always been there. Has had previous injuries to the knee. Patient Goals: would like to gain strength and decrease pain to get back to everyday activities Functional Limitations: rising from a chair;standing;walking;stair negotiation;squatting Prior Level of Function: Independent without limitations Relevant History Preferred Language: Belarusian Intake Information: Prescription present Previous Treatment: Physical Therapy Aquatic Screen: Yes Patient Weight: is 400 lbs or less Contra-indications to Aquatic Therapy: No noted contra-indications Ability to ascend /descend 5 stairs with assist of railing: Yes Pain: Pain Pain Level: 0 (8 at worst) Pain Location: Knee - Right Description: Aching Frequency: Intermittent PROMIS Scales T-scores: mean of general population = 50. 5 points is clinically meaningfully difference Percentiles provide an indication of how the patient's score ranks in relation to the general population. Higher percentile rankings indicate better function/quality of life. 50th percentile is the average of the general population and indicates half of respondents had a worse score. T-scores: mean of general population = 50. 5 points is clinically meaningfully difference Percentiles provide an indication of how the patient's score ranks in relation to the general population. Higher percentile rankings indicate better function/quality of life. 50th percentile is the average of the general population and indicates half of respondents had a worse score. OBJECTIVE MEASURES WITH LEVEL OF FUNCTION: Posture / Alignment LE Observations: R leg straight, L side slight valgus Knee Observations R Knee Presents with: Incision R Knee Palpation Tenderness: (unable to palpate at this date. Painful light touch from top of incision to bottom of incsision, covering the entire anterior aspect of the knee) Sensation - Lower Extremity LE Light Touch Sensation: Grossly Intact LE AROM R Knee Extension: -1 Degrees R Knee Flexion: 111 Degrees L Knee Extension: 2 Degrees L Knee Flexion: 148 Degrees LE PROM R Knee Flexion: 128 Degrees LE Joint Mobility R Patellar Mobility: (unable to assess) L Patellar Mobility: WNL LE Strength R LE Strength: unable to lift leg off table for SLR R Hip Flexion (L2): 4/5 R Knee Extension (L3): 4/5 R Knee Flexion: 4/5 R Ankle Dorsiflexion (L4): 4/5 L Hip Flexion (L2): 5/5 L Knee Extension (L3): 5/5 L Knee Flexion: 5/5 L Ankle Dorsiflexion (L4): 5/5 Functional Strength Functional Strength: Minisquat Minisquat: quad dominant, 25% depth, unable to control, knee is stiff Special Tests - Hip and Spine Hip and Spine Special Tests: Slump Test Slump Test: Right Positive;Left Negative Balance Static Standing Balance: Single Leg Stance 4 Stage Balance Test Narrow base of support (sec): 30 sec Semi-tandem base of support (sec): 30 sec Tandem base of support (sec): 30 sec (painful to R knee) Single leg stance - right (sec): 11 sec (painful) Single leg stance - left (sec): 13 sec Education: Education Learning Preferences: Demonstration;Explanation;Performance;Printed Materials Barriers: None Learning/educational needs: Health promotion;Safety;Home exercise program;Plan of Care Education Provided: Yes, see treatment interventions for education provided Education Provided To: Patient Education Mode/Type: Demonstration;Explanation/Discussion;Literature/Printed Materials;Performance Response to Education/Teach Back: States/Identifies;Return Demonstration TREATMENT: PT Treatment Interventions: Therapeutic Exercise Evaluation Evaluation Therapeutic Exercise: 1: *LAQ 3 x10 with 3s holds 2: *education on clinical presentation and involved structures 3: *education on HEP and POC 4: *education on use of aquatic hardwood flooring specialist Intervention: Patient was educated in proper exercise technique and purpose for exercises. Reviewed and educated patient on additions/changes for home exercise program as above (*). Skilled judgment was provided in selection of appropriate interventions. Billing * Evaluation Moderate Complexity: 1 Unit Therapeutic Exercise Treatment Minutes: 10 Total Treatment Time Minutes (timed/untimed): 45 Robert Liu PT , DPT, CSCS documented in this encounterSelect [facility]07-27-2022 Miscellaneous Notes* Telephone Encounter - Tatyana Manning - 03/29/2022 2:24 PM EDTSummary: R Knee Scheduled on 04/04. Checking john/Manjit to see if it would be helpful to have surgery records, from 08/16/21. Tatyana Manning March 29, 2022 2:24 PM * Telephone Encounter - Tatyana Manning - 03/29/2022 1:25 PM EDTSummary: R Knee Left vm message for patient. Tatyana Kerri March 29, 2022 1:25 PM * Telephone Encounter - Parth Plascencia Clinical Material Handler [facility] - 03/29/2022 11:15 AM EDT Please schedule this patient with NOBLE Cruz Clinical Material Handler [facility] March 29, 2022 11:17 AM * Telephone Encounter - Parth Plascencia Clinical Material Handler [facility] - 03/29/2022 11:15 AM EDT ----- Message from Sinan Carver sent at 03/29/2022 11:07 AM EDT ----- Regarding: Orthopedics / Open Knee: Total Knee Replacement / Previous Surgery By A Non- Provider Patient has been identified by name and Date of (Y/N): yes Patient: Kia Gonzalez Date of : 1975 Previous Provider Seen: none Body Part(s) Identified: right knee Diagnosis/Reason For Visit: pervious surgery by non ag provider Reason for the call/escalation: previous surgery by non ag If reason for call/escalation is discharge from ED/ER or Hospital, which facility was the patient seen at: non Was an appointment scheduled (Y/N): no Person calling if other than patient: no Return call to if other than patient: no Best contact number: [phone] Thank you, Sinan Carver March 29, 2022 11:08 AM documented in this encounterSelect [facility]06-30-2022 History of Present illness Narrative* Heather Alfonso PA-C - 03/02/2022 12:18 PM EDT Kia Gonzalez is a 46 year old female who presents with Eye Pain Right Eye (1 week ago) and blurry vission (yesterdy ) Patient is presenting today for right upper eyelid swelling. She has had this before. She was placed on doxycycline and Keflex and it improved. She is also had this that ended up being MRSA and so she did not want this to become worse. She has had tenderness redness to the area however no changes in vision. History reviewed. No pertinent past medical history. There is no problem list on file for this patient. Current Outpatient Medications Medication Sig Dispense Refill venlafaxine ER (EFFEXOR XR) 75 mg 24 hr capsule valACYclovir (VALTREX) 500 mg tablet traMADol (ULTRAM) 50 mg tablet oxybutynin (DITROPAN) 5 mg tablet 10 mg. omeprazole (PRILOSEC) 40 mg capsule as needed. ztfnhkojqgrw-[id number]-FA-vit K (ADULTS MULTIVITAMIN) 18 mg iron-400 mcg-25 mcg tab Take by mouth. gabapentin (NEURONTIN) 100 mg capsule Take 100 mg by mouth. fluticasone (FLONASE ALLERGY RELIEF) 50 mcg/actuation nasal spray Use in the nose. No current facility-administered medications for this visit. Social History Tobacco Use Smoking status: Current Every Day Smoker Types: Cigarettes Smokeless tobacco: Never Used Vaping Use Vaping Use: current everyday user Substances: Nicotine, THC Devices: Pre-filled pod Substance Use Topics Alcohol use: Yes Drug use: Never Alcohol Use: Yes Tobacco Use: Types: Cigarettes History reviewed. No pertinent family history. Review of Systems Constitutional: Negative. HENT: Negative. Eyes: Positive for redness. Negative for photophobia, pain, discharge, itching and visual disturbance. Respiratory: Negative. Cardiovascular: Negative. BP 118/82 Pulse 74 Temp 98.5 Resp 16 Wt 132 lb (59.9kg) SpO2 100% Physical Exam Vitals and nursing note reviewed. Constitutional: Appearance: Normal appearance. HENT: Head: Normocephalic and atraumatic. Eyes: General: Right eye: Hordeolum present. No foreign body or discharge. Left eye: No foreign body, discharge or hordeolum. Extraocular Movements: Extraocular movements intact. Conjunctiva/sclera: Conjunctivae normal. Pupils: Pupils are equal, round, and reactive to light. Cardiovascular: Rate and Rhythm: Normal rate and regular rhythm. Pulses: Normal pulses. Heart sounds: Normal heart sounds. Pulmonary: Effort: Pulmonary effort is normal. Breath sounds: Normal breath sounds. Neurological: Mental Status: She is alert and oriented to person, place, and time. ASSESSMENT/PLAN: 1. Hordeolum externum of right upper eyelid - ICD9: 373.11, ICD10: H00.011 - DOXYCYCLINE HYCLATE 100 MG TABLET - CEPHALEXIN 500 MG CAPSULE Patient has a hordeolum present to the upper eyelid on the right side. His approximately 1 cm in length tender to palpation. I am going to cover her with both doxycycline and cephalexin as this has helped her the best in the past. She is to continue using warm compresses to the area. If worsening then she is to go to the ER for further evaluation and treatment. Patient agrees and understands planat this time. Patient was stable upon discharge from [facility]. Heather Alfonso PA-C documented in this encounterSelect Medical [facility]08-10-2021 Evaluation + Plan note Future Scheduled Tests Radiology* MA Mammo Screening Bilateral w/ Oneil 04/12/21 [facility] Consult note Author Rupa Moore [facility] Note Date/Time December 12, 2024 2:1 7pm [facility] Medical Records Department [address] [place] [address] Anesthesia Postop Eval I 12/12/24 1416 MR#: [id number] Acct: [id number] Name: KIA GONZALEZ LOYDA Rep #:[id number] : 1975 49 From: Rupa Moore PCP: Teri Garcia NP-C Status:REG S DC Y Race: C Location: [place] [address] Anesthesia: Postop Eval I Current Vital Signs Temperature: 97.9 F Pulse Rate: 71 Blood Pressure: 86/67 Respiratory Rate: 16 Pulse Ox: 98 Oxygen Delivery Method: Room Air Assessment Airway patent: Yes Spontaneous unlabored respirations: Yes Mental status: Asleep nausea: No Vomiting: No Anesthesia Complication: No Fluid Hydration Crystalloid volume administer (ml): 30 Total IV fluid infused: 30 Progress Note Anesthesia document: Postop Eval 1 completed: Yes 12/12/241416 <Electronically signed by Rupa Moore > Date _ Rupa Blanca Signature: Date CC: ~ Signed [facility] Work Phone: Consult note Author Jay Fay [facility] Note Date/Time December 12, 2024 3:2 5pm [facility] Medical Records Department [address] [place] [address] Anesthesia Postop Eval II 12/12/24 1459 MR#: [id number] Acct: [id number] Name: KIA GONZALEZ Rep #:[id number] : 1975 49 From: Jay Fay MD PCP: Teri Lorson, COVERAGE SPECIALIST-C Status:REG S DC Y Race: C Location: [place] [address] Anesthesia Postop Eval I Sum Postop Eval Completion status Anesthesia document: Postop Eval 1 completed: Yes Anesthesia Postop Eval I Summary Anesthesia Postop Eval I Summary: Anesthesia Postop Eval I: Assessment Summary Airway patent Yes 12/12/24 14:17 [email or web address] Spontaneous unlabored Yes 12/12/24 14:17 [email or web address] respirations Mental status Asleep 12/12/24 14:17 [email or web address] nausea No 12/12/24 14:17 [email or web address] Vomiting No 12/12/24 14:17 [email or web address] Anesthesia Postop Eval I: Fluid Summary Crystalloid volume administer 30 12/12/24 14:17 [email or web address] (ml) Colloids volume administered ( ml) Blood Product volume administered (ml) Total IV fluid infused 30 12/12/24 14:17 [email or web address] Anesthesia Postop Eval I: Summary Notes Anesthesia Complication No 12/12/24 14:17 [email or web address] Anesthesia Complication Comment: Post-operative progress note Anesthesia: Postop Eval II Evaluation Mental status: Awake Pain Level: 0 nausea: No Vomiting: No 12/12/24 6091 <Electronically signed by Jay Fay MD > Date _ Jay Fay MD [facility] Signature: Date CC: ~ Signed [facility] Work Phone: Consult note Author Rupa Moore [facility] Note Date/Time January 13, 2025 2:36p [facility] Medical Records Department [address] [place] [address] Anesthesia Postop Eval I 01/13/25 1435 MR#: [id number] Acct: [id number] Name: KIA GONZALEZ Rep #:[id number] : 1975 49 From: Rupa Moore PCP: SANDI Rick Status:REG S DC Y Race: C Location: [place] [address] Anesthesia: Postop Eval I Current Vital Signs Temperature: 97 F Pulse Rate: 68 Blood Pressure: 91/61 Respiratory Rate: 16 Pulse Ox: 100 Oxygen Delivery Method: Room Air Assessment Airway patent: Yes Spontaneous unlabored respirations: Yes Mental status: Asleep nausea: No Vomiting: No Anesthesia Complication: No Fluid Hydration Crystalloid volume administer (ml): 900 Total IV fluid infused: 900 Progress Note Anesthesia document: Postop Eval 1 completed: Yes 01/13/25 1436 <Electronically signed by Rupa Moore > Date _ Rupa Moore Cosigner Signature: Date CC: ~ Signed [facility] Work Phone: Evaluation + Plan note Future Appointments Appointment Date:10/15/2023 09:30:00 AM Scheduled Provider:TERI GARCIA Location:[facility] Appointment Type: OV [facility] Evaluation + Plan note Future Appointments [facility] Evaluation + Plan note Future Appointments Appointment Date:05/08/2024 10:00:00 AM Scheduled Provider:ALYSIA SOLITARIO MD Location: [facility] Appointment Type:[facility] Evaluation + Plan note Future Appointments Appointment Date:10/02/2024 08:30:00 AM Scheduled Provider:ALYSIA SOLITARIO MD Location: [place] Appointment Type:[facility] Annual Exam Appointment Date:11/18/2024 10:00:00 AM Scheduled Provider:TERI GARCIA Location:Juan ALVAR[facility] Appointment Type:[facility] Annual [facility] Evaluation note* Diagnosis Hordeolum externum of right upper eyelid- Primary Hordeolum externum [facility] Chronic pain of right knee- Primary Muscle weakness Muscle weakness (generalized) [facility] Chronic pain of right knee- Primary Muscle weakness Muscle weakness (generalized) [facility] Diagnosis Chronic pain of right knee- Primary Muscle weakness Muscle weakness (generalized) [facility] Chronic pain of right knee- Primary Muscle weakness Muscle weakness (generalized) [facility] Chronic pain of right knee- Primary Muscle weakness Muscle weakness (generalized) [facility] Diagnosis Chronic pain of right knee- Primary Muscle weakness Muscle weakness (generalized) [facility] Chronic pain of right knee- Primary Patient risk and functional assessment Special screening for other specified conditions Complex regional pain syndrome i of right lower limb [facility] Chronic pain of right knee- Primary Muscle weakness Muscle weakness (generalized) [facility] Diagnosis Chronic pain of right knee- Primary Muscle weakness Muscle weakness (generalized) [facility] Diagnosis Complex regional pain syndrome i of right lower limb- Primary History of total knee arthroplasty, right [facility] Diagnosis Chronic pain of right knee- Primary Muscle weakness Muscle weakness (generalized) [facility] Diagnosis Complex regional pain syndrome i of right lower limb- Primary Chronic pain of right knee Spinal stenosis of lumbar region, unspecified whether neurogenic claudication present [facility] Diagnosis Chronic pain of right knee Complex regional pain syndrome i of right lower limb [facility] Diagnosis Complex regional pain syndrome i of right lower limb- Primary Chronic pain of right knee Anxiety due to invasive procedure [facility] Diagnosis Complex regional pain syndrome type 1 affecting right lower leg- Primary Complex regional pain syndrome i of right lower limb [facility] Diagnosis Acute pharyngitis, unspecified etiology- Primary Complex regional pain syndrome type 1 affecting right lower leg- Primary [facility] Diagnosis Complex regional pain syndrome type 1 affecting right lower leg- Primary Chronic pain of right knee Complex regional pain syndrome i of right lower limb documented [facility] this [facility]* Diagnosis Left arm cellulitis- Primary Cellulitis and abscess of upper arm and forearm documented in this encounter [facility] Author Lloyd Lee [facility] Note Date/Time December 12, 2024 1:4 4pm [facility] Medical Records Department [address] [place] [address] History & Physical Exam 12/12/24 1342 MR#: [id number] Acct: [id number] Name: KIA GONZALEZ Rep #:[id number] : 1975 49 From: Lloyd Lee DO PCP: KRISTINA RickC Status:REG S DC Location: [place] [address] HPI - General General Date of Admission: 12/12/24 Date of Service: 12/12/24 Chief Complaint: weight loss and abdominal pain with dysphagia HPI Narrative KIA GONZALEZ, is a 49 F who presents abdominal pain, constipation and weight loss. EGD 11.14.17; Suspected Barrets esophagus, small amount of food debris in stomach, mild gastritis, normal duodenum EGD 5.18.24; small hiatal hernia, mild gastritis EGD 5.13.24; normal mucosa in the whole esophagus, erythema and congestion in the antrum, normal duodenum CT abd/pelvis 6.14.24; NO acute process within the abd/pelvis GES 6.25.24; slightly prolonged extrapolated T half emptying time of 126.5 minutes likely secondary to the 1st 60 minutes of imaging acquisition. Other marcelino normal BGI established 1.28.25 with complaints of weight loss, difficult swallowing, heartburn and irregular bowels. Previous work up with Qing HARDWICK. Smokes marijuana daily to stimulate appetite. On Pantoprazole 40 mg BID. Last EGD in 2023 and last colonoscopy about 10 years ago. RUQ US 2.1.25; normal OV 3.18.25; Pt has been struggling with oral intake. She feels full very quicklyafter eating. She is taking nutritional powder for extra calories. She is eatingmostly bland food and avoiding gluten and soy. She is unable to gain weight. Shecontinues to smoke marijuana. She has questions regarding oxybutynin for her bladder incontinence. [facility] History Congenital hernia of foramen of [place] Wears glasses MRSA infection Post-menopausal Anxiety Marijuana use Arthritis Anemia Back pain Difficulty swallowing History of ulceration History of IBS Gastric reflux Vapes nicotine containing substance Smoker Hoarseness History of pain when walking Herpes simplex viral infection Depression Anesthesia complication Polycystic ovaries Neuropathy Heart murmur Irritable bowel syndrome Hives Headache, migraine Gastrointestinal problem Back problem Seasonal allergies Home Medications ?Medication ?Instructions ?Recorded ?Last Taken ?Type multivitamin 1 ea PO DAILY 03/07/1712/10 History lactobacillus combination no.4 3 3,000 mmu cells PO QD AY 09/30/24 12/10/24 History billion cell capsule (Probiotic) magnesium 250 mg tablet 250 mg PO QDAY 09/30/2405/28 History oxybutynin chloride 10 mg 10 mg PO BID 09/30/24 History tablet,extended release 24 hr pantoprazole 40 mg tablet,delayed 20 mg PO BID 5 12/10/24 History release valacyclovir 500 mg tablet 500 mg PO QDAY 09/30/2405/28 History ondansetron 8 mg disintegrating 8 mg PO Q12H PRN nause a and 12/10/24 12/10/24 History tablet vomiting fluticasone propionate 50 1 spray intranasal DAILY PRN 12/12/24 12/10/24 History mcg/actuation nasal allergy symptoms spray,suspension (24 Hour Allergy Relief) Allergy/AdvReac Type Severity Reaction Status Date / Time sucralfate (From Carafate) Allergy Severe Swelling Verified 12/12/24 12:52 soy Allergy Hives Verified 12/12/24 12:52 sulfamethoxazole (From Allergy Swelling Verified 12/12/24 12:52 Bactrim) trimethoprim (From Bactrim) Allergy Swelling Verified 12/12/24 12:52 Family History Mother Cancer Anemia Arthritis Breast cancer Father Cancer Hypertension Heart disease Diabetes Myocardial infarction, Onset Age: 59 Brother Hypertension Hypercholesteremia Sister Arthritis Other Anxiety Surgical History History of esophagogastroduodenoscopy (EGD) History of hysterectomy History of total right knee replacement S/P right knee arthroscopy History of tonsillectomy Social History Smoking Status: Current every day smoker tobacco type: cigarettes alcohol intake: current substance use type: marijuana ROS Constitutional Constitutional: Denies fatigue, fever(s), poor appetite, weight gain or weight loss Gastrointestinal Gastrointestinal: Denies belching, bloating, change in bowel habits, change in stool character, chewing difficulty, coffee ground emesis, constipation, cramping, diarrhea, dyspepsia, dysphagia, early satiety, excessive flatus, fecalincontinence, heartburn, hematemesis, hematochezia, hemorrhoids, loose stools, melena, nausea, odynophagia, rectal bleeding, tenesmus, vomiting or weight changes Vital Signs Vital Signs Vital Signs: 12/12/24 12:58 12/12/24 12:58 Temperature 98 F Temperature Source Temporal Pulse Rate 57 L Respiratory Rate 16 Respiratory Pattern Normal Blood Pressure 118/86 H Blood Pressure Mean 96 Blood Pressure Source Monitor Blood Pressure Position Semi-Fowlers Blood Pressure Location Left Arm Pulse Ox 100 Oxygen Delivery Method Room Air Weight Weight: 103 lb 2.821 oz Body Mass Index (BMI) 17.2 Physical Exam Const alert, oriented x3, no apparent distress and healthy appearing General Appearance: cooperative GI normal to inspection, nondistended, normoactive bowel sounds, soft to palpation,non-tender and non-distended Percussion: normal to percussion Rectal Exam: deferred Assessment & Plan Assessment/Plan (1) Constipation: (2) Gastroparesis: (3) Nausea: (4) Loose stools: (5) Abdominal pain: PLAN: Assessment and Plan Assessment and Plan (1) Gastroparesis: Status: Acute Plan: This is a 49 yo female pt with hx of gastroparesis here today for f/u. Pt continues to struggle with oral intake due to early satiety. She cannot maintaina normal weight. I reviewed options for treatment with patient. She declines tx with Reglan as she is concern about side effects. Will order 4 hour gastric emptying study and consider referral to gastroparesis clinic if indicated. She will also have a repeat EGD. She has not had a colonoscopy in 10 years so she will have one in conjunction with the EGD. She is having constipation. I provided samples of Linzess 72 mcg and if she has good results I will send in prescription for this. -4 hour GES -EGD and colonoscopy -Declines Reglan -Consider other tx for gastroparesis -Consider referral to gastroparesis appointemnt (2) Nausea: Status: Acute (3) Constipation: Status: Acute Orders: Orders Gastric Emptying Study - 4 HR Today K31.84 - Gastroparesis 12/12/24 1344 <Electronically signed by Lloyd Lee DO> Cosigner Signature (if applicable): CC: SANDI Garcia; Lloyd Lee DO~ Signed [facility] Work Phone: Hospital course Narrative No data available for this section [facility] Hospital Discharge instructions No data available for this section [facility] Progress note No data available for this section [facility] Reason for referral (narrative)No reason for referral [facility] Work Phone: Summary Purpose Family History No Family History Records Found Relationship Condition Age at Onset Recorded Date/T estefania Not Specified Anxiety Unknown mother Malignant neoplasm Unknown Anemia Unknown Arthritis Unknown Malignant neoplasm of breast Unknown father Malignant neoplasm Unknown Hypertension Unknown Cardiac disease Unknown Diabetes mellitus Unknown Myocardial infarction 59 brother Hypertension Unknown Hypercholesterolemia Unknown sister Arthritis Unknown Advance Directives No Advanced Directives Records Found Advance Directive Response Recorded Date/ Time Living Will No December 10, 2024 10:38am Do you have a Healthcare Power of Systems Protection Technician? No December 10, 2024 10:38am Advance Directive Response Recorded Date/ Time Do you have a Healthcare Power of Systems Protection Technician? No January 09, 2025 9:20am Living Will No December 10, 2024 10:38am Do you have a Healthcare Power of Systems Protection Technician? No December 10, 2024 10:38am Advance Directive Response Recorded Date/ Time Do you have a Healthcare Power of Systems Protection Technician? No January 09, 2025 9:20am Reason for Referral Specialty Diagnoses / Procedures Referred By Contac t Referred To Contact MR IMAGING Diagnoses Chronic pain of right knee Complex regional pain syndrome i of right lower limb Procedures MRI LUMBAR SPINE WO IVCON MRI SPINAL CANAL LUMBAR W/O CONTRAST MATERIAL Avelina Hylton DO [address] [place] [address] Mr Imaging Referral ID Status Reason Start Date Expiration Date Visits Requested Visits Authorized [id number] Pending Review Auto-Generat ed Referral 2 09/30/2023 1 1 Specialty Diagnoses / Procedures Referred By Contac t Referred To Contact Diagnoses Complex regional pain syndrome i of right lower limb Procedures CONSULT FOR ACUPUNCTURE OFFICE/OUTPATIENT [facility] 60-74 MINUTES Khushboo Jones, [employer] [address] [place] [address] Referral ID Status Reason Start Date Expiration Date Visits Requested Visits Authorized [id number] Pending Review PCP Requested Referral 05/25/2022 05/25/2023 1 1 Specialty Diagnoses / Procedures Referred By Contac t Referred To Contact [facility] Diagnoses Chronic pain of right knee Muscle weakness Procedures PT REHAB FOLLOW UP ORDER (WITH AQUATIC) THER PX 1/> AREAS EACH 15 MIN AQUA THER W/XERSS Pt [address] [address] [facility] [address] [place] [address] Referral ID Status Reason Start Date Expiration Date Visits Requested Visits Authorized [id number] Pending Review PCP Requested Referral Auto-Generate d Referral 04/20/2022 07/19/2022 1 1 Medications Administered Section Inactive Administered Medications - up to 3 most recent administrations Medication Order MAR Action Action Date Dose Rate Site bupivacaine (PF) 0.5 % (5 mg/mL) 25 mg injection 25 mg (5 mL), OTHER, ONCE, 1 dose, On 10/23/22 at 1230 Given by [facility] 10/23/2022 1:04 PM EST 25 mg iohexol 300 mg IV injection (OMNIPAQUE 300) 300 mg, OTHER, ONCE, 1 dose, On Sun10/23/22 at 1230 Given by [facility] 10/23/2022 1:04 PM EST 300 mg lidocaine (PF) 20 mg/mL (2 %) 200 mg injection (XYLOCAINE) 200 mg (10 mL), OTHER, ONCE, 1 dose, On Sun10/23/22 at 1230 Given by [facility] 10/23/2022 1:03 PM EST 200 mg lidocaine 10 mg/mL (1 %) 100 mg injection (XYLOCAINE) 100 mg, OTHER, ONCE, 1 dose, On Sun10/23/22 at 1230 Given by [facility] 10/23/2022 1:06 PM EST 100 mg methylPREDNISolone acetate 40 mg injection (DEPO-Medrol) 40 mg, OTHER, ONCE, 1 dose, On Sun10/23/22 at 1230 Given by [facility] 10/23/2022 1:05 PM EST 40 mg Inactive Administered Medications - up to 3 most recent administrations Medication Order MAR Action Action Date Dose Rate Site dexAMETHasone sodium phosphate 10 mg for oral administration (DECADRON) 10 mg, ORAL, ONCE, 1 dose, On Sun11/03/22 at 1200, For Oral Use Only - May be mixed with food or beverage for administration. Given 11/03/2022 11:55 AM EST 10 mg Chief Complaint and Reason for Visit Chief Complaint Admit Date Gastroesophageal reflux disease (GERD) J anuary 2024 7:07am RUQ PAIN October 04, 2024 7 :25am Follow up November 18, 2024 6:5 8am Reason for Visit Admit Date Abdominal pain September 30, 2024 7 :07am Loose stools September 30, 2024 7 :07am Nausea September 30, 2024 7 :07am Gastroesophageal reflux disease September 30, 2024 7:07am Constipation November 18, 2024 6:5 8am Gastroparesis November 18, 2024 6:5 8am Nausea November 18, 2024 6:5 8am Abdominal pain December 12, 2024 12: 09pm Constipation December 12, 2024 12: 09pm Gastroparesis December 12, 2024 12: 09pm Loose stools December 12, 2024 12: 09pm Nausea December 12, 2024 12: 09pm Chief Complaint Admit Date Gastroesophageal reflux disease (GERD) J anuary 2024 7:07am RUQ PAIN October 04, 2024 7 :25am Follow up November 18, 2024 6:5 8am gastroparesis December 17, 2024 7:0 5am 3 M FU December 29, 2024 7:5 9am Reason for Visit Admit Date Abdominal pain September 30, 2024 7 :07am Loose stools September 30, 2024 7 :07am Nausea September 30, 2024 7 :07am Gastroesophageal reflux disease September 30, 2024 7:07am Constipation November 18, 2024 6:5 8am Gastroparesis November 18, 2024 6:5 8am Nausea November 18, 2024 6:5 8am Abdominal pain December 12, 2024 12: 09pm Constipation December 12, 2024 12: 09pm Gastroparesis December 12, 2024 12: 09pm Loose stools December 12, 2024 12: 09pm Nausea December 12, 2024 12: 09pm Abdominal pain December 29, 2024 7:5 9am Difficulty swallowing December 29, 2024 7 :59am Nausea December 29, 2024 7:5 9am Abdominal pain January 13, 2025 12:33 pm Constipation January 13, 2025 12:33 pm Difficulty swallowing January 13, 2025 12: 33pm Gastroparesis January 13, 2025 12:33 pm Nausea January 13, 2025 12:33 pm Chief Complaint Admit Date Gastroesophageal reflux disease (GERD) J anuary 2024 7:07am RUQ PAIN October 04, 2024 7 :25am Follow up November 18, 2024 6:5 8am gastroparesis December 17, 2024 7:0 5am 3 M FU December 29, 2024 7:5 9am Test Result January 27, 2025 7:12a m Chief Complaint Admit Date Follow up November 18, 2024 6:5 8am gastroparesis December 17, 2024 7:0 5am 3 M FU December 29, 2024 7:5 9am Test Result January 27, 2025 7:12a m DIFFICULTY SWALLOWING February 09, 2025 9:0 8am Reason for Visit Admit Date Constipation November 18, 2024 6:5 8am Gastroparesis November 18, 2024 6:5 8am Nausea November 18, 2024 6:5 8am Abdominal pain December 12, 2024 12: 09pm Constipation December 12, 2024 12: 09pm Gastroparesis December 12, 2024 12: 09pm Loose stools December 12, 2024 12: 09pm Nausea December 12, 2024 12: 09pm Abdominal pain December 29, 2024 7:5 9am Difficulty swallowing December 29, 2024 7 :59am Nausea December 29, 2024 7:5 9am Abdominal pain January 13, 2025 12:33 pm Constipation January 13, 2025 12:33 pm Difficulty swallowing January 13, 2025 12: 33pm Gastroparesis January 13, 2025 12:33 pm Nausea January 13, 2025 12:33 pm Abdominal pain January 27, 2025 7:12a m Constipation January 27, 2025 7:12a m Gastroparesis January 27, 2025 7:12a m Nausea January 27, 2025 7:12a m Chief Complaint Admit Date 3 M FU December 29, 2024 7:5 9am Test Result January 27, 2025 7:12a m DIFFICULTY SWALLOWING February 09, 2025 9:0 8am 6 M FU April 21, 2025 1: 43pm Reason for Visit Admit Date Abdominal pain December 29, 2024 7:5 9am Difficulty swallowing December 29, 2024 7 :59am Nausea December 29, 2024 7:5 9am Abdominal pain January 13, 2025 12:33 pm Constipation January 13, 2025 12:33 pm Difficulty swallowing January 13, 2025 12: 33pm Gastroparesis January 13, 2025 12:33 pm Nausea January 13, 2025 12:33 pm Abdominal pain January 27, 2025 7:12a m Constipation January 27, 2025 7:12a m Gastroparesis January 27, 2025 7:12a m Nausea January 27, 2025 7:12a m Abdominal pain April 21, 2025 1: 43pm Constipation April 21, 2025 1: 43pm Gastroparesis April 21, 2025 1: 43pm Nausea April 21, 2025 1: 43pm Reason for Visit Admit Date Abdominal pain December 29, 2024 7:5 9am Difficulty swallowing December 29, 2024 7 :59am Nausea December 29, 2024 7:5 9am Abdominal pain January 13, 2025 12:33 pm Constipation January 13, 2025 12:33 pm Difficulty swallowing January 13, 2025 12: 33pm Gastroparesis January 13, 2025 12:33 pm Nausea January 13, 2025 12:33 pm Abdominal pain January 27, 2025 7:12a m Constipation January 27, 2025 7:12a m Gastroparesis January 27, 2025 7:12a m Nausea January 27, 2025 7:12a m Abdominal pain April 21, 2025 1: 43pm Constipation April 21, 2025 1: 43pm Nausea April 21, 2025 1: 43pm Weight loss April 21, 2025 1: 43pm Chief Complaint Admit Date Test Result January 27, 2025 7:12a m DIFFICULTY SWALLOWING February 09, 2025 9:0 8am 6 M FU April 21, 2025 1: 43pm Reason for Visit Admit Date Abdominal pain January 13, 2025 12:33 pm Constipation January 13, 2025 12:33 pm Difficulty swallowing January 13, 2025 12: 33pm Gastroparesis January 13, 2025 12:33 pm Nausea January 13, 2025 12:33 pm Abdominal pain January 27, 2025 7:12a m Constipation January 27, 2025 7:12a m Gastroparesis January 27, 2025 7:12a m Nausea January 27, 2025 7:12a m Abdominal pain April 21, 2025 1: 43pm Constipation April 21, 2025 1: 43pm Nausea April 21, 2025 1: 43pm Weight loss April 21, 2025 1: 43pm Chief Complaint Admit Date Test Result January 27, 2025 7:12a m DIFFICULTY SWALLOWING February 09, 2025 9:0 8am 6 M FU April 21, 2025 1: 43pm R/O SMA SYNDROME May 07, 2025 3:57pm Additional Source Comments INFORMATION SOURCE (unrecogn ized section and content) DATE CREATED AUTHOR 07/04/2020 [facility] DATE CREATED AUTHOR AUTHOR'S ORGANIZ ATION 04/01/2022 [facility] DATE CREATED AUTHOR AUTHOR'S ORGANIZ ATION 01/11/2024 [facility] DATE CREATED AUTHOR AUTHOR'S ORGANIZ ATION 04/17/2024 [facility] [facility] ([place]) DATE CREATED AUTHOR AUTHOR'S ORGANIZ ATION 10/07/2024 [facility] DATE CREATED AUTHOR AUTHOR'S ORGANIZ ATION 12/13/2024 [facility] DATE CREATED AUTHOR AUTHOR'S ORGANIZ ATION 12/14/2024 [facility] DATE CREATED AUTHOR AUTHOR'S ORGANIZ ATION 12/17/2024 [facility] DATE CREATED AUTHOR AUTHOR'S ORGANIZ ATION 03/25/2025 [facility] DATE CREATED AUTHOR AUTHOR'S ORGANIZ ATION 07/15/2025 [facility] Source Comments (unrecognize d section and content) In the event this informatio n is protected by the Federal Confidentiality of Alcohol and Drug Abuse Patient Records regulations: The Federal rules restrict any use of the information to criminally investigate or prosecute any alcohol or drug abuse patient.[facility], IncIn the event this information is protected by the Federal Confidentiality of Alcohol and Drug Abuse Patient Records regulations: The Federal rules restrict any use of the information to criminally investigate or prosecute any alcohol or drug abuse patient.[facility], IncIn the event this information is protected by the Federal Confidentiality of Alcohol and Drug Abuse Patient Records regulations: The Federal rules restrict any use of the information to criminally investigate or prosecute any alcohol or drug abuse patient.[facility], IncIn the event this information is protected by the Federal Confidentiality of Alcohol and Drug Abuse Patient Records regulations: The Federal rules restrict any use of the information to criminally investigate or prosecute any alcohol or drug abuse patient.[facility], IncIn the event this information is protected by the Federal Confidentiality of Alcohol and Drug Abuse Patient Records regulations: The Federal rules restrict any use of the information to criminally investigate or prosecute any alcohol or drug abuse patient.[facility], IncIn the event this information is protected by the Federal Confidentiality of Alcohol and Drug Abuse Patient Records regulations: The Federal rules restrict any use of the information to criminally investigate or prosecute any alcohol or drug abuse patient.[facility], IncIn the event this information is protected by the Federal Confidentiality of Alcohol and Drug Abuse Patient Records regulations: The Federal rules restrict any use of the information to criminally investigate or prosecute any alcohol or drug abuse patient.[facility], IncIn the event this information is protected by the Federal Confidentiality of Alcohol and Drug Abuse Patient Records regulations: The Federal rules restrict any use of the information to criminally investigate or prosecute any alcohol or drug abuse patient.[facility], IncIn the event this information is protected by the Federal Confidentiality of Alcohol and Drug Abuse Patient Records regulations: The Federal rules restrict any use of the information to criminally investigate or prosecute any alcohol or drug abuse patient.[facility], IncIn the event this information is protected by the Federal Confidentiality of Alcohol and Drug Abuse Patient Records regulations: The Federal rules restrict any use of the information to criminally investigate or prosecute any alcohol or drug abuse patient.[facility], IncIn the event this information is protected by the Federal Confidentiality of Alcohol and Drug Abuse Patient Records regulations: The Federal rules restrict any use of the information to criminally investigate or prosecute any alcohol or drug abuse patient.[facility], IncIn the event this information is protected by the Federal Confidentiality of Alcohol and Drug Abuse Patient Records regulations: The Federal rules restrict any use of the information to criminally investigate or prosecute any alcohol or drug abuse patient.[facility], IncIn the event this information is protected by the Federal Confidentiality of Alcohol and Drug Abuse Patient Records regulations: The Federal rules restrict any use of the information to criminally investigate or prosecute any alcohol or drug abuse patient.[facility], IncIn the event this information is protected by the Federal Confidentiality of Alcohol and Drug Abuse Patient Records regulations: The Federal rules restrict any use of the information to criminally investigate or prosecute any alcohol or drug abuse patient.[facility], IncIn the event this information is protected by the Federal Confidentiality of Alcohol and Drug Abuse Patient Records regulations: The Federal rules restrict any use of the information to criminally investigate or prosecute any alcohol or drug abuse patient.[facility], IncIn the event this information is protected by the Federal Confidentiality of Alcohol and Drug Abuse Patient Records regulations: The Federal rules restrict any use of the information to criminally investigate or prosecute any alcohol or drug abuse patient.[facility], IncIn the event this information is protected by the Federal Confidentiality of Alcohol and Drug Abuse Patient Records regulations: The Federal rules restrict any use of the information to criminally investigate or prosecute any alcohol or drug abuse patient.[facility], IncIn the event this information is protected by the Federal Confidentiality of Alcohol and Drug Abuse Patient Records regulations: The Federal rules restrict any use of the information to criminally investigate or prosecute any alcohol or drug abuse patient.[facility], IncIn the event this information is protected by the Federal Confidentiality of Alcohol and Drug Abuse Patient Records regulations: The Federal rules restrict any use of the information to criminally investigate or prosecute any alcohol or drug abuse patient.[facility], IncIn the event this information is protected by the Federal Confidentiality of Alcohol and Drug Abuse Patient Records regulations: The Federal rules restrict any use of the information to criminally investigate or prosecute any alcohol or drug abuse patient.[facility], IncIn the event this information is protected by the Federal Confidentiality of Alcohol and Drug Abuse Patient Records regulations: The Federal rules restrict any use of the information to criminally investigate or prosecute any alcohol or drug abuse patient.[facility], IncIn the event this information is protected by the Federal Confidentiality of Alcohol and Drug Abuse Patient Records regulations: The Federal rules restrict any use of the information to criminally investigate or prosecute any alcohol or drug abuse patient.[facility], IncIn the event this information is protected by the Federal Confidentiality of Alcohol and Drug Abuse Patient Records regulations: The Federal rules restrict any use of the information to criminally investigate or prosecute any alcohol or drug abuse patient.[facility], IncIn the event this information is protected by the Federal Confidentiality of Alcohol and Drug Abuse Patient Records regulations: The Federal rules restrict any use of the information to criminally investigate or prosecute any alcohol or drug abuse patient.[facility], IncIn the event this information is protected by the Federal Confidentiality of Alcohol and Drug Abuse Patient Records regulations: The Federal rules restrict any use of the information to criminally investigate or prosecute any alcohol or drug abuse patient.[facility], IncIn the event this information is protected by the Federal Confidentiality of Alcohol and Drug Abuse Patient Records regulations: The Federal rules restrict any use of the information to criminally investigate or prosecute any alcohol or drug abuse patient.[facility], IncIn the event this information is protected by the Federal Confidentiality of Alcohol and Drug Abuse Patient Records regulations: The Federal rules restrict any use of the information to criminally investigate or prosecute any alcohol or drug abuse patient.[facility], IncIn the event this information is protected by the Federal Confidentiality of Alcohol and Drug Abuse Patient Records regulations: The Federal rules restrict any use of the information to criminally investigate or prosecute any alcohol or drug abuse patient.[facility], IncIn the event this information is protected by the Federal Confidentiality of Alcohol and Drug Abuse Patient Records regulations: The Federal rules restrict any use of the information to criminally investigate or prosecute any alcohol or drug abuse patient.[facility], IncIn the event this information is protected by the Federal Confidentiality of Alcohol and Drug Abuse Patient Records regulations: The Federal rules restrict any use of the information to criminally investigate or prosecute any alcohol or drug abuse patient.[facility], IncIn the event this information is protected by the Federal Confidentiality of Alcohol and Drug Abuse Patient Records regulations: The Federal rules restrict any use of the information to criminally investigate or prosecute any alcohol or drug abuse patient.[facility], IncIn the event this information is protected by the Federal Confidentiality of Alcohol and Drug Abuse Patient Records regulations: The Federal rules restrict any use of the information to criminally investigate or prosecute any alcohol or drug abuse patient.[facility], IncIn the event this information is protected by the Federal Confidentiality of Alcohol and Drug Abuse Patient Records regulations: The Federal rules restrict any use of the information to criminally investigate or prosecute any alcohol or drug abuse patient.[facility], IncIn the event this information is protected by the Federal Confidentiality of Alcohol and Drug Abuse Patient Records regulations: The Federal rules restrict any use of the information to criminally investigate or prosecute any alcohol or drug abuse patient.[facility], IncIn the event this information is protected by the Federal Confidentiality of Alcohol and Drug Abuse Patient Records regulations: The Federal rules restrict any use of the information to criminally investigate or prosecute any alcohol or drug abuse patient.[facility], IncIn the event this information is protected by the Federal Confidentiality of Alcohol and Drug Abuse Patient Records regulations: The Federal rules restrict any use of the information to criminally investigate or prosecute any alcohol or drug abuse patient.[facility], IncIn the event this information is protected by the Federal Confidentiality of Alcohol and Drug Abuse Patient Records regulations: The Federal rules restrict any use of the information to criminally investigate or prosecute any alcohol or drug abuse patient.[facility], IncIn the event this information is protected by the Federal Confidentiality of Alcohol and Drug Abuse Patient Records regulations: The Federal rules restrict any use of the information to criminally investigate or prosecute any alcohol or drug abuse patient.[facility], IncIn the event this information is protected by the Federal Confidentiality of Alcohol and Drug Abuse Patient Records regulations: The Federal rules restrict any use of the information to criminally investigate or prosecute any alcohol or drug abuse patient.[facility], IncIn the event this information is protected by the Federal Confidentiality of Alcohol and Drug Abuse Patient Records regulations: The Federal rules restrict any use of the information to criminally investigate or prosecute any alcohol or drug abuse patient.[facility] Reason for Visit (unrecogniz ed section and content) Reason Comments PT Discharge Specialty Diagnoses / Procedures Referred By Contac t Referred To Contact PHYSICAL THERAPY Diagnoses Chronic pain of right knee Muscle weakness Procedures PT REHAB FOLLOW UP ORDER (WITH AQUATIC) THER PX 1/> AREAS EACH 15 MIN AQUA THER W/Manjit Sebastian PA-C [address] [address] Robert Liu, PT Referral ID Status Reason Start Date Expiration Date Visits Requested Visits Authorized [id number] Authorized PCP Requested Referral Auto-Generate d Referral 04/20/2022 07/21/2022 24 24 Reason Comments Eye Pain Right Eye 1 week ago blurry vission yesterdy Reason Comments Appointment Reason Comments PT Eval Specialty Diagnoses / Procedures Referred By Contac t Referred To Contact Physical Therapy / PHYSICAL THERAPY Diagnoses KNEE PAIN Procedures NEW RS PT ORTH [facility] Manjit Romero PA-C [address] [place] [id number] Ronni Holland, PT [address] [place] [address] Referral ID Status Reason Start Date Expiration Date Visits Requested Visits Authorized [id number] Additional Clinical Info Needed 04/12/2022 09/02/2022 1 1 Reason Comments Physical Therapy Reason Comments PT Progress Note Specialty Diagnoses / Procedures Referred By Contac t Referred To Contact PHYSICAL THERAPY Diagnoses Chronic pain of right knee Muscle weakness Procedures PT REHAB FOLLOW UP ORDER (WITH AQUATIC) THER PX 1/> AREAS EACH 15 MIN AQUA THER W/XERSS Manjit Romero PA-C [address] [place] [address] Robert Liu PT Reason Comments New Patient Specialty Diagnoses / Procedures Referred By Contac t Referred To Contact Pain Management / PAIN MANAGEMENT Diagnoses New patient/Referred to [place] by Brayden @ Ortho - Right knee pain (BC) Procedures OFFICE/OUTPATIENT NEW MODERATE MDM 45-59 MINUTES NEW PATIENT Self Khushboo Jones, [employer] [address] [place] [address] Referral ID Status Reason Start Date Expiration Date Visits Re quested Visits Authorized [id number] Closed 09/03/2021 09/02/2022 1 1 Reason Comments Injections Injection questions Reason Comments FMLA Paperwork Reason Comments Insurance Authorization [facility] 2021 Reason Comments Established Patient Follow Up Specialty Diagnoses / Procedures Referred By Contac t Referred To Contact Orthopedics / ORTHOPAEDIC SURGERY Diagnoses rt knee Procedures OFFICE/OUTPATIENT ESTABLISHED MOD MDM 30-39 MIN EST PATIENT Self Manjit Romero PA-C [address] [facility] [address] [place] [address] Referral ID Status Reason Start Date Expiration Date Visits Re quested Visits Authorized [id number] Closed 09/03/2021 09/02/2022 1 1 Reason Comments Knee Pain Reason Comments No Show Missed # 1 Reason Comments Refill Request Reason Comments Knee Pain Specialty Diagnoses / Procedures Referred By Contac t Referred To Contact Physical Medicine and Rehab / PAIN MANAGEMENT Diagnoses ov Procedures OFFICE/OUTPATIENT ESTABLISHED MOD MDM 30-39 MIN EST PATIENT Warner Avelina, DO [address] [place] [address] Avelina Hylton DO [address] [place] [address] Referral ID Status Reason Start Date Expiration Date Visits Re quested Visits Authorized [id number] Closed 09/03/2021 09/02/2022 1 1 Reason Comments Other Insurance denied Lum bar MRI Specialty Diagnoses / Procedures Referred By Contac t Referred To Contact MR IMAGING Diagnoses Chronic pain of right knee Complex regional pain syndrome i of right lower limb Procedures MRI LUMBAR SPINE WO IVCON MRI SPINAL CANAL LUMBAR W/O CONTRAST MATERIAL NallelyAvelina price DO [address] [place] [address] Mr Imaging Referral ID Status Reason Start Date Expiration Date V isits Requested Visits Authorized [id number] Closed Auto-Generat ed Referral Clearance Not Met - Admin/Chairm an/Director Advise to Postpone/Res chedule or Not Proceed 09/20/2022 11/19/2022 1 1 Specialty Diagnoses / Procedures Referred By Contac t Referred To Contact Physical Medicine and Rehab / PAIN MANAGEMENT Diagnoses Follow-up examination 4 week follow up Procedures OFFICE/OUTPATIENT ESTABLISHED MOD MDM 30-39 MIN EST PATIENT Self Dario Hyltonald, DO [address] [place] [address] Referral ID Status Reason Start Date Expiration Date Visits Re quested Visits Authorized [id number] Closed 09/03/2022 09/02/2023 1 1 Reason Comments Patient Update MEDICATION Reason Comments Procedure Low Back Pain Specialty Diagnoses / Procedures Referred By Contac t Referred To Contact Pain Management / PAIN MANAGEMENT Diagnoses Complex regional pain syndrome i of right lower limb Lumbar sympathetic block Procedures INJECTION ANES LMBR/THRC PARAVERTBRL SYMPATHETIC PROCEDURE 20 Self Darwin Simmons MD [address] [place] [address] Referral ID Status Reason Start Date Expiration Date Visits Re quested Visits Authorized [id number] Closed 09/03/2022 09/02/2023 1 1 Reason Comments Sore Throat Cough congestion sta rted sunday Reason Comments Follow Up [facility] Reason Comments Insurance Authorization [facility] 2022 Reason Comments Possible insect/spider bite States she d oesn't see a bite. She just believes it might be a spider bite. It is her left arm and left hand. She states swelling and some redness. Care Team (unrecognized sect ion and content) Care Team Personnel Name: TERI GARCIA APRN-[facility] Position: P4 Advanced Practice Nurse Med Service: Active Provider Member Role: Primary Care Physician Address: Address: [address] [place] [id number] [place] Name: Galen Harris Triple Air Valve Testeradama Ojeda Position: P3 Scheduling - Triple Air Val[employer] Tester Advanced Member Role: Other Care Team Related Persons Name: BETTINA GONZALEZ Name: BETTINA GONZALEZ Address: [address] [phone] [place] Address: [address] [id number] Patient Care team informatio n (unrecognized section and content) Team Status: Active Member Role Status Dates Teri Garcia COVERAGE SPECIALIST, COVERAGE SPECIALIST-C Primary Care Provider Active Team Status: Inactive Member Role Status Dates Out of [facility] Doctor Primary Care Provider Active Start: September 30, 2024 End: September 30, 2024 Out of [facility] Doctor Referring Provider Active Sta rt: September 30, 2024 End: September 30, 2024 KEKE Morales Attending Provider Active Start: September 30, 2024 End: September 30, 2024 Team Status: Inactive Member Role Status Dates KEKE Morales Attending Provider Active Start: October 04, 2024 End: October 04, 2024 KEKE Morales Referring Provider Active Start: October 04, 2024 End: October 04, 2024 Teri Garcia COVERAGE SPECIALIST, COVERAGE SPECIALIST-C Primary Care Provider Active Start: October 04, 2024 End: October 04, 2024 Team Status: Inactive Member Role Status Dates Teri Garcia COVERAGE SPECIALIST, COVERAGE SPECIALIST-C Primary Care Provider Active Start: November 18, 2024 End: November 18, 2024 Teri Garcia COVERAGE SPECIALIST, COVERAGE SPECIALIST-C Referring Provider Active Start: November 18, 2024 End: November 18, 2024 KEKE Morales Attending Provider Active Start: November 18, 2024 End: November 18, 2024 Team Status: Inactive Member Role Status Dates Teri Garcia COVERAGE SPECIALIST, COVERAGE SPECIALIST-C Primary Care Provider Active Start: December 12, 2024 End: December 12, 2024 Teri Garcia COVERAGE SPECIALIST, COVERAGE SPECIALIST-C Referring Provider Active Start: December 12, 2024 End: December 12, 2024 Dr. Lloyd Lee DO Attending Provider Active Start: December 12, 2024 End: December 12, 2024 Team Status: Active Member Role Status Dates Teri Garcia NP, COVERAGE SPECIALIST-C Primary Care Provider Active Start: December 12, 2024 Teri Garcia COVERAGE SPECIALIST, COVERAGE SPECIALIST-C Referring Provider Active Start: December 12, 2024 Dr. Lloyd Lee DO Attending Provider Active Start: December 12, 2024 Dr. Lloyd Lee DO Other Provider Active St art: December 12, 2024 Team Status: Inactive Member Role Status Dates Teri Garcia COVERAGE SPECIALIST, COVERAGE SPECIALIST-C Primary Care Provider Active Start: December 17, 2024 End: December 17, 2024 KEKE Morales Attending Provider Active Start: December 17, 2024 End: December 17, 2024 KEKE Morales Referring Provider Active Start: December 17, 2024 End: December 17, 2024 Team Status: Inactive Member Role Status Dates Out of [facility] Doctor Referring Provider Active Sta rt: December 29, 2024 End: December 29, 2024 KEKE Morales Attending Provider Active Start: December 29, 2024 End: December 29, 2024 Teri Garcia COVERAGE SPECIALIST, COVERAGE SPECIALIST-C Primary Care Provider Active Start: December 29, 2024 End: December 29, 2024 Team Status: Inactive Member Role Status Dates Teri Garcia NP, COVERAGE SPECIALIST-C Primary Care Provider Active Start: January 13, 2025 End: January 13, 2025 Teri Garcia COVERAGE SPECIALIST, COVERAGE SPECIALIST-C Referring Provider Active Start: January 13, 2025 End: January 13, 2025 Dr. Lloyd Lee , DO Attending Provider Active Start: January 13, 2025 End: January 13, 2025 Team Status: Active Member Role Status Dates Teri Garcia NP, COVERAGE SPECIALIST-C Primary Care Provider Active Start: January 13, 2025 Teri Garcia NP, COVERAGE SPECIALIST-C Referring Provider Active Start: January 13, 2025 Dr. Lloyd Lee , DO Attending Provider Active Start: January 13, 2025 Dr. Lloyd Lee , DO Other Provider Active St art: January 13, 2025 Team Status: Inactive Member Role Status Dates Trei Garcia NP, COVERAGE SPECIALIST-C Primary Care Provider Active Start: January 27, 2025 End: January 27, 2025 Teri Garcia NP, COVERAGE SPECIALIST-C Referring Provider Active Start: January 27, 2025 End: January 27, 2025 KEKE Morales Attending Provider Active Start: January 27, 2025 End: January 27, 2025 Team Status: Inactive Member Role Status Dates Teri Garcia NP, COVERAGE SPECIALIST-C Primary Care Provider Active Start: February 09, 2025 End: February 09, 2025 KEKE Morales Attending Provider Active Start: February 09, 2025 End: February 09, 2025 KEKE Morales Referring Provider Active Start: February 09, 2025 End: February 09, 2025 [place]rimper Relationship Specialty Start Date End Date Teri Garcia APRN.CNP PCP - General Family Medicine 02/06/24 Team Status: Active Member Role/Relationship Status Dates Teri Garcia NP, COVERAGE SPECIALIST-C Primary Care Provider Active Team Status: Inactive Member Role/Relationship Status Dates Out of Town Doctor Referring Provider Active Sta rt: December 29, 2024 End: December 29, 2024 KEKE Morales Attending Provider Active Start: December 29, 2024 End: December 29, 2024 Teri Garcia COVERAGE SPECIALIST, COVERAGE SPECIALIST-C Primary Care Provider Active Start: December 29, 2024 End: December 29, 2024 Team Status: Inactive Member Role/Relationship Status Dates Teri Garcia COVERAGE SPECIALIST, COVERAGE SPECIALIST-C Primary Care Provider Active Start: January 13, 2025 End: January 13, 2025 Teri Garcia COVERAGE SPECIALIST, COVERAGE SPECIALIST-C Referring Provider Active Start: January 13, 2025 End: January 13, 2025 Dr. Lloyd Lee , Attending Provider Active Start: January 13, 2025 End: January 13, 2025 Team Status: Active Member Role/Relationship Status Dates Teri Garcia COVERAGE SPECIALIST, COVERAGE SPECIALIST-C Primary Care Provider Active Start: January 13, 2025 Teri Garcia COVERAGE SPECIALIST, COVERAGE SPECIALIST-C Referring Provider Active Start: January 13, 2025 Dr. Lloyd Lee DO Attending Provider Active Start: January 13, 2025 Dr. Lloyd Lee , Other Provider Active St art: January 13, 2025 Team Status: Inactive Member Role/Relationship Status Dates Teri Garcia COVERAGE SPECIALIST, COVERAGE SPECIALIST-C Primary Care Provider Active Start: January 27, 2025 End: January 27, 2025 Teri Garcia COVERAGE SPECIALIST, COVERAGE SPECIALIST-C Referring Provider Active Start: January 27, 2025 End: January 27, 2025 KEKE Morales Attending Provider Active Start: January 27, 2025 End: January 27, 2025 Team Status: Inactive Member Role/Relationship Status Dates Teri Garcia COVERAGE SPECIALIST, COVERAGE SPECIALIST-C Primary Care Provider Active Start: February 09, 2025 End: February 09, 2025 KEKE Morales Attending Provider Active Start: February 09, 2025 End: February 09, 2025 KEKE Morales Referring Provider Active Start: February 09, 2025 End: February 09, 2025 Team Status: Inactive Member Role/Relationship Status Dates Teri Garcia COVERAGE SPECIALIST, COVERAGE SPECIALIST-C Primary Care Provider Active Start: April 21, 2025 End: April 21, 2025 Teri Garcia COVERAGE SPECIALIST, COVERAGE SPECIALIST-C Referring Provider Active Start: April 21, 2025 End: April 21, 2025 KEKE Morales Attending Provider Active Start: April 21, 2025 End: April 21, 2025 Team Status: Inactive Member Role/Relationship Status Dates Teri Garcia COVERAGE SPECIALIST, COVERAGE SPECIALIST-C Primary Care Provider Active Start: April 21, 2025 End: April 21, 2025 KEKE Morales Attending Provider Active Start: April 21, 2025 End: April 21, 2025 KEKE Morales Referring Provider Active Start: April 21, 2025 End: April 21, 2025 Team Status: Active Member Role/Relationship Status Dates Teri Garcia COVERAGE SPECIALIST, COVERAGE SPECIALIST-C Primary Care Provider Active Start: April 27, 2025 KEKE Morales Attending Provider Active Start: April 27, 2025 KEKE Morales Referring Provider Active Start: April 27, 2025 Team Status: Inactive Member Role/Relationship Status Dates Teri Garcia COVERAGE SPECIALIST, COVERAGE SPECIALIST-C Primary Care Provider Active Start: January 13, 2025 End: January 13, 2025 Teri Garcia COVERAGE SPECIALIST, COVERAGE SPECIALIST-C Referring Provider Active Start: January 13, 2025 End: January 13, 2025 Dr. Lloyd Lee DO Attending Provider Active Start: January 13, 2025 End: January 13, 2025 Team Status: Active Member Role/Relationship Status Dates Teri Garcia COVERAGE SPECIALIST, COVERAGE SPECIALIST-C Primary Care Provider Active Start: January 13, 2025 Teri Garcia COVERAGE SPECIALIST, COVERAGE SPECIALIST-C Referring Provider Active Start: January 13, 2025 Dr. Lloyd Lee DO Attending Provider Active Start: January 13, 2025 Dr. Lloyd Lee DO Other Provider Active St art: January 13, 2025 Team Status: Inactive Member Role/Relationship Status Dates Teri Garcia COVERAGE SPECIALIST, COVERAGE SPECIALIST-C Primary Care Provider Active Start: January 27, 2025 End: January 27, 2025 Teri Garcia COVERAGE SPECIALIST, COVERAGE SPECIALIST-C Referring Provider Active Start: January 27, 2025 End: January 27, 2025 KEKE Morales Attending Provider Active Start: January 27, 2025 End: January 27, 2025 Team Status: Inactive Member Role/Relationship Status Dates Teri Garcia COVERAGE SPECIALIST, COVERAGE SPECIALIST-C Primary Care Provider Active Start: February 09, 2025 End: February 09, 2025 KEKE Morales Attending Provider Active Start: February 09, 2025 End: February 09, 2025 KEKE Morales Referring Provider Active Start: February 09, 2025 End: February 09, 2025 Team Status: Inactive Member Role/Relationship Status Dates Teri Garcia COVERAGE SPECIALIST, COVERAGE SPECIALIST-C Primary Care Provider Active Start: April 21, 2025 End: April 21, 2025 Teri Garcia NP, COVERAGE SPECIALIST-C Referring Provider Active Start: April 21, 2025 End: April 21, 2025 KEKE Morales Attending Provider Active Start: April 21, 2025 End: April 21, 2025 Team Status: Inactive Member Role/Relationship Status Dates Teri Garcia NP, COVERAGE SPECIALIST-C Primary Care Provider Active Start: April 21, 2025 End: April 21, 2025 KEKE Morales Attending Provider Active Start: April 21, 2025 End: April 21, 2025 KEKE oMrales Referring Provider Active Start: April 21, 2025 End: April 21, 2025 Team Status: Inactive Member Role/Relationship Status Dates Teri Garcia COVERAGE SPECIALIST, COVERAGE SPECIALIST-C Primary Care Provider Active Start: April 27, 2025 End: April 27, 2025 KEKE Morales Attending Provider Active Start: April 27, 2025 End: April 27, 2025 KEKE Morales Referring Provider Active Start: April 27, 2025 End: April 27, 2025 Team Status: Inactive Member Role/Relationship Status Dates Teri Garcia NP, COVERAGE SPECIALIST-C Primary Care Provider Active Start: May 07, 2025 End: May 07, 2025 KEKE Morales Attending Provider Active Start: May 07, 2025 End: May 07, 2025 KEKE Morales Referring Provider Active Start: May 07, 2025 End: May 07, 2025 FOR RECORDS PERTAINING TO PATIENTS WHO ARE OR HAVE BEEN ENROLLED IN A CHEMICAL DEPENDENCY/SUBSTANCEABUSE PROGRAM, SOME INFORMATION MAY BE OMITTED. This clinical summary was aggregated from multiple sources. Caution should be exercised in using it in the provision of clinical care. This summary normalizes information from multiple sources, and as a consequence, information in this document may materially change the coding, format and clinical context of patient data. In addition, data may be omitted in some cases. CLINICAL DECISIONS SHOULD BE BASED ON THE PRIMARY CLINICAL RECORDS. [facility] provides no warranty or guarantee of the accuracy or completeness of information in this document.
[2025-08-20 08:21] VITALS: BP 120/87; PULSE 64; RESP 16; TEMP 36.6; O2SAT 99
== END 2025-08-20 08:23 | disposition home or self-care (01) ==
PROVIDERS: Emergency Provider Emergency Medicine; PCP Nurse Practitioner Family; Visit Provider Emergency Medicine
DX: M25.562 Pain in left knee (principal); F41.9 Anxiety disorder, unspecified; K21.9 Gastro-esophageal reflux disease without esophagitis; Z96.651 Presence of right artificial knee joint; F17.210 Nicotine dependence, cigarettes, uncomplicated
CPT/HCPCS: 73564; 96372; 99282